=== PATIENT | female | born 1955 | race Caucasian/White ===

== ENCOUNTER 2023-10-08 07:46 | Outpatient (OUT) | payer MEDICARE, MEDICAID, SELFPAY ==
--- NOTE | 2023-10-08 07:57 | MM_ITS ---
Patient Name: ROMIE GREEN MR#: [id number] : 1955 Exam Date: 10/08/2023 Ordering Doctor: DR. SCOTTY BEAVERS M.D. RADIOLOGY REPORT PROCEDURE: MM TOMOSYNTHESIS SCREENING BI COMPARISON: MG MAMM SCREEN 3D CASIE CAD, 09/13/2021. MG MAMM SCREEN 3D CASIE CAD, 09/17/2022. INDICATIONS: Screening Calculator Name NCI Breast Cancer Risk Assessment Tool 5 Year Breast Cancer Risk 1.20% Lifetime Breast Cancer Risk 3.70% Personal Breast Cancer No Personal Ovarian Cancer No Treatments None Family Cancers Brother with esophageal cancer at age 68. LOCATION: [facility] BREAST COMPOSITION: Scattered areas fibroglandular density. FINDINGS: DIAGNOSTIC CATEGORY 2--BENIGN FINDING. NO CHANGE FROM COMPARISON. Scattered benign-appearing nodules are present. Scattered benign-appearing calcifications are present. Scattered benign-appearing lymph nodes are present. RIGHT BREAST: No significant suspicious finding. Focal asymmetry 3 o'clock, mid breast, stable LEFT BREAST: No significant suspicious finding. RECOMMENDATIONS: ROUTINE MAMMOGRAM AND CLINICAL EVALUATION IN 12 MONTHS. PLEASE NOTE: A NORMAL MAMMOGRAM DOES NOT EXCLUDE THE POSSIBILITY OF BREAST CANCER. A CLINICALLY SUSPICIOUS PALPABLE LUMP SHOULD BE BIOPSIED. Dictated by: Jasson Smith MD on 10/08/2023 at 12:02 Approved by: Jasson Smith MD on 10/08/2023 at 12:10
== END 2023-10-08 07:47 | disposition home or self-care (01) ==
PROVIDERS: PCP Family Medicine; Visit Provider Family Medicine
DX: Z12.31 Encounter for screening mammogram for malignant neoplasm of breast (principal); Z80.0 Family history of malignant neoplasm of digestive organs
CPT/HCPCS: 77063; 77067

== ENCOUNTER 2023-11-14 10:00 | Outpatient (OUT) | payer MEDICARE, MEDICAID, SELFPAY ==
--- NOTE | 2023-11-14 10:06 | US_ITS ---
[address] [address] Patient Name: ROMIE GREEN MRN: [id number] date: 1955 Sex: F Assigned Patient Location: US Current Patient Location: US Accession/Order Number: [id number] Exam Date: 11/14/2023 10:07 Report Date: 11/14/2023 10:35 At the request of: MANISH MASON Procedure: US venous doppler LE LT EXAM: US venous doppler LE LT HISTORY: acute deep vein thrombosis of distal vein I82.4Z2 COMPARISON: None. TECHNIQUE: Grayscale, color and Doppler FINDINGS: Region: Left leg Thrombus: None Flow: Normal Augmentation: Normal compressibility: Normal US/US venous doppler LE LT IMPRESSION: No deep or superficial vein thrombus in the left leg Electronically authenticated by: MICHAEL BOOKER Date: 11/14/2023 10:35
== END 2023-11-14 10:01 | disposition home or self-care (01) ==
LOC: US 10:00
PROVIDERS: PCP Family Medicine
DX: I82.4Z2 Acute embolism and thrombosis of unspecified deep veins of left distal lower extremity (principal)
CPT/HCPCS: 93971

== ENCOUNTER 2024-04-14 10:22 | Observation (INO) | payer MEDICARE, MEDICAID, SELFPAY ==
[2024-04-14] VITALS (28 sets, daily range): BP systolic 105–153; BP diastolic 54–82; PULSE 68–88; TEMP 36.7–36.9; O2SAT 95–99; BMI 29.2; BMI 28.6
--- NOTE | 2024-04-14 10:45 | ECG_ITS ---
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
--- NOTE | 2024-04-14 10:45 | CT_ITS ---
[address] [address] Patient Name: ROMIE GREEN MRN: [id number] date: 1955 Sex: F Assigned Patient Location: ER Current Patient Location: .[facility] Accession/Order Number: [id number] Exam Date: 04/14/2024 11:13 Report Date: 04/14/2024 11:34 At the request of: LEANDRA JARRETT Procedure: CT head/brain wo con CT head without contrast CLINICAL: Dizziness TECHNIQUE: Computed tomography of the head was performed from the skull base to the vertex without intravenous contrast. Coronal 2-D reformations were obtained. Dose reduction: mA and/or kV are adjusted by automated exposure control software based on patient size. FINDINGS: Comparison: CT 10/27/2012. There is moderate global atrophy. Mild periventricular and subcortical matter hypodensities are noted. No findings for acute large vessel territorial ischemia. No acute intracranial hemorrhage, mass effect, midline shift. The nodules are symmetrical, without superimposed hydrocephalus. Basilar cisterns are clear. There is no focal skull abnormality. Hyperostosis frontalis interna noted. There are several bony exostoses along the anterior margin of the outer table left frontal bone. Small calcific lesions along the falx. There is moderate mucosal thickening of the right maxillary sinus. The remainder the visualized paranasal sinuses and mastoid air cells clear. There is intracranial atherosclerosis. Prior bilateral lens surgery. Patient is edentulous. CT/CT head/brain wo con IMPRESSION: 1. Age-appropriate cerebral atrophy with chronic small vessel ischemic white matter disease, without acute intracranial event. No hydrocephalus or mass effect. 2. Chronic right maxillary sinusitis. The remainder the visualized paranasal sinuses and mastoid air cells clear. If the patient has persistent or acute neurologic symptoms, or if there is clinical suspicion for acute intracranial event, recommend brain MRI for further evaluation if there are no contraindications. Electronically authenticated by: GLADYS WADDELL Date: 04/14/2024 11:34
--- NOTE | 2024-04-14 10:45 | XR_ITS ---
The [address] [address] Patient Name: ROMIE GREEN MRN: [id number] date: 1955 Sex: F Assigned Patient Location: ER Current Patient Location: ER Accession/Order Number: [id number] Exam Date: 04/14/2024 11:13 Report Date: 04/14/2024 11:26 At the request of: LEANDRA JARRETT Procedure: XR chest 1V EXAM: CHEST 1 VIEW HISTORY: Dizziness TECHNIQUE: Chest, one view. COMPARISON: 07/09/2023. FINDINGS: Lungs are clear. No focal consolidation, pleural effusion, or pneumothorax. Pulmonary vasculature is within normal limits. Median sternotomy changes with upper-normal to borderline enlarged heart size. XR/XR chest 1V IMPRESSION: 1. No acute cardiopulmonary disease. Electronically authenticated by: GLADYS WADDELL Date: 04/14/2024 11:26
--- NOTE | 2024-04-14 10:46 | ED.DIZZY1 ---
HPI - Dizziness General Chief Complaint: Dizziness Stated Complaint: DIZZINESS Time Seen by Provider: 04/14/24 10:25 Source: patient Mode of arrival: walk-in Limitations: no limitations History of Present Illness HPI Narrative: 69-year-old female presents to the emergency department for dizziness. She has been having this intermittently since early March, about the time she received her COVID and influenza shots. She has had no fever vomiting or headache. She has been to another emergency department twice and they gave her meclizine. She states that they did not run any test on her at all. She states they did not do an EKG or blood test or a CAT scan. She states that when she gets dizzy she feels like the room is spinning and she is never had that issue before. No fever or vomiting Review of Systems ROS Narrative A ten point review of systems is negative except as noted above. [facility] Medical History (Updated 04/14/24 @ 12:15 by Chavo Donaldson MD) Coronary artery disease involving coronary bypass graft ?I25.810 - Atherosclerosis of coronary artery bypass graft(s) without angina pectoris (ICD-10) Pulmonary embolism ?I26.99 - Other pulmonary embolism without acute cor pulmonale (ICD-10) Myocardial infarct ?I21.9 - Acute myocardial infarction, unspecified (ICD-10) IBS (irritable bowel syndrome) ?K58.9 - Irritable bowel syndrome, unspecified (ICD-10) Hyperlipemia ?E78.5 - Hyperlipidemia, unspecified (ICD-10) Hypertension ?I10 - Essential (primary) hypertension (ICD-10) Hepatic steatosis ?K76.0 - Fatty (change of) liver, not elsewhere classified (ICD-10) Glaucoma ?H40.9 - Unspecified glaucoma (ICD-10) GERD (gastroesophageal reflux disease) ?K21.9 - Gastro-esophageal reflux disease without esophagitis (ICD-10) Diabetes mellitus ?E11.9 - Type 2 diabetes mellitus without complications (ICD-10) Depression ?F32.A - Depression, unspecified (ICD-10) CVA (cerebral vascular accident) ?I63.9 - Cerebral infarction, unspecified (ICD-10) COPD (chronic obstructive pulmonary disease) ?J44.9 - Chronic obstructive pulmonary disease, unspecified (ICD-10) CAD (coronary artery disease) ?I25.10 - Atherosclerotic heart disease of [place] coronary artery without angina pectoris (ICD-10) Atelectasis ?J98.11 - Atelectasis (ICD-10) Anxiety ?F41.9 - Anxiety disorder, unspecified (ICD-10) Anemia ?D64.9 - Anemia, unspecified (ICD-10) Surgical History (Updated 04/14/24 @ 12:11 by Shyanne Junior RN) H/O: hysterectomy ?Z90.710 - Acquired absence of both cervix and uterus (ICD-10) Hx of cholecystectomy ?Z90.49 - Acquired absence of other specified parts of digestive tract (ICD-10) Social History Little interest or pleasure in doing things: not at all Feeling down, depressed, or hopeless: not at all Exam Narrative Exam Narrative: Nurses note and vital signs reviewed and patient is not hypoxic. General: The patient appears well and in no apparent distress. Patient is resting comfortably on cart. Skin: Warm, dry, no pallor noted. There is no rash noted. Head: Normocephalic, atraumatic Eye: Normal conjunctiva, no drainage Ears, Nose, Mouth, and Throat: oral mucosa is moist. Nares patent. Cardiovascular: Regular Rate and Rhythm Respiratory: Patient is in no distress, no accessory muscle use, lungs are clear to auscultation, no wheezing, rales or rhonchi Back: non-tender GI: Soft and nontender Musculoskeletal: The patient has no evidence of calf tenderness, no pitting edema, symmetrical pulses noted bilaterally Neurological: Awake alert and oriented. Upper and lower extremity strength intact. Psychiatric: Cooperative Constitutional Vital Signs, click to edit/add: Last Vital Signs Temp 98.4 F 04/14/24 12:07 Pulse 72 04/14/24 11:40 Resp 13 04/14/24 11:40 BP 105/64 04/14/24 11:30 Pulse Ox 98 04/14/24 11:03 Course Vital Signs Vital signs: Vital Signs Pulse Rate 77 04/14/24 10:31 Respiratory Rate 18 04/14/24 10:31 Blood Pressure 127/79 04/14/24 10:31 Pulse Oximetry 99 04/14/24 10:31 Temperature 98.4 F 04/14/24 12:07 Pulse Rate 72 04/14/24 11:40 Respiratory Rate 13 04/14/24 11:40 Blood Pressure 105/64 04/14/24 11:30 Pulse Oximetry 98 04/14/24 11:03 MDM - Dizziness MDM Narrative Medical decision making narrative: The patient is found to be anemic with a hemoglobin of 7.8. In November she had a hemoglobin of 11.9. Her renal function is poor also with a creatinine of 2.6. She had a creatinine of 1.05 in November. These issues are likely the cause of her dizziness and she is being admitted for further workup and this was discussed thoroughly with the patient and her sister. Differential Diagnosis Differential diagnosis: Likely benign paroxysmal positional vertigo, orthostatic hypotension and other (Anemia, renal failure) Lab Data Attestation: I reviewed the patient's lab results. Labs: Lab Results 04/14/24 04/14/24 04/14/24 Range/Units 10:37 10:49 11:44 WBC 9.8 (4.0-11.0) 10^3/uL RBC 2.59 L (4.20-5.40) 10^6/uL Hgb 7.8 L (12.0-16.0) g/dL Hct 24.4 L (36.0-48.0) % MCV 94.2 (81.0-99.0) fL MCH 30.1 (26.7-34.0) pg MCHC 32.0 (29.9-35.2) g/dL RDW 13.3 (11.0-15.0) % Plt Count 153 (150-450) 10^3/uL MPV 10.9 (9.5-13.5) fL Neut % (Auto) 70.5 (43.0-75.0) % Lymph % (Auto) 12.8 L (20.5-60.0) % [place] % (Auto) 6.3 (1.7-12.0) % Eos % (Auto) 9.4 H (0.9-7.0) % Baso % (Auto) 0.5 (0.2-2.0) % Neut # (Auto) 6.9 H (1.4-6.5) 10^3/uL Lymph # (Auto) 1.3 (1.2-3.8) 10^3/uL [place] # (Auto) 0.6 (0.3-0.8) 10^3/uL Eos # (Auto) 0.9 H (0.0-0.7) 10^3/uL Baso # (Auto) 0.1 (0.0-0.1) 10^3/uL Abs Immat Gran (auto) 0.05 H (0.00-0.03) 10^3/uL Imm/Tot Granulo (auto) 0.5 (0.0-0.5) % Sodium 135 L (136-145) mmol/L Potassium 5.0 (3.5-5.1) mmol/L Chloride 100 (98-107) mmol/L Carbon Dioxide 25.8 (21.0-32.0) mmol/L Anion Gap 14.2 BUN 35.0 H (7.0-18.0) mg/dL Creatinine 2.60 H (0.55-1.02) mg/dL Est GFR ( Amer) 22 L (>=60) Est GFR (Non-Af Amer) 18 L (>=60) BUN/Creatinine Ratio 13.5 Glucose 126 H (74-106) mg/dL Calcium 9.8 (8.5-10.1) mg/dL Stool Occult Blood Negative POC Glucose 136 H (74-106) mg/dL Imaging Data CT scan - head: Radiologist's impression: ITS Impressions Chest X-Ray 04/14/24 10:45 IMPRESSION: 1. No acute cardiopulmonary disease. Electronically authenticated by: GLADYS WADDELL Date: 04/14/2024 11:[address] 04/14/24 10:45 IMPRESSION: 1. Age-appropriate cerebral atrophy with chronic small vessel ischemic white matter disease, without acute intracranial event. No hydrocephalus or mass effect. 2. Chronic right maxillary sinusitis. The remainder the visualized paranasal sinuses and mastoid air cells clear. If the patient has persistent or acute neurologic symptoms, or if there is clinical suspicion for acute intracranial event, recommend brain MRI for further evaluation if there are no contraindications. Electronically authenticated by: CARROLLC-sam NADIRA Date: 04/14/2024 11:34 ECG Data Attestation: I personally reviewed and interpreted this ECG as follows: (EKG on my interpretation shows normal sinus rhythm without acute change.) Discharge Plan Discharge Chief Complaint: Dizziness Clinical Impression: Anemia, Renal failure Patient Disposition: Admitted As Inpatient Time of Disposition Decision: 12:14
[2024-04-14 10:49] LABS: Glucometer 136 mg/dL (74-106)
[2024-04-14 11:04] LABS: Anion Gap 14.2; BUN Creatinine Ratio 13.5; Calcium 9.8 mg/dL (8.5-10.1); Carbon Dioxide 25.8 mmol/L (21.0-32.0); Chloride 100 mmol/L (98-107); Estimated GFR (African America 22 (>=60); Estimated GFR (Non-African Ame 18 (>=60); Glucose 126 mg/dL (74-106); Sodium 135 mmol/L (136-145)
[2024-04-14 11:09] LABS: Basophils Absolute Auto 0.1 10^3/uL (0.0-0.1); Basophils Percent Auto 0.5 % (0.2-2.0); Eosinophils Absolute Auto 0.9 10^3/uL (0.0-0.7); Eosinophils Percent Auto 9.4 % (0.9-7.0); Hematocrit 24.4 % (36.0-48.0); Hemoglobin 7.8 g/dL (12.0-16.0); Immature Granulocytes Abs Auto 0.05 10^3/uL (0.00-0.03); Immature Granulocytes Pct Auto 0.5 % (0.0-0.5); Lymphocytes Absolute Auto 1.3 10^3/uL (1.2-3.8); Lymphocytes Percent Auto 12.8 % (20.5-60.0); Mean Corpuscular Hemoglobin 30.1 pg (26.7-34.0); Mean Corpuscular Volume 94.2 fL (81.0-99.0); Mean Platelet Volume 10.9 fL (9.5-13.5); Monocytes Absolute Auto 0.6 10^3/uL (0.3-0.8); Monocytes Percent Auto 6.3 % (1.7-12.0); Neutrophils Absolute Auto 6.9 10^3/uL (1.4-6.5); Neutrophils Percent Auto 70.5 % (43.0-75.0); Platelet Count 153 10^3/uL (150-450); Red Blood Count 2.59 10^6/uL (4.20-5.40); Red Cell Distribution Width 13.3 % (11.0-15.0); White Blood Count 9.8 10^3/uL (4.0-11.0)
[2024-04-14 11:51] LABS: Internal Control Within Normal Limits; Occult Blood Negative
[2024-04-14 12:38] LABS: Bilirubin Urine NEGATIVE (NEGATIVE); Blood Urine NEGATIVE (NEGATIVE); Clarity Urine CLEAR (CLEAR); Color Urine YELLOW (YELLOW); Glucose Urine UA NEGATIVE (NEGATIVE); Ketones Urine NEGATIVE (NEGATIVE); Leukocyte Esterase Urine SMALL (NEGATIVE); Nitrite Urine NEGATIVE (NEGATIVE); Protein Urine NEGATIVE (NEG/TRACE); Urobilinogen Urine 0.2 EU/dL (0.2-1.0); pH Urine 7.5 (5.0-9.0)
[2024-04-14 12:52] LABS: Bacteria Urine TRACE #/HPF (NONE SEEN); RBC Urine 0-2 #/HPF (0-2)
[2024-04-14 12:53] LABS: Cast Seen? SEEN #/LPF (NONE SEEN); Crystals Seen? None Seen #/HPF (None Seen); Hyaline Casts Urine RARE; Mucus Urine TRACE (NONE SEEN); Squamous Epithelial Cell Urine MODERATE #/LPF (NONE/RARE); Transitional Epi Cells Urine RARE #/LPF (NONE SEEN)
--- OUTSIDE RECORDS SUMMARY | 2024-04-14 13:22 | XMS_ITS | CCD ---
Author Organization [facility] Care Team Providers Care Emergency Management System Director Name Role Phone Giovanna Morrow Unavailable Klaus Hebert Unavailable [facility] Admitting Unava ilable [facility] Attending Unava ilable MISC, DR GALEANO Primary Care Unavailable ALLGOOD, DR MICHAEL Hamm Consulting Unavailable SCOTTY KUMAR Unavailable MISC, DR GALEANO Admitting Unavailable MISC, DR GALEANO Attending Unavailable MISC, DR GALEANO Primary Care Unavailable MISC, DR GALEANO Consulting Unavailable Paolo Busch Consulting Unavailable Fam August Unavailable Scotty Kumar MD Primary Care Provider NON STAFF Primary Care Provider UnavailHIPOLITO Reyna Attending Provider NON STAFF Primary Care Unavailable Giovanna Morrow Attending Unavailable Giovanna Morrow Admitting Unavailable HAMMAD MARTINS JR Attending Unavailable SCOTTY KUMAR Referring Unavailable SCOTTY KUMAR Primary Care Unavailable MANISH MAOSN Attending Unavailable MANISH MASON Attending Unavailable MANISH MASON Attending Unavailable MANISH MASON Attending Unavailable MANISH MASON Attending Unavailable NON STAFF Primary Care Provider UnavailHIPOLITO Cespedes Attending Provider AMARILYS FELIZ Referring Unavailable SCOTTY KUMAR Primary Care Unavailable SCOTTY KUMAR Referring Unavailable SCOTTY KUMAR Primary Care Unavailable HAMMAD MARTINS JR Attending Unavailable HAMMAD MARTINS JR Referring Unavailable SCOTTY KUMAR Primary Care Unavailable YAIMA LIN Referring Unavailab YAIMA Mckeon Primary Care Unavailab le YAIMA LIN Referring Unavailab le DEANNAERYAIMA GODOY Primary Care Unavailab le MYERHOLTZ, YAIMA K Primary Care Unavailab AIRAM Gardner Attending Unavailable JR GODFREY Attending Unavailable SCOTTY KUMAR Referring Unavailable SCOTTY KUMAR Primary Care Unavailable YAIMA LIN Primary Care Unavailab MICHAEL Magana Attending Unavailable Allergies Allergy Classification Reported Allergen(s) Allergy Type Date of Onset Reaction(s) Facility (20 sources) Acetaminophen / Codeine Drug Allergy Unknown [facility] Other (20 sources) Acetaminophen / Propoxyphene Drug Allergy Unknown [facility] Other (20 sources) Baclofen; Translations: [baclofen] Drug Allergy 08-31-19 22 Dizziness [facility] (20 sources) benzonatate Drug Allergy 08-12-19 24 Unknown, Unknown Reaction [facility] (20 sources) Clindamycin; Translations: [CLINDAMYCIN] Drug Allergy 08-31-19 22 Hives [facility] Other (20 sources) clopidogrel; Translations: [CLOPIDOGREL] Drug Allergy 08-31-19 22 Dizziness [facility] Other (20 sources) Erythromycin Drug Allergy 04-22-20 14 Nausea And Vomiting [facility] Other (20 sources) Ibuprofen Drug Allergy Unknown [facility] Other (20 sources) Omeprazole; Translations: [OMEPRAZOLE] Drug Allergy 04-22-20 14 Nausea [facility] Other (20 sources) Penicillin V Drug Allergy Unknown [facility] Other (18 sources) Penicillin Drug Allergy Unknown [facility] Other (8 sources) Albuterol; Translations: [ALBUTEROL] Drug Allergy 09-19-19 17 [facility] Codeine; Translations: [CODEINE] Drug Allergy 04-22-20 14 Diarrhea, Nausea And Vomiting [facility] (10 sources) Ibuprofen; Translations: [IBUPROFEN] Drug Allergy 04-22-20 14 Nausea And Vomiting [facility] (10 sources) Penicillins; Translations: [PENICILLINS] Propensity to adverse reactions to drug 04-22-20 14 [facility] (10 sources) Propoxyphene; Translations: [PROPOXYPHENE] Drug Allergy 08-31-19 22 Nausea [facility] (8 sources) Simvastatin; Translations: [SIMVASTATIN] Drug Allergy 04-22-20 14 [facility] (3 sources) Acetaminophen; Translations: [acetaminophen] Drug Allergy 08-12-19 [facility] (5 sources) erythromycin base; Translations: [erythromycin base] Allergy to substance 04-22-20 Unknown Reaction [facility] (1 source) benzonatate Drug Allergy 08-12-19 [facility] (1 source) Clindamycin Drug Allergy 08-12-19 [facility] (1 source) clopidogrel Drug Allergy 08-12-19 [facility] (1 source) Codeine Drug Allergy 08-12-19 [facility] (1 source) Ibuprofen Drug Allergy 08-12-19 [facility] (1 source) Omeprazole Drug Allergy 08-12-19 [facility] (1 source) Penicillins Drug allergy (disorder) 08-12-19 [facility] (1 source) Propoxyphene Drug Allergy 08-12-19 [facility] (1 source) Sulfamethoxazole / Trimethoprim; Translations: [SULFAMETHOXAZOLE-T RIMETHOPRIM] Drug Allergy 04-09-20 [facility] Medications Current Medications Medication Drug Class(es) Dates Sig (Normalized) Sig (Original) acetaminophen 500 mg oral tablet (20 sources) take 1 tablet by mouth every six hours as needed for pain acetaminophen (TYLENOL EXTRA STRENGTH) 500 mg tablet Take 1 tablet (500 mg total) by mouth every 6 (six) hours as needed for pain. 0 Active take 2 capsules by m outh every six hours Acetaminophen 500 MG 2 capsule as needed Orally every 6 hrs Active take 1 capsule by mouth every si x hours Acetaminophen 500 MG 1 capsule as needed Orally every 6 hrs Active acetaminophen 325 mg / HYDROcodone bitartrate 5 mg oral tablet (1 source) Opioid Agonist Start: 11-18-2023 take 1 tablet by mouth every eight hours Hydrocodone-Acetaminophen Active 1 TAB PO Every 8 hours November 18, 2023 12:00am [id number] 200 actuat albuterol 0.09 mg/actuat metered dose inhaler (20 sources) beta2-Adrene rgic Agonist Start: 11-18-2023 Albuterol Sulfate Active INHALATION November 18, 2023 12:00am take 0.63 mg by inha lation every six hours as needed for wheezing albuterol (ACCUNEB) 0.63 mg/3 mL nebuliz er solution Inhale 3 mL (0.63 mg total) by nebulization every 6 (six) hours as needed for wheezing. 0 Active take 1 puff(s) by in halation every four hours as needed Ventolin HFA 108 (90 Base) MCG/ACT 1 puf f as needed Inhalation every 4 hrs Not-Taking/PRN aspirin 81 mg delayed release oral tablet (20 sources) Platelet Aggregation Inhibitor, Nonsteroidal Anti-inflammatory Drug Start: 11-18-2023 take 81 mg by mouth once daily Aspirin Active 81 MG PO Daily November 18, 2023 12:00am Start: 08-29-2023 End: 08-29-2023 take 1 tablet by mouth in the morning aspirin 81 mg Take 1 tablet (81 mg total) by mouth in the morning. 90 tablet 3 08/29/2023 Active Aspirin 81 MG as directed Orally Active biotin 5 mg oral capsule (20 sources) take 1 capsule by mo uth in the morning biotin (BIOTIN) 5 mg capsule Take 1 capsule (5 mg total) by mouth in the morning. 0 Active take 1 tablet by charito th every twenty-four hours Biotin 1000 MCG 1 tablet Orally Once a day Active take 1 capsule by mouth once anika ly take 1 capsule by mouth once anika ly Biotin 5000 5 MG 1 capsule Orally Once a day Active blood sugar diagnostic (One Touch Test) (1 source) Start: 10-03-2023 blood sugar diagnostic (One Touch Test) Active .Route October 03, 2023 12:00am calcium polycarbophil 625 mg oral tablet (3 sources) Fiber 625 MG 2 t ablet as needed Orally every 3 days Active carvedilol 25 mg oral tablet (20 sources) alpha-Adrener gic Danny, beta-Adrenerg ic Danny Start: 08-21-2022 End: 08-29-2023 take 1 tablet by mouth in the morning, then take 1 tablet by mouth at mealtime carvediloL (COREG) 25 mg tablet Take 1 tablet (25 mg total) by mouth in the morning and 1 tablet (25 mg total) in the evening. Take with meals. 180 tablet 3 08/29/2023 Active Cholecalciferol (20 sources) Vitamin D Start: 11-22-2021 take 1 capsule by mouth every week Cholecalciferol 1.25 MG (40786 UT) 1 capsule Orally WEEKLY for 56 days November, Active take 1 capsule by mouth in the m orning cholecalciferol (VITAMIN D3) 50,000 units capsule Take 1 capsule (50,000 Units total) by mouth in the morning. 0 Active take 1 tablet by charito th every twenty-four hours Vitamin D 50 MCG (2000 UT) 1 tablet Oral ly Once a day Active take 1 capsule by mo ut every week as needed Cholecalciferol 1.25 MG (04494 UT) 1 cap blanco Orally WEEKLY for 56 days Not-Taking/PRN take 1 capsule by mouth every we ek Cholecalciferol 1.25 MG (03372 UT) 1 capsule Orally WEEKLY for 56 days Not-Taking take 2 tablets by mo uth every twenty-four hours Vitamin D 50 MCG (2000 UT) 2 tablet Oral ly Once a day Active take 1 capsule by mouth every we ek take 1 capsule by mouth every we ek Cholecalciferol 1.25 MG (08951 UT) 1 capsule Orally WEEKLY for 56 days Active ciprofloxacin 500 mg oral tablet (13 sources) Quinolone Antimicrobial Colon Cleanse - (3 sources) Colon Cleanse - as directed Orally Active dicyclomine hydrochloride 20 mg oral tablet (8 sources) Anticholinergic Start: 09-10-19 24 End: 10-09-19 24 take 20 mg by mouth three times daily Dicyclomine Active 20 MG PO Three times daily 270 90 October 09, 2023 10:32am Patient needs a office visit for further refills Start: 04-29-2023 take 1 tablet by charito th every eight hours Dicyclomine HCl 20 MG 1 tablet Orally Three times a day for 30 days Apr, Not-Taking/PRN dulaglutide (20 sources) GLP-1 Receptor Agonist Start: 12-23-2023 Dulaglu tide Active 3 MG SUBCUT every week December 23, 2023 4:53pm Ok to dispense 4.5 mg when 3.0 mg unavailable Start: 07-27-2022 Trulicity 3 MG /0.5ML 3 mg Subcutaneous weekly for 90 days ANTHEM BC/BS WILL ALLOW 2 PER 28 DAYS Jul, Not-Taking/PRN Start: 07-27-2022 Trulicity 3 MG /0.5ML 3 mg Subcutaneous weekly for 90 days ANTHEM BC/BS WILL ALLOW 2 PER 28 DAYS Jul, Active Start: 07-27-2022 inject 3 mg by subcu taneous injection every week Trulicity 3 MG/0.5ML 3 mg Subcutaneous weekly for 90 days Jul, Active Start: 05-24-2021 TRULICITY 1.5 mg/0.5 mL pen injector once a week. 0 06/15/2021 Active Start: 04-10-2021 Trulicity 0.75 MG/0.5ML as directed Subcutaneous weekly for 30 days Mar, Active inject 4.5 mg by sub cutaneous injection every week Trulicity 4.5 MG/0.5ML 4.5 mg Subcutaneous weekly for 90 days patient start after finishing 3.0 mg dosing Active Trulicity 3 MG/0 .5ML as directed Subcutaneous weekly for 90 days Active Estradiol (8 sources) Estrogen Start: 11-18-2023 Estradiol Acti ve 1 APPLICATOR VAGINAL 3 Times a week November 18, 2023 12:00am Start: 05-11-2022 End: 07-11-2023 estradioL (ESTRACE) 0.01 % ( 0.1 mg/gram) vaginal cream Apply nightly for 3 weeks, then 3 times per week. 127.5 g 3 07/11/2023 Active ferrous sulfate 325 mg oral tablet (20 sources) take 1 tablet by charito th once daily at breakfast ferrous sulfate 325 (65 FE) mg tablet Take 1 tablet (325 mg total) by mouth daily with breakfast. 0 Active take 1 tablet by mouth once barrera y Ferrous Sulfate 325 (65 Fe) MG 1 tablet Orally Once a day Active Flash Glucose Sensor (Freest yle Terrance 2 Sensor) kit (2 sources) Start: 11-18-2023 Flash Glucose Sensor (Freestyle Terrance 2 Sensor) kit Active 0 KIT .MEDSUPPLY November 18, 2023 9:22am As directed Change every 14 Days Start: 10-03-2023 End: 11-18-2023 Flash Glucose Sensor (Freest yle Terrance 2 Sensor) kit Discontinued 0 KIT .MEDSUPPLY October 03, 2023 12:00am November 18, 2023 9:22am As directed Change every 14 Days fluticasone propionate 0.05 mg/actuat metered dose nasal spray (6 sources) Corticosteroid take 1 spray(s) nasal route in the morning fluticasone propionate (FLONASE) 50 mcg/actuation nasal spray Administer 1 spray into each nostril in the morning. 0 Active 14 actuat fluticasone furoate 0.1 mg/actuat / vilanterol 0.025 mg/actuat dry powder inhaler (20 sources) Corticosteroid, beta2-Adrenergic Agonist take 1 puff(s) by inhalation once daily as needed fluticasone furoate-vilanteroL (BREO ELLIPTA) 100-25 mcg/dose blister with device Inhale 1 puff nightly as needed. 0 Active take 1 puff(s) by inhalation onc e daily take 1 puff(s) by inhalation onc e daily BREO ELLIPTA 100 mcg/25 mcg 1 puff Inhalation daily Active FreeStyle Terrance 2 [place] - (20 sources) Start: 05-24-2021 FreeStyle Libr e 2 [place] - as directed -- 5 x day for 365 days May, Active FreeStyle Terrance 2 [place] - TEST 5 TIMES DAILY DIRECTED for 30 Active FreeStyle Terrance 2 [place] - as directed -- 5 x day for 365 days Active FreeStyle Terrance 2 Sensor - (20 sources) Start: 05-24-2021 FreeStyle Libr e 2 Sensor - as directed in vitro q 14 days for 84 days May, Active FreeStyle Terrance 2 Sensor - as directed in vitro q 14 days for 84 days Dx E11.65 Active FreeStyle Terrance 2 Sensor - as directed in vitro q 14 days for 84 days Active gabapentin 300 mg oral capsule (4 sources) Anti-epileptic Agent Start: 11-18-2023 take 300 mg by mouth once daily Gabapentin Active 300 MG PO Daily November 18, 2023 12:00am take 1 capsule by [facility] every twenty-four hours Gabapentin 300 MG 1 capsule Orally Once a day Active hydroCHLOROthiazide 12.5 mg oral tablet (20 sources) Thiazide Diuretic Start: 11-18-2023 take 12.5 mg by mouth once daily Hydrochlorothiazide Active 12.5 MG PO Daily November 18, 2023 12:00am Start: 08-29-2023 take 1 tablet by chartio th once daily hydroCHLOROthiazide (HYDRODIURIL) 12.5 mg tablet Take 1 tablet (12.5 mg total) by mouth daily. 90 tablet 3 08/29/2023 Active Start: 07-18-2022 End: 08-29-2023 take 0.5 tablet by mouth once daily hydroCHLOROthiazide (HYDRODIURIL) 25 mg tablet Take 0.5 tablets (12.5 mg total) by mouth daily. 45 tablet 3 07/18/2022 08/29/2023 Discontinued (Reorder) take 1 capsule by mo uth every twenty-four hours hydroCHLOROthiazide 12.5 MG 1 capsule in the morning Orally Once a day Active 3 ml insulin glargine 100 unt/ml pen injector (20 sources) Insulin Analog Start: 11-18-2023 Insulin Glargi ne (Lantus Solostar U-100 Insulin) 100 unit/mL (3 mL) insulin pen Active 10 UNIT SUBCUT Every evening 9 November 18, 2023 9:45am Titrate to 30 u per day, has written instructions Start: 11-18-2023 End: 11-18-2023 inject 10 [IU] by subcutaneous injection once daily in the evening Insulin Glargine (Lantus Solostar U-100 Insulin) 100 unit/mL (3 mL) insulin pen Discontinued 10 UNIT SUBCUT Every evening November 18, 2023 8:49am November 18, 2023 9:49am Start: 10-03-2023 End: 11-18-2023 Insulin Glargine (Lantus Dianelys ostar U-100 Insulin) 100 unit/mL (3 mL) insulin pen Discontinued 11 UNIT SUBCUT Every evening October 03, 2023 12:00am November 18, 2023 8:57am Start: 07-05-2021 LANTUS SOLOSTA R U-100 INSULIN 100 unit/mL (3 mL) insulin pen 16 Units in the morning. 0 07/05/2021 Active Lantus SoloStar 100 UNIT/ML 11 u Subcutaneous daily for 90 days Titrate. Expect up to 30 u per day. Encouraged her to decrease Lantus to 11 units when she starts Trulicity 4.5 mg weekly Active Lantus SoloStar 100 UNIT/ML 20 u Subcutaneous daily for 90 days Titrate. Expect up to 30 u per day Active Lantus SoloStar 100 UNIT/ML as directed Subcutaneous Titrate up 10% weekly if supper sugar > 130 3 of 7 days, expect up to 30 u daily Active 3 ml insulin lispro 100 unt/ml pen injector (2 sources) Insulin Analog Start: 05-24-2021 HumaLOG KwikPe n 100 UNIT/ML Scale 1:50 AC TID Subcutaneous AC TID for 30 days Expect up to 20 u per day May, Active 24 hr isosorbide mononitrate 30 mg extended release oral tablet (20 sources) Nitrate Vasodilator Start: 11-18-2023 take 30 mg by mouth once daily Isosorbide Mononitrate Active 30 MG PO Daily November 18, 2023 12:00am Start: 05-22-2023 End: 08-29-2023 take 1 tablet by mouth once daily isosorbide mononitrate (IMDUR) 30 mg 24 hr tablet Take 1 tablet (30 mg total) by mouth daily. 90 tablet 3 08/29/2023 Active latanoprost 0.05 mg/ml ophthalmic solution (20 sources) Prostaglandin Analog Start: 11-18-[address] Active DROPS OPHTHALMIC November 18, 2023 12:00am take 1 drop(s) into the eye(s) once daily latanoprost (XALATAN) 0.005 % ophthalmic solution Administer 1 drop to both eyes nightly. 0 Active take 1 drop(s) into the eye(s) once daily in the evening Latanoprost 0.005 % 1 drop into affected eye in the evening Ophthalmic Once a day Active take 1 drop(s) into the eye(s) once daily in the evening Latanoprost 0.005 % 1 drop into affected eye in the evening Ophthalmic Once a day Active take 1 drop(s) into the eye(s) once daily in the evening Latanoprost 0.005 % 1 drop into affected eye in the evening Ophthalmic Once a day Active loratadine 10 mg oral tablet (20 sources) Start: 11-18-2023 take 10 mg by mouth once daily Loratadine Active 10 MG PO Daily November 18, 2023 12:00am take 1 tablet by mouth in the mo rning loratadine (CLARITIN) 10 mg tablet Take 1 tablet (10 mg total) by mouth in the morning. 0 Active losartan potassium 100 mg oral tablet (20 sources) Angiotensin 2 Receptor Danny Start: 11-18-2023 take 100 mg by mouth once daily Losartan Active 100 MG PO Daily November 18, 2023 12:00am Start: 08-19-2020 End: 08-29-2023 take 1 tablet by mouth in the morning losartan (COZAAR) 100 mg tablet Take 1 tablet (100 mg total) by mouth in the morning. 90 tablet 3 08/29/2023 Active take 1 tablet by charito th every twelve hours Losartan Potassium 100 MG 1 tablet Orally BID Active take 1 tablet by charito th every twelve hours Losartan Potassium 50 MG 1 tablet Orally BID Active Magnesium (20 sources) take 1 tablet by mouth once barrera y take 1 tablet by mouth once barrera y Magnesium 400 MG 1 tablet with a meal Orally Once a day Active take 2 tablets by mouth once anika ly Magnesium 200 MG 2 tablets with a meal Orally Once a day Active magnesium oxide 400 mg oral tablet (7 sources) Start: 11-18-2023 take 400 mg by mouth once daily Magnesium Oxide Active 400 MG PO Daily November 18, 2023 12:00am take 1 tablet by mouth in the mo rning magnesium oxide (MAGOX) 400 mg tablet Take 1 tablet (400 mg total) by mouth in the morning. 0 Active meclizine hydrochloride 25 mg oral tablet (20 sources) Antiemetic Start: 08-31-2021 take 1 tablet by mouth three times daily as needed for dizziness meclizine (ANTIVERT) 25 mg tablet Take 1 tablet (25 mg total) by mouth 3 (three) times a day as needed for dizziness. 30 tablet 5 08/31/2021 Active Meclizine HCl Ac tive metFORMIN hydrochloride 1000 mg oral tablet (20 sources) Biguanide Start: 10-03-2023 End: 11-05-2023 take 1000 mg by mouth twice daily Metformin Active 1000 MG PO Twice daily 180 90 November 05, 2023 5:08pm take 1 tablet by charito th in the morning, then take 1 tablet by mouth at bedtime metFORMIN (GLUCOPHAGE) 1000 mg tablet Take 1 tablet (1,000 mg total) by mouth in the morning and 1 tablet (1,000 mg total) before bedtime. 0 Active Misc. Devices - (20 sources) Start: 06-14-2021 Start: 06-14-2021 Misc. Devices - as directed topical every 2 weeks for 90 days SKIN ABRAHAM for use to apply Libre2 CGM application Jun, Active Misc. Devices - as directed topical every 2 weeks for 90 days SKIN ABRAHAM for use to apply Libre2 CGM application Active nitroglycerin 0.4 mg sublingual tablet (6 sources) Nitrate Vasodilator Start: 12-31-2019 nitroglycerin (NITROSTAT) 0.4 MG SL tablet 1 under the tongue as needed for angina, may repeat q5mins for up three doses 25 tablet 3 12/31/2019 Active ondansetron 4 mg disintegrating oral tablet (20 sources) Serotonin-3 Receptor Antagonist Start: 08-17-2022 take 1 tablet by mouth every eight hours as needed for nausea ondansetron ODT (ZOFRAN ODT) 4 mg disintegrating tablet Dissolve 1 tablet (4 mg total) on tongue every 8 (eight) hours as needed for nausea for up to 10 doses. 10 tablet 0 08/17/2022 Active take 1 tablet by charito th every twenty-four hours Ondansetron 4 MG 1 tablet on the tongue and allow to dissolve Orally Once a day PRN Not-Taking/PRN One Touch Glucometer (11 sources) Start: 01-16-2023 One Touch Gluc ometer as directed sq 3 times daily for 365 days DX E11.65 or insurance preferred Jan, Active One Touch Glucom eter as directed sq 3 times daily for 365 days DX E11.65 or insurance preferred Active potassium citrate 15 meq extended release oral tablet (10 sources) Start: 05-10-2023 End: 05-04-2024 take 15 mEq by mouth once daily Potassium Citrate Active 15 MEQ PO Daily November 18, 2023 12:00am Potassium Citrat e Active pravastatin sodium 80 mg oral tablet (20 sources) HMG-CoA Reductase Inhibitor Start: 11-18-2023 take 80 mg by mouth once daily at bedtime Pravastatin Active 80 MG PO Daily at bedtime November 18, 2023 12:00am Start: 08-29-2023 End: 08-29-2023 take 1 tablet by mouth once daily pravastatin (PRAVACHOL) 80 mg tablet Take 1 tablet (80 mg total) by mouth nightly. 90 tablet 3 08/29/2023 Active take 1 tablet by charito th every twenty-four hours Pravastatin Sodium 80 MG 1 tablet Orally Once a day Active psyllium 3400 mg powder for oral suspension (6 sources) take 1 dose by mouth three times daily psyllium (METAMUCIL) powder Take 1 packet by mouth 3 (three) times a day. 0 Active rivaroxaban 20 mg oral tablet (20 sources) Factor Xa Inhibitor Start: 11-18-2023 take 1 tablet by mouth once daily Rivaroxaban (Xarelto) 20 mg tablet Active 20 MG PO Daily November 18, 2023 12:00am Start: 08-29-2022 End: 08-29-2023 take 1 tablet by mouth once daily in the morning XARELTO 20 mg tablet tablet TAKE ONE TABLET BY MOUTH EVERY MORNING 90 tablet 0 08/16/2023 08/29/2023 Discontinued (Reorder) vitamin B12 (20 sources) Vitamin B12 Start: 11-22-2021 take 1 tablet under the tongue once daily Cyanocobalamin 1000 MCG 1 tablet Sublingual Once a day for 90 day(s) November, Active take 1 tablet by mouth in the mo rning cyanocobalamin 1000 MCG tablet Take 1 tablet (1,000 mcg total) by mouth in the morning. 0 Active take 1 tablet under the tongue once daily take 1 tablet under the tongue once daily Cyanocobalamin 1000 MCG 1 tablet Subling ual Once a day for 90 day(s) Active Completed/Discontinued Medications Medication Drug Class(es) Dates Sig (Normalized) Sig (Original) betamethasone 0.5 mg/ml / clotrimazole 10 mg/ml topical cream (20 sources) Azole Antifungal, Corticosteroid Clotrimazole-Beta methasone 1-0.05 % 1 application Externally Twice a day Not-Taking/PRN calcium carbonate 1250 mg oral tablet (17 sources) take 1 tablet by mouth every twelve hours Calcium 500 MG 1 tablet with meals Orally Twice a day Not-Taking docusate sodium 100 mg oral capsule (20 sources) take 1 capsule by mouth every twenty-four hours Docusate Sodium 100 MG 1 capsule as needed Orally Once a day Not-Taking/PRN Dulaglutide (Trulicity) 3 mg/0.5 mL pen injector (2 sources) Start: 12-23-2023 End: 12-23-2023 Dulaglutide (Trulicity) 3 mg/0.5 mL pen injector Discontinued 3 MG SUBCUT every week 6 December 23, 2023 4:51pm December 23, 2023 4:53pm ok to dispense 4.5 mg if available Start: 11-18-2023 End: 12-23-2023 Dulaglutide (Trulicity) 3 mg /0.5 mL pen injector Discontinued 3 MG SUBCUT every week November 18, 2023 12:00am December 23, 2023 4:52pm Dulaglutide (Trulicity) 4.5 mg/0.5 mL pen injector (3 sources) Start: 11-18-2023 End: 12-23-2023 Dulaglutide (Trulicity) 4.5 mg/0.5 mL pen injector Discontinued 4.5 MG SUBCUT every week 6.5 90 November 18, 2023 9:48am December 23, 2023 4:54pm Ok to dispense 3.0 mg when 4.5 mg unavailable Start: 10-03-2023 End: 11-18-2023 Dulaglutide (Trulicity) 4.5 mg/0.5 mL pen injector Discontinued 4.5 MG SUBCUT every week 6.5 90 October 03, 2023 1:19pm November 18, 2023 9:49am Start: 10-03-2023 End: 10-03-2023 Dulaglutide (Trulicity) 4.5 mg/0.5 mL pen injector Discontinued 4.5 MG SUBCUT every week October 03, 2023 12:00am October 03, 2023 1:20pm fluconazole 150 mg oral tablet (20 sources) Azole Antifungal Fluconazole 150 MG 1 tablet Orally Not-Taking/PRN lidocaine 0.05 mg/mg medicated patch (6 sources) Antiarrhythmic, Amide Local Anesthetic Start: 023 End: 024 apply 1 dose transdermal route once daily, then apply 1 dose transdermal route every twelve hours lidocaine (LIDODERM) 5 % Place 1 patch on the skin daily. Remove & Discard patch within 12 hours or as directed by 30 patch 0 11/17/2022 08/29/2023 Discontinued (Therapy completed) loperamide hydrochloride 2 mg oral tablet (20 sources) Opioid Agonist take 1 tablet by mouth every six hours Loperamide HCl 2 MG 1 tablet as needed Orally Four times a day Not-Taking/PRN metroNIDAZOLE 500 mg oral tablet (17 sources) Nitroimidazole Antimicrobial take 1 tablet by mouth every twelve hours metroNIDAZOLE 500 MG 1 tablet Orally Twice a day Not-Taking Nitro Sublingual 0.4 0.4mg (20 sources) Nitro Sublingual 0.4 0.4mg 1 Sublingual Every 5min x3 Not-Taking/PRN Nitro Sublingual 0.4 0.4mg 1 Sublingual Every 5min x3 Not-Taking Nitro Sublingual 0.4 0.4mg 1 Sublingual Every 5min x3 Active nystatin 100 unt/mg topical powder (17 sources) Polyene Antifungal Nystatin 1000 00 UNIT/GM 1 application Externally Twice a day Not-Taking OneTouch Ultra 2 w/Device (20 sources) Start: 09-29-2021 OneTouch Ultra 2 w/Device as directed In vitro Daily for 365 days Sep, Not-Taking/PRN Start: 09-29-2021 Start: 09-29-2021 OneTouch Ultra 2 w/Device as directed In vitro Daily for 365 days Sep, Active Problems Active Problems Problem Classification Problem Date Documented Da te Episodic/Chronic Administrative/social admission (13 sources) Dietary counseling and surveillance; Translations: [Patient encounter status] Onset: 04-10-2021 Resolved: 02-28-2022 Episodic Anxiety disorders (1 source) Anxiety; Translations: [Anxiety disorder, unspecified] 11-14-2023 Chronic Coronary atherosclerosis and other heart disease (8 sources) Coronary arteriosclerosis; Translations: [Atherosclerotic heart disease of [place] coronary artery without angina pectoris] Onset: 04-01-2019 04-01-2019 Chronic Deficiency and other anemia (1 source) Anemia; Translations: [Anemia, unspecified] 11-14-2023 Episodic Diabetes mellitus with complications (20 sources) Hyperglycemia due to type 2 diabetes mellitus; Translations: [Type 2 diabetes mellitus with hyperglycemia] Onset: 08-30-2009 Resolved: 02-28-2022 Chronic Disorders of lipid metabolism (20 sources) Hyperlipidemia; Translations: [Hyperlipidemia, unspecified] Onset: 08-30-2009 Resolved: 02-28-2022 Chronic Essential hypertension (20 sources) Hypertensive disorder; Translations: [Essential (primary) hypertension] Onset: 10-31-2007 Resolved: 02-28-2022 Chronic Genitourinary symptoms and ill-defined conditions (14 sources) Disorder of the urinary system; Translations: [Disorder of urinary system, unspecified] Onset: 01-19-2022 05-10-2023 Episodic Glaucoma (1 source) Glaucoma; Translations: [Unspecified glaucoma] 11-14-2023 Chronic Inflammatory diseases of female pelvic organs (1 source) Vaginitis Onset: 04-12-2024 Episodic Mycoses (1 source) Candidiasis of skin and nail; Translations: [Candidiasis of skin and nail] Onset: 04-09-2024 Episodic Nutritional deficiencies (20 sources) Vitamin D deficiency; Translations: [Vitamin D deficiency, unspecified] Onset: 04-10-2021 Resolved: 02-28-2022 Chronic Nutritional deficiencies (9 sources) Deficiency of other specified B group vitamins; Translations: [Cobalamin deficiency] Onset: 11-22-2021 Resolved: 02-28-2022 Episodic Osteoarthritis (2 sources) Osteoarthritis; Translations: [Unspecified osteoarthritis, unspecified site] Onset: 04-09-2024 11-14-2023 Chronic Other aftercare (20 sources) Long-term current use of insulin; Translations: [watermaster (current) use of insulin] 11-14-2023 Episodic Other aftercare (12 sources) watermaster (current) use of insulin; Translations: [Long-term (current) use of insulin] Onset: 04-10-2021 Resolved: 02-28-2022 Episodic Other and ill-defined cerebrovascular disease (7 sources) Cerebrovascular disease; Translations: [Cerebrovascular disease, unspecified] Onset: 08-30-2009 04-03-2017 Chronic Other and ill-defined cerebrovascular disease (1 source) Cerebrovascular disease, unspecified; Translations: [Cerebrovascular disease, unspecified] Onset: 04-03-2017 Chronic Other diseases of veins and lymphatics (6 sources) Venous hypertension; Translations: [Chronic venous hypertension (idiopathic) without complications of unspecified lower extremity] Onset: 12-18-2021 12-18-2021 Chronic Other endocrine disorders (12 sources) Hypoglycemia; Translations: [Hypoglycemia, unspecified] 11-14-2023 Chronic Other endocrine disorders (3 sources) Hypoglycemia, unspecified Chronic Other female genital disorders (1 source) Vaginal discharge Onset: 04-09-2024 Episodic Other gastrointestinal disorders (9 sources) Irritable bowel syndrome; Translations: [Irritable bowel syndrome without diarrhea] Chronic Other gastrointestinal disorders (20 sources) Constipation; Translations: [Constipation, unspecified] Episodic Other gastrointestinal disorders (1 source) Diarrhea; Translations: [Diarrhea, unspecified] 10-09-2023 Episodic Other inflammatory condition of skin (1 source) Erythema intertrigo; Translations: [Erythema intertrigo] Onset: 04-12-2024 Episodic Other non-traumatic joint disorders (1 source) Shoulder pain Onset: 04-09-2024 Episodic Other non-traumatic joint disorders (1 source) Pain in right shoulder; Translations: [Pain in right shoulder] Onset: 03-23-2024 Episodic Other nutritional; endocrine; and metabolic disorders (20 sources) Obese class II; Translations: [Body mass index (BMI) 35.0-35.9, adult] Chronic Other nutritional; endocrine; and metabolic disorders (1 source) Body mass index (BMI) 35.0-35.9, adult; Translations: [BMI 35.0-35.9,adult Z68.35] Onset: 04-10-2021 Resolved: 04-10-2021 Chronic Other nutritional; endocrine; and metabolic disorders (20 sources) Obese class I; Translations: [Body mass index (BMI) 34.0-34.9, adult] Chronic Other nutritional; endocrine; and metabolic disorders (3 sources) Body mass index (BMI) 34.0-34.9, adult Onset: 05-24-2021 Resolved: 07-26-2021 Chronic Other nutritional; endocrine; and metabolic disorders (6 sources) Body mass index (BMI) 33.0-33.9, adult; Translations: [Body Mass Index 33.0-33.9, adult] Onset: 11-22-2021 Resolved: 11-22-2021 Chronic Other nutritional; endocrine; and metabolic disorders (20 sources) Body mass index 30+ - obesity; Translations: [Body mass index (BMI) 32.0-32.9, adult] Onset: 02-17-2021 02-17-2021 Chronic Other nutritional; endocrine; and metabolic disorders (2 sources) Body mass index (BMI) 32.0-32.9, adult Onset: 02-28-2022 Resolved: 02-28-2022 Chronic Residual codes; unclassified (1 source) Family history of malignant neoplasm of digestive organs; Translations: [FAM HX MALIG NEOPLASM DIGESTIV ORGN] Onset: 09-18-2022 Episodic Unclassified (1 source) Vaginal Itch, Discharge Onset: 04-09-2024 Urinary tract infections (9 sources) Recurrent urinary tract infection; Translations: [Urinary tract infection, site not specified] Onset: 01-19-2022 07-11-2023 Episodic Past or Other Problems Problem Classification Problem Date Documented Da te Episodic/Chronic Calculus of urinary tract (8 sources) Kidney stone; Translations: [Calculus of kidney] Onset: 2 03-16-2022 Episodic Complication of device; implant or graft (6 sources) Arteriosclerosis of autologous vein coronary artery bypass graft; Translations: [Atherosclerosis of coronary artery bypass graft(s) without angina pectoris] Onset: 0 Resolved: 9 04-01-2019 Chronic Fluid and electrolyte disorders (6 sources) Hypokalemia; Translations: [Hypokalemia] Onset: 1 07-30-2020 Episodic Mood disorders (6 sources) Mood disorders Onset: 1 07-30-2020 Other circulatory disease (6 sources) Spider nevus; Translations: [Nevus, non-neoplastic] Onset: 2 12-18-2021 Episodic Other gastrointestinal disorders (6 sources) Heartburn; Translations: [Heartburn] Onset: 6 04-03-2017 Episodic Other and delivery including normal (2 sources) Encounter for care and examination of lactating mother Onset: 2 Resolved: 2 Episodic Other screening for suspected conditions (not mental disorders or infectious disease) (20 sources) Encounter for screening mammogram for malignant neoplasm of breast; Translations: [Other abnormal and inconclusive findings on diagnostic imaging of breast] Onset: 8 Episodic Pulmonary heart disease (6 sources) Pulmonary embolism; Translations: [Other pulmonary embolism without acute cor pulmonale] Onset: 3 Resolved: 9 04-01-2019 Episodic Results Test Name Value Interpretation Reference Range Facility URINE CULTUREon 04-09-2024 Bacteria identified Cx Nom (U) CULTURE RESULTS 10,000 to 50,000 ORGANISMS/mL ENTEROCOCCUS SPECIES Ampicillin or Amoxicillin is the drug of choice for uncomplicated cystitis caused by enterococci. Cephalosporins are inappropriate. <10,000 ORGANISMS/mL NORMAL URO GENITAL DAGMAR [ S = SUSCEPTIBLE R = RESISTANT I = INTERMEDIATE S-DO = Susceptible-dose dependent NS = Non-suscceptible NO = No Interpretation ] Organism: ENTEROCOCCUS SPECIES Antibiotic Interpretation [place] Status AMPICILLIN S <=2 F LEVOFLOXACIN S 1 F NITROFURANTOIN S <=16 F VANCOMYCIN S 1 F Susceptible [facility] Comment on above: Performed By: #### 6 30-4 #### [facility] ([id number]) [address] [place] [address], [address] [place] [address] URN MACROSCOPIC NURon 2023 BILIRUBIN JOHNNY Negative Normal [facility] Comment on above: Performed By: #### N UM #### [facility] ([id number]) [address] [place] [address] BLOOD/HGB JOHNNY Negative Normal NEG [facility] Comment on above: Performed By: #### N UM #### [facility] ([id number]) [address] [place] [address] GLUCOSE JOHNNY Negative Normal [facility] Comment on above: Performed By: #### N UM #### [facility] ([id number]) [address] [place] [address]110[address] KETONES JOHNNY Negative Normal NEG [facility] Comment on above: Performed By: #### N UM #### [facility] ([id number]) [address] [place] [address] 31120 LEUKOCYTE ESTERASE JOHNNY Trace Abnormal NEG [facility] Comment on above: Performed By: #### N UM #### [facility] ([id number]) [address] [place] [address]3791 NITRITE JOHNNY Negative Normal [facility] Comment on above: Performed By: #### N UM #### [facility] ([id number]) [address] [place] [address] PH JOHNNY 8.5 Normal 5.0-8.5 [facility] Comment on above: Performed By: #### N UM #### [facility] ([id number]) [address] [place] [address] PROTEIN JOHNNY Negative Normal NEG [facility] Comment on above: Performed By: #### N UM #### [facility] ([id number]) [address] [place] [address]182 SPECIFIC GRAVITY JOHNNY 1.015 Normal 1.003-1.035 [facility] Comment on above: Performed By: #### N UM #### [facility] ([id number]) [address] [place] [address] UROBILINOGEN JOHNNY 1.0 eu/dL Normal <1.1 [facility] Comment on above: Performed By: #### N UM #### [facility] ([id number]) [address] [place] [address] XR SHOULDER RT MIN 2 VWSon 0 04-09-2024 XR SHOULDER RT MIN 2 VWS XR SHOULDER RT MIN 2 VWS XR SHOULDER RT MIN 2 VWS IMPRESSION: Clinical Information: Atraumatic right shoulder pain. Arthritis? Comparison: 03/23/24. * Sternotomy wires and surgical clips in the mediastinum. * Severe degenerative changes. No fracture or dislocation. * Osteopenia. Finalized by Mane Pal MD on 04/09/2024 9:49 AM Normal [facility] XR SHOULDER RT MIN 2 VWSon 0 03-23-2024 XR SHOULDER RT MIN 2 VWS XR SHOULDER RT MIN 2 VWS CLINICAL INFORMATION: Pain, joint, shoulder, right TECHNIQUE: XR SHOULDER RT MIN 2 VWS 3 views right shoulder were obtained. AC joint degenerative changes noted. Humeral head is somewhat high riding suggesting rotator cuff tear. There is no fracture or dislocation. IMPRESSION: AC joint degenerative changes and possible chronic rotator cuff tear. Finalized by Galen Page MD on 03/23/2024 10:12 AM Normal [facility] BASIC METABOLIC PANLon 11-27 Anion gap [Moles/Vol] 13 mmol/L Normal 5-15 [facility] Comment on above: Performed By: #### B MP #### [facility] ([id number]) [address], [address] [place] [address] Calcium [Mass/Vol] 10.1 mg/dL Normal 8.5-10.5 [facility] Comment on above: Performed By: #### B MP #### [facility] ([id number]) [address], [address] [place] [address] Chloride [Moles/Vol] 99 mmol/L Normal 98-109 [facility] Comment on above: Performed By: #### B MP #### [facility] ([id number]) [address], [address] [place] [address] CO2 [Moles/Vol] 27 mmol/L Normal 22-32 [facility] Comment on above: Performed By: #### B MP #### [facility] ([id number]) [address], [address] [place] [address] Creatinine [Mass/Vol] 1.05 mg/dL High 0.40-1.00 [facility] Comment on above: Result Comment: METH OD TRACEABLE TO IDMS STANDARD Performed By: #### B MP #### [facility] ([id number]) [address], [address] [place] [address] GFR/1.73 sq M.predicted among non-blacks MDRD (S/P/Bld) [Vol rate/Area] 57 mL/min/{1.73_m2} Low >59 [facility] Comment on above: Result Comment: Reported eGFR is based on the CKD-EPI 2020 equation that does not use a race coefficient. Performed By: #### B MP #### [facility] ([id number]) [address], [address] [place] [address] Glucose [Mass/Vol] 126 mg/dL High 65-99 [facility] Comment on above: Performed By: #### B MP #### [facility] ([id number]) [address], [address] [place] [address] Potassium [Moles/Vol] 4.5 mmol/L Normal 3.5-5.0 [facility] Comment on above: Performed By: #### B MP #### [facility] ([id number]) [address], [address] [place] [address] Sodium [Moles/Vol] 139 mmol/L Normal 134-146 [facility] Comment on above: Performed By: #### B MP #### [facility] ([id number]) [address], [address] [place] [address] Urea nitrogen [Mass/Vol] 21 mg/dL Normal 5-27 [facility] Comment on above: Performed By: #### B MP #### [facility] ([id number]) [address], [address] [place] [address] US RETROPERITONEAL COMPLETEo n 11-28-2023 US RETROPERITONEAL COMPLETE US RETROPERITONEAL COMPLETE HISTORY: A 68-year-old female with the history of the renal calculi and renal vascular calcifications. TECHNIQUE: Multiple real-time images of both kidneys and the urinary bladder are obtained. Color Doppler study is performed. COMPARISON: Comparison is made with the renal ultrasound examination of 09/28/[address] scan of the abdomen and pelvis of 08/17/2022. FINDINGS: Both kidneys are normal in position and configuration. Right kidney measures 10.3 x 4.0 x 4.1 cm. Left kidney measures 11.7 x 4.1 x 4.2 cm. There is no evidence of echogenic calculi or hydronephrosis. No cystic or solid renal mass is identified. There is no evidence of perinephric fluid collection. Urinary bladder is empty. IMPRESSION: * No evidence of echogenic calculi or hydronephrosis in the either kidney. * No evidence of cystic or solid renal mass. * Renal measurements as described above. Finalized by Robinson Rnicon MD on 11/28/2023 2:50 PM Normal [facility] HbA1c HPLC (Bld) [Mass fract ion]on 11-18-2023 HbA1c (Bld) [Mass fraction] 7.0 % [facility] No Panel Informationon 11-17 Bedside Glucose 145 [facility] CBC AND AUTO DIFFon 11-13-19 ABSOLUTE BASOPHIL 0.1 X10E9/L Normal 0.0-0.2 [facility] Comment on above: Performed By: #### C BCA #### [facility] ([id number]) [address], [address] [place] [address] ABSOLUTE NEUTROPHIL 5.3 X10E9/L Normal 1.5-6.6 [facility] Comment on above: Performed By: #### C BCA #### [facility] ([id number]) [address], [address] [place] [address] Basophils/100 WBC (Bld) 0.9 % Normal [facility] Comment on above: Performed By: #### C BCA #### [facility] ([id number]) [address], [address] [place] [address] Eosinophils (Bld) [#/Vol] 0.2 10*3/uL Normal 0.0-0.4 [facility] Comment on above: Performed By: #### C BCA #### [facility] ([id number]) [address], [address] [place] [address] Eosinophils/100 WBC (Bld) 2.9 % Normal [facility] Comment on above: Performed By: #### C BCA #### [facility] ([id number]) [address], [address] [place] [address] Erythrocyte distribution width (RBC) [Ratio] 13.7 % Normal 11.5-15.0 [facility] Comment on above: Performed By: #### C BCA #### [facility] ([id number]) [address], [address] [place] [address] Hematocrit (Bld) [Volume fraction] 34.7 % Low 35-47 [facility] Comment on above: Performed By: #### C BCA #### [facility] ([id number]) [address], [address] [place] [address] Hemoglobin (Bld) [Mass/Vol] 11.9 g/dL Normal 11.7-15.5 [facility] Comment on above: Performed By: #### C BCA #### [facility] ([id number]) [address], [address] [place] [address] Lymphocytes (Bld) [#/Vol] 1.4 10*3/uL Normal 1.0-3.5 [facility] Comment on above: Performed By: #### C BCA #### [facility] ([id number]) [address], [address] [place] [address] Lymphocytes/100 WBC (Bld) 18.7 % Normal [facility] Comment on above: Performed By: #### C BCA #### [facility] ([id number]) [address], [address] [place] [address] MCH (RBC) [Entitic mass] 29.5 pg Normal 27-34 [facility] Comment on above: Performed By: #### C BCA #### [facility] ([id number]) [address], [address] [place] [address] MCHC (RBC) [Mass/Vol] 34.1 g/dL Normal 32-36 [facility] Comment on above: Performed By: #### C BCA #### [facility] ([id number]) [address], [address] [place] [address] MCV (RBC) [Entitic vol] 87 fL Normal 80-100 [facility] Comment on above: Performed By: #### C BCA #### [facility] ([id number]) [address], [address] [place] [address] Monocytes (Bld) [#/Vol] 0.5 10*3/uL Normal 0-0.9 [facility] Comment on above: Performed By: #### C BCA #### [facility] ([id number]) [address], [address] [place] [address] Monocytes/100 WBC (Bld) 6.3 % Normal [facility] Comment on above: Performed By: #### C BCA #### [facility] ([id number]) [address], [address] [place] [address] Neutrophils/100 WBC (Bld) 71.2 % Normal [facility] Comment on above: Performed By: #### C BCA #### [facility] ([id number]) [address], [address] [place] [address] Platelet mean volume (Bld) [Entitic vol] 9.9 fL Normal 7-12 [facility] Comment on above: Performed By: #### C BCA #### [facility] ([id number]) [address], [address] [place] [address] Platelets (Bld) [#/Vol] 174 10*3/uL Normal 150-450 [facility] Comment on above: Performed By: #### C BCA #### [facility] ([id number]) [address], [address] [place] [address] RBC COUNT 4.02 X10E12/L Normal 3.80-5.20 [facility] Comment on above: Performed By: #### C BCA #### [facility] ([id number]) [address], [address] [place] [address] WBC (Bld) [#/Vol] 7.4 10*3/uL Normal 4.0-11.0 [facility] Comment on above: Performed By: #### C BCA #### [facility] ([id number]) [address], [address] [place] [address] Laboratory - Chemistry and C hemistry - challengeon 10-29-2023 Magnesium [Mass/Vol] 1.7 mg/dL [facility] Calcium [Mass/Vol] 10.3 mg/dL [facility] Chloride [Moles/Vol] 99 mmol/L [facility] CO2 [Moles/Vol] 29 mmol/L [facility] Creatinine [Mass/Vol] 1.15 mg/dL [facility] Glucose [Mass/Vol] 173 mg/dL [facility] Potassium [Moles/Vol] 4.7 mmol/L [facility] Sodium [Moles/Vol] 139 mmol/L [facility] Urea nitrogen [Mass/Vol] 21 mg/dL [facility] Cholesterol [Mass/Vol] 164 mg/dL [facility] Cholesterol in HDL [Mass/Vol] 50 mg/dL [facility] Cholesterol in LDL [Mass/Vol] 77 mg/dL [facility] Cholesterol.total/Ch olesterol in HDL [Mass ratio] 3.3 {ratio} [facility] Triglyceride [Mass/Vol] 183 mg/dL [facility] No Panel Informationon 10-28 Thyroid Stimulating Hormone 3rd Gen 3.41 [facility] Estimated GFR (Non- 51 mL/min [facility] VLDL Cholesterol 37 mg/dL [facility] POCT EKGon 08-29-2023 [facility] A1C HEMOGLOBINon 08-12-2023 HbA1c (Bld) [Mass fraction] 7.1 % [employer] Other Glucose - FINGER STICKon Glucose [Mass/Vol] 124 mg/dL [employer] Other HbA1c (Bld) [Mass fraction]o n 08-12-2023 A1C HEMOGLOBIN [employer] Other Glucose - FINGER STICKon Glucose [Mass/Vol] 138 mg/dL [employer] Other A1C HEMOGLOBINon 01-16-2023 HbA1c (Bld) [Mass fraction] 6.5 % [employer] Other Glucose - FINGER STICKon Glucose [Mass/Vol] 112 mg/dL [employer] Other HbA1c (Bld) [Mass fraction]o n 01-16-2023 A1C HEMOGLOBIN [employer] Other Comprehensive Metabolic Pane mariela 09-28-2022 Albumin [Mass/Vol] 4.4 g/dL [employer] Other ALP [Catalytic activity/Vol] 62 U/L [employer] Other ALT [Catalytic activity/Vol] 10 U/L [employer] Other AST [Catalytic activity/Vol] 13 U/L [employer] Other Bilirubin [Mass/Vol] 0.4 mg/dL [facility] [email or web address] Other Calcium [Mass/Vol] 9.6 mg/dL [employer] Other Chloride [Moles/Vol] 101 mmol/L [facility] [email or web address] Other CO2 [Moles/Vol] 28 mmol/L [employer] Other Creatinine [Mass/Vol] 0.97 mg/dL [employer] Other Glucose [Mass/Vol] 121 mg/dL [employer] Other Potassium [Moles/Vol] 4.1 mmol/L [employer] Other Protein [Mass/Vol] 6.6 g/dL [employer] Other Sodium [Moles/Vol] 140 mmol/L [employer] Other Urea nitrogen [Mass/Vol] 21 mg/dL [employer] Other Comprehensive Metabolic Panel [employer] Other Comprehensive Metabolic Panel >60 [employer] Other Lipid Panelon 09-28-2022 Cholesterol [Mass/Vol] 136 mg/dL [employer] Other Cholesterol in HDL [Mass/Vol] 43 mg/dL [employer] Other Cholesterol in LDL Elph Qn 55 [employer] Other Cholesterol.total/Ch olesterol in HDL [Mass ratio] 3.2 {ratio} [employer] Other Lipid Panel 192 [employer] Other Vitamin B12on 09-28-2022 Cobalamin (Vitamin B12) [Mass/Vol] 1364 pg/mL [employer] Other Vitamin D 25 Hydroxy Totalon 09-28-2022 Vitamin D 25 Hydroxy Total 45.8 [employer] Other A1C HEMOGLOBINon 09-24-2022 HbA1c (Bld) [Mass fraction] 6.6 % [employer] Other Glucose - FINGER STICKon Glucose [Mass/Vol] 123 mg/dL [employer] Other HbA1c (Bld) [Mass fraction]o n 09-24-2022 A1C HEMOGLOBIN [employer] [facility] [employer] Other MG MAMM SCREEN 3D CASIE CADon 09-17-2022 MG MAMM SCREEN 3D CASIE CAD Patient: ROMIE GEIGER Exam Date: 09/17/2022 : 1955 Gender:F Ordering : DR. SCOTTY KUMAR M.D. Admission #: [id number] Family : [facility] Order #: [id number] CLICK HERE TO VIEW EXAM RADIOLOGY REPORT PROCEDURE: MAMMOGRAM SCREENING 3D BILATERAL CAD COMPARISON: MG MAMM SCREEN CASIE W CAD, 09/08/2020. MG MAMM SCREEN 3D CASIE CAD, 09/13/2021. INDICATIONS: Screening mammography Calculator Name NCI Breast Cancer Risk Assessment Tool 5 Year Breast Cancer Risk 1.20% Lifetime Breast Cancer Risk 3.90% Personal Breast Cancer No Personal Ovarian Cancer No Treatments None Family Cancers Brother with esophageal cancer at age 68. LOCATION: The [facility] BREAST COMPOSITION: Scattered areas fibroglandular density. FINDINGS: DIAGNOSTIC CATEGORY 2--BENIGN FINDING. NO CHANGE FROM COMPARISON. Scattered benign-appearing calcifications are present. RIGHT BREAST: No significant suspicious finding. Stable focal asymmetry/nodule upper inner quadrant, mid breast LEFT BREAST: No significant suspicious finding. RECOMMENDATIONS: ROUTINE MAMMOGRAM AND CLINICAL EVALUATION IN 12 MONTHS. PLEASE NOTE: A NORMAL MAMMOGRAM DOES NOT EXCLUDE THE POSSIBILITY OF BREAST CANCER. A CLINICALLY SUSPICIOUS PALPABLE LUMP SHOULD BE BIOPSIED. Dictated by: Michael Smith MD on 09/17/2022 at 10:52 Approved by: Michael Smith MD on 09/17/2022 at 11:06 Normal The [facility] A1C HEMOGLOBINon 06-11-2022 HbA1c (Bld) [Mass fraction] 6.6 % [employer] Other Glucose - FINGER STICKon Glucose [Mass/Vol] 126 mg/dL [employer] Other HbA1c (Bld) [Mass fraction]o n 06-11-2022 A1C HEMOGLOBIN [employer] Other A1C HEMOGLOBINon 02-28-2022 HbA1c (Bld) [Mass fraction] 6.6 % [employer] Other Glucose - FINGER STICKon Glucose [Mass/Vol] 131 mg/dL [employer] Other HbA1c (Bld) [Mass fraction]o n 02-28-2022 A1C HEMOGLOBIN [employer] Other A1C HEMOGLOBINon 11-22-2021 HbA1c (Bld) [Mass fraction] 6.6 % [employer] Other Glucose - FINGER STICKon Glucose [Mass/Vol] 158 mg/dL [employer] Other HbA1c (Bld) [Mass fraction]o n 11-22-2021 A1C HEMOGLOBIN [employer] Other US BREAST RIGHT LIMITEDon US BREAST RIGHT LIMITED Patient: ROMIE GEIGER Exam Date: 09/20/2021 : 1955 Gender:F Ordering : [place] [facility] [place] #: [id number] Family : Order #: [id number] CLICK HERE TO VIEW EXAM RADIOLOGY REPORT PROCEDURE: ULTRASOUND BREAST RIGHT LIMITED COMPARISON: MG MAMM SCREEN 3D CASIE CAD, 09/13/2021. INDICATIONS: Abnormal findings on diagnostic imaging of breast TECHNIQUE: Breast ultrasound was performed, with evaluation focusing only on specific areas of concern. FINDINGS: DIAGNOSTIC CATEGORY 2--BENIGN FINDING: RIGHT BREAST: 8 x 6 x 4 mm benign appearing lymph node within right breast 1 o'clock, 5.8 cm from the nipple felt to correspond to findings on the mammogram. Findings favor benign etiology. Annual screening mammography is recommended. RECOMMENDATIONS: ROUTINE MAMMOGRAM AND CLINICAL EVALUATION IN 12 MONTHS. PLEASE NOTE: A NORMAL ULTRASOUND EXAMINATION DOES NOT EXCLUDE THE POSSIBILITY OF BREAST CANCER. A CLINICALLY SUSPICIOUS PALPABLE LUMP SHOULD BE BIOPSIED. Dictated by: Paolo Busch M.D. on 09/20/2021 at 13:31 Approved by: Paolo Busch M.D. on 09/20/2021 at 13:36 Normal [facility] A1C HEMOGLOBINon 07-26-2021 HbA1c (Bld) [Mass fraction] 7.2 % [employer] Other Glucose - FINGER STICKon Glucose [Mass/Vol] 167 mg/dL [employer] Other HbA1c (Bld) [Mass fraction]o n 07-26-2021 A1C HEMOGLOBIN [employer] Other Glucose - FINGER STICKon Glucose [Mass/Vol] 169 mg/dL [employer] Other Glucose - FINGER STICKon Glucose [Mass/Vol] 226 mg/dL [facility] [employer] Other Glucose - FINGER STICKon Glucose [Mass/Vol] 253 mg/dL [facility] [employer] Other Vital Signs Date Time Vital Sign Value Performing Clinician Facility 11-18-2023 09:02-0400 Body height 162.56 cm [facility] 11-18-2023 09:02-0400 Body mass index (BMI) [Ratio] 32.5 kg/m2 [facility] 11-18-2023 09:02-0400 Body weight 85.87 kg [facility] 11-18-2023 09:02-0400 Diastolic blood pressure 57 mm[Hg] [facility] 11-18-2023 09:02-0400 Heart rate 55 /min [facility] 11-18-2023 09:02-0400 Respiratory rate 18 /min [facility] 11-18-2023 09:02-0400 SaO2% (BldA) [Mass fraction] 98 % [facility] 11-18-2023 09:02-0400 Systolic blood pressure 94 mm[Hg] [facility] 08-29-2023 08:52-0500 Body height 162.6 cm Jr Godfrey MD Work Phone: [facility] 08-29-2023 08:52-0500 Body mass index (BMI) [Ratio] 32.96 kg/m2 Jr Godfrey MD Work Phone: [facility] 08-29-2023 08:52-0500 Body weight 87.09 kg Jr Godfrey MD Work Phone: [facility] 08-29-2023 08:52-0500 Diastolic blood pressure 60 mm[Hg] Jr Godfrey MD Work Phone: [facility] 08-29-2023 08:52-0500 Heart rate 69 /min Jr Godfrey MD Work Phone: [facility] 08-29-2023 08:52-0500 SaO2% (BldA) [Mass fraction] 96 % Jr Godfrey MD Work Phone: [employer] 08-29-2023 08:52-0500 Systolic blood pressure 110 mm[Hg] Jr Godfrey MD Work Phone: [facility] 08-12-2023 11:15-0500 Body height 162.56 cm Giovanna Scally Other [facility] 08-12-2023 11:15-0500 Body mass index (BMI) [Ratio] 33.21 kg/m2 Giovanna Scally Other [employer] Other 08-12-2023 11:15-0500 Body weight 87.77 kg Giovanna Scally Other [facility] 08-12-2023 11:15-0500 Diastolic blood pressure 73 mm[Hg] Giovanna Scally Other [facility] 08-12-2023 11:15-0500 Respiratory rate 18 /min Giovanna Scally Other [employer] Other 08-12-2023 11:15-0500 SaO2% (BldA) [Mass fraction] 96 % Giovanna Scally Other [employer] Other 08-12-2023 11:15-0500 Systolic blood pressure 112 mm[Hg] Giovanna Scally Other [facility] 04-12-2023 09:15-0400 Body height 162.56 cm Giovanna Scally Other [employer] Other 04-12-2023 09:15-0400 Body mass index (BMI) [Ratio] 32.76 kg/m2 Giovanna Scally Other [employer] Other 04-12-2023 09:15-0400 Body weight 86.59 kg Giovanna Scally Other [employer] Other 04-12-2023 09:15-0400 Diastolic blood pressure 61 mm[Hg] Giovanna Scally Other [employer] Other 04-12-2023 09:15-0400 Respiratory rate 18 /min Giovanna Scally Other [employer] Other 04-12-2023 09:15-0400 SaO2% (BldA) [Mass fraction] 98 % Giovanna Scally Other [employer] Other 04-12-2023 09:15-0400 Systolic blood pressure 100 mm[Hg] Giovanna Scally Other [employer] Other 01-16-2023 10:15-0400 Body height 162.56 cm Giovanna Scally Other [employer] Other 01-16-2023 10:15-0400 Diastolic blood pressure 64 mm[Hg] Giovanna Scally Other [employer] Other 01-16-2023 10:15-0400 Respiratory rate 18 /min Giovanna Scally Other [employer] Other 01-16-2023 10:15-0400 SaO2% (BldA) [Mass fraction] 97 % Giovanna Scally Other [employer] Other 01-16-2023 10:15-0400 Systolic blood pressure 100 mm[Hg] Giovanna Scally Other [employer] Other 09-24-2022 10:15-0400 Body height 162.56 cm Giovanna Scally Other [employer] Other 09-24-2022 10:15-0400 Body mass index (BMI) [Ratio] 32.27 kg/m2 Giovanna Scally Other [employer] Other 09-24-2022 10:15-0400 Body weight 85.28 kg Giovanna Scally Other [employer] Other 09-24-2022 10:15-0400 Diastolic blood pressure 72 mm[Hg] Giovanna Scally Other [employer] Other 09-24-2022 10:15-0400 Respiratory rate 18 /min Giovanna Scally Other [employer] Other 09-24-2022 10:15-0400 SaO2% (BldA) [Mass fraction] 99 % Giovanna Scally Other [employer] Other 09-24-2022 10:15-0400 Systolic blood pressure 109 mm[Hg] Giovanna Scally Other [employer] Other 06-11-2022 10:00-0500 Body height 162.56 cm Giovanna Scally Other [employer] Other 06-11-2022 10:00-0500 Body mass index (BMI) [Ratio] 33.59 kg/m2 Giovanna Scally Other [employer] Other 06-11-2022 10:00-0500 Body weight 88.77 kg Giovanna Scally Other [employer] Other 06-11-2022 10:00-0500 Diastolic blood pressure 70 mm[Hg] Giovanna Scally Other [employer] Other 06-11-2022 10:00-0500 Respiratory rate 20 /min Giovanna Scally Other [employer] Other 06-11-2022 10:00-0500 SaO2% (BldA) [Mass fraction] 100 % Giovanna Scally Other [employer] Other 06-11-2022 10:00-0500 Systolic blood pressure 108 mm[Hg] Giovanna Scally Other [employer] Other 02-28-2022 11:00-0400 Body height 162.56 cm Giovanna Scally Other [employer] Other 02-28-2022 11:00-0400 Body mass index (BMI) [Ratio] 32.99 kg/m2 Giovanna Scally Other [employer] Other 02-28-2022 11:00-0400 Body weight 87.18 kg Giovanna Scally Other [employer] Other 02-28-2022 11:00-0400 Diastolic blood pressure 78 mm[Hg] Giovanna Scally Other [employer] Other 02-28-2022 11:00-0400 Respiratory rate 18 /min Giovanna Scally Other [employer] Other 02-28-2022 11:00-0400 SaO2% (BldA) [Mass fraction] 100 % Giovanna Scally Other [employer] Other 02-28-2022 11:00-0400 Systolic blood pressure 118 mm[Hg] Giovanna Scally Other [employer] Other 11-22-2021 09:45-0400 Body height 162.56 cm Giovanna Scally Other [employer] Other 11-22-2021 09:45-0400 Body mass index (BMI) [Ratio] 33.07 kg/m2 Giovanna Scally Other [employer] Other 11-22-2021 09:45-0400 Body weight 87.41 kg Giovanna Scally Other [employer] Other 11-22-2021 09:45-0400 Diastolic blood pressure 87 mm[Hg] Giovanna Scally Other [employer] Other 11-22-2021 09:45-0400 Respiratory rate 18 /min Giovanna Scally Other [employer] Other 11-22-2021 09:45-0400 SaO2% (BldA) [Mass fraction] 92 % Giovanna Scally Other [employer] Other 11-22-2021 09:45-0400 Systolic blood pressure 137 mm[Hg] Giovanna Scally Other [employer] Other 07-26-2021 09:45-0500 Body height 162.56 cm Giovanna Scally Other [employer] Other 07-26-2021 09:45-0500 Body mass index (BMI) [Ratio] 34.57 kg/m2 Giovanna Scally Other [employer] Other 07-26-2021 09:45-0500 Body weight 91.36 kg Giovanna Scally Other [employer] Other 07-26-2021 09:45-0500 Diastolic blood pressure 77 mm[Hg] Giovanna Scally Other [employer] Other 07-26-2021 09:45-0500 Respiratory rate 18 /min Giovanna Scally Other [employer] Other 07-26-2021 09:45-0500 SaO2% (BldA) [Mass fraction] 99 % Giovanna Scally Other [employer] Other 07-26-2021 09:45-0500 Systolic blood pressure 130 mm[Hg] Giovanna Scally Other [employer] Other 06-13-2021 10:15-0500 Body height 162.56 cm Giovanna Scally Other [employer] Other 06-13-2021 10:15-0500 Body mass index (BMI) [Ratio] 34.38 kg/m2 Giovanna Scally Other [employer] Other 06-13-2021 10:15-0500 Body weight 90.86 kg Giovanna Scally Other [employer] Other 06-13-2021 10:15-0500 Diastolic blood pressure 69 mm[Hg] Giovanna Scally Other [employer] Other 06-13-2021 10:15-0500 Respiratory rate 18 /min Giovanna Scally Other [employer] Other 06-13-2021 10:15-0500 SaO2% (BldA) [Mass fraction] 99 % Giovanna Scally Other [employer] Other 06-13-2021 10:15-0500 Systolic blood pressure 119 mm[Hg] Giovanna Scally Other [employer] Other 05-24-2021 09:15-0500 Body height 162.56 cm Giovanna Scally Other [employer] Other 05-24-2021 09:15-0500 Body mass index (BMI) [Ratio] 34.26 kg/m2 Giovanna Scally Other [employer] Other 05-24-2021 09:15-0500 Body weight 90.54 kg Giovanna Scally Other [employer] Other 05-24-2021 09:15-0500 Diastolic blood pressure 71 mm[Hg] Giovanna Scally Other [employer] Other 05-24-2021 09:15-0500 Respiratory rate 18 /min Giovanna Scally Other [employer] Other 05-24-2021 09:15-0500 SaO2% (BldA) [Mass fraction] 99 % Giovanna Scally Other [employer] Other 05-24-2021 09:15-0500 Systolic blood pressure 111 mm[Hg] Giovanna Scally Other [employer] Other 04-10-2021 11:00-0400 Body height 162.56 cm Giovanna Scally Other [employer] Other 04-10-2021 11:00-0400 Body mass index (BMI) [Ratio] 35.6 kg/m2 Giovanna Scally Other [employer] Other 04-10-2021 11:00-0400 Body weight 94.08 kg Giovanna Scally Other [employer] Other 04-10-2021 11:00-0400 Diastolic blood pressure 61 mm[Hg] Giovanna Scally Other [employer] Other 04-10-2021 11:00-0400 Respiratory rate 20 /min Giovanna Scally Other [employer] Other 04-10-2021 11:00-0400 SaO2% (BldA) [Mass fraction] 98 % Giovanna Scally Other [employer] Other 04-10-2021 11:00-0400 Systolic blood pressure 125 mm[Hg] Giovanna Scally Other [employer] Other Encounters Encounter Date Encounter Type Care Provider Facility Start: 04-12-2024 End: 04-12-2024 Emergency department patient visit YAIMA LIN [facility] Start: 04-09-2024 End: 04-09-2024 Emergency department patient visit YAIMA Davis MARY ANN [facility] Start: 03-23-2024 End: 03-23-2024 ambulatory YAIMA Ryan RILEY [facility] Start: 01-08-2024 End: 01-08-2024 ambulatory [facility] ST[facility]FF [facility] Work Phone: Start: 01-08-2024 End: 01-08-2024 Patient encounter procedure [facility] [place] Work Phone: Start: 12-26-2023 End: 12-26-2023 ambulatory MANISH MASON Not Available Start: 12-06-2023 End: 12-06-2023 ambulatory HAMMAD MARTINS [facility] Start: 11-28-2023 End: 11-28-2023 ambulatory [address]AD MART[address] [facility] Start: 11-21-2023 End: 11-21-2023 ambulatory MANISH Stevie MASON Not Available Start: 11-18-2023 End: 11-18-2023 Patient encounter procedure [facility] Work Phone: Start: 11-14-2023 End: 11-14-2023 ambulatory MANISH Stevie MASON Not Available Start: 11-13-2023 End: 11-13-[address] [facility] Start: 10-29-2023 Non-patient / Non-visit [facility] Work Phone: Start: 10-17-2023 End: 10-17-2023 ambulatory MANISH MASON Not Available Start: 08-29-2023 End: 08-29-2023 Office outpatient visit 25 minutes Jr Godfrey MD Work Phone: [facility] Comment on above: Prolonged Q-T interv al on ECG (Primary Dx); Pure hypercholesterolemia; Coronary artery disease involving [place] coronary artery of [place] heart without angina pectoris; Cerebrovascular disease Start: 08-29-2023 End: 08-29-[address] [facility] Start: 08-28-2023 Telephone encounter [facility] Start: 08-14-2023 End: 08-14-2023 ambulatory Giovanna Morrow Other [employer] Other Start: 08-14-2023 Telephone encounter Giovanna [facility] Start: 08-12-2023 End: 08-12-2023 Discharged Recurring [facility] Work Phone: Start: 08-12-2023 (DM) Diabetes Giovanna Riddle [facility] Start: 08-12-2023 End: 08-13-2023 Refill Rosi Limon RN [facility] Comment on above: Med Refill Start: 08-12-2023 End: 08-12-2023 Patient encounter procedure [facility]- Start: 08-08-2023 Refill Amarilys Devaughn mckinley C D 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 Work Phone: [facility] Comment on above: Med Refill Start: 07-29-2023 End: 07-29-2023 ambulatory Giovanna Morrow Other [employer] Other Start: 07-29-2023 Telephone encounter Giovanna th[facility] Start: 07-18-2023 End: 07-18-2023 ambulatory MANISH MASON Not Available Start: 07-16-2023 End: 07-16-2023 ambulatory Giovanna Morrow Other [employer] Other Start: 07-16-2023 Telephone encounter Giovanna [facility] Start: 07-11-2023 Refill Joyce Smith C D 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 Work Phone: [facility] Start: 07-09-2023 Refill Hammad nathan MD Work Phone: [facility] Comment on above: Recurrent urinary tr act infection (Primary Dx) Start: 05-27-2023 End: 05-27-2023 ambulatory Giovanna Scally Other [employer] Other Start: 05-27-2023 Telephone encounter Giovanna Cristhian [facility] [facility] [facility] Start: 05-01-2023 End: 05-01-2023 ambulatory Fam Claytonmichelle Other [employer] Other Start: 05-01-2023 Telephone encounter Fam Arnoldmichelle [facility] Start: 04-12-2023 (DM) Diabetes Giovanna Scally [facility] Start: 04-12-2023 End: 04-12-2023 ambulatory Giovanna Scally Other [employer] Other Start: 04-03-2023 End: 04-03-2023 ambulatory Giovanna Scally Other [employer] Other Start: 04-03-2023 Telephone encounter Giovanna Scally [facility] Start: 03-21-2023 End: 03-21-2023 ambulatory Giovanna Scally Other [employer] Other Start: 03-21-2023 Telephone encounter Giovanna Yovannyly [facility] Start: 01-16-2023 (DM) Diabetes Giovanna Scally [facility] Start: 01-16-2023 End: 01-16-2023 ambulatory Giovanna Scally Other [employer] Other Start: 01-16-2023 Telephone encounter Giovanna Scally [facility] Start: 01-08-2023 End: 01-08-2023 ambulatory Giovanna Scally Other [employer] Other Start: 01-08-2023 Telephone encounter Giovanna Scally [facility] Start: 10-01-2022 End: 10-01-2022 ambulatory Giovanna Scally Other [employer] Other Start: 10-01-2022 Telephone encounter Giovanna Scally [facility] Start: 09-24-2022 (DM) Diabetes Giovanna Scally [facility] Start: 09-24-2022 End: 09-24-2022 ambulatory Giovanna Scally Other [employer] Other Start: 09-19-2022 End: 09-19-2022 ambulatory Giovanna Scally Other [employer] Other Start: 09-19-2022 Telephone encounter Giovanna Yovannyly [facility] Start: 09-17-2022 End: 09-18-2022 ambulatory [facility] Facility: Start: 07-27-2022 End: 07-27-2022 ambulatory Giovanna Scally Other [employer] Other Start: 07-27-2022 Telephone encounter Giovanna Scally [facility] Start: 07-03-2022 End: 07-03-2022 ambulatory Giovanna Scally Other [employer] Other Start: 07-03-2022 Telephone encounter Giovanna Yovannyly [facility] Start: 06-25-2022 End: 06-25-2022 ambulatory Giovanna Scally Other [employer] Other Start: 06-25-2022 Telephone encounter Giovanna Scally [facility] Start: 06-11-2022 (DM) Diabetes Giovanna Scally [facility] Start: 06-11-2022 End: 06-11-2022 ambulatory Giovanna Scally Other [employer] Other Start: 04-24-2022 End: 04-24-2022 ambulatory Giovanna Scally Other [employer] Other Start: 04-24-2022 Telephone encounter Giovanna Scally [facility] Start: 02-28-2022 (DM) Diabetes Giovanna Scally [facility] Start: 02-28-2022 End: 02-28-2022 ambulatory Giovanna Scally Other [employer] Other Start: 02-21-2022 End: 02-21-2022 ambulatory Giovanna Scally Other [employer] Other Start: 02-21-2022 Telephone encounter Giovanna Scally [facility] Start: 01-16-2022 End: 01-16-2022 ambulatory Giovanna Scally Other [employer] Other Start: 01-16-2022 Telephone encounter Giovanna Scally [facility] Start: 12-21-2021 End: 12-21-2021 ambulatory Giovanna Scally Other [employer] Other Start: 12-21-2021 Telephone encounter Giovanna Scally [facility] Start: 12-20-2021 End: 12-20-2021 ambulatory Giovanna Scally Other [employer] Other Start: 12-20-2021 Telephone encounter Giovanna Scally [facility] Start: 12-14-2021 End: 12-14-2021 ambulatory Giovanna Scally Other [employer] Other Start: 12-14-2021 Telephone encounter Giovanna Scally [facility] Start: 11-22-2021 (DM) Diabetes Giovanna Scally [facility] Start: 11-22-2021 End: 11-22-2021 ambulatory Giovanna Scally Other [employer] Other Start: 09-29-2021 End: 09-29-2021 ambulatory Giovanna Scally Other [employer] Other Start: 09-29-2021 Telephone encounter Giovanna Yovannyly F [facility] Start: 09-20-2021 End: 09-21-[address] [facility] [place] Facility: Start: 08-31-2021 End: 08-31-2021 ambulatory Giovanna Scally Other [employer] Other Start: 08-31-2021 Telephone encounter Giovanna Yovannyly Indu [facility] Start: 07-27-2021 End: 07-27-2021 ambulatory Klaus Hebert Other [employer] Other Start: 07-27-2021 Telephone encounter Klaus thomson [facility] Start: 07-26-2021 (DM) Diabetes Giovanna Cristhian [facility] Start: 07-26-2021 End: 07-26-2021 ambulatory Giovanna Scally Other [employer] Other Start: 07-04-2021 End: 07-04-2021 ambulatory Giovanna Scally Other [employer] Other Start: 07-04-2021 Telephone encounter Giovanna Yovannyly [facility] Start: 06-19-2021 End: 06-19-2021 ambulatory Giovanna Scally Other [employer] Other Start: 06-19-2021 Telephone encounter Giovanna Yovannyly [facility] Start: 06-14-2021 End: 06-14-2021 ambulatory Giovanna Scally Other [employer] Other Start: 06-14-2021 Telephone encounter Giovanna riveras [facility] Start: 06-13-2021 (DM) Diabetes Giovanna Iyerlan ds [facility] Start: 06-13-2021 End: 06-13-2021 ambulatory Giovanna Morrow Other [employer] Other Start: 06-13-2021 Telephone encounter Giovanna [facility] Start: 05-29-2021 End: 05-29-2021 ambulatory Giovanna Morrow Other [employer] Other Start: 05-29-2021 Telephone encounter Giovanna [facility] Start: 05-24-2021 (DM) Diabetes Giovanna Iyerlan ds [facility] Start: 05-24-2021 End: 05-24-2021 ambulatory Giovanna Morrow Other [employer] Other Start: 04-14-2021 Telephone encounter Giovanna thomson [facility] Start: 04-11-2021 Telephone encounter Giovanna thomson [facility] Start: 04-10-2021 FQ visit new patient Giovanna White [facility] Procedures Date Procedure Procedure Detail Performing Clinician Start: 01-08-2024 Diagnostic radiograp hy of abdomen Start: 12-06-2023 Follow-up visit Follow-up HAMMAD MARTINS JR Start: 08-29-2023 Ecg routine ecg w/le ast 12 lds w/i&r Jr Godfrey MD Work Phone: Start: 08-29-2023 Follow-up visit Follow-up JR GODFREY Start: 09-07-2020 History of coronary artery bypass grafting Hx of CABG Hammad Martins Jr., MD Work Phone: Start: 07-30-2020 Adult depression scr eening assessment Hammad Martins Jr., MD Work Phone: Plan of Treatment Date Care Activity Detail Author Start: 08-29-2024 Adult BMI Screening Adult BMI Screening [facility] Start: 08-29-2024 Tobacco Screening Tobacco Screening [facility] Start: 05-10-2024 Adult BMI Screening Adult BMI Screening [facility] Start: 05-10-2024 Tobacco Screening Tobacco Screening [facility] Start: 08-29-2023 End: 08-29-2023 Patient encounter procedure 08/29/2023 9:30 AM EST Office Visit [facility] [address] [place] [address] Jr Godfrey MD [address] [facility] [place] [id number] [facility] Start: 07-30-2021 Depression Screening Depression Screening [facility] Start: 2018 Fall Risk Screening Fall Risk Screening [facility] Start: 11-28-2004 DTaP,Tdap and Td Vaccines (1 - Tdap) DTaP,Tdap and Td Vaccines (1 - Tdap) [facility] Start: 1971 Adult BMI Follow Up Plan Adult BMI Follow Up Plan [facility] Start: 1971 Diabetic foot examination Diabetic Foot Exam [facility] Start: 1965 Depression Screening Depression Screening [facility] Start: 1953 Glaucoma screening Diabetic Ophthalmology Exam [facility] Start: 1953 Medicare Annual Wellness Visit Medicare [facility] Rehabilitation Payers Date Payer Category Payer Self-pay [id number] 2018 [place] [id number] 2018-Present [phone] [address] [place] [address] [id number] 2018 Medicare ANTHEM MEDICARE ANTHEM MEDICARE ADVANTAGE [id number] 2018-Present [phone] [address] [place] [address] [id number] 1959 Medicaid [id number] 1959 Medicare [id number] 1953 Unknown [id number] 2.16.840.1.531833.3.579.2.593 1953 Unknown [id number] 2.16.840.1.156112.3.579.2.593 1953 Unknown [id number] 2.16.840.1.294706.3.579.2.1286 1953 Unknown [id number] 2.16.840.1.457858.3.579.2.1259 1953 Unknown [id number] 2.16.840.1.935329.3.579.2.1259 1953 Unknown [id number] 2.16.840.1.537685.3.579.2.1259 1953 Unknown [id number] 2.16.840.1.205555.3.579.2.1259 1953 Unknown [id number] 2.16.840.1.676498.3.579.2.1259 1953 Unknown [id number] 2.16.840.1.999223.3.579.2.1286 1953 Unknown [id number] 2.16.840.1.058062.3.579.2.1286 1953 Unknown [id number] 2.16.840.1.526607.3.579.2.1286 1953 Unknown [id number] 2.16.840.1.772407.3.579.2.1286 1953 Unknown [id number] 2.16.840.1.108737.3.579.2.1286 1953 Unknown [id number] 2.16.840.1.970850.3.579.2.1286 1953 Unknown [id number] 2.16.840.1.465151.3.579.2.1286 1953 Unknown [id number] 2.16.840.1.074473.3.579.2.1286 Unknown [id number] [id number]1 Social History Date Type Detail Facility Unknown if ever smoked [employer] Other Start: 07-30-2020 End: 08-29-2023 [facility] Start: 04-27-2022 End: 11-18-2023 Tobacco smoking status [facility] Never smoked tobacco [facility] Start: 04-27-2022 Tobacco use and exposure Smokeless tobacco non-user [facility] Start: 05-10-2023 End: 08-29-2023 Alcohol intake Current non-drinker of alcohol (finding) [facility] Start: 07-30-2020 End: 08-29-2023 History of Social function [facility] Do you belong to any clubs or organizations such as hindu groups, unions, fraternal or athletic groups, or school groups? No [facility] Are you now , , , , never or living with a partner? [facility] How hard is it for y ou to pay for the very basics like food, housing, medical care, and heating Not hard at all [facility] Do you feel stress - tense, restless, nervous, or anxious, or unable to sleep at night because your mind is troubled all the time - these days [OSQ] Not at all [facility] Start: 1955 Sex Assigned At Not on file [employer] Start: 1955 Sex Assigned At Female [facility] Medical Equipment Procedure Code Equipment Code Equipment Origin al Text Equipment Identifier Dates Start: 04-11-2021 lancets Start: 10-03-2023 Goals Date Patient Goal Desired Activity /State Personal health goal Comment on above: Formatting of this n ote might be different from the original. Evaluation of progress towards goal: Safe dc transition from hospital to home. Clinical Notes 04-10-2021 to 08-29-2023 Jr Godfrey MD - 08/29/2023 9:30 AM ESTTelephone Encounter - Maria Luisa Harrington, [facility] - 08/28/2023 3:14 PM ESTTelephone Encounter - Maria Luisa Harrington, [facility] - 08/28/2023 3:14 PM EST Note Date & Type Note Facility 08-29-2023 History of Present illness Narrative Romie Geiger Date of visit: 08/29/2023 Date of : 1955 Age: 68 y.o. Patient Active Problem List Diagnosis Cerebrovascular disease Abnormal electrocardiography Essential hypertension Heartburn Pure hypercholesterolemia Coronary artery disease involving [place] coronary artery of [place] heart without angina pectoris Hypokalemia Hx of CABG Prolonged Q-T interval on ECG Obesity (BMI 30-39.9) Obesity (BMI 30-39.9) Venous hypertension Spider veins Recurrent urinary tract infection Urologic disorders Bilateral renal stones H/O recurrent urinary tract infection Allergies Allergen Reactions Albuterol Dizziness Baclofen Dizziness NAUSEA Clindamycin Hives HEARTBURN Codeine Diarrhea and Nausea And Vomiting Other reaction(s): Intolerance-unknown Erythromycin Base Nausea And Vomiting Other reaction(s): Erythromycin Ibuprofen Nausea And Vomiting Other reaction(s): Motrin Omeprazole Nausea Other reaction(s): Prilosec Penicillins Hives Other reaction(s): Intolerance-unknown Plavix [Clopidogrel] Dizziness Propoxyphene Nausea Simvastatin Other reaction(s): Myalgia Current Outpatient Medications Medication Sig Dispense Refill acetaminophen (TYLENOL EXTRA STRENGTH) 500 mg tablet Take 1 tablet (500 mg total) by mouth every 6 (six) hours as needed for pain. albuterol (ACCUNEB) 0.63 mg/3 mL nebulizer solution Inhale 3 mL (0.63 mg total) by nebulization every 6 (six) hours as needed for wheezing. aspirin 81 mg Take 1 tablet (81 mg total) by mouth in the morning. biotin (BIOTIN) 5 mg capsule Take 1 capsule (5 mg total) by mouth in the morning. carvediloL (COREG) 25 mg tablet Take 1 tablet (25 mg total) by mouth in the morning and 1 tablet (25 mg total) in the evening. Take with meals. 180 tablet 0 cholecalciferol (VITAMIN D3) 50,000 units capsule Take 1 capsule (50,000 Units total) by mouth in the morning. cyanocobalamin 1000 MCG tablet Take 1 tablet (1,000 mcg total) by mouth in the morning. estradioL (ESTRACE) 0.01 % (0.1 mg/gram) vaginal cream Apply nightly for 3 weeks, then 3 times per week. 127.5 g 3 ferrous sulfate 325 (65 FE) mg tablet Take 1 tablet (325 mg total) by mouth daily with breakfast. fluticasone furoate-vilanteroL (BREO ELLIPTA) 100-25 mcg/dose blister with device Inhale 1 puff nightly as needed. fluticasone propionate (FLONASE) 50 mcg/actuation nasal spray Administer 1 spray into each nostril in the morning. hydroCHLOROthiazide (HYDRODIURIL) 25 mg tablet Take 0.5 tablets (12.5 mg total) by mouth daily. 45 tablet 3 isosorbide mononitrate (IMDUR) 30 mg 24 hr tablet Take 1 tablet (30 mg total) by mouth daily. 90 tablet 0 LANTUS SOLOSTAR U-100 INSULIN 100 unit/mL (3 mL) insulin pen 16 Units in the morning. latanoprost (XALATAN) 0.005 % ophthalmic solution Administer 1 drop to both eyes nightly. loratadine (CLARITIN) 10 mg tablet Take 1 tablet (10 mg total) by mouth in the morning. losartan (COZAAR) 100 mg tablet Take 1 tablet (100 mg total) by mouth in the morning. magnesium oxide (MAGOX) 400 mg tablet Take 1 tablet (400 mg total) by mouth in the morning. meclizine (ANTIVERT) 25 mg tablet Take 1 tablet (25 mg total) by mouth 3 (three) times a day as needed for dizziness. 30 tablet 5 metFORMIN (GLUCOPHAGE) 1000 mg tablet Take 1 tablet (1,000 mg total) by mouth in the morning and 1 tablet (1,000 mg total) before bedtime. nitroglycerin (NITROSTAT) 0.4 MG SL tablet 1 under the tongue as needed for angina, may repeat q5mins for up three doses 25 tablet 3 ondansetron ODT (ZOFRAN ODT) 4 mg disintegrating tablet Dissolve 1 tablet (4 mg total) on tongue every 8 (eight) hours as needed for nausea for up to 10 doses. 10 tablet 0 potassium citrate (UROCIT-K) 15 mEq tablet extended release Take 1 tablet (15 mEq total) by mouth in the morning and 1 tablet (15 mEq total) before bedtime. Do all this for 360 days. 180 tablet 3 pravastatin (PRAVACHOL) 80 mg tablet Take 1 tablet (80 mg total) by mouth nightly. psyllium (METAMUCIL) powder Take 1 packet by mouth 3 (three) times a day. TRULICITY 1.5 mg/0.5 mL pen injector once a week. XARELTO 20 mg tablet tablet TAKE ONE TABLET BY MOUTH EVERY MORNING 90 tablet 0 lidocaine (LIDODERM) 5 % Place 1 patch on the skin daily. Remove & Discard patch within 12 hours or as directed by 30 patch 0 No current facility-administered medications for this visit. Chief Complaint Patient presents with Follow-up EST PT 1 YR FU L/S MAS SCHED W/PT History of Present Illness Patient reports doing well no major issues she is under quite a bit of stress though recently her son was diagnosed with several tumors and there wait on the results of this after biopsy. Heart tran however she is done well she has had no decline in function no chest pain no shortness breath no lightheadedness Past Medical History: Diagnosis Date Anemia Anxiety Atelectasis CAD (coronary artery disease) COPD (chronic obstructive pulmonary disease) ([facility]) CVA (cerebral vascular accident) ([facility]) Dental disease Depression Depression Diabetes mellitus type 2, controlled ([facility]) Diabetes mellitus with peripheral circulatory disorder ([facility]) 08/30/2009 GERD (gastroesophageal reflux disease) Glaucoma Hepatic steatosis Hyperlipidemia Hypertension Irritable bowel Myocardial infarction ([facility]) Pulmonary embolism ([facility]) Visual impairment No data recorded No data recorded No data recorded Past Surgical History: Procedure Laterality Date SECTION CHOLECYSTECTOMY COLONOSCOPY N/A 10/13/2020 Performed by José Caldwell MD at [facility] CORONARY ARTERY BYPASS GRAFT CYSTOSCOPY N/A 04/27/2022 Performed by Hammad Martins Jr., MD at [facility] EXCISION BENIGN SKIN LESION SCALP / NECK / HANDS / FEET / GENITALIA [facility] EYE SURGERY HEMORRHOID SURGERY HERNIA REPAIR x6 HYSTERECTOMY LAPAROSCOPIC TUBAL LIGATION Family History Problem Relation Age of Onset Heart attack Father Heart attack Brother No Known Problems Mother Cancer Brother Social History Socioeconomic History Marital status: Spouse name: Not on file Number of children: Not on file Years of education: Not on file Highest education level: Not on file Occupational History Not on file Tobacco Use Smoking status: Never Smokeless tobacco: Never Vaping Use Vaping Use: Never used Substance and Sexual Activity Alcohol use: No Drug use: No Sexual activity: Defer Other Topics Concern Caffeine Use No Social History Narrative Not on file Social Determinants of Health Financial Resource Strain: Low Risk (07/30/2020) Overall Financial Resource Strain (CARDIA) Difficulty of Paying Living Expenses: Not hard at all Food Insecurity: No Food Insecurity (08/29/2023) Hunger Screening Food Insecurity - Worry: Never True Food Insecurity - Inability: Never True Transportation Needs: No Transportation Needs (07/30/2020) PRAPARE - Transportation Lack of Transportation (Medical): No Lack of Transportation (Non-Medical): No Physical Activity: Insufficiently Active (07/30/2020) Exercise Vital Sign Days of Exercise per Week: 3 days Minutes of Exercise per Session: 20 min Stress: No Stress Concern Present (07/30/2020) [employer] - Occupational Stress Questionnaire Feeling of Stress : Not at all Social Connections: Socially Isolated (07/30/2020) Social Connection and Isolation Panel [NHANES] Frequency of Communication with Friends and Family: More than three times a week Frequency of Social Gatherings with Friends and Family: Never Attends Sikh Services: Never Active Member of Clubs or Organizations: No Attends Club or Organization Meetings: Never Marital Status: Interpersonal Safety: Not At Risk (07/30/2020) Humiliation, Afraid, Rape, and Kick questionnaire Fear of Current or Ex-Partner: No Emotionally Abused: No Physically Abused: No Sexually Abused: No Housing Instability: Not on file Review of Systems Review of Systems Respiratory: Positive for cough, shortness of breath and wheezing. Neurological: Positive for dizziness, headaches and vertigo. Psychiatric/Behavioral: Positive for depression. The patient is nervous/anxious. CARDIOVASCULAR: Please review HPI. Physical Examination General appearance: Alert, oriented and cooperative. In no acute distress. Skin: Warm and dry to touch. Head: Normocephalic, without obvious abnormality, atraumatic. Ears, Nose, Mouth, Throat: Throat clear without erythema or exudate. Dentition intact. Eyes: Conjunctivae unremarkable, EOM intact. Neck: No JVD, No carotid bruit. Neck supple, trachea midline. Respiratory: Clear to auscultation bilaterally, no use of accessory muscles. Cardiovascular: RRR with normal S1 and S2 with no murmurs. Gastrointestinal: Soft, non-tender. Bowel sounds normal. Musculoskeletal: No peripheral edema. Neurologic: Oriented to time, person and place, affect appropriate. No focal/major motor defects noted. Psychiatric: Appropriate mood, memory and judgement. VITAL SIGNS: BP 110/60 (BP Site: Left Arm, BP Postition: Sitting) Pulse 69 Ht 162.6 cm (5' 4 ) Wt 87.1 kg (192 lb) SpO2 96% BMI 32.96 kg/m No orders of the defined types were placed in this encounter. There are no discontinued medications. IMPRESSIONS/PLAN 1. Pure hypercholesterolemia - POCT EKG 2. Coronary artery disease involving [place] coronary artery of [place] heart without angina pectoris - POCT EKG 3. Prolonged Q-T interval on ECG - POCT EKG She has a past medical history of hypertension, hyperlipidemia, ASCVD with bypass grafting x2, and diabetes mellitus. She is doing well. Blood pressure under good control despite having quite a bit of anxiety over sons recent diagnosis of multiple tumors that they are awaiting biopsy results. Continue with other medicines at this time. TODAYS ORDERS Orders Placed This Encounter Procedures POCT EKG FOLLOW UP No follow-ups on file. PCP: SCOTTY KUMAR MD Referring Physician: Scotty Kumar MD [address] [place] [id number] [facility] 08-28-2023 Miscellaneous Notes Attempted to phone pt to remind of appt scheduled for 08/29/2023, no vm. [facility] 08-28-2023 Telephone encounter Note Attempted to phone pt to remind of appt scheduled for 08/29/2023, [facility] vm[facility] Evaluation note Encounter Date Diagnosis Assessment Notes Jul, Type 2 diabetes mellitus with hyperglycemia (ICD-10 - E11.65) ASSESSMENT: 1. At Goal, a Type 2 diabetes with A1c of 7.1%, was 6.5% GMI 6.7%, GOAL under 7% without Low BG 2. Good control with purposeful weight loss. Lantus to 11 u once daily., Continue trulicity 3.0 mg sq weekly until complete and 4.5 mg available. Continue Metformin 1000 mg twice daily. Research shows that stamina with the current regime may fatigue, as would outcomes and CGM is equitable compaired to disease instability. Patient also maintains active lifestyle which increases cumbersome nature of current regime. CGM necessary to titrate insulin 3. Patient is alert, oriented and receptive to making changes or counseling. Notes: Seen for an assessment of current glucose pattern, changes in treatment plan, counseling and coordination of care related to diabetes, risks, and benefits of treatment, medications, side effects. Given handouts to reinforce concepts reviewed during counseling, see scanned notes. TOPICS REVIEWED: 1. Time was spent reviewing: a. Basic concepts of diabetes, progressive beta cell , concepts of basal/bolus/corre ctive insulin requirements. Basal: The goal is fasting blood glucose of 90-130mg. IF fasting blood glucose starts to run under 100mg 3x's/ week, decrease dose by 10%. Bolus: The goal is to hold the blood glucose level steady meal to meal. If pt. is going to have increased physical activity after a meal, decrease the schedule meal dose prior to the activity by 30-50%. If pt. skips a meal do not take this dose. Correction: The goal is to correct an elevated glucose back into the 100-150mg range b. Nutrition: Concepts of healthy diet, encouraged to decrease saturated fat in diet and increase non-starchy vegetables and fruits in diet. BMI: Pt. needs to select one small change to decrease caloric intake or increase physical activity to help decrease weight. c. Correct treatment of hypoglycemia, carry a glucose source at all times on your person, in vehicles, and at bedside. Can use glucose tablets/4, four ounces of pop or juice equal to 15 G of carbohydrate. Blood glucose should be 100 mg/dl or higher when driving. d. ADA glucose goals for age and medical complexity reviewed e. Patient questions addressed 2. Activity/exercise : Encouraged to start any form of physical activity. Start low level and increase slowly to a minimal goal of 150 minutes/week. Limit activity to what is allowed by other issues such as cardiac, pulmonary or orthopedic restrictions. 3. Standards of care: Reminded to have an annual dilated eye exam, A1C every 3 months, urine testing for microalbumin once/year, check feet daily and report any cuts or sores that do not appear to be healing. 4. Meter: Plan to check blood glucose: Please check blood glucose levels 4 times/day. Back to back meals reveal effectiveness of bolus dosing. The blood glucose data is used to determine insulin doses and confirm symptoms for hypoglycemia and hyperglcyemia. 5. [facility] Contact office if any issues or concerns with patterns of hypoglycemia, hyperglycemia, or diabetes medication issues. 6. Prescriptions:Non e needed 08-12-2023 uses [facility]. Jul, Vitamin D deficiency (ICD-10 - E55.9) Learning About Vitamin D material was published to portal Vitamin D deficiency identified, prescription grade vitamin D ordered and discussed.. Vitamin D has been noted to have positive impact on mood and energy. We can recheck periodically and make recommendations for long-term supplementation with [id number] formulations or prescription grade repletion. 4000 IU D3 daily and will recheck for optimization Jul, Dietary counseling and surveillance (ICD-10 - Z71.3) Learning About Healthy Weight material was published to portal Jul, Hyperlipidemia (ICD-10 - E78.5) Learning About High Cholesterol material was published to portal. On statin per PCP Discussed risks of elevated LDL. Encouraged intake of foods low in saturated fat as well as supplements (naif, fish oil). Discussed LDL contributing to insulin resistance and increase cardiovascular risk factors. Jul, HTN (hypertension) (ICD-10 - I10) High Blood Pressure: Care Instructions material was published to portal Blood pressure goal today under 140/90 Jul, prison current use of insulin (ICD-10 - Z79.4) Jul, Vitamin B 12 deficiency (ICD-10 - E53.8) Continue cyanocobalamin 1000 mcg daily, handwritten information provided. Will recheck Jul, Hypoglycemia (ICD-10 - E16.2) Jul, BMI 33.0-33.9,adult (ICD-10 - Z68.33) Jul, Other weight trajectory steady, weight improving [employer] Other 12-28-2023 Miscellaneous Notes* Telephone Encounter - CAROL Saldivar - 07/11/2023 2:45 PM EST Pt called office requesting refill for estrogen cream. Refill sent to [facility] per pt request. [facility] [id number] Telephone encounter Note* Telephone Encounter - CAROL Saldivar - 07/11/2023 2:45 PM EST Pt called office requesting refill for estrogen cream. Refill sent to [facility] pharmacy per pt request. [facility] [id number] Miscellaneous Notes* Telephone Encounter - Amarilys Sandoval LPN - 07/09/2023 6:25 PM EST Pt called in asking for refill of Estradiol cream. She uses [facility] pharmacy [facility] [id number] Telephone encounter Note* Telephone Encounter - Amarilys Sandoval LPN - 07/09/2023 6:25 PM EST Pt called in asking for refill of Estradiol cream. [facility] [id number] Evaluation note* Encounter Date Diagnosis Assessment Notes Treatment Notes Treatment Clinical Notes May, Type 2 diabetes mellitus with hyperglycemia (ICD-10 - E11.65) [employer] Other 09-29-2023 Evaluation note* Encounter Date Diagnosis Assessment Notes Treatment Notes Treatment Clinical Notes Mar, Type 2 diabetes mellitus with hyperglycemia (ICD-10 - E11.65) ASSESSMENT: 1. At Goal, a Type 2 diabetes with A1c of 6.5%, GMI 7.0% GOAL under 7% without Low BG 2. Good control with purposeful weight loss. Continues to be on lower dose Lantus, may be able to further titrate off of insulin with escalation of Trulicity. She just received 3 months of her Trulicity 3.0 mg weekly, we will escalate to 4.5 mg within the next prescription. She is instructed at that time to reduce her Lantus to 11 units once daily, she is to call if blood glucose levels high or if she has any questions regarding changes in glycemia. We have been limited to add SGLT2 due to chronic yeast infection. Research shows that stamina with the current regime may fatigue, as would outcomes and CGM is equitable compaired to disease instability. Patient also maintains active lifestyle which increases cumbersome nature of current regime. CGM necessary to titrate insulin 3. Patient is alert, oriented and receptive to making changes or counseling. Notes: Seen for an assessment of current glucose pattern, changes in treatment plan, counseling and coordination of care related to diabetes, risks, and benefits of treatment, medications, side effects. Given handouts to reinforce concepts reviewed during counseling, see scanned notes. TOPICS REVIEWED: 1. Time was spent reviewing: a. Basic concepts of diabetes, progressive beta cell , concepts of basal/bolus/correcti ve insulin requirements. Basal: The goal is fasting blood glucose of 90-130mg. IF fasting blood glucose starts to run under 100mg 3x's/ week, decrease dose by 10%. Bolus: The goal is to hold the blood glucose level steady meal to meal. If pt. is going to have increased physical activity after a meal, decrease the schedule meal dose prior to the activity by 30-50%. If pt. skips a meal do not take this dose. Correction: The goal is to correct an elevated glucose back into the 100-150mg range b. Nutrition: Concepts of healthy diet, encouraged to decrease saturated fat in diet and increase non-starchy vegetables and fruits in diet. BMI: Pt. needs to select one small change to decrease caloric intake or increase physical activity to help decrease weight. c. Correct treatment of hypoglycemia, carry a glucose source at all times on your person, in vehicles, and at bedside. Can use glucose tablets/4, four ounces of pop or juice equal to 15 G of carbohydrate. Blood glucose should be 100 mg/dl or higher when driving. d. ADA glucose goals for age and medical complexity reviewed e. Patient questions addressed 2. Activity/exercise: Encouraged to start any form of physical activity. Start low level and increase slowly to a minimal goal of 150 minutes/week. Limit activity to what is allowed by other issues such as cardiac, pulmonary or orthopedic restrictions. 3. Standards of care: Reminded to have an annual dilated eye exam, A1C every 3 months, urine testing for microalbumin once/year, check feet daily and report any cuts or sores that do not appear to be healing. 4. Meter: Plan to check blood glucose: Please check blood glucose levels 4 times/day. Back to back meals reveal effectiveness of bolus dosing. The blood glucose data is used to determine insulin doses and confirm symptoms for hypoglycemia and hyperglcyemia. 5. [facility]. Contact office if any issues or concerns with patterns of hypoglycemia, hyperglycemia, or diabetes medication issues. 6. Prescriptions:None needed 04-12-2023. Mar, Vitamin D deficiency (ICD-10 - E55.9) Learning About Vitamin D material was published to portal Vitamin D deficiency identified, prescription grade vitamin D ordered and discussed.. Vitamin D has been noted to have positive impact on mood and energy. We can recheck periodically and make recommendations for long-term supplementation with [id number] formulations or prescription grade repletion. 4000 IU D3 daily and will recheck for optimization Mar, Dietary counseling and surveillance (ICD-10 - Z71.3) [employer] About Healthy Weight material was published to portal Mar, Hyperlipidemia (ICD-10 - E78.5) Learning About High Cholesterol material was published to portal. On statin per PCP Discussed risks of elevated LDL. Encouraged intake of foods low in saturated fat as well as supplements (naif, fish oil). Discussed LDL contributing to insulin resistance and increase cardiovascular risk factors. Mar, HTN (hypertension) (ICD-10 - I10) High Blood Pressure: Care Instructions material was published to portal Blood pressure goal today under 140/90 Mar, prison current use of insulin (ICD-10 - Z79.4) Mar, Vitamin B 12 deficiency (ICD-10 - E53.8) Continue cyanocobalamin 1000 mcg daily, handwritten information provided. Will recheck Mar, Hypoglycemia (ICD-10 - E16.2) Mar, BMI 32.0-32.9,adult (ICD-10 - Z68.32) Mar, Other weight trajecto ry steady, weight improving [facility] Other 09-07-2023 Evaluation note* Encounter Date Diagnosis Assessment Notes Treatment Notes Treatment Clinical Notes Mar, Type 2 diabetes mellitus with hyperglycemia (ICD-10 - E11.65) [facility] Other 07-05-2023 Evaluation note* Encounter Date Diagnosis Assessment Notes Treatment Notes Treatment Clinical Notes Jan, Type 2 diabetes mellitus with hyperglycemia (ICD-10 - E11.65) ASSESSMENT: 1. At Goal, a Type 2 diabetes with A1c of 6.5%, GMI 7.0% GOAL under 7% without Low BG 2. A1c at goal,7.7 lbs of purposeful weight loss. Reduction Insulin interimly, with continued need for PM snack to avoid low BG. Further reduce Lantus to 13 u once daily. Continued consideration on further reduction if consistently running under 100 mg / dl. She states understanding, Wikk consider escalation of Truicity for further insulin reduction after mitigation of lows, RTC 8 weeks for interval check, SGLt2i have been troublesome with chronic yeast and UTI infections. CONSIDER UMIC NEXT VISIT Research shows that stamina with the current regime may fatigue, as would outcomes and CGM is equitable compaired to disease instability. Patient also maintains active lifestyle which increases cumbersome nature of current regime. CGM necessary to titrate insulin 3. Patient is alert, oriented and receptive to making changes or counseling. Notes: Seen for an assessment of current glucose pattern, changes in treatment plan, counseling and coordination of care related to diabetes, risks, and benefits of treatment, medications, side effects. Given handouts to reinforce concepts reviewed during counseling, see scanned notes. TOPICS REVIEWED: 1. Time was spent reviewing: a. Basic concepts of diabetes, progressive beta cell , concepts of basal/bolus/correcti ve insulin requirements. Basal: The goal is fasting blood glucose of 90-130mg. IF fasting blood glucose starts to run under 100mg 3x's/ week, decrease dose by 10%. Bolus: The goal is to hold the blood glucose level steady meal to meal. If pt. is going to have increased physical activity after a meal, decrease the schedule meal dose prior to the activity by 30-50%. If pt. skips a meal do not take this dose. Correction: The goal is to correct an elevated glucose back into the 100-150mg range b. Nutrition: Concepts of healthy diet, encouraged to decrease saturated fat in diet and increase non-starchy vegetables and fruits in diet. BMI: Pt. needs to select one small change to decrease caloric intake or increase physical activity to help decrease weight. c. Correct treatment of hypoglycemia, carry a glucose source at all times on your person, in vehicles, and at bedside. Can use glucose tablets/4, four ounces of pop or juice equal to 15 G of carbohydrate. Blood glucose should be 100 mg/dl or higher when driving. d. ADA glucose goals for age and medical complexity reviewed e. Patient questions addressed 2. Activity/exercise: Encouraged to start any form of physical activity. Start low level and increase slowly to a minimal goal of 150 minutes/week. Limit activity to what is allowed by other issues such as cardiac, pulmonary or orthopedic restrictions. 3. Standards of care: Reminded to have an annual dilated eye exam, A1C every 3 months, urine testing for microalbumin once/year, check feet daily and report any cuts or sores that do not appear to be healing. 4. Meter: Plan to check blood glucose: Please check blood glucose levels 4 times/day. Back to back meals reveal effectiveness of bolus dosing. The blood glucose data is used to determine insulin doses and confirm symptoms for hypoglycemia and hyperglcyemia. 5. [facility] Contact office if any issues or concerns with patterns of hypoglycemia, hyperglycemia, or diabetes medication issues. 6. Prescriptions:None needed 01-16-2023. Jan, Vitamin D deficiency (ICD-10 - E55.9) Learning About Vitamin D material was published to portal Vitamin D deficiency identified, prescription grade vitamin D ordered and discussed.. Vitamin D has been noted to have positive impact on mood and energy. We can recheck periodically and make recommendations for long-term supplementation with [id number] formulations or prescription grade repletion. 4000 IU D3 daily and will recheck for optimization Jan, Dietary counseling and surveillance (ICD-10 - Z71.3) Learning About Healthy Weight material was published to portal Jan, Hyperlipidemia (ICD-10 - E78.5) Learning About High Cholesterol material was published to portal. On statin per PCP Discussed risks of elevated LDL. Encouraged intake of foods low in saturated fat as well as supplements (naif, fish oil). Discussed LDL contributing to insulin resistance and increase cardiovascular risk factors. Jan, HTN (hypertension) (ICD-10 - I10) High Blood Pressure: Care Instructions material was published to portal Blood pressure goal today under 140/90 Jan, watermaster current use of insulin (ICD-10 - Z79.4) Jan, Vitamin B 12 deficiency (ICD-10 - E53.8) Continue cyanocobalamin 1000 mcg daily, handwritten information provided. Will recheck Jan, BMI 33.0-33.9,adult (ICD-10 - Z68.33) weight trajectory steady, weight improving Jan, Hypoglycemia (ICD-10 - E16.2) [facility] Other 03-13-2023 Evaluation note* Encounter Date Diagnosis Assessment Notes Treatment Notes Treatment Clinical Notes Sep, Type 2 diabetes mellitus with hyperglycemia (ICD-10 - E11.65) ASSESSMENT: 1. At Goal, a Type 2 diabetes with A1c of 6.6%, GMI 7.0% GOAL under 7% 2. Labs saturday when she presents to PCP for labs. A1v is stable, has been on Trulicity 1.5 mg weekly d/t supply shortage and recently returned to 3.0 mg therefore A1c reflection lesser dose. I believe she will only have better glycemia now that 3.0 mg dose, we could consider escalation in future to 4.5 mg weekly. No need now. SGLt2i have been troublesome with chronic yeast and UTI infections. She will continue Lantus at 16 units every morning. She has not exhibited need for prandial coverage. We did discuss with further weight loss and escalation of trulicity, she may need to reduce Lantus based on 3 / 7day fasting BG under 100. She states understanding. Research shows that stamina with the current regime may fatigue, as would outcomes and CGM is equitable compaired to disease instability. Patient also maintains active lifestyle which increases cumbersome nature of current regime. 3. Patient is alert, oriented and receptive to making changes or counseling. Notes: Seen for an assessment of current glucose pattern, changes in treatment plan, counseling and coordination of care related to diabetes, risks, and benefits of treatment, medications, side effects. Given handouts to reinforce concepts reviewed during counseling, see scanned notes. TOPICS REVIEWED: 1. Time was spent reviewing: a. Basic concepts of diabetes, progressive beta cell , concepts of basal/bolus/correcti ve insulin requirements. Basal: The goal is fasting blood glucose of 90-130mg. IF fasting blood glucose starts to run under 100mg 3x's/ week, decrease dose by 10%. Bolus: The goal is to hold the blood glucose level steady meal to meal. If pt. is going to have increased physical activity after a meal, decrease the schedule meal dose prior to the activity by 30-50%. If pt. skips a meal do not take this dose. Correction: The goal is to correct an elevated glucose back into the 100-150mg range b. Nutrition: Concepts of healthy diet, encouraged to decrease saturated fat in diet and increase non-starchy vegetables and fruits in diet. BMI: Pt. needs to select one small change to decrease caloric intake or increase physical activity to help decrease weight. c. Correct treatment of hypoglycemia, carry a glucose source at all times on your person, in vehicles, and at bedside. Can use glucose tablets/4, four ounces of pop or juice equal to 15 G of carbohydrate. Blood glucose should be 100 mg/dl or higher when driving. d. ADA glucose goals for age and medical complexity reviewed e. Patient questions addressed 2. Activity/exercise: Encouraged to start any form of physical activity. Start low level and increase slowly to a minimal goal of 150 minutes/week. Limit activity to what is allowed by other issues such as cardiac, pulmonary or orthopedic restrictions. 3. Standards of care: Reminded to have an annual dilated eye exam, A1C every 3 months, urine testing for microalbumin once/year, check feet daily and report any cuts or sores that do not appear to be healing. 4. Meter: Plan to check blood glucose: Please check blood glucose levels 4 times/day. Back to back meals reveal effectiveness of bolus dosing. The blood glucose data is used to determine insulin doses and confirm symptoms for hypoglycemia and hyperglcyemia. 5. [facility]. Contact office if any issues or concerns with patterns of hypoglycemia, hyperglycemia, or diabetes medication issues. 6. Prescriptions: TERRANCE, Metformin and Trulicity sent 06/11/2022. Sep, Vitamin D deficiency (ICD-10 - E55.9) Learning About Vitamin D material was published to portal Vitamin D deficiency identified, prescription grade vitamin D ordered and discussed.. Vitamin D has been noted to have positive impact on mood and energy. We can recheck periodically and make recommendations for long-term supplementation with hvib-[id number]-[id number] formulations or prescription grade repletion. 4000 IU D3 daily and will recheck for optimization Sep, Dietary counseling and surveillance (ICD-10 - Z71.3) Learning About Healthy Weight material was published to portal Sep, Hyperlipidemia (ICD-10 - E78.5) Learning About High Cholesterol material was published to portal. On statin per PCP Discussed risks of elevated LDL. Encouraged intake of foods low in saturated fat as well as supplements (naif, fish oil). Discussed LDL contributing to insulin resistance and increase cardiovascular risk factors. Sep, HTN (hypertension) (ICD-10 - I10) High Blood Pressure: Care Instructions material was published to portal Blood pressure goal today under 140/90 Sep, prison current use of insulin (ICD-10 - Z79.4) Sep, Vitamin B 12 deficiency (ICD-10 - E53.8) Continue cyanocobalamin 1000 mcg daily, handwritten information provided. Will recheck Sep, BMI 33.0-33.9,adult (ICD-10 - Z68.33) weight trajectory steady, weight improving [facility] Other 11-28-2022 Evaluation note* Encounter Date Diagnosis Assessment Notes Treatment Notes Treatment Clinical Notes May, Type 2 diabetes mellitus with hyperglycemia (ICD-10 - E11.65) ASSESSMENT: 1. At Goal, a Type 2 diabetes with A1c of 6.6%, GMI 7.0% GOAL under 7% 2. Continue Lantus at 16 units every morning. She has not exhibited need for prandial coverage. Trulicity 3.0 mg subcu weekly managing prandial sugars with low variability. We will avoid SGLT2's as patient has had persistent and frequent vaginal yeast infection now on prophlactic -azole cream TIW per urology, this was despite normoglycemia. Continue Trulicity 3.0 mg sq weekly, can consider escalation to 4.5 as had no issue with titration in the past.We did discuss vitamin D supplementation.. Continue B12 as her B12 level is 185. Research shows that stamina with the current regime may fatigue, as would outcomes and CGM is equitable compaired to disease instability. Patient also maintains active lifestyle which increases cumbersome nature of current regime. 3. Patient is alert, oriented and receptive to making changes or counseling. Notes: Seen for an assessment of current glucose pattern, changes in treatment plan, counseling and coordination of care related to diabetes, risks, and benefits of treatment, medications, side effects. Given handouts to reinforce concepts reviewed during counseling, see scanned notes. TOPICS REVIEWED: 1. Time was spent reviewing: a. Basic concepts of diabetes, progressive beta cell , concepts of basal/bolus/correcti ve insulin requirements. Basal: The goal is fasting blood glucose of 90-130mg. IF fasting blood glucose starts to run under 100mg 3x's/ week, decrease dose by 10%. Bolus: The goal is to hold the blood glucose level steady meal to meal. If pt. is going to have increased physical activity after a meal, decrease the schedule meal dose prior to the activity by 30-50%. If pt. skips a meal do not take this dose. Correction: The goal is to correct an elevated glucose back into the 100-150mg range b. Nutrition: Concepts of healthy diet, encouraged to decrease saturated fat in diet and increase non-starchy vegetables and fruits in diet. BMI: Pt. needs to select one small change to decrease caloric intake or increase physical activity to help decrease weight. c. Correct treatment of hypoglycemia, carry a glucose source at all times on your person, in vehicles, and at bedside. Can use glucose tablets/4, four ounces of pop or juice equal to 15 G of carbohydrate. Blood glucose should be 100 mg/dl or higher when driving. d. ADA glucose goals for age and medical complexity reviewed e. Patient questions addressed 2. Activity/exercise: Encouraged to start any form of physical activity. Start low level and increase slowly to a minimal goal of 150 minutes/week. Limit activity to what is allowed by other issues such as cardiac, pulmonary or orthopedic restrictions. 3. Standards of care: Reminded to have an annual dilated eye exam, A1C every 3 months, urine testing for microalbumin once/year, check feet daily and report any cuts or sores that do not appear to be healing. 4. Meter: Plan to check blood glucose: Please check blood glucose levels 4 times/day. Back to back meals reveal effectiveness of bolus dosing. The blood glucose data is used to determine insulin doses and confirm symptoms for hypoglycemia and hyperglcyemia. 5. [facility] Contact office if any issues or concerns with patterns of hypoglycemia, hyperglycemia, or diabetes medication issues. 6. Prescriptions: ETRRANCE, Metformin and Trulicity sent 06/11/2022. May, Vitamin D deficiency (ICD-10 - E55.9) Learning About Vitamin D material was published to portal Vitamin D deficiency identified, prescription grade vitamin D ordered and discussed.. Vitamin D has been noted to have positive impact on mood and energy. We can recheck periodically and make recommendations for long-term supplementation with xoem-[id number]-kompncb formulations or prescription grade repletion. 4000 IU D3 daily and will recheck for optimization May, Dietary counseling and surveillance (ICD-10 - Z71.3) Learning About Healthy Weight material was published to portal May, Hyperlipidemia (ICD-10 - E78.5) Learning About High Cholesterol material was published to portal. On statin per PCP Discussed risks of elevated LDL. Encouraged intake of foods low in saturated fat as well as supplements (naif, fish oil). Discussed LDL contributing to insulin resistance and increase cardiovascular risk factors. 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 Will recheck May, BMI 33.0-33.9,adult (ICD-10 - Z68.33) [facility] Other 10-11-2022 Evaluation note* Encounter Date Diagnosis Assessment Notes Treatment Notes Treatment Clinical Notes Apr, Type 2 diabetes mellitus with hyperglycemia (ICD-10 - E11.65) [facility] Other 08-17-2022 Evaluation note* Encounter Date Diagnosis Assessment Notes Treatment Notes Treatment Clinical Notes Feb, Type 2 diabetes mellitus with hyperglycemia (ICD-10 - E11.65) Provided sample glucometer, will send for strips, hopeful for coverage as patient's home monitor does not work. She has been in contact with [employer], changed batteries to no avail. We did discuss necessity of backup blood glucose fingerstick glucometer. ASSESSMENT: 1. At Goal, a Type 2 diabetes with A1c of 6.6%, GMI 6.9% GOAL under 7% 2. Continue Lantus at 16 units every morning. She has not exhibited need for prandial coverage. Trulicity 3.0 mg subcu weekly managing prandial sugars with low variability. We will avoid SGLT2's as patient has had persistent and frequent urinary tract infections and yeast infections despite normoglycemia. We did discuss vitamin D 4000 international units daily. She will ask for help from registered pharmacist to find appropriate dosing. We also recommended B12 as her B12 level is 185. Recent call regarding bleeding from terrance insertion site, she is on blood thinner. I do feel like this is outlier. Patient needs to plan site using mirror, avoiding superficial vessels. If she has subsequent event we will need to reconsider therapy. We also discussed using abdomen is not FDA approved but likely beneficial for abdomen placement. Patient should regardless avoid superficial vessels and use a mirror to do placement. If she uses the abdomen she should check blood glucose against glucometer. I did give her glucometer today we will send for strips as her home glucometer is broken. I have asked her to call the [employer] to get this replaced as she has received this within 5 years. If not she will need to pay $25 to get a new glucometer. 3. Patient is alert, oriented and receptive to making changes or counseling. Notes: Seen for an assessment of current glucose pattern, changes in treatment plan, counseling and coordination of care related to diabetes, risks, and benefits of treatment, medications, side effects. Given handouts to reinforce concepts reviewed during counseling, see scanned notes. TOPICS REVIEWED: 1. Time was spent reviewing: a. Basic concepts of diabetes, progressive beta cell , concepts of basal/bolus/correcti ve insulin requirements. Basal: The goal is fasting blood glucose of 90-130mg. IF fasting blood glucose starts to run under 100mg 3x's/ week, decrease dose by 10%. Bolus: The goal is to hold the blood glucose level steady meal to meal. If pt. is going to have increased physical activity after a meal, decrease the schedule meal dose prior to the activity by 30-50%. If pt. skips a meal do not take this dose. Correction: The goal is to correct an elevated glucose back into the 100-150mg range b. Nutrition: Concepts of healthy diet, encouraged to decrease saturated fat in diet and increase non-starchy vegetables and fruits in diet. BMI: Pt. needs to select one small change to decrease caloric intake or increase physical activity to help decrease weight. c. Correct treatment of hypoglycemia, carry a glucose source at all times on your person, in vehicles, and at bedside. Can use glucose tablets/4, four ounces of pop or juice equal to 15 G of carbohydrate. Blood glucose should be 100 mg/dl or higher when driving. d. ADA glucose goals for age and medical complexity reviewed e. Patient questions addressed 2. Activity/exercise: Encouraged to start any form of physical activity. Start low level and increase slowly to a minimal goal of 150 minutes/week. Limit activity to what is allowed by other issues such as cardiac, pulmonary or orthopedic restrictions. 3. Standards of care: Reminded to have an annual dilated eye exam, A1C every 3 months, urine testing for microalbumin once/year, check feet daily and report any cuts or sores that do not appear to be healing. 4. Meter: Plan to check blood glucose: Please check blood glucose levels 4 times/day. Back to back meals reveal effectiveness of bolus dosing. The blood glucose data is used to determine insulin doses and confirm symptoms for hypoglycemia and hyperglcyemia. 5. [facility]. Contact office if any issues or concerns with patterns of hypoglycemia, hyperglycemia, or diabetes medication issues. 6. Prescriptions: Needs Metformin, sent to [facility] also was travisen One Touch Verio Reflect Glucometer by Cassandra Holder, will need the test strips sent for this sent as well Feb, Vitamin D deficiency (ICD-10 - E55.9) Learning About Vitamin D material was published to portal Vitamin D deficiency identified, prescription grade vitamin D ordered and discussed.. Vitamin D has been noted to have positive impact on mood and energy. We can recheck periodically and make recommendations for long-term supplementation with [id number]-cdl-[id number] formulations or prescription grade repletion. When prescription complete patient will then continue with 4000 international units daily. Feb, Dietary counseling and surveillance (ICD-10 - Z71.3) Learning About Healthy Weight material was published to portal Feb, Hyperlipidemia (ICD-10 - E78.5) Learning About High Cholesterol material was published to portal. On statin per PCP Discussed risks of elevated LDL. Encouraged intake of foods low in saturated fat as well as supplements (naif, fish oil). Discussed LDL contributing to insulin resistance and increase cardiovascular risk factors. Feb, HTN (hypertension) (ICD-10 - I10) High Blood Pressure: Care Instructions material was published to portal Blood pressure goal today under 140/90 Feb, prison current use of insulin (ICD-10 - Z79.4) Feb, A mother who is producing milk (ICD-10 - Z39.1) Feb, Vitamin B 12 deficiency (ICD-10 - E53.8) Patient would benefit from sublingual cyanocobalamin 1000 mcg daily, handwritten information provided. Feb, BMI 32.0-32.9,adult (ICD-10 - Z68.32) [facility] Other 06-02-2022 Evaluation note* Encounter Date Diagnosis Assessment Notes Treatment Notes Treatment Clinical Notes Dec, Type 2 diabetes mellitus with hyperglycemia (ICD-10 - E11.65) [facility] Other 05-11-2022 Evaluation note* Encounter Date Diagnosis Assessment Notes Treatment Notes Treatment Clinical Notes November, Type 2 diabetes mellitus with hyperglycemia (ICD-10 - E11.65) ASSESSMENT: 1. At Goal, a Type 2 diabetes with A1c of 6.6%, GMI 6.8%, no lows but reports snacking at night to avoid low. 2. We will decrease Lantus to 20 units in the evening from 22, we discussed monitoring a.m. blood sugars under 100 for 3 of 7 days in a week to titrate down 2 more units. She states understanding. Discussed reduction in need for basal insulin is beneficial, weight loss contributes, appears that GLP-1 RA is managing prandial blood glucose, no need for ICR or corrective scale. . She is currently tolerating metformin 1000 mg 2 twice daily she is on Trulicity without difficulty 3.0 mg subcu weekly she is down 8.7 pounds today and feels very good about this. We will hold on SGLT2 due to frequent yeast infections/UTIs. We can reconsider this in the future when without UTI for some time. She does have transportation issues, and will need specific times to plan for transport. Tolerating T 3. Patient is alert, oriented and receptive to making changes or counseling. Notes: Seen for an assessment of current glucose pattern, changes in treatment plan, counseling and coordination of care related to diabetes, risks, and benefits of treatment, medications, side effects. Given handouts to reinforce concepts reviewed during counseling, see scanned notes. TOPICS REVIEWED: 1. Time was spent reviewing: a. Basic concepts of diabetes, progressive beta cell , concepts of basal/bolus/correcti ve insulin requirements. Basal: The goal is fasting blood glucose of 90-130mg. IF fasting blood glucose starts to run under 100mg 3x's/ week, decrease dose by 10%. Bolus: The goal is to hold the blood glucose level steady meal to meal. If pt. is going to have increased physical activity after a meal, decrease the schedule meal dose prior to the activity by 30-50%. If pt. skips a meal do not take this dose. Correction: The goal is to correct an elevated glucose back into the 100-150mg range b. Nutrition: Concepts of healthy diet, encouraged to decrease saturated fat in diet and increase non-starchy vegetables and fruits in diet. BMI: Pt. needs to select one small change to decrease caloric intake or increase physical activity to help decrease weight. c. Correct treatment of hypoglycemia, carry a glucose source at all times on your person, in vehicles, and at bedside. Can use glucose tablets/4, four ounces of pop or juice equal to 15 G of carbohydrate. Blood glucose should be 100 mg/dl or higher when driving. d. ADA glucose goals for age and medical complexity reviewed e. Patient questions addressed 2. Activity/exercise: Encouraged to start any form of physical activity. Start low level and increase slowly to a minimal goal of 150 minutes/week. Limit activity to what is allowed by other issues such as cardiac, pulmonary or orthopedic restrictions. 3. Standards of care: Reminded to have an annual dilated eye exam, A1C every 3 months, urine testing for microalbumin once/year, check feet daily and report any cuts or sores that do not appear to be healing. 4. Meter: Plan to check blood glucose: Please check blood glucose levels 4 times/day. Back to back meals reveal effectiveness of bolus dosing. The blood glucose data is used to determine insulin doses and confirm symptoms for hypoglycemia and hyperglcyemia. 5. [facility] Contact office if any issues or concerns with patterns of hypoglycemia, hyperglycemia, or diabetes medication issues. 6. Prescriptions: In checking No refills needed today 11-22-21 November, Vitamin D deficiency (ICD-10 - E55.9) Learning About Vitamin D material was published to portal Vitamin D deficiency identified, prescription grade vitamin D ordered and discussed.. Vitamin D has been noted to have positive impact on mood and energy. We can recheck periodically and make recommendations for long-term supplementation with [id number]-nbygxhh formulations or prescription grade repletion. When prescription complete patient will then continue with 4000 international units daily. November, Dietary counseling and surveillance (ICD-10 - Z71.3) Learning About Healthy Weight material was published to portal November, Hyperlipidemia (ICD-10 - E78.5) Learning About High Cholesterol material was published to portal. On statin per PCP Discussed risks of elevated LDL. Encouraged intake of foods low in saturated fat as well as supplements (naif, fish oil). Discussed LDL contributing to insulin resistance and increase cardiovascular risk factors. November, HTN (hypertension) (ICD-10 - I10) High Blood Pressure: Care Instructions material was published to portal Blood pressure goal today under 140/90 November, prison current use of insulin (ICD-10 - Z79.4) November, BMI 33.0-33.9,adult (ICD-10 - Z68.33) November, A mother who is producing milk (ICD-10 - Z39.1) November, Vitamin B 12 deficiency (ICD-10 - E53.8) Patient would benefit from sublingual cyanocobalamin 1000 mcg daily, handwritten information provided. [employer] Other 03-18-2022 Evaluation note* Encounter Date Diagnosis Assessment Notes Treatment Notes Treatment Clinical Notes Sep, Type 2 diabetes mellitus with hyperglycemia (ICD-10 - E11.65) [employer] Other 01-12-2022 Evaluation note* Encounter Date Diagnosis Assessment Notes Treatment Notes Treatment Clinical Notes Jul, Type 2 diabetes mellitus with hyperglycemia (ICD-10 - E11.65) ASSESSMENT: 1. At Goal, a Type 2 diabetes with A1c of 7.2 2. Terrance 2 download from 13 July through 26 July 2021, CGM active time is 94%. Average glucose 156, GMI 7.0%, glucose variability is 22.0%. Ranges: Greater than 250 1%, 181-250 is 19%, 70-180 is 80%, below 69 is 0 0%.. Significant improvement despite not tolerating Humalog, AEB log discussion of BG numbers. She has LIBRE2 in hand today and is excited for use. She will RTC in 3 mos for download. She believes insurance will not cover Diabetes Education at this time. She does have transportation issues, and will need specific times to plan for transport. Tolerating Trulicity 1.5 mg weekly, she denies any personal or family history of TMC or MENS Sydromes (discussed in laymans terms.) We will increase to 3.0 mg weekly. We will avoid addition of SGLT2 d/t fighting possible yeast rash- continued consideration d/t CVD, may need to coordinate d/t BP diuretics. Reconsider in future for further insulin reduction. She is able to articulate all instructions and is amenable to the treatment plan. She will continue Lantus 22u in am daily, understands rules of titration. We willhold on priandial and SSI at this time, continue metformin 3. Patient is alert, oriented and receptive to making changes or counseling. Notes: Seen for an assessment of current glucose pattern, changes in treatment plan, counseling and coordination of care related to diabetes, risks, and benefits of treatment, medications, side effects. Given handouts to reinforce concepts reviewed during counseling, see scanned notes. TOPICS REVIEWED: 1. Time was spent reviewing: a. Basic concepts of diabetes, progressive beta cell , concepts of basal/bolus/correcti ve insulin requirements. Basal: The goal is fasting blood glucose of 90-130mg. IF fasting blood glucose starts to run under 100mg 3x's/ week, decrease dose by 10%. Bolus: The goal is to hold the blood glucose level steady meal to meal. If pt. is going to have increased physical activity after a meal, decrease the schedule meal dose prior to the activity by 30-50%. If pt. skips a meal do not take this dose. Correction: The goal is to correct an elevated glucose back into the 100-150mg range b. Nutrition: Concepts of healthy diet, encouraged to decrease saturated fat in diet and increase non-starchy vegetables and fruits in diet. BMI: Pt. needs to select one small change to decrease caloric intake or increase physical activity to help decrease weight. c. Correct treatment of hypoglycemia, carry a glucose source at all times on your person, in vehicles, and at bedside. Can use glucose tablets/4, four ounces of pop or juice equal to 15 G of carbohydrate. Blood glucose should be 100 mg/dl or higher when driving. d. ADA glucose goals for age and medical complexity reviewed e. Patient questions addressed 2. Activity/exercise: Encouraged to start any form of physical activity. Start low level and increase slowly to a minimal goal of 150 minutes/week. Limit activity to what is allowed by other issues such as cardiac, pulmonary or orthopedic restrictions. 3. Standards of care: Reminded to have an annual dilated eye exam, A1C every 3 months, urine testing for microalbumin once/year, check feet daily and report any cuts or sores that do not appear to be healing. 4. Meter: Plan to check blood glucose: Please check blood glucose levels 4 times/day. Back to back meals reveal effectiveness of bolus dosing. The blood glucose data is used to determine insulin doses and confirm symptoms for hypoglycemia and hyperglcyemia. 5. [facility]. Contact office if any issues or concerns with patterns of hypoglycemia, hyperglycemia, or diabetes medication issues. 6. Prescriptions: patient requesting Metformin sent to [facility] 07-26-2021 Jul, Vitamin D deficiency (ICD-10 - E55.9) Learning About Vitamin D material was published to portal Vitamin D deficiency suspected. Vitamin D has been noted to have positive impact on mood and energy. We can recheck periodically and make recommendations for long-term supplementation with acjb-amj-nxcffsw formulations or prescription grade repletion. Jul, Dietary counseling and surveillance (ICD-10 - Z71.3) Learning About Healthy Weight material was published to portal Jul, Hyperlipidemia (ICD-10 - E78.5) Learning About High Cholesterol material was published to portal. On statin per PCP Discussed risks of elevated LDL. Encouraged intake of foods low in saturated fat as well as supplements (naif, fish oil). Discussed LDL contributing to insulin resistance and increase cardiovascular risk factors. Jul, HTN (hypertension) (ICD-10 - I10) High Blood Pressure: Care Instructions material was published to portal Jul, watermaster current use of insulin (ICD-10 - Z79.4) Jul, BMI 34.0-34.9,adult (ICD-10 - Z68.34) weight decrease noted 7.8 lbs, likely contribution of GLP-1-- desired. will increase insulin sensitivity Increased Trulicity -- promote weight loss and decreased insulin needs [employer] Other 12-21-2021 Evaluation note* Encounter Date Diagnosis Assessment Notes Treatment Notes Treatment Clinical Notes Jun, Type 2 diabetes mellitus with hyperglycemia (ICD-10 - E11.65) [employer] Other 11-30-2021 Evaluation note* Encounter Date Diagnosis Assessment Notes Treatment Notes Treatment Clinical Notes May, Type 2 diabetes mellitus with hyperglycemia (ICD-10 - E11.65) TERRANEC in hand from [employer]. Assist with placement and instruction today-- good questions. SkinTac and GRIFGRIP applied to upper left arm. ASSESSMENT: 1. Uncontrolled, a Type 2 diabetes with A1c of 10.1 2. Significant improvement despite not tolerating Humalog, AEB log discussion of BG numbers. She has LIBRE2 in hand today and is excited for use. She will RTC in 2-4 weeks for download. She will call if needs assistance placing next sensor. She believes insurance will not cover Diabetes Education at this time. She does have transportation issues, and will need specific times to plan for transport. Tolerating Trulicity, she denies any personal or family history of TMC or MENS Sydromes (discussed in laymans terms.) She is able to articulate all instructions and is amenable to the treatment plan. She will continue Latus 22u in am dialy, understands rules of titration. We willhold on priandial and SSI at this time. , Continue metformin. we will consider SGLt2 in future. We will see her back just before [place]. Based on CVD would benefit from SGLT2, will consider in future, will need to coordinate with Cardio/PCP based on well controlled HTN, and likely need for titration down BP meds with initiation 3. Patient is alert, oriented and receptive to making changes or counseling. Notes: Seen for an assessment of current glucose pattern, changes in treatment plan, counseling and coordination of care related to diabetes, risks, and benefits of treatment, medications, side effects. Given handouts to reinforce concepts reviewed during counseling, see scanned notes. TOPICS REVIEWED: 1. Time was spent reviewing: a. Basic concepts of diabetes, progressive beta cell , concepts of basal/bolus/correct valarie insulin requirements. Basal: The goal is fasting blood glucose of 90-130mg. IF fasting blood glucose starts to run under 100mg 3x's/ week, decrease dose by 10%. Bolus: The goal is to hold the blood glucose level steady meal to meal. If pt. is going to have increased physical activity after a meal, decrease the schedule meal dose prior to the activity by 30-50%. If pt. skips a meal do not take this dose. Correction: The goal is to correct an elevated glucose back into the 100-150mg range b. Nutrition: Concepts of healthy diet, encouraged to decrease saturated fat in diet and increase non-starchy vegetables and fruits in diet. BMI: Pt. needs to select one small change to decrease caloric intake or increase physical activity to help decrease weight. c. Correct treatment of hypoglycemia, carry a glucose source at all times on your person, in vehicles, and at bedside. Can use glucose tablets/4, four ounces of pop or juice equal to 15 G of carbohydrate. Blood glucose should be 100 mg/dl or higher when driving. d. ADA glucose goals for age and medical complexity reviewed e. Patient questions addressed 2. Activity/exercise: Encouraged to start any form of physical activity. Start low level and increase slowly to a minimal goal of 150 minutes/week. Limit activity to what is allowed by other issues such as cardiac, pulmonary or orthopedic restrictions. 3. Standards of care: Reminded to have an annual dilated eye exam, A1C every 3 months, urine testing for microalbumin once/year, check feet daily and report any cuts or sores that do not appear to be healing. 4. Meter: Plan to check blood glucose: Please check blood glucose levels 4 times/day. Back to back meals reveal effectiveness of bolus dosing. The blood glucose data is used to determine insulin doses and confirm symptoms for hypoglycemia and hyperglcyemia. 5. [facility]. Contact office if any issues or concerns with patterns of hypoglycemia, hyperglycemia, or diabetes medication issues. 6. Prescriptions: patient requesting Trulicity sent to [facility] May, Vitamin D deficiency (ICD-10 - E55.9) Learning About Vitamin D material was published to portal May, Dietary counseling and surveillance (ICD-10 - Z71.3) Learning About Healthy Weight material was published to portal May, Hyperlipidemia (ICD-10 - E78.5) Learning About High Cholesterol material was published to portal. On statin per PCP May, HTN (hypertension) (ICD-10 - I10) High Blood Pressure: Care Instructions material was published to portal May, watermaster current use of insulin (ICD-10 - Z79.4) May, BMI 34.0-34.9,adult (ICD-10 - Z68.34) weight decrease noted 7.8 lbs, likely contribution of GLP-1-- desired. will increase insulin sensitivity [employer] Other 11-10-2021 Evaluation note* Encounter Date Diagnosis Assessment Notes Treatment Notes Treatment Clinical Notes May, Type 2 diabetes mellitus with hyperglycemia (ICD-10 - E11.65) Terrance being sent . If approved she will bring supplies to her next appointment for management. We will look at yearly lab surveillance at that time as well. ASSESSMENT: 1. Uncontrolled, a Type 2 diabetes with A1c of 10.1 2. Provided meter for download, exhibits elevations in BG. Will increase Lantus to 22 u in AM, Add Humalog u 100 ISS 1:50 AC TiD, increase Trulicity to 1.5mg weekly (Saturday). She would benefit from LIBRE2 system. She is checking BG multiple times per day and delivering Multiple daily insulin injections. We again discussed management of low blood sugar and she appropriately provided s/s and rescue options. Insurance will not cover Diabetes Education at this time. She does have transportation issues, and will need specific times to plan for transport. She denies any personal or family history of TMC or MENS Sydromes (discussed in laymans terms.) She is able to articulate all instructions and is amenable to the treatment plan. We will see her back just before [place]. Based on CVD would benefit from SGLT2, will consider in future, will need to coordinate with Cardio/PCP based on well controlled HTN, and likely need for titration down BP meds with initiation 3. Patient is alert, oriented and receptive to making changes or counseling. Notes: Seen for an assessment of current glucose pattern, changes in treatment plan, counseling and coordination of care related to diabetes, risks, and benefits of treatment, medications, side effects. Given handouts to reinforce concepts reviewed during counseling, see scanned notes. TOPICS REVIEWED: 1. Time was spent reviewing: a. Basic concepts of diabetes, progressive beta cell , concepts of basal/bolus/correct valarie insulin requirements. Basal: The goal is fasting blood glucose of 90-130mg. IF fasting blood glucose starts to run under 100mg 3x's/ week, decrease dose by 10%. Bolus: The goal is to hold the blood glucose level steady meal to meal. If pt. is going to have increased physical activity after a meal, decrease the schedule meal dose prior to the activity by 30-50%. If pt. skips a meal do not take this dose. Correction: The goal is to correct an elevated glucose back into the 100-150mg range b. Nutrition: Concepts of healthy diet, encouraged to decrease saturated fat in diet and increase non-starchy vegetables and fruits in diet. BMI: Pt. needs to select one small change to decrease caloric intake or increase physical activity to help decrease weight. c. Correct treatment of hypoglycemia, carry a glucose source at all times on your person, in vehicles, and at bedside. Can use glucose tablets/4, four ounces of pop or juice equal to 15 G of carbohydrate. Blood glucose should be 100 mg/dl or higher when driving. d. ADA glucose goals for age and medical complexity reviewed e. Patient questions addressed 2. Activity/exercise: Encouraged to start any form of physical activity. Start low level and increase slowly to a minimal goal of 150 minutes/week. Limit activity to what is allowed by other issues such as cardiac, pulmonary or orthopedic restrictions. 3. Standards of care: Reminded to have an annual dilated eye exam, A1C every 3 months, urine testing for microalbumin once/year, check feet daily and report any cuts or sores that do not appear to be healing. 4. Meter: Plan to check blood glucose: Please check blood glucose levels 4 times/day. Back to back meals reveal effectiveness of bolus dosing. The blood glucose data is used to determine insulin doses and confirm symptoms for hypoglycemia and hyperglcyemia. 5. [facility]. Contact office if any issues or concerns with patterns of hypoglycemia, hyperglycemia, or diabetes medication issues. 6. Prescriptions:One touch Delica Lancets and Trulicity sent to [facility] May, Vitamin D deficiency (ICD-10 - E55.9) Learning About Vitamin D material was published to portal May, Dietary counseling and surveillance (ICD-10 - Z71.3) Learning About Healthy Weight material was published to portal May, Hyperlipidemia (ICD-10 - E78.5) Learning About High Cholesterol material was published to portal May, HTN (hypertension) (ICD-10 - I10) High Blood Pressure: Care Instructions material was published to portal May, watermaster current use of insulin (ICD-10 - Z79.4) May, BMI 34.0-34.9,adult (ICD-10 - Z68.34) weight decrease noted 7.8 lbs, likely contribution of GLP-1-- desired. will increase insulin sensitivity [employer] Other 09-27-2021 Evaluation note* Encounter Date Diagnosis Assessment Notes Treatment Notes Treatment Clinical Notes Mar, Type 2 diabetes mellitus with hyperglycemia (ICD-10 - E11.65) Trulicity 0.75mg SQ demonstrated proper handling and administration today, ASSESSMENT: 1. Uncontrolled, a Type 2 diabetes with A1c of 10.1 2. Blood glucose levels are above target. She does not seem to have lows on Lantus 20 q am. She did not bring meter today, but does not remember any blood sugars lower [id number]. She is agreeable to checking BG AC/HS and PRN. We did review and written information given on recognition and treatment of HYPOGLYCEMIA. She is agreeable to diabetes Education and this will be scheduled. She does have transportation issues, and will need specific times to plan for transport. She denies any personal or family history of TMC or MENS Sydromes (discussed in laymans terms.) Will initate Trulicity 0.75 mg SQ daily, first dose here, performed appropriately. She will have second dose in 1 week and fill ongoing rx (to call us for any issues with cost.) I did discuss with her how to manage Lantus dosing based on 3/7 days supper BG numbers under 100mg/dl in this case she would decrease Lantus by 10% 2 u or down to 18 u. She reports understanding. 3. Patient is alert, oriented and receptive to making changes or counseling. Notes: Seen for an assessment of current glucose pattern, changes in treatment plan, counseling and coordination of care related to diabetes, risks, and benefits of treatment, medications, side effects. Given handouts to reinforce concepts reviewed during counseling, see scanned notes. TOPICS REVIEWED: 1. Time was spent reviewing: a. Basic concepts of diabetes, progressive beta cell , concepts of basal/bolus/correc tive insulin requirements. Basal: The goal is fasting blood glucose of 90-130mg. IF fasting blood glucose starts to run under 100mg 3x's/ week, decrease dose by 10%. Bolus: The goal is to hold the blood glucose level steady meal to meal. If pt. is going to have increased physical activity after a meal, decrease the schedule meal dose prior to the activity by 30-50%. If pt. skips a meal do not take this dose. Correction: The goal is to correct an elevated glucose back into the 100-150mg range b. Nutrition: Concepts of healthy diet, encouraged to decrease saturated fat in diet and increase non-starchy vegetables and fruits in diet. BMI: Pt. needs to select one small change to decrease caloric intake or increase physical activity to help decrease weight. c. Correct treatment of hypoglycemia, carry a glucose source at all times on your person, in vehicles, and at bedside. Can use glucose tablets/4, four ounces of pop or juice equal to 15 G of carbohydrate. Blood glucose should be 100 mg/dl or higher when driving. d. ADA glucose goals for age and medical complexity reviewed e. Patient questions addressed 2. Activity/exercise: Encouraged to start any form of physical activity. Start low level and increase slowly to a minimal goal of 150 minutes/week. Limit activity to what is allowed by other issues such as cardiac, pulmonary or orthopedic restrictions. 3. Standards of care: Reminded to have an annual dilated eye exam, A1C every 3 months, urine testing for microalbumin once/year, check feet daily and report any cuts or sores that do not appear to be healing. 4. Meter: Plan to check blood glucose: Please check blood glucose levels 4 times/day. Back to back meals reveal effectiveness of bolus dosing. The blood glucose data is used to determine insulin doses and confirm symptoms for hypoglycemia and hyperglcyemia. 5. [facility]. Contact office if any issues or concerns with patterns of hypoglycemia, hyperglycemia, or diabetes medication issues. 6. Prescriptions:One touch Ultra Test Strips send to [facility] [per Cassandra S } Mar, Vitamin D deficiency (ICD-10 - E55.9) Learning About Vitamin D material was published to portal Mar, Dietary counseling and surveillance (ICD-10 - Z71.3) Learning About Healthy Weight material was published to portal Mar, Hyperlipidemia (ICD-10 - E78.5) Learning About High Cholesterol material was published to portal Mar, HTN (hypertension) (ICD-10 - I10) High Blood Pressure: Care Instructions material was published to portal Mar, watermaster current use of insulin (ICD-10 - Z79.4) Mar, BMI 35.0-35.9,adult (ICD-10 - Z68.35) [facility] [employer] Other Chief complaint+Reason for visit Narrative* Chief Complaint DMN f/u-METER m19.7 Reason for Visit BMI 33.0-33.9,adult Dietary counseling and surveillance HTN (hypertension) Hyperlipidemia watermaster current use of insulin Type 2 diabetes mellitus with hyperglycemia Vitamin B 12 deficiency Vitamin D deficiency [facility] Work Phone: Evaluation noteNo InformationNortP[facility] [employer] Other Evaluation noteNoFlintoh Yoono Other evaluation note* Diagnosis Recurrent urinary tract infection- Primary Urinary tract infection, site not specified [facility] Diagnosis Prolonged Q-T interval on ECG- Primary Nonspecific abnormal electrocardiogram (ECG) (EKG) Pure hypercholesterolemia Coronary artery disease involving [place] coronary artery of [place] heart without angina pectoris Cerebrovascular disease Unspecified cerebrovascular disease documented in this encounter [facility] [employer] SystemEvaluation noteNo assessment information available [facility] Work Phone: Evaluation note* Diagnosis Onset Date Resolution Status BMI 33.0-33.9,adult acute Dietary counseling and surveillance acute HTN (hypertension) acute Hyperlipidemia acute watermaster current use of insulin acute Type 2 diabetes mellitus with hyperglycemia acute Vitamin B 12 deficiency acut e Vitamin D deficiency acute [facility] Work Phone: Hischgx general Narrative - Reported* Type Description Date Medical History Hypercholesterolemia 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 Medical History Deep Vein Thrombosis Medical History Hypertension Medical History Pulmonary Embolism Medical History Allergic Rhinitis Medical History COPD Bronchitis Medical History Colitis Medical History Reflux esophageal Medical History Asthma Medical History Elevated CEA Medical History Restless Leg Syndrome Medical History Anxiety Medical History osteoarthrosis Medical History DM Type 2 2009 est Medical History Anemia Medical History Depression Medical History Glaucoma Medical History vertigo Surgical History Skin Lesion Surgical History Coronary Artery Bypass with 5 g rafts 2003 Surgical History Hysterectomy Surgical History C Section x 2 Surgical History Tubal ligation Surgical History Incisional Herniorrhaphy Surgical History Cholecystectomy Surgical History Hemorrhoidectomy Hospitalization History See Above [facility] Other history general Narrative - Reported* Type Description Date Medical History Hypercholesterolemia 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 Medical History Deep Vein Thrombosis Medical History Hypertension Medical History Pulmonary Embolism Medical History Allergic Rhinitis Medical History COPD Bronchitis Medical History Colitis Medical History Reflux esophageal Medical History Asthma Medical History Elevated CEA Medical History Restless Leg Syndrome Medical History Anxiety Medical History osteoarthrosis Medical History DM Type 2 2010 est Medical History Anemia Medical History Depression Medical History Glaucoma Medical History vertigo Medical History Colonscopy 2019 Dr Stevens Surgical History Skin Lesion Surgical History Coronary Artery Bypass with 5 g rafts 2004 Surgical History Hysterectomy Surgical History C Section x 2 Surgical History Tubal ligation Surgical History Incisional Herniorrhaphy Surgical History Cholecystectomy Surgical History Hemorrhoidectomy Surgical History Colonoscopy Dr Stevens/[place] 20 20 Hospitalization History See Above [employer] Other History general Narrative - [email or web address] Other History general Narrative - Reported* Type Description Date Medical History Hypercholesterolemia 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 Medical History Deep Vein Thrombosis Medical History Hypertension Medical History Pulmonary Embolism Medical History Allergic Rhinitis Medical History COPD Bronchitis Medical History Colitis Medical History Reflux esophageal Medical History Asthma Medical History Elevated CEA Medical History Restless Leg Syndrome Medical History Anxiety Medical History osteoarthrosis Medical History DM Type 2 2009 est Medical History Anemia Medical History Depression Medical History Glaucoma Medical History vertigo Medical History Colonscopy 2019 Dr Stevens Surgical History Skin Lesion Surgical History Coronary Artery Bypass with 5 g rafts 2003 Surgical History Hysterectomy Surgical History C Section x 2 Surgical History Tubal ligation Surgical History Incisional Herniorrhaphy Surgical History Cholecystectomy Surgical History Hemorrhoidectomy Surgical History Colonoscopy Dr Stevens/[place] 20 20 Surgical History kidney stone-[facility] 08/2022 Hospitalization History See Above [employer] Other [facility] general Narrative - Reported* Type Description Date Medical History Hypercholesterolemia Medical History Heart Disease/ Coron juan Artery Bypass with 5 grafts Medical History Deep Vein Thrombosis Medical History Hypertension Medical History Pulmonary Embolism Medical History Allergic Rhinitis Medical History COPD Bronchitis Medical History Colitis Medical History Reflux esophageal Medical History Asthma Medical History Elevated CEA Medical History Restless Leg Syndrome Medical History Anxiety Medical History osteoarthrosis Medical History DM Type 2 2009 est Medical History Anemia Medical History Depression Medical History Glaucoma Medical History vertigo Medical History Colonscopy 2019 Dr Stevens Surgical History Skin Lesion Surgical History Coronary Artery Bypass with 5 g rafts 2003 Surgical History Hysterectomy Surgical History C Section x 2 Surgical History Tubal ligation Surgical History Incisional Herniorrhaphy Surgical History Cholecystectomy Surgical History Hemorrhoidectomy Surgical History Colonoscopy Dr Stevens/[place] 20 20 Surgical History kidney stone-[facility] 08/2022 Hospitalization History See Above Hospitalization History [facility]- deisy dder infection 01-12-2023 [employer] Other InstructionsNot on filedocumented in this encounter [facility] filedocumented in this encounter [facility] on filedocumented in this encounter [facility] Summary Purpose Family History No Family History Records Found Relationship Condition Age at Onset Recorded Date/T heber brother Heart disease Unknown Malignant neoplasm Unknown Unknown father Heart disease Unknown family member Unknown Not Specified Heart disease Unknown natural son Heart disease Unknown sister Unknown Relationship Condition Age at Onset Recorded Date/T heber brother Heart disease Unknown Malignant neoplasm Unknown Unknown father Heart disease Unknown family member Unknown mother Heart disease Unknown son Heart disease Unknown Chronic obstructive pulmonary disease Unk nown sister Unknown Advance Directives No Advanced Directives Records FoundLatest Code Status on File Code Status Date Activated Date Inactivated Comments DNR Comfort Care Arrest (DNR-CCA) [place] 08/01/2020 9:22 AM 08/03/2020 4:22 PM Code Status History Code Status Date Activated Date Inactivated Comments Full Code 08/01/2020 9:15 AM 08/01/2020 9:22 AM Advance Directive Response Recorded Date/ Time Advance Directives No March 8:01am Advance Directive Response Recorded Date/ Time Advance Directives No March 9:01am Chief Complaint and Reason for Visit Chief Complaint Dm DM Additional Source Comments REASON FOR VISIT (unrecogniz ed section and content) Reason Comments Med Refill Reason Onset Date Comments Med Refill 07/11/2023 Reason Onset Date Comments Med Refill 08/12/2023 Reason Comments Follow-up EST PT 1 YR FU L/S M SCHED W/PT INFORMATION SOURCE (unrecogn ized section and content) DATE CREATED AUTHOR 09/19/2022 [facility] DATE CREATED AUTHOR AUTHOR'S ORGANIZ ATION 09/02/2023 [facility] DATE CREATED AUTHOR AUTHOR'S ORGANIZ ATION 12/08/2023 [facility] DATE CREATED AUTHOR AUTHOR'S ORGANIZ ATION 12/27/2023 [facility] EPIC DATE CREATED AUTHOR AUTHOR'S ORGANIZ ATION 04/12/2024 [facility] Care Teams (unrecognized sec tion and content) Team Status: Active Member Role Status Dates NON STAFF Primary Care Provider Active Team Status: Active Member Role Status Dates NON STAFF Primary Care Provide r, Attending Provider Active Start: October 29, 2023 Team Status: Inactive Member Role Status Dates NON STAFF Primary Care Provider Active Start: November 18, 2023 End: November 18, 2023 Giovanna Morrow APRN Attending Provider Active Start: November 18, 2023 End: November 18, 2023 Team Status: Inactive Member Role Status Dates NON STAFF Primary Care Provider Active Start: January 08, 2024 End: January 08, 2024 Fam August APRN Attending Provider Active Start: January 08, 2024 End: January 08, 2024 Emergency Management System Director Relationship Specialty Start Date End Date Scotty Kumar MD [address] [place] [address] PCP - General 04/05/17 Emergency Management System Director Relationship Specialty Start Date End Date Scotty Kumar MD [address] [facility] [address] PCP - General 04/05/17 Emergency Management System Director Relationship Specialty Start Date End Date Scotty Kumar MD [address] [facility] [place] [address] PCP - General 04/05/17 Team Status: Inactive Member Role Status Dates Giovanna Morrow APRN Attending Provider Active Start: August 12, 2023 End: August 12, 2023 Team Status: Inactive Member Role Status Dates Giovanna Morrow APRN Active Star t: August 12, 2023 End: August 12, 2023 NON STAFF Primary Care Provider Active Start: August 12, 2023 End: August 12, 2023 Giovanna Morrow APRN Attending Provider Active Start: August 12, 2023 End: August 12, 2023 Goals (unrecognized section and content) Goals may be documented in a n alternate section FOR RECORDS PERTAINING TO PATIENTS WHO ARE OR HAVE BEEN ENROLLED IN A CHEMICAL DEPENDENCY/SUBSTANCEABUSE PROGRAM, SOME INFORMATION MAY BE OMITTED. This clinical summary was aggregated from multiple sources. Caution should be exercised in using it in the provision of clinical care. This summary normalizes information from multiple sources, and as a consequence, information in this document may materially change the coding, format and clinical context of patient data. In addition, data may be omitted in some cases. CLINICAL DECISIONS SHOULD BE BASED ON THE PRIMARY CLINICAL RECORDS. [facility] provides no warranty or guarantee of the accuracy or completeness of information in this document.
[2024-04-14 14:30] LABS: Hematocrit 24.7 % (36.0-48.0)
[2024-04-14] MEDS: LACTATED RINGER'S SOLUTION 1,000 ML 125 ML IV ×2 (14:46→23:57)
[2024-04-14] MEDS: PANTOPRAZOLE SODIUM 40 MG VIAL IV (16:20)
--- NOTE | 2024-04-14 16:43 | PM.HP ---
HPI H&P: HPI History of Present Illness Chief complaint: DIZZINESS/ANEMIA/RENAL FAILURE Narrative: 69-year-old female presented to ER with vertigo/dizziness. She reports she has been experiencing dizziness for about a week. Her vertigo/dizziness is intermittent, sporadic with no aggravating or alleviating factors. He denies any neurological symptoms associated vertigo and denies tinnitus or ear pain/pressure. She was evaluated in ER about a week ago and was discharged home on oral meclizine. She reports that meclizine does not help at all with her vertigo. Workup in ER at [facility] included normal CT head with no evidence of acute intracranial pathology. However patient was found to be anemic with hemoglobin of 7.8. Her hemoglobin was 11 in November 2023. She was also found to have acute kidney injury with serum creatinine of 2.6. She has normal renal function at baseline and her creatinine was normal in November 2023. Patient denies nausea, vomiting, abdominal pain, constipation, diarrhea. She denies seeing blood in his stool or melanotic stools. She had screening colonoscopy over 5 years ago and according to her she was told that she did not require any further GI workup given her age. Patient reports that she was experiencing diarrhea 2 weeks ago that lasted for the whole week but since then she has had no GI symptoms or complaints. She denies urinary symptoms. She has not received blood transfusion since her coronary artery bypass surgery. She is on Xarelto but I am not not sure if it is for A-fib or history of DVT/PE. She is on aspirin for coronary artery disease Will obtain records from her story analyst. Opioid HPI Opioid Management Most Recent Pain and Opioid Data: Last Pain Assessment 04/14/24 16:27 Last ORT Total Score 0 04/14/24 13:34 Last ORT Risk Category Low Risk 04/14/24 13:34 Review of Systems ROS Status of ROS 10 or more systems reviewed and unremarkable except as noted in history and below [facility] Medical History (Updated 04/14/24 @ 17:14 by Shaikh Alayna MD) Coronary artery disease involving coronary bypass graft ?I25.810 - Atherosclerosis of coronary artery bypass graft(s) without angina pectoris (ICD-10) Pulmonary embolism ?I26.99 - Other pulmonary embolism without acute cor pulmonale (ICD-10) Myocardial infarct ?I21.9 - Acute myocardial infarction, unspecified (ICD-10) IBS (irritable bowel syndrome) ?K58.9 - Irritable bowel syndrome, unspecified (ICD-10) Hyperlipemia ?E78.5 - Hyperlipidemia, unspecified (ICD-10) Hypertension ?I10 - Essential (primary) hypertension (ICD-10) Hepatic steatosis ?K76.0 - Fatty (change of) liver, not elsewhere classified (ICD-10) Glaucoma ?H40.9 - Unspecified glaucoma (ICD-10) GERD (gastroesophageal reflux disease) ?K21.9 - Gastro-esophageal reflux disease without esophagitis (ICD-10) Diabetes mellitus ?E11.9 - Type 2 diabetes mellitus without complications (ICD-10) Depression ?F32.A - Depression, unspecified (ICD-10) CVA (cerebral vascular accident) ?I63.9 - Cerebral infarction, unspecified (ICD-10) COPD (chronic obstructive pulmonary disease) ?J44.9 - Chronic obstructive pulmonary disease, unspecified (ICD-10) CAD (coronary artery disease) ?I25.10 - Atherosclerotic heart disease of [place] coronary artery without angina pectoris (ICD-10) Atelectasis ?J98.11 - Atelectasis (ICD-10) Anxiety ?F41.9 - Anxiety disorder, unspecified (ICD-10) Anemia ?D64.9 - Anemia, unspecified (ICD-10) Surgical History (Updated 04/14/24 @ 12:11 by Shyanne Junior, RN) H/O: hysterectomy ?Z90.710 - Acquired absence of both cervix and uterus (ICD-10) Hx of cholecystectomy ?Z90.49 - Acquired absence of other specified parts of digestive tract (ICD-10) Family History (Updated 04/14/24 @ 13:40 by Christi Bradley, DU) Mother Family history of hypertension Family history of CHF (congestive heart failure) Father Family history of myocardial infarction Aunt Family history of diabetes mellitus Uncle Family history of diabetes mellitus Sister Family history of cancer Family history of COPD (chronic obstructive pulmonary disease) Social History (Updated 04/14/24 @ 13:40 by Christi Bradley, RN) Within the past year, how often did you have a drink containing alcohol: never Score interpretation: A score less than 3 is consistent with normal alcohol consumption. Smoking status: Never smoker Non-prescribed substance use: denies use Highest level of school completed/degree received: 9th grade Little interest or pleasure in doing things: not at all Feeling down, depressed, or hopeless: not at all Meds Home Medications and Allergies Home Medications ?Medication ?Instructions ?Recorded ?Confirmed ?Type albuterol sulfate 90 mcg/actuation 1 inh inhalation Q6H PRN shortness 04/14/24 04/14/24 History aerosol inhaler of breath or wheezing aspirin 81 mg tablet,delayed 81 mg PO DAILY 04/14/24 04/14/24 History release carvedilol 25 mg tablet 25 mg PO Q12H 04/14/24 04/14/24 History clotrimazole 1 % topical cream 1 applic topical DAILY 04/14/24 04/14/24 History cyanocobalamin (vitamin B-12) 1,000 mcg PO DAILY 04/14/24 04/14/24 History 1,000 mcg capsule diclofenac sodium 1 % topical gel 2 g topical TID 04/14/24 04/14/24 History diclofenac sodium 75 mg 75 mg PO BID PRN pain 04/14/24 04/14/24 History tablet,delayed release dicyclomine 20 mg tablet 20 mg PO TID PRN abdominal pain 04/14/24 04/14/24 History dulaglutide 4.5 mg/0.5 mL 4.5 mg subcut QWEEK 04/14/24 04/14/24 History subcutaneous pen injector (Trulicity) estradiol 0.01% (0.1 mg/gram) 0.1 g vaginal .3 times weekly 04/14/24 04/14/24 History vaginal cream ferrous sulfate 325 mg (65 mg 325 mg PO DAILY 04/14/24 04/14/24 History iron) tablet (Feosol) fluconazole 200 mg tablet 200 mg PO DAILY 04/14/24 04/14/24 History fluticasone furoate 100 1 inh inhalation Q24H 04/14/24 04/14/24 History mcg-vilanterol 25 mcg/dose inhalation powder (Breo Ellipta) gabapentin 300 mg capsule 300 mg PO DAILY 04/14/24 04/14/24 History hydrochlorothiazide 12.5 mg tablet 12.5 mg PO DAILY 04/14/24 04/14/24 History insulin glargine 100 unit/mL (3 16 unit subcut DAILY 04/14/24 04/14/24 History mL) subcutaneous pen (Lantus Solostar U-100 Insulin) isosorbide mononitrate 30 mg 30 mg PO DAILY 04/14/24 04/14/24 History tablet,extended release 24 hr latanoprost 0.005 % eye drops 1 drp ophthalmic (eye) BEDTIME 04/14/24 04/14/24 History loratadine 10 mg tablet 10 mg PO DAILY 04/14/24 04/14/24 History losartan 100 mg tablet 100 mg PO DAILY 04/14/24 04/14/24 History magnesium oxide 400 mg (241.3 mg 400 mg PO DAILY 04/14/24 04/14/24 History magnesium) tablet meclizine 25 mg tablet 25 mg PO BID 04/14/24 04/14/24 History metformin 1,000 mg tablet 1,000 mg PO BID 04/14/24 04/14/24 History nitrofurantoin 100 mg PO BID 04/14/24 04/14/24 History monohydrate/macrocrystals 100 mg capsule nitroglycerin 0.4 mg sublingual 0.4 mg sublingual Q5M 04/14/24 04/14/24 History tablet (Nitrostat) potassium citrate 15 mEq (1,620 15 meq PO BID 04/14/24 04/14/24 History mg) tablet,extended release pravastatin 80 mg tablet 80 mg PO BEDTIME 04/14/24 04/14/24 History rivaroxaban 20 mg tablet (Xarelto) 20 mg PO DAILY 04/14/24 04/14/24 History Allergies Allergy/AdvReac Type Severity Reaction Status Date / Time acetaminophen [From Tylenol] AdvReac Mild Unknown Verified 04/14/24 14:04 baclofen AdvReac Mild Unknown Verified 04/14/24 14:04 benzonatate AdvReac Mild Unknown Verified 04/14/24 14:04 clindamycin AdvReac Mild Unknown Verified 04/14/24 14:04 clopidogrel [From Plavix] AdvReac Mild Unknown Verified 04/14/24 14:04 erythromycin base AdvReac Mild Unknown Verified 04/14/24 14:04 hydrocodone AdvReac Mild Unknown Verified 04/14/24 14:04 ibuprofen [From Motrin] AdvReac Mild Unknown Verified 04/14/24 14:04 insulin lispro AdvReac Mild Unknown Verified 04/14/24 14:04 [From Humalog Mix] insulin lispro protamine AdvReac Mild Unknown Verified 04/14/24 14:04 [From Humalog Mix] omeprazole [From Prilosec] AdvReac Mild Unknown Verified 04/14/24 14:04 Penicillins AdvReac Mild Unknown Verified 04/14/24 14:04 propoxyphene AdvReac Mild Unknown Verified 04/14/24 14:04 sulfamethoxazole AdvReac Mild Unknown Verified 04/14/24 14:04 [From Bactrim] trimethoprim [From Bactrim] AdvReac Mild Unknown Verified 04/14/24 14:04 Exam Constitutional Vital Signs, click to edit/add: Last Vital Signs Temp 98.2 F 04/14/24 13:34 Pulse 78 04/14/24 16:00 Resp 18 04/14/24 13:34 BP 123/76 04/14/24 13:34 Pulse Ox 95 04/14/24 15:54 O2 Del Method Room Air 04/14/24 15:54 Documenting provider has reviewed patient's vital signs: yes Common normals: no apparent distress and oriented x3 General appearance: cooperative HENMT Common normals: normocephalic and head/scalp atraumatic Head and scalp: normocephalic and atraumatic Eye Common normals: conjunctivae normal and no scleral icterus Conjunctiva: conjunctiva(e) normal Respiratory Common normals: normal respiratory effort and clear to auscultation bilaterally Effort & inspection: able to speak in complete sentences Auscultation: clear to auscultation bilaterally Cardio Common normals: regular rate, S1 normal heart sound and S2 normal heart sound Rate: regular rate Heart sounds: S1 normal and S2 normal GI Common normals: Normal to inspection, nondistended, normoactive bowel sounds present, soft to palpation, non-tender and no hepatosplenomegaly Palpation: soft and no hepatosplenomegaly Extremity Common normals: no clubbing, cyanosis or edema Neuro Common normals: oriented x3, moves all extremities and no focal motor deficits Psych Common normals: mental status grossly normal, denies hallucinations, denies homicidal ideation and denies suicidal ideation Results Labs Labs: Short CBC 04/14/24 04/14/24 Range/Units 10:49 14:19 WBC 9.8 (4.0-11.0) 10^3/uL Hgb 7.8 L 8.0 L (12.0-16.0) g/dL Hct 24.4 L 24.7 L (36.0-48.0) % Plt Count 153 (150-450) 10^3/uL BMP 04/14/24 10:49 Sodium 135 L Potassium 5.0 Chloride 100 Carbon Dioxide 25.8 BUN 35.0 H Creatinine 2.60 H Glucose 126 H Calcium 9.8 Urine 04/14/24 Range/Units 12:24 Urine Color Yellow (YELLOW) Urine Clarity Clear (CLEAR) Urine pH 7.5 (5.0-9.0) Ur Specific [place] 1.010 (1.005-1.025) Urine Protein Negative (NEG/TRACE) mg/dL Urine Glucose (UA) Negative (NEGATIVE) mg/dL Assessment and Plan Assessment and Plan (1) ELYSE (acute kidney injury): Assessment and Plan: Normal renal function at baseline. Presented with creatinine of 2.6. Likely prerenal. Started on IV hydration. Monitor urine output and serum creatinine closely. (2) UGIB (upper gastrointestinal bleed): Assessment and Plan: Suspected upper GI bleed with hemoglobin of 7.8. She had hemoglobin of 11 in November 2023. No overt or active GI bleeding. Started on IV Protonix 40 twice daily. Hold aspirin and Xarelto. Monitor hemoglobin. Started patient on IV Protonix 40 twice daily. She is on oral diclofenac twice a day. This could be secondary to peptic ulcer disease. (3) Coronary artery disease involving coronary bypass graft: Assessment and Plan: No evidence of active cardiac ischemia. Monitor. Qualifiers: Associated angina: without angina [place] vs. transplanted heart: [place] heart Qualified Code(s): I25.810 - Atherosclerosis of coronary artery bypass graft(s) without angina pectoris (4) Hyperlipemia: Assessment and Plan: Continue statin Qualifiers: Hyperlipidemia type: unspecified Qualified Code(s): E78.5 - Hyperlipidemia, unspecified (5) Hypertension: Assessment and Plan: Hold losartan and hydrochlorothiazide due to acute kidney injury. Monitor blood pressure closely Qualifiers: Hypertension type: primary hypertension Qualified Code(s): I10 - Essential (primary) hypertension (6) Diabetes mellitus: Assessment and Plan: Continue with basal bolus insulin. Monitor blood glucose inpatient. 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 Qualifiers: Depression Type: major depressive disorder Major depression recurrence: recurrent Active/Remission status: in full remission Qualified Code(s): F33.42 - Major depressive disorder, recurrent, in full remission (8) GERD (gastroesophageal reflux disease): Assessment and Plan: IV Protonix. Will likely need upper GI endoscopy outpatient versus inpatient based on her clinical course. Qualifiers: Esophagitis presence: without esophagitis Qualified Code(s): K21.9 - Gastro-esophageal reflux disease without esophagitis
[2024-04-14] MEDS: ALBUTEROL SULFATE 2.5 MG/3 ML VIAL NEB IH (20:07)
[2024-04-14] MEDS: BUDESONIDE 0.5 MG/2 ML AMPULE NEB IH (20:07)
[2024-04-14] MEDS: MECLIZINE HCL 12.5 MG TABLET 25 MG PO (22:14)
[2024-04-14] MEDS: ATORVASTATIN CALCIUM 20 MG TABLET PO (22:15)
[2024-04-14] MEDS: LATANOPROST 0.005% 2.5 ML BOTTLE 1 DROP OP (22:16)
[2024-04-14 23:14] LABS: Hemoglobin 6.9 g/dL (12.0-16.0)
[2024-04-14 23:15] LABS: Hematocrit 21.6 % (36.0-48.0)
[2024-04-15] VITALS (19 sets, daily range): BP systolic 126–171; BP diastolic 69–80; PULSE 62–86; TEMP 36.5–37.2; O2SAT 91–97
[2024-04-15] MEDS: 0.9 % SODIUM CHLORIDE 250 ML 10 ML IV (01:04)
[2024-04-15] MEDS: ALBUTEROL SULFATE 2.5 MG/3 ML VIAL NEB IH ×2 (04:11→10:34)
[2024-04-15 05:07] LABS: Transferrin 311 mg/dL (192-364)
[2024-04-15] MEDS: PANTOPRAZOLE SODIUM 40 MG VIAL IV (05:16)
[2024-04-15 06:11] LABS: Basophils Percent Auto 0.4 % (0.2-2.0); Eosinophils Absolute Auto 0.9 10^3/uL (0.0-0.7); Eosinophils Percent Auto 11.4 % (0.9-7.0); Hematocrit 25.7 % (36.0-48.0); Hemoglobin 8.3 g/dL (12.0-16.0); Immature Granulocytes Abs Auto 0.05 10^3/uL (0.00-0.03); Immature Granulocytes Pct Auto 0.6 % (0.0-0.5); Lymphocytes Absolute Auto 1.1 10^3/uL (1.2-3.8); Lymphocytes Percent Auto 13.6 % (20.5-60.0); Mean Corpuscular HGB Conc 32.3 g/dL (29.9-35.2); Mean Corpuscular Volume 92.8 fL (81.0-99.0); Monocytes Absolute Auto 0.5 10^3/uL (0.3-0.8); Monocytes Percent Auto 6.5 % (1.7-12.0); Neutrophils Absolute Auto 5.4 10^3/uL (1.4-6.5); Neutrophils Percent Auto 67.5 % (43.0-75.0); Platelet Count 131 10^3/uL (150-450); Red Blood Count 2.77 10^6/uL (4.20-5.40); Red Cell Distribution Width 13.3 % (11.0-15.0)
[2024-04-15 06:23] LABS: Alanine Aminotransferase 10 U/L (14-59); Albumin Globulin Ratio 0.9; Albumin Level 2.8 g/dL (3.4-5.0); Alkaline Phosphatase 85 U/L (46-116); Anion Gap 14.4; Aspartate Amino Transferase 9 U/L (15-37); BUN Creatinine Ratio 14.1; Bilirubin Total 1.1 mg/dL (0.2-1.0); Calcium 9.1 mg/dL (8.5-10.1); Chloride 103 mmol/L (98-107); Estimated GFR (African America 31 (>=60 mL/min/1.73m^2); Estimated GFR (Non-African Ame 26 (>=60 mL/min/1.73m^2); Globulin 3.2 g/dL; Glucose 114 mg/dL (74-106); Potassium 4.4 mmol/L (3.5-5.1); Sodium 135 mmol/L (136-145)
--- OUTSIDE RECORDS SUMMARY | 2024-04-15 07:23 | XMS_ITS | CCD ---
Author Organization [facility] Care Team Providers Care Group Exercise Instructor Name Role Phone Giovanna Morrow Unavailable Klaus Hebert Unavailable [facility] Admitting Unava ilable [facility] Attending Unava ilable MISC, DR GALEANO Primary Care Unavailable MCNEAL, DR MICHAEL Hamm Consulting Unavailable SCOTTY KUMAR [...] Unavailable SCOTTY KUMAR Primary Care Unavailable MANISH MASON Attending Unavailable MANISH MASON Attending Unavailable MANISH MASON Attending Unavailable MANISH MASON Attending Unavailable MANISH MASON Attending Unavailable NON STAFF Primary Care Provider UnavailHIPOLITO Cespedes Attending Provider AMARILYS FELIZ Referring Unavailable SCOTTY KUMAR Primary Care Unavailable SCOTTY KUAMR Referring Unavailable SCOTTY KUMAR Primary Care Unavailable [...] sources) Acetaminophen / Codeine Drug Allergy Unknown [facility] Other (20 sources) Acetaminophen / Propoxyphene Drug Allergy Unknown [facility] Other (20 sources) Baclofen; Translations: [baclofen] Drug Allergy 08-31-19 22 Dizziness [facility] [employer] [facility] (20 sources) benzonatate Drug Allergy 08-12-19 24 Unknown, Unknown Reaction [facility] (20 sources) Clindamycin; Translations: [CLINDAMYCIN] Drug Allergy 08-31-19 22 Hives [facility] Other (20 sources) clopidogrel; Translations: [CLOPIDOGREL] Drug Allergy 08-31-19 22 Dizziness [facility] Other (20 sources) Erythromycin Drug Allergy 04-22-20 14 Nausea And Vomiting [facility] Other (20 sources) Ibuprofen Drug Allergy Unknown [facility] Other (20 sources) Omeprazole; Translations: [OMEPRAZOLE] Drug Allergy 04-22-20 14 Nausea [facility] Other (20 sources) Penicillin V Drug Allergy Unknown [facility] Other (18 sources) Penicillin Drug Allergy Unknown [facility] Other (8 sources) Albuterol; Translations: [ALBUTEROL] Drug Allergy 09-19-19 17 [facility] Codeine; Translations: [CODEINE] Drug Allergy 04-22-20 14 Diarrhea, Nausea And Vomiting [facility] (10 sources) Ibuprofen; Translations: [IBUPROFEN] Drug Allergy 04-22-20 14 Nausea And Vomiting [facility] [employer] [facility] (10 sources) Penicillins; Translations: [PENICILLINS] Propensity to adverse reactions to drug 04-22-20 14 [facility] (10 sources) Propoxyphene; Translations: [PROPOXYPHENE] Drug Allergy 08-31-19 22 Nausea [facility] (8 sources) Simvastatin; Translations: [SIMVASTATIN] Drug Allergy 04-22-20 14 [facility] (3 sources) Acetaminophen; Translations: [acetaminophen] Drug Allergy 08-12-19 [facility] (5 sources) erythromycin base; Translations: [erythromycin base] Allergy to substance 04-22-20 Unknown Reaction [facility] (1 source) benzonatate Drug Allergy 08-12-19 [facility] (1 source) Clindamycin Drug Allergy 08-12-19 [facility] (1 source) clopidogrel Drug Allergy 08-12-19 [facility] (1 source) Codeine Drug Allergy 08-12-19 [facility] (1 source) Ibuprofen Drug Allergy 08-12-19 [facility] (1 source) Omeprazole Drug Allergy 08-12-19 [facility] (1 source) Penicillins Drug allergy (disorder) 08-12-19 [facility] (1 source) Propoxyphene Drug Allergy 08-12-19 [facility] (1 source) Sulfamethoxazole / Trimethoprim; [...] Every 8 hours November 18, 2023 12:00am [id number] actuat albuterol 0.09 mg/actuat metered dose [...] by mouth every week Cholecalciferol 1.25 MG (83963 UT) 1 capsule Orally WEEKLY for 56 [...] every week as needed Cholecalciferol 1.25 MG (33751 UT) 1 cap blanco Orally WEEKLY for 56 days Not-Taking/PRN take 1 capsule by mouth every we ek Cholecalciferol 1.25 MG (79941 UT) 1 capsule Orally WEEKLY for 56 days Not-Taking take 2 tablets by mo uth every twenty-four hours Vitamin D 50 MCG (2000 UT) 2 tablet Oral ly Once a day Active take 1 capsule by mouth every we ek take 1 capsule by mouth every we ek Cholecalciferol 1.25 MG (04555 UT) 1 capsule Orally WEEKLY for 56 [...] puff Inhalation daily Active [employer] - (20 sources) Start: 05-24-2021 [employer] - as directed -- 5 x day for 365 days May, Active [employer] [facility] - TEST 5 TIMES DAILY DIRECTED for 30 Active [employer] - as directed -- 5 x day [...] 18, 2023 12:00am take 1 capsule by [facility] every twenty-four hours Gabapentin 300 MG 1 capsule Orally Once a day Active hydroCHLOROthiazide 12.5 mg oral tablet (20 sources) Thiazide Diuretic Start: 11-18-2023 take 12.5 mg by mouth once daily Hydrochlorothiazide Active 12.5 MG PO Daily November 18, 2023 12:00am Start: 08-29-2023 take 1 tablet by charito th once daily hydroCHLOROthiazide (HYDRODIURIL) 12.5 mg [...] Coronary arteriosclerosis; Translations: [Atherosclerotic heart disease of [place] coronary artery without angina pectoris] Onset: 04-01-2019 [...] sources) Long-term current use of insulin; Translations: [[employer] (current) use of insulin] 11-14-2023 Episodic Other aftercare (12 sources) [employer] (current) use of insulin; Translations: [Long-term (current) [...] <=16 F VANCOMYCIN S 1 F Susceptible [facility] Comment on above: Performed By: #### 6 30-4 #### [facility] ([id number]) [address] [place] [address], [address] [place] [address] URN MACROSCOPIC NURon 2023 BILIRUBIN JOHNNY Negative Normal [facility] Comment on above: Performed By: #### N UM #### [facility] ([id number]) [address] [place] [address] BLOOD/HGB JOHNNY Negative Normal NEG [facility] Comment on above: Performed By: #### N UM #### [facility] ([id number]) [address] [place] [address] GLUCOSE JOHNNY Negative Normal [facility] Comment on above: Performed By: #### N UM #### [facility] ([id number]) [address] [place] [address] KETONES JOHNNY Negative Normal NEG [facility] Comment on above: Performed By: #### N UM #### [facility] ([id number]) [address] [place] [address] 30089 LEUKOCYTE ESTERASE JOHNNY Trace Abnormal NEG [facility] Comment on above: Performed By: #### N UM #### [facility] ([id number]) [address] [place] [address] NITRITE JOHNNY Negative Normal [facility] Comment on above: Performed By: #### N UM #### [facility] ([id number]) [address] [place] [address] PH JOHNNY 8.5 Normal 5.0-8.5 [facility] Comment on above: Performed By: #### N UM #### [facility] ([id number]) [address] [place] [address]80 PROTEIN JOHNNY Negative Normal NEG [facility] Comment on above: Performed By: #### N UM #### [facility] ([id number]) [address] [place] [address] SPECIFIC GRAVITY JOHNNY 1.015 Normal 1.003-1.[address] [facility] Comment on above: Performed By: #### N UM #### [facility] ([id number]) [address] [place] [address]459 UROBILINOGEN JOHNNY 1.0 eu/dL Normal <1.1 [facility] Comment on above: Performed By: #### N UM #### [facility] ([id number]) [address] [place] [address] XR SHOULDER RT MIN 2 VWSon 0 [...] Pal MD on 04/09/2024 9:49 AM Normal [facility] XR SHOULDER RT MIN 2 VWSon [...] Page MD on 03/23/2024 10:12 AM Normal [facility] BASIC METABOLIC PANLon 11-27 Anion gap [Moles/Vol] 13 mmol/L Normal 5-15 [facility] Comment on above: Performed By: #### B MP #### [facility] ([id number]) [address], [address] [place] [address] Calcium [Mass/Vol] 10.1 mg/dL Normal 8.5-10.5 [facility] Comment on above: Performed By: #### B MP #### [facility] ([id number]) [address], [address] [place] [address] Chloride [Moles/Vol] 99 mmol/L Normal 98-109 [facility] Comment on above: Performed By: #### B MP #### [facility] ([id number]) [address], [address] [place] [address] CO2 [Moles/Vol] 27 mmol/L Normal 22-32 [facility] Comment on above: Performed By: #### B MP #### [facility] ([id number]) [address], [address] [place] [address] Creatinine [Mass/Vol] 1.05 mg/dL High 0.40-1.00 [facility] Comment on above: Result Comment: METH OD TRACEABLE TO IDMS STANDARD Performed By: #### B MP #### [facility] ([id number]) [address], [address] [place] [address] GFR/1.73 sq M.predicted among non-blacks MDRD (S/P/Bld) [Vol rate/Area] 57 mL/min/{1.73_m2} Low >59 [facility] Comment on above: Result Comment: Reported eGFR is based on the CKD-EPI 2020 equation that does not use a race coefficient. Performed By: #### B MP #### [facility] ([id number]) [address], [address] [place] [address] Glucose [Mass/Vol] 126 mg/dL High 65-99 [facility] Comment on above: Performed By: #### B MP #### [facility] ([id number]) [address], [address] [place] [address] Potassium [Moles/Vol] 4.5 mmol/L Normal 3.5-5.0 [facility] Comment on above: Performed By: #### B MP #### [facility] ([id number]) [address], [address] [place] [address] Sodium [Moles/Vol] 139 mmol/L Normal 134-146 [facility] Comment on above: Performed By: #### B MP #### [facility] ([id number]) [address], [address] [place] [address] Urea nitrogen [Mass/Vol] 21 mg/dL Normal 5-27 [facility] Comment on above: Performed By: #### B MP #### [facility] ([id number]) [address], [address] [place] [address] US RETROPERITONEAL COMPLETEo n 11-28-2023 US RETROPERITONEAL [...] measurements as described above. Finalized by Robinson Rincon MD on 11/28/2023 2:50 PM Normal [facility] HbA1c HPLC (Bld) [Mass fract ion]on 11-18-2023 HbA1c (Bld) [Mass fraction] 7.0 % [facility] No Panel Informationon 11-17 Bedside Glucose 145 [facility] CBC AND AUTO DIFFon 11-13-19 ABSOLUTE BASOPHIL 0.1 X10E9/L Normal 0.0-0.2 [facility] Comment on above: Performed By: #### C BCA #### [facility] ([id number]) [address], [address] [place] [address] ABSOLUTE NEUTROPHIL 5.3 X10E9/L Normal 1.5-6.6 [facility] Comment on above: Performed By: #### C BCA #### [facility] ([id number]) [address], [address] [place] [address] Basophils/100 WBC (Bld) 0.9 % Normal [facility] Comment on above: Performed By: #### C BCA #### [facility] ([id number]) [address], [address] [place] [address] Eosinophils (Bld) [#/Vol] 0.2 10*3/uL Normal 0.0-0.4 [facility] Comment on above: Performed By: #### C BCA #### [facility] ([id number]) [address], [address] [place] [address] Eosinophils/100 WBC (Bld) 2.9 % Normal [facility] Comment on above: Performed By: #### C BCA #### [facility] ([id number]) [address], [address] [place] [address] Erythrocyte distribution width (RBC) [Ratio] 13.7 % Normal 11.5-15.0 [facility] Comment on above: Performed By: #### C BCA #### [facility] ([id number]) [address], [address] [place] [address] Hematocrit (Bld) [Volume fraction] 34.7 % Low 35-47 [facility] Comment on above: Performed By: #### C BCA #### [facility] ([id number]) [address], [address] [place] [address] Hemoglobin (Bld) [Mass/Vol] 11.9 g/dL Normal 11.7-15.5 [facility] Comment on above: Performed By: #### C BCA #### [facility] ([id number]) [address], [address] [place] [address] Lymphocytes (Bld) [#/Vol] 1.4 10*3/uL Normal 1.0-3.5 [facility] Comment on above: Performed By: #### C BCA #### [facility] ([id number]) [address], [address] [place] [address] Lymphocytes/100 WBC (Bld) 18.7 % Normal [facility] Comment on above: Performed By: #### C BCA #### [facility] ([id number]) [address], [address] [place] [address] MCH (RBC) [Entitic mass] 29.5 pg Normal 27-34 [facility] Comment on above: Performed By: #### C BCA #### [facility] ([id number]) [address], [address] [place] [address] MCHC (RBC) [Mass/Vol] 34.1 g/dL Normal 32-36 [facility] Comment on above: Performed By: #### C BCA #### [facility] ([id number]) [address], [address] [place] [address] MCV (RBC) [Entitic vol] 87 fL Normal 80-100 [facility] Comment on above: Performed By: #### C BCA #### [facility] ([id number]) [address], [address] [place] [address] Monocytes (Bld) [#/Vol] 0.5 10*3/uL Normal 0-0.9 [facility] Comment on above: Performed By: #### C BCA #### [facility] ([id number]) [address], [address] [place] [address] Monocytes/100 WBC (Bld) 6.3 % Normal [facility] Comment on above: Performed By: #### C BCA #### [facility] ([id number]) [address], [address] [place] [address] Neutrophils/100 WBC (Bld) 71.2 % Normal [facility] Comment on above: Performed By: #### C BCA #### [facility] ([id number]) [address], [address] [place] [address] Platelet mean volume (Bld) [Entitic vol] 9.9 fL Normal 7-12 [facility] Comment on above: Performed By: #### C BCA #### [facility] ([id number]) [address], [address] [place] [address] Platelets (Bld) [#/Vol] 174 10*3/uL Normal 150-450 [facility] Comment on above: Performed By: #### C BCA #### [facility] ([id number]) [address], [address] [place] [address] RBC COUNT 4.02 X10E12/L Normal 3.80-5.20 [facility] Comment on above: Performed By: #### C BCA #### [facility] ([id number]) [address], [address] [place] [address] WBC (Bld) [#/Vol] 7.4 10*3/uL Normal 4.0-11.0 [facility] Comment on above: Performed By: #### C BCA #### [facility] ([id number]) [address], [address] [place] [address] Laboratory - Chemistry and C hemistry - challengeon 10-29-2023 Magnesium [Mass/Vol] 1.7 mg/dL [facility] Calcium [Mass/Vol] 10.3 mg/dL [facility] Chloride [Moles/Vol] 99 mmol/L [facility] CO2 [Moles/Vol] 29 mmol/L [facility] Creatinine [Mass/Vol] 1.15 mg/dL [facility] Glucose [Mass/Vol] 173 mg/dL [facility] Potassium [Moles/Vol] 4.7 mmol/L [facility] Sodium [Moles/Vol] 139 mmol/L [facility] Urea nitrogen [Mass/Vol] 21 mg/dL [facility] Cholesterol [Mass/Vol] 164 mg/dL [facility] Cholesterol in HDL [Mass/Vol] 50 mg/dL [facility] Cholesterol in LDL [Mass/Vol] 77 mg/dL [facility] Cholesterol.total/Ch olesterol in HDL [Mass ratio] 3.3 {ratio} [facility] Triglyceride [Mass/Vol] 183 mg/dL [facility] No Panel Informationon 10-28 Thyroid Stimulating Hormone 3rd Gen 3.41 [facility] Estimated GFR (Non- 51 mL/min [facility] VLDL Cholesterol 37 mg/dL [facility] POCT EKGon 08-29-2023 [facility] A1C HEMOGLOBINon 08-12-2023 HbA1c (Bld) [Mass fraction] 7.1 % [facility] Other Glucose - FINGER STICKon Glucose [Mass/Vol] 124 mg/dL [facility] Other HbA1c (Bld) [Mass fraction]o n 08-12-2023 A1C HEMOGLOBIN [employer] Other Glucose - FINGER STICKon Glucose [Mass/Vol] 138 mg/dL [facility] Other A1C HEMOGLOBINon 01-16-2023 HbA1c (Bld) [Mass fraction] 6.5 % [facility] Other Glucose - FINGER STICKon Glucose [Mass/Vol] 112 mg/dL [facility] Other HbA1c (Bld) [Mass fraction]o n 01-16-2023 A1C HEMOGLOBIN [employer] Other Comprehensive Metabolic Pane mariela 09-28-2022 Albumin [Mass/Vol] 4.4 g/dL [facility] Other ALP [Catalytic activity/Vol] 62 U/L [facility] Other ALT [Catalytic activity/Vol] 10 U/L [facility] Other AST [Catalytic activity/Vol] 13 U/L [facility] Other Bilirubin [Mass/Vol] 0.4 mg/dL [facility] [employer] Other Calcium [Mass/Vol] 9.6 mg/dL [facility] Other Chloride [Moles/Vol] 101 mmol/L [facility] [employer] Other CO2 [Moles/Vol] 28 mmol/L [employer] Other Creatinine [Mass/Vol] 0.97 mg/dL [facility] Other Glucose [Mass/Vol] 121 mg/dL [facility] Other Potassium [Moles/Vol] 4.1 mmol/L [facility] Other Protein [Mass/Vol] 6.6 g/dL [facility] Other Sodium [Moles/Vol] 140 mmol/L [facility] Other Urea nitrogen [Mass/Vol] 21 mg/dL [facility] Other Comprehensive Metabolic Panel [facility] Other Comprehensive Metabolic Panel >60 [facility] Other Lipid Panelon 09-28-2022 Cholesterol [Mass/Vol] 136 mg/dL [facility] Other Cholesterol in HDL [Mass/Vol] 43 mg/dL [facility] Other Cholesterol in LDL Elph Qn 55 [facility] Other Cholesterol.total/Ch olesterol in HDL [Mass ratio] 3.2 {ratio} [facility] Other Lipid Panel 192 [facility] Other Vitamin B12on 09-28-2022 Cobalamin (Vitamin B12) [Mass/Vol] 1364 pg/mL [facility] Other Vitamin D 25 Hydroxy Totalon 09-28-2022 Vitamin D 25 Hydroxy Total 45.8 [facility] Other A1C HEMOGLOBINon 09-24-2022 HbA1c (Bld) [Mass fraction] 6.6 % [facility] Other Glucose - FINGER STICKon Glucose [Mass/Vol] 123 mg/dL [facility] Other HbA1c (Bld) [Mass fraction]o n 09-24-2022 A1C HEMOGLOBIN [facility] [employer] Other MG MAMM SCREEN 3D CASIE CADon 09-17-2022 MG MAMM SCREEN 3D CASIE CAD Patient: ROMIE GEIGER Exam Date: 09/17/2022 : 1955 Gender:F Ordering : DR. SCOTTY KUMAR M.D. Admission #: [id number] Family : [facility] Order #: [id number] CLICK HERE TO VIEW EXAM RADIOLOGY REPORT [...] esophageal cancer at age 66. LOCATION: [facility] BREAST COMPOSITION: Scattered areas fibroglandular density. [...] MD on 09/17/2022 at 11:06 Normal [facility] A1C HEMOGLOBINon 06-11-2022 HbA1c (Bld) [Mass fraction] 6.6 % [facility] Other Glucose - FINGER STICKon Glucose [Mass/Vol] 126 mg/dL [facility] Other HbA1c (Bld) [Mass fraction]o n 06-11-2022 A1C HEMOGLOBIN [employer] Other A1C HEMOGLOBINon 02-28-2022 HbA1c (Bld) [Mass fraction] 6.6 % [facility] Other Glucose - FINGER STICKon Glucose [Mass/Vol] 131 mg/dL [facility] Other HbA1c (Bld) [Mass fraction]o n 02-28-2022 A1C HEMOGLOBIN [employer] Other A1C HEMOGLOBINon 11-22-2021 HbA1c (Bld) [Mass fraction] 6.6 % [facility] Other Glucose - FINGER STICKon Glucose [Mass/Vol] 158 mg/dL [facility] Other HbA1c (Bld) [Mass fraction]o n 11-22-2021 A1C HEMOGLOBIN [employer] Other US BREAST RIGHT LIMITEDon US BREAST RIGHT LIMITED Patient: ROMIE GEIGER Exam Date: 09/20/2021 : 1955 Gender:F Ordering : DR GALEANO [facility] Admission #: [id number] Family : Order #: [id number] CLICK HERE TO VIEW EXAM RADIOLOGY REPORT [...] Busch M.D. on 09/20/2021 at 13:36 Normal [facility] A1C HEMOGLOBINon 07-26-2021 HbA1c (Bld) [Mass fraction] 7.2 % [facility] Other Glucose - FINGER STICKon Glucose [Mass/Vol] 167 mg/dL [facility] Other HbA1c (Bld) [Mass fraction]o n 07-26-2021 A1C HEMOGLOBIN [employer] Other Glucose - FINGER STICKon Glucose [Mass/Vol] 169 mg/dL [facility] Other Glucose - FINGER ST[facility]on Glucose [Mass/Vol] 226 mg/dL [facility] [employer] Other Glucose - FINGER STICKon Glucose [Mass/Vol] 253 mg/dL [facility] [employer] Other Vital Signs Date Time Vital Sign Value Performing Clinician Facility 11-18-2023 09:02-0400 Body height 162.56 cm [facility] 11-18-2023 09:02-0400 Body mass index (BMI) [Ratio] 32.5 kg/m2 [facility] 11-18-2023 09:02-0400 Body weight 85.87 kg [facility] 11-18-2023 09:02-0400 Diastolic blood pressure 57 mm[Hg] [facility] 11-18-2023 09:02-0400 Heart rate 55 /min [facility] 11-18-2023 09:02-0400 Respiratory rate 18 /min [facility] 11-18-2023 09:02-0400 SaO2% (BldA) [Mass fraction] 98 % [facility] 11-18-2023 09:02-0400 Systolic blood pressure 94 mm[Hg] [facility] 08-29-2023 08:52-0500 Body height 162.6 cm Jr Godfrey MD Work Phone: [facility] 08-29-2023 08:52-0500 Body mass index (BMI) [Ratio] 32.96 kg/m2 Jr Godfrey MD Work Phone: [facility] 08-29-2023 08:52-0500 Body weight 87.09 kg Jr Godfrey MD Work Phone: [facility] 08-29-2023 08:52-0500 Diastolic blood pressure 60 mm[Hg] Jr Godfrey MD Work Phone: [facility] 08-29-2023 08:52-0500 Heart rate 69 /min Jr Godfrey MD Work Phone: [facility] 08-29-2023 08:52-0500 SaO2% (BldA) [Mass fraction] 96 % Jr Godfrey MD Work Phone: [employer] 08-29-2023 08:52-0500 Systolic blood pressure 110 mm[Hg] Jr Godfrey MD Work Phone: [employer] 08-12-2023 11:15-0500 Body height 162.56 cm Giovanna Scally Other [facility] 08-12-2023 11:15-0500 Body mass index (BMI) [Ratio] 33.21 kg/m2 Giovanna Scally Other [facility] Other 08-12-2023 11:15-0500 Body weight 87.77 kg Giovanna Scally Other [facility] 08-12-2023 11:15-0500 Diastolic blood pressure 73 mm[Hg] Giovanna Scally Other [facility] 08-12-2023 11:15-0500 Respiratory rate 18 /min Giovanna Scally Other [facility] Other 08-12-2023 11:15-0500 SaO2% (BldA) [Mass fraction] 96 % Giovanna Scally Other [facility] Other 08-12-2023 11:15-0500 Systolic blood pressure 112 mm[Hg] Giovanna Scally Other [facility] 04-12-2023 09:15-0400 Body height 162.56 cm Giovanna Scally Other [facility] Other 04-12-2023 09:15-0400 Body mass index (BMI) [Ratio] 32.76 kg/m2 Giovanna Scally Other [facility] Other 04-12-2023 09:15-0400 Body weight 86.59 kg Giovanna Scally Other [facility] Other 04-12-2023 09:15-0400 Diastolic blood pressure 61 mm[Hg] Giovanna Scally Other [facility] Other 04-12-2023 09:15-0400 Respiratory rate 18 /min Giovanna Scally Other [facility] Other 04-12-2023 09:15-0400 SaO2% (BldA) [Mass fraction] 98 % Giovanna Scally Other [facility] Other 04-12-2023 09:15-0400 Systolic blood pressure 100 mm[Hg] Giovanna Scally Other [facility] Other 01-16-2023 10:15-0400 Body height 162.56 cm Giovanna Scally Other [facility] Other 01-16-2023 10:15-0400 Diastolic blood pressure 64 mm[Hg] Giovanna Scally Other [facility] Other 01-16-2023 10:15-0400 Respiratory rate 18 /min Giovanna Scally Other [facility] Other 01-16-2023 10:15-0400 SaO2% (BldA) [Mass fraction] 97 % Giovanna Scally Other [facility] Other 01-16-2023 10:15-0400 Systolic blood pressure 100 mm[Hg] Giovanna Scally Other [facility] Other 09-24-2022 10:15-0400 Body height 162.56 cm Giovanna Scally Other [facility] Other 09-24-2022 10:15-0400 Body mass index (BMI) [Ratio] 32.27 kg/m2 Giovanna Scally Other [facility] Other 09-24-2022 10:15-0400 Body weight 85.28 kg Giovanna Scally Other [facility] Other 09-24-2022 10:15-0400 Diastolic blood pressure 72 mm[Hg] Giovanna Scally Other [facility] Other 09-24-2022 10:15-0400 Respiratory rate 18 /min Giovanna Scally Other [facility] Other 09-24-2022 10:15-0400 SaO2% (BldA) [Mass fraction] 99 % Giovanna Scally Other [facility] Other 09-24-2022 10:15-0400 Systolic blood pressure 109 mm[Hg] Giovanna Scally Other [facility] Other 06-11-2022 10:00-0500 Body height 162.56 cm Giovanna Scally Other [facility] Other 06-11-2022 10:00-0500 Body mass index (BMI) [Ratio] 33.59 kg/m2 Giovanna Scally Other [facility] Other 06-11-2022 10:00-0500 Body weight 88.77 kg Giovanna Scally Other [facility] Other 06-11-2022 10:00-0500 Diastolic blood pressure 70 mm[Hg] Giovanna Scally Other [facility] Other 06-11-2022 10:00-0500 Respiratory rate 20 /min Giovanna Scally Other [facility] Other 06-11-2022 10:00-0500 SaO2% (BldA) [Mass fraction] 100 % Giovanna Scally Other [facility] Other 06-11-2022 10:00-0500 Systolic blood pressure 108 mm[Hg] Giovanna Scally Other [facility] Other 02-28-2022 11:00-0400 Body height 162.56 cm Giovanna Scally Other [facility] Other 02-28-2022 11:00-0400 Body mass index (BMI) [Ratio] 32.99 kg/m2 Giovanna Scally Other [facility] Other 02-28-2022 11:00-0400 Body weight 87.18 kg Giovanna Scally Other [facility] Other 02-28-2022 11:00-0400 Diastolic blood pressure 78 mm[Hg] Giovanna Scally Other [facility] Other 02-28-2022 11:00-0400 Respiratory rate 18 /min Giovanna Scally Other [facility] Other 02-28-2022 11:00-0400 SaO2% (BldA) [Mass fraction] 100 % Giovanna Scally Other [facility] Other 02-28-2022 11:00-0400 Systolic blood pressure 118 mm[Hg] Giovanna Scally Other [facility] Other 11-22-2021 09:45-0400 Body height 162.56 cm Giovanna Scally Other [facility] Other 11-22-2021 09:45-0400 Body mass index (BMI) [Ratio] 33.07 kg/m2 Giovanna Scally Other [facility] Other 11-22-2021 09:45-0400 Body weight 87.41 kg Giovanna Scally Other [facility] Other 11-22-2021 09:45-0400 Diastolic blood pressure 87 mm[Hg] Giovanna Scally Other [facility] Other 11-22-2021 09:45-0400 Respiratory rate 18 /min Giovanna Scally Other [facility] Other 11-22-2021 09:45-0400 SaO2% (BldA) [Mass fraction] 92 % Giovanna Scally Other [facility] Other 11-22-2021 09:45-0400 Systolic blood pressure 137 mm[Hg] Giovanna Scally Other [facility] Other 07-26-2021 09:45-0500 Body height 162.56 cm Giovanna Scally Other [facility] Other 07-26-2021 09:45-0500 Body mass index (BMI) [Ratio] 34.57 kg/m2 Giovanna Scally Other [facility] Other 07-26-2021 09:45-0500 Body weight 91.36 kg Giovanna Scally Other [facility] Other 07-26-2021 09:45-0500 Diastolic blood pressure 77 mm[Hg] Giovanna Scally Other [facility] Other 07-26-2021 09:45-0500 Respiratory rate 18 /min Giovanna Scally Other [facility] Other 07-26-2021 09:45-0500 SaO2% (BldA) [Mass fraction] 99 % Giovanna Scally Other [facility] Other 07-26-2021 09:45-0500 Systolic blood pressure 130 mm[Hg] Giovanna Scally Other [facility] Other 06-13-2021 10:15-0500 Body height 162.56 cm Giovanna Scally Other [facility] Other 06-13-2021 10:15-0500 Body mass index (BMI) [Ratio] 34.38 kg/m2 Giovanna Scally Other [facility] Other 06-13-2021 10:15-0500 Body weight 90.86 kg Giovanna Scally Other [facility] Other 06-13-2021 10:15-0500 Diastolic blood pressure 69 mm[Hg] Giovanna Scally Other [facility] Other 06-13-2021 10:15-0500 Respiratory rate 18 /min Giovanna Scally Other [facility] Other 06-13-2021 10:15-0500 SaO2% (BldA) [Mass fraction] 99 % Giovanna Scally Other [facility] Other 06-13-2021 10:15-0500 Systolic blood pressure 119 mm[Hg] Giovanna Scally Other [facility] Other 05-24-2021 09:15-0500 Body height 162.56 cm Giovanna Scally Other [facility] Other 05-24-2021 09:15-0500 Body mass index (BMI) [Ratio] 34.26 kg/m2 Giovanna Scally Other [facility] Other 05-24-2021 09:15-0500 Body weight 90.54 kg Giovanna Scally Other [facility] Other 05-24-2021 09:15-0500 Diastolic blood pressure 71 mm[Hg] Giovanna Scally Other [facility] Other 05-24-2021 09:15-0500 Respiratory rate 18 /min Giovanna Scally Other [facility] Other 05-24-2021 09:15-0500 SaO2% (BldA) [Mass fraction] 99 % Giovanna Scally Other [facility] Other 05-24-2021 09:15-0500 Systolic blood pressure 111 mm[Hg] Giovanna Scally Other [facility] Other 04-10-2021 11:00-0400 Body height 162.56 cm Giovanna Scally Other [facility] Other 04-10-2021 11:00-0400 Body mass index (BMI) [Ratio] 35.6 kg/m2 Giovanna Scally Other [facility] Other 04-10-2021 11:00-0400 Body weight 94.08 kg Giovanna Scally Other [facility] Other 04-10-2021 11:00-0400 Diastolic blood pressure 61 mm[Hg] Giovanna Scally Other [facility] Other 04-10-2021 11:00-0400 Respiratory rate 20 /min Giovanna Scally Other [facility] Other 04-10-2021 11:00-0400 SaO2% (BldA) [Mass fraction] 98 % Giovanna Scally Other [facility] Other 04-10-2021 11:00-0400 Systolic blood pressure 125 mm[Hg] Giovanna Scally Other [facility] Other Encounters Encounter Date Encounter Type Care Provider Facility Start: 04-12-2024 End: 04-12-2024 Emergency department patient visit YAIMA LIN [facility] Start: 04-09-2024 End: 04-09-2024 Emergency department patient visit YAIMA Davis MARY ANN [facility] Start: 03-23-2024 End: 03-23-2024 ambulatory YAIMA Ryan RILEY [facility] Start: 01-08-2024 End: 01-08-2024 ambulatory [facility] ST[facility] Work Phone: Start: 01-08-2024 End: 01-08-2024 Patient encounter procedure [facility] [place] Work Phone: Start: 12-26-2023 End: 12-26-2023 ambulatory MANISH MASON Not Available Start: 12-06-2023 End: 12-06-2023 ambulatory HAMMAD MARTINS [facility] Start: 11-28-2023 End: 11-28-2023 ambulatory HAMMAD MARTINS JR [facility] Start: 11-21-2023 End: 11-21-2023 ambulatory MANISH Stevie MASON Not Available Start: 11-18-2023 End: 11-18-2023 Patient encounter procedure [facility] Physician [facility] Work Phone: Start: 11-14-2023 End: 11-14-2023 ambulatory MANISH Stevie MASON Not Available Start: 11-13-2023 End: 11-13-2023 ambulatory AMARILYS MCKEONAltagracia [facility] Start: 10-29-2023 Non-patient / Non-visit [facility] Work Phone: Start: 10-17-2023 End: 10-17-2023 ambulatory MANISH MASON Not Available Start: 08-29-2023 End: 08-29-2023 Office outpatient visit 25 minutes Jr Godfrey MD Work Phone: [facility] Comment on above: Prolonged Q-T interv al on ECG (Primary Dx); Pure hypercholesterolemia; Coronary artery disease involving kaltag coronary artery of kaltag heart without angina pectoris; Cerebrovascular disease Start: 08-29-2023 End: 08-29-2023 ambulatory JR GODFREY [facility] Start: 08-28-2023 Telephone encounter [facility] Start: 08-14-2023 End: 08-14-2023 ambulatory Giovanna Morrow Other [facility] Other Start: 08-14-2023 Telephone encounter [facility]anna [facility] Start: 08-12-2023 End: 08-12-2023 Discharged Recurring [facility] Work Phone: Start: 08-12-2023 (DM) Diabetes Giovanna Riddle [facility] Start: 08-12-2023 End: 08-13-2023 Refill Rosi Limon RN [facility] Comment on above: Med Refill Start: 08-12-2023 End: 08-12-2023 Patient encounter procedure [facility] Group- Start: 08-08-2023 Refill Amarilys Devaughn mckinley [employer]PER[employer]TE[employer]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 Work Phone: [facility] Comment on above: Med Refill Start: 07-29-2023 End: 07-29-2023 ambulatory Giovanna Morrow Other [facility] Other Start: 07-29-2023 Telephone encounter Giovanna th[facility] Start: 07-18-2023 End: 07-18-2023 ambulatory MANISH MASON Not Available Start: 07-16-2023 End: 07-16-2023 ambulatory Giovanna oMrrow Other [facility] Other Start: 07-16-2023 Telephone encounter Giovanna th[facility] Start: 07-11-2023 Refill 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 Phone: [facility] Start: 07-09-2023 Refill Hammad nathan MD Work Phone: [facility] Comment on above: Recurrent urinary tr act infection (Primary Dx) Start: 05-27-2023 End: 05-27-2023 ambulatory Giovanna Scally Other [facility] Other Start: 05-27-2023 Telephone encounter Giovanna Cristhian [facility] Start: 05-01-2023 End: 05-01-2023 ambulatory Fam Claytonmichelle Other [facility] Other Start: 05-01-2023 Telephone encounter aFm Arnoldmichelle [facility] Start: 04-12-2023 (DM) Diabetes Giovanna Scally [facility] Start: 04-12-2023 End: 04-12-2023 ambulatory Giovanna Scally Other [facility] Other Start: 04-03-2023 End: 04-03-2023 ambulatory Giovanna Scally Other [facility] Other Start: 04-03-2023 Telephone encounter Giovanna Scally [facility] Start: 03-21-2023 End: 03-21-2023 ambulatory Giovanna Scally Other [facility] Other Start: 03-21-2023 Telephone encounter Giovanna Yovannyly [facility] Start: 01-16-2023 (DM) Diabetes Giovanna Scally [facility] Start: 01-16-2023 End: 01-16-2023 ambulatory Giovanna Scally Other [facility] Other Start: 01-16-2023 Telephone encounter Giovanna Scally [facility] Start: 01-08-2023 End: 01-08-2023 ambulatory Giovanna Scally Other [facility] Other Start: 01-08-2023 Telephone encounter Giovanna Scally [facility] Start: 10-01-2022 End: 10-01-2022 ambulatory Giovanna Scally Other [facility] Other Start: 10-01-2022 Telephone encounter Giovanna Scally [facility] Start: 09-24-2022 (DM) Diabetes Giovanna Scally [facility] Start: 09-24-2022 End: 09-24-2022 ambulatory Giovanna Scally Other [facility] Other Start: 09-19-2022 End: 09-19-2022 ambulatory Giovanna Scally Other [facility] Other Start: 09-19-2022 Telephone encounter Giovanna Yovannyly [facility] Start: 09-17-2022 End: 09-18-2022 ambulatory [facility] Facility: Start: 07-27-2022 End: 07-27-2022 ambulatory Giovanna Scally Other [facility] Other Start: 07-27-2022 Telephone encounter Giovanna Scally [facility] Start: 07-03-2022 End: 07-03-2022 ambulatory Giovanna Scally Other [facility] Other Start: 07-03-2022 Telephone encounter Giovanna Yovannyly [facility] Start: 06-25-2022 End: 06-25-2022 ambulatory Giovanna Scally Other [facility] Other Start: 06-25-2022 Telephone encounter Giovanna Scally [facility] Start: 06-11-2022 (DM) Diabetes Giovanna Scally [facility] Start: 06-11-2022 End: 06-11-2022 ambulatory Giovanna Scally Other [facility] Other Start: 04-24-2022 End: 04-24-2022 ambulatory Giovanna Scally Other [facility] Other Start: 04-24-2022 Telephone encounter Giovanna Scally [facility] Start: 02-28-2022 (DM) Diabetes Giovanna Scally [facility] Start: 02-28-2022 End: 02-28-2022 ambulatory Giovanna Scally Other [facility] Other Start: 02-21-2022 End: 02-21-2022 ambulatory Giovanna Scally Other [facility] Other Start: 02-21-2022 Telephone encounter Giovanna Scally [facility] Start: 01-16-2022 End: 01-16-2022 ambulatory Giovanna Scally Other [facility] Other Start: 01-16-2022 Telephone encounter Giovanna Scally [facility] Start: 12-21-2021 End: 12-21-2021 ambulatory Giovanna Scally Other [facility] Other Start: 12-21-2021 Telephone encounter Giovanna Scally [facility] Start: 12-20-2021 End: 12-20-2021 ambulatory Giovanna Scally Other [facility] Other Start: 12-20-2021 Telephone encounter Giovanna Scally [facility] Start: 12-14-2021 End: 12-14-2021 ambulatory Giovanna Scally Other [facility] Other Start: 12-14-2021 Telephone encounter Giovanna Scally [facility] Start: 11-22-2021 (DM) Diabetes Giovanna Scally [facility] Start: 11-22-2021 End: 11-22-2021 ambulatory Giovanna Scally Other [facility] Other Start: 09-29-2021 End: 09-29-2021 ambulatory Giovanna Scally Other [facility] Other Start: 09-29-2021 Telephone encounter Giovanna Yovannyly F mig[facility] Start: 09-20-2021 End: 09-21-[address] GALEANO [facility] Facility: Start: 08-31-2021 End: 08-31-2021 ambulatory Giovanna Scally Other [facility] Other Start: 08-31-2021 Telephone encounter Giovanna Yovannyly Indu [facility] Start: 07-27-2021 End: 07-27-2021 ambulatory Klaus Hebert Other [facility] Other Start: 07-27-2021 Telephone encounter Klaus thomson [facility] Start: 07-26-2021 (DM) Diabetes Giovanna Cristhian [facility] Start: 07-26-2021 End: 07-26-2021 ambulatory Giovanna Scally Other [facility] Other Start: 07-04-2021 End: 07-04-2021 ambulatory Giovanna Scally Other [facility] Other Start: 07-04-2021 Telephone encounter Giovanna Yovannyly [facility] Start: 06-19-2021 End: 06-19-2021 ambulatory Giovanna Scally Other [facility] Other Start: 06-19-2021 Telephone encounter Giovanna Yovannyly [facility] Start: 06-14-2021 End: 06-14-2021 ambulatory Giovanna Scally Other [facility] Other Start: 06-14-2021 Telephone encounter Giovanna riveras [facility] Start: 06-13-2021 (DM) Diabetes Giovanna Iyerlan ds [facility] Start: 06-13-2021 End: 06-13-2021 ambulatory Giovanna Morrow Other [facility] Other Start: 06-13-2021 Telephone encounter Giovanna river[facility] Start: 05-29-2021 End: 05-29-2021 ambulatory Giovanna Morrow Other [facility] Other Start: 05-29-2021 Telephone encounter Giovanna riveras [facility] Start: 05-24-2021 (DM) Diabetes Giovanna Iyerlan ds [facility] Start: 05-24-2021 End: 05-24-2021 ambulatory Giovanna Morrow Other [facility] Other Start: 04-14-2021 Telephone encounter Giovanna thomson [facility] Start: 04-11-2021 Telephone encounter Giovanna thmoson [facility] Start: 04-10-2021 FQ visit [...] 08-29-2024 Adult BMI Screening Adult BMI Screening [facility] Start: 08-29-2024 Tobacco Screening Tobacco Screening [facility] Start: 05-10-2024 Adult BMI Screening Adult BMI Screening [facility] Start: 05-10-2024 Tobacco Screening Tobacco Screening [facility] Start: 08-29-2023 End: 08-29-2023 Patient encounter procedure 08/29/2023 9:30 AM EST Office Visit [facility] [address] [place] [address] Jr Godfrey MD [address] [place] [id number] [facility] Start: 07-30-2021 Depression Screening Depression Screening [facility] Start: 2018 Fall Risk Screening Fall Risk Screening [facility] Start: 11-28-2004 DTaP,Tdap and Td Vaccines (1 - Tdap) DTaP,Tdap and Td Vaccines (1 - Tdap) [facility] Start: 1971 Adult BMI Follow Up Plan Adult BMI Follow Up Plan [facility] Start: 1971 Diabetic foot examination Diabetic Foot Exam [facility] Start: 1965 Depression Screening Depression Screening [facility] Start: 1955 Glaucoma screening Diabetic Ophthalmology Exam [facility] Start: 1955 Medicare Annual Wellness Visit Medicare Annual Wellness Visit [facility] Payers Date Payer Category Payer Self-pay [id number] 2018 [place] [id number] 2018-Present [phone] [address] [place] [address] [id number] 2018 Medicare ANTHEM MEDICARE ANTHEM MEDICARE ADVANTAGE [id number] 2018-Present [phone] [address] [place] [address] [id number] 1959 Medicaid [id number] 1959 Medicare [id number] 1953 Unknown [id number] [id number] 1953 Unknown [id number] [id number] 1953 Unknown [id number] 2.16.840.1.090779.3.579.2.1286 1953 Unknown [id number] 2.16.840.1.832383.3.579.2.1259 1953 Unknown [id number] 2.16.840.1.672123.3.579.2.1259 1953 Unknown [id number] 2.16.840.1.231036.3.579.2.1259 1953 Unknown [id number] 2.16.840.1.134427.3.579.2.1259 1953 Unknown [id number] 2.16.840.1.859800.3.579.2.1259 1953 Unknown [id number] 2.16.840.1.763625.3.579.2.1286 1953 Unknown [id number] 2.16.840.1.107293.3.579.2.1286 1953 Unknown [id number] 2.16.840.1.908647.3.579.2.1286 1953 Unknown [id number] 2.16.840.1.810229.3.579.2.1286 1953 Unknown [id number] 2.16.840.1.131475.3.579.2.1286 1953 Unknown [id number] 2.16.840.1.202444.3.579.2.1286 1953 Unknown [id number] 2.16.840.1.671814.3.579.2.1286 1953 Unknown [id number] 2.16.840.1.273989.3.579.2.1286 Unknown [id number] [id number] Social History Date Type Detail Facility Unknown if ever smoked [facility] Other Start: 07-30-2020 End: 08-29-2023 [facility] Start: 04-27-2022 End: 11-18-2023 Tobacco smoking status [facility] Never smoked tobacco [facility] Start: 04-27-2022 Tobacco use and exposure Smokeless tobacco non-user [facility] Start: 05-10-2023 End: 08-29-2023 Alcohol intake Current non-drinker of alcohol (finding) [facility] Start: 07-30-2020 End: 08-29-2023 History of Social function [facility] Do you belong to any clubs or organizations such as tenriism groups, unions, fraternal or athletic groups, or school groups? No [facility] Are you now , , , , never or living with a partner? [facility] How hard is it for y ou to pay for the very basics like food, housing, medical care, and heating Not hard at all [facility] Do you feel stress - tense, restless, nervous, or anxious, or unable to sleep at night because your mind is troubled all the time - these days [OSQ] Not at all [facility] Start: 1955 Sex Assigned At Not on file [employer] [facility] Start: 1955 Sex Assigned At Female [facility] Medical Equipment Procedure Code Equipment Code [...] AM ESTTelephone Encounter - Maria Luisa Harrington, [facility] - 08/28/2023 3:14 PM ESTTelephone Encounter - Maria Luisa Harrington, [facility] - 08/28/2023 3:14 PM EST Note Date & Type Note Facility 08-29-2023 History of Present illness Narrative Romie Geiger Date of visit: 08/29/2023 Date of : 1955 Age: 68 y.o. Patient Active Problem List Diagnosis Cerebrovascular disease Abnormal electrocardiography Essential hypertension Heartburn Pure hypercholesterolemia Coronary artery disease involving kaltag coronary artery of [place] heart without angina pectoris Hypokalemia Hx of [...] artery disease) COPD (chronic obstructive pulmonary disease) [place] CVA (cerebral vascular accident) [place] Dental disease Depression Depression Diabetes mellitus type 2, controlled ([facility] Diabetes mellitus with peripheral circulatory disorder ([facility]) 08/30/2009 GERD (gastroesophageal reflux disease) Glaucoma Hepatic steatosis Hyperlipidemia Hypertension Irritable bowel Myocardial infarction ([facility] Pulmonary embolism ([facility] Visual impairment No data recorded No data recorded No data recorded Past Surgical History: Procedure Laterality Date SECTION CHOLECYSTECTOMY COLONOSCOPY N/A 10/13/2020 Performed by José Caldwell MD at [facility] CORONARY ARTERY BYPASS GRAFT CYSTOSCOPY N/A 04/27/2022 Performed by Hammad Martins Jr., MD at [facility] EXCISION BENIGN SKIN LESION SCALP / [...] min Stress: No Stress Concern Present (07/30/2020) [place] [facility] Occupational [employer] - Occupational Stress Questionnaire Feeling of Stress : Not at all Social Connections: Socially Isolated (07/30/2020) Social Connection and Isolation Panel [NHANES] Frequency of Communication with Friends and Family: More than three times a week Frequency of Social Gatherings with Friends and Family: Never Attends Caodaism Services: Never Active Member of Clubs or [...] POCT EKG 2. Coronary artery disease involving kaltag coronary artery of [place] heart without angina pectoris - POCT EKG [...] KUMAR MD Referring Physician: Scotty Kumar MD [address] [place] [id number] documented in this encounter [facility] 08-28-2023 Miscellaneous Notes Attempted to phone pt to remind of appt scheduled for 08/29/2023, no vm. documented in this encounter [facility] 08-28-2023 Telephone encounter Note Attempted to phone pt to remind of appt scheduled for 08/29/2023, no vm. [facility] Evaluation note Encounter Date Diagnosis Assessment [...] and make recommendations for long-term supplementation with [id number] formulations or prescription grade repletion. 4000 IU [...] Blood pressure goal today under 140/90 Jul, halfway current use of insulin (ICD-10 - Z79.4) Jul, Vitamin B 12 deficiency (ICD-10 - E53.8) Continue cyanocobalamin 1000 mcg daily, handwritten information provided. Will recheck Jul, Hypoglycemia (ICD-10 - E16.2) Jul, BMI 33.0-33.9,adult (ICD-10 - Z68.33) Jul, Other weight trajectory steady, weight improving [facility] Other 12-28-2023 Miscellaneous Notes* Telephone Encounter - CAROL Saldivar - 07/11/2023 2:45 PM EST Pt called office requesting refill for estrogen cream. Refill sent to [facility] per pt request. documented in this encounterVan [facility] HospitalAhaali [id number] Telephone encounter Note* Telephone Encounter - CAROL Saldivar - 07/11/2023 2:45 PM EST Pt called office requesting refill for estrogen cream. Refill sent to [facility] pharmacy per pt request. [facility] ONEighty C [id number] Miscellaneous Notes* Telephone Encounter - Amarilys Sandoval LPN - 07/09/2023 6:25 PM EST Pt called in asking for refill of Estradiol cream. She uses [facility] documented in this encounterVan Wert County HospitalAhaali [id number] Telephone encounter Note* Telephone Encounter - Amarilys Sandoval LPN - 07/09/2023 6:25 PM EST Pt called in asking for refill of Estradiol cream. [facility] uses [facility] [id number] Evaluation note* Encounter Date Diagnosis Assessment Notes Treatment Notes Treatment Clinical Notes May, Type 2 diabetes mellitus with hyperglycemia (ICD-10 - E11.65) [facility] Other 09-29-2023 Evaluation note* Encounter Date Diagnosis [...] and make recommendations for long-term supplementation with byza-whj-uiliuxu formulations or prescription grade repletion. 4000 IU [...] Blood pressure goal today under 140/90 Mar, halfway current use of insulin (ICD-10 - Z79.4) Mar, Vitamin B 12 deficiency (ICD-10 - E53.8) Continue cyanocobalamin 1000 mcg daily, handwritten information provided. Will recheck Mar, Hypoglycemia (ICD-10 - E16.2) Mar, BMI 32.0-32.9,adult (ICD-10 - Z68.32) Mar, Other weight trajecto ry steady, weight improving [facility] Other 09-07-2023 Evaluation note* Encounter Date Diagnosis Assessment Notes Treatment Notes Treatment Clinical Notes Mar, Type 2 diabetes mellitus with hyperglycemia (ICD-10 - E11.65) [facility] Other 07-05-2023 Evaluation note* Encounter Date Diagnosis [...] and make recommendations for long-term supplementation with yyhb-dpg-teskxjn formulations or prescription grade repletion. 4000 IU [...] Blood pressure goal today under 140/90 Jan, [employer] current use of insulin (ICD-10 - Z79.4) Jan, Vitamin B 12 deficiency (ICD-10 - E53.8) Continue cyanocobalamin 1000 mcg daily, handwritten information provided. Will recheck Jan, BMI 33.0-33.9,adult (ICD-10 - Z68.33) weight trajectory steady, weight improving Jan, Hypoglycemia (ICD-10 - E16.2) [facility] Other 03-13-2023 Evaluation note* Encounter Date Diagnosis [...] and make recommendations for long-term supplementation with ddrs-yze-zcnrldh formulations or prescription grade repletion. 4000 IU [...] Blood pressure goal today under 140/90 Sep, halfway current use of insulin (ICD-10 - Z79.4) Sep, Vitamin B 12 deficiency (ICD-10 - E53.8) Continue cyanocobalamin 1000 mcg daily, handwritten information provided. Will recheck Sep, BMI 33.0-33.9,adult (ICD-10 - Z68.33) weight trajectory steady, weight improving [facility] Other 11-28-2022 Evaluation note* Encounter Date Diagnosis [...] Prescriptions: TERRANCE, Metformin and Trulicity sent 06/11/2022. May, Vitamin D deficiency (ICD-10 - E55.9) Learning About Vitamin D material was published to portal Vitamin D deficiency identified, prescription grade vitamin D ordered and discussed.. Vitamin D has been noted to have positive impact on mood and energy. We can recheck periodically and make recommendations for long-term supplementation with azhp-rdw-vxnkizg formulations or prescription grade repletion. 4000 IU [...] Blood pressure goal today under 140/90 May, [employer] current use of insulin (ICD-10 - Z79.4) May, Vitamin B 12 deficiency (ICD-10 - E53.8) Continue cyanocobalamin 1000 mcg daily, handwritten information provided. Will recheck May, BMI 33.0-33.9,adult (ICD-10 - Z68.33) [facility] Other 10-11-2022 Evaluation note* Encounter Date Diagnosis Assessment Notes Treatment Notes Treatment Clinical Notes Apr, Type 2 diabetes mellitus with hyperglycemia (ICD-10 - E11.65) [facility] Other 08-17-2022 Evaluation note* Encounter Date Diagnosis Assessment Notes Treatment Notes Treatment Clinical Notes Feb, Type 2 diabetes mellitus with hyperglycemia (ICD-10 - E11.65) Provided sample glucometer, will send for strips, hopeful for coverage as patient's home monitor does not work. She has been in contact with [employer], changed batteries to no avail. We did [...] I have asked her to call the [employer] to get this replaced as she has [...] and make recommendations for long-term supplementation with xgcb-gbk-qyijlqn formulations or prescription grade repletion. 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 Feb, BMI 32.0-32.9,adult (ICD-10 - Z68.32) [facility] Other 06-02-2022 Evaluation note* Encounter Date Diagnosis Assessment Notes Treatment Notes Treatment Clinical Notes Dec, Type 2 diabetes mellitus with hyperglycemia (ICD-10 - E11.65) [facility] Other 05-11-2022 Evaluation note* Encounter Date Diagnosis [...] and make recommendations for long-term supplementation with ulur-yec-ewvoqxh formulations or prescription grade repletion. 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 [facility] Other 03-18-2022 Evaluation note* Encounter Date Diagnosis Assessment Notes Treatment Notes Treatment Clinical Notes Sep, Type 2 diabetes mellitus with hyperglycemia (ICD-10 - E11.65) [facility] Other 01-12-2022 Evaluation note* Encounter Date Diagnosis [...] and make recommendations for long-term supplementation with chbd-vis-fnjjjtu formulations or prescription grade repletion. Jul, Dietary [...] Instructions material was published to portal Jul, [employer] current use of insulin (ICD-10 - Z79.4) Jul, BMI 34.0-34.9,adult (ICD-10 - Z68.34) weight decrease noted 7.8 lbs, likely contribution of GLP-1-- desired. will increase insulin sensitivity Increased Trulicity -- promote weight loss and decreased insulin needs [facility] Other 12-21-2021 Evaluation note* Encounter Date Diagnosis Assessment Notes Treatment Notes Treatment Clinical Notes Jun, Type 2 diabetes mellitus with hyperglycemia (ICD-10 - E11.65) [facility] Other 11-30-2021 Evaluation note* Encounter Date Diagnosis Assessment Notes Treatment Notes Treatment Clinical Notes May, Type 2 diabetes mellitus with hyperglycemia (ICD-10 - E11.65) TERRANCE in hand from [employer]. Assist with placement and instruction today-- good [...] We will see her back just before [place]. Based on CVD would benefit from SGLT2, [...] Instructions material was published to portal May, [employer] current use of insulin (ICD-10 - Z79.4) May, BMI 34.0-34.9,adult (ICD-10 - Z68.34) weight decrease noted 7.8 lbs, likely contribution of GLP-1-- desired. will increase insulin sensitivity [facility] Other 11-10-2021 Evaluation note* Encounter Date Diagnosis [...] Instructions material was published to portal May, [employer] current use of insulin (ICD-10 - Z79.4) May, BMI 34.0-34.9,adult (ICD-10 - Z68.34) weight decrease noted 7.8 lbs, likely contribution of GLP-1-- desired. will increase insulin sensitivity [facility] Other 09-27-2021 Evaluation note* Encounter Date Diagnosis [...] does not remember any blood sugars lower [id number]. She is agreeable to checking BG AC/HS [...] Instructions material was published to portal Mar, [employer] current use of insulin (ICD-10 - Z79.4) Mar, BMI 35.0-35.9,adult (ICD-10 - Z68.35) [facility] [employer] Other Chief complaint+Reason for visit Narrative* Chief Complaint DMN f/u-METER m19.7 Reason for Visit BMI 33.0-33.9,adult Dietary counseling and surveillance HTN (hypertension) Hyperlipidemia [employer] current use of insulin Type 2 diabetes mellitus with hyperglycemia Vitamin B 12 deficiency Vitamin D deficiency [facility] Work Phone: Evaluation noteNo InformationNortEncompass Health Rehabilitation Hospital of [facility] [employer] Other Evaluation noteNoPagar.meh [employer] Other evaluation note* Diagnosis Recurrent urinary tract infection- Primary Urinary tract infection, site not specified [facility]* Diagnosis Prolonged Q-T interval on ECG- Primary Nonspecific abnormal electrocardiogram (ECG) (EKG) Pure hypercholesterolemia Coronary artery disease involving [place] coronary artery of [place] heart without angina pectoris Cerebrovascular disease Unspecified cerebrovascular disease documented in this encounter [facility] [employer] SystemEvaluation noteNo assessment information available [facility] Work Phone: Evaluation note* Diagnosis Onset Date Resolution Status BMI 33.0-33.9,adult acute Dietary counseling and surveillance acute HTN (hypertension) acute Hyperlipidemia acute [employer] current use of insulin acute Type 2 diabetes mellitus with hyperglycemia acute Vitamin B 12 deficiency acut e Vitamin D deficiency acute [facility] Work Phone: Histrll general Narrative - Reported* Type Description Date [...] Surgical History Hemorrhoidectomy Hospitalization History See Above [place] [facility] Other history general Narrative - Reported* Type [...] Stevens/[facility] 20 20 Hospitalization History See Above [facility] Other History general Narrative - ReportedNortTaodyne Other History general Narrative - Reported* Type [...] Stevens/[place]ag[place] 20 20 Surgical History kidney stone-[facility] 08/2022 Hospitalization History See Above [facility] Other Hisizwf general Narrative - Reported* Type Description Date [...] Surgical History Hemorrhoidectomy Surgical History Colonoscopy Dr [facility] 20 20 Surgical History kidney stone-[facility] 08/2022 Hospitalization History See Above Hospitalization History [facility] deisy dder infection 01-12-2023 [facility] Other InstructionsNot on filedocumented in this encounter [facility] filed[facility] in this [facility] filedocumented in this encounter [facility]Not on filedocumented in this encounter [facility] Summary Purpose Family History No Family [...] Inactivated Comments DNR Comfort Care Arrest (DNR-CCA) [place] 08/01/2020 9:22 AM 08/03/2020 4:22 PM Code [...] content) DATE CREATED AUTHOR 09/19/2022 [facility] DATE CREATED AUTHOR AUTHOR'S ORGANIZ ATION 09/02/2023 [facility] DATE CREATED AUTHOR AUTHOR'S ORGANIZ ATION 12/08/2023 [facility] DATE CREATED AUTHOR AUTHOR'S ORGANIZ ATION 12/27/2023 [facility] EPIC DATE CREATED AUTHOR AUTHOR'S ORGANIZ ATION 04/12/2024 [facility] Care Teams (unrecognized sec tion and content) [...] January 08, 2024 End: January 08, 2024 Group Exercise Instructor Relationship Specialty Start Date End Date Scotty Kumar MD [address] [place] [address] PCP - General 04/05/17 Group Exercise Instructor Relationship Specialty Start Date End Date Scotty Kumar MD [address] [facility] [place] [address] PCP - General 04/05/17 Group Exercise Instructor Relationship Specialty Start Date End Date Scotty Kumar MD [address] [facility] [place] [address] PCP - General 04/05/17 Team Status: Inactive [...] BE BASED ON THE PRIMARY CLINICAL RECORDS. [facility] [employer] [facility]. provides no warranty or guarantee of the accuracy or completeness of information in this document.
--- NOTE | 2024-04-15 07:57 | P.GSCN_ITS ---
History of Present Illness Consult details Consult date: 04/15/24 Narrative: 69 year female presented due to being dizzy. Found to have ELYSE and anemia on admission. She states she has been off and on dizzy for past couple weeks. 2 weeks ago she had a diarrheal sickness that has since gotten better. She denies any f/c, n/v, sob or chest pain. She denies any dark or tarry stools. Denies seeing any blood in her stool. Last c-scope was 5 years ago and she was told was normal. She denies any discomfort or issues currently and asking about when she can leave. No history of peptic ulcer disease or colon cancer to her knowledge. Review of Systems ROS Status of ROS 10 or more systems reviewed and unremark able except as noted in history and below [facility] Medical History (Updated 04/15/24 @ 11:21 by Steven Dorsey DO) Coronary artery disease involving coronary bypass graft ?I25.810 - Atherosclerosis of coronary artery bypass graft(s) without angina pectoris (ICD-10) Pulmonary embolism ?I26.99 - Other pulmonary embolism without acute cor pulmonale (ICD-10) Myocardial infarct ?I21.9 - Acute myocardial infarction, unspecified (ICD-10) IBS (irritable bowel syndrome) ?K58.9 - Irritable bowel syndrome, unspecified (ICD-10) Hyperlipemia ?E78.5 - Hyperlipidemia, unspecified (ICD-10) Hypertension ?I10 - Essential (primary) hypertension (ICD-10) Hepatic steatosis ?K76.0 - Fatty (change of) liver, not elsewhere classified (ICD-10) Glaucoma ?H40.9 - Unspecified glaucoma (ICD-10) GERD (gastroesophageal reflux disease) ?K21.9 - Gastro-esophageal reflux disease without esophagitis (ICD-10) Diabetes mellitus ?E11.9 - Type 2 diabetes mellitus without complications (ICD-10) Depression ?F32.A - Depression, unspecified (ICD-10) CVA (cerebral vascular accident) ?I63.9 - Cerebral infarction, unspecified (ICD-10) COPD (chronic obstructive pulmonary disease) ?J44.9 - Chronic obstructive pulmonary disease, unspecified (ICD-10) CAD (coronary artery disease) ?I25.10 - Atherosclerotic heart disease of [place] coronary artery without angina pectoris (ICD-10) Atelectasis ?J98.11 - Atelectasis (ICD-10) Anxiety ?F41.9 - Anxiety disorder, unspecified (ICD-10) Anemia ?D64.9 - Anemia, unspecified (ICD-10) Surgical History (Updated 04/14/24 @ 12:11 by Shyanne Junior RN) H/O: hysterectomy ?Z90.710 - Acquired absence of both cervix and uterus (ICD-10) Hx of cholecystectomy ?Z90.49 - Acquired absence of other specified parts of digestive tract (ICD- 10) Family History (Updated 04/14/24 @ 13:40 by Christi Bradley, DU) Mother Family history of hypertension Family history of CHF (congestive heart failure) Father Family history of myocardial infarction Aunt Family history of diabetes mellitus Uncle Family history of diabetes mellitus Sister Family history of cancer Family history of COPD (chronic obstructive pulmonary disease) Social History (Updated 04/14/24 @ 13:40 by Christi Bradley RN) Within the past year, how often did you have a drink containing alcohol: never Score interpretation: A score less than 3 is consistent with normal alcohol consumption. Smoking status: Never smoker Non-prescribed substance use: denies use Highest level of school completed/degree received: 9th grade Little interest or pleasure in doing things: not at all Feeling down, depressed, or hopeless: not at all Meds Home Medications and Allergies Home Medications ?Medication ?Instructions ?Recorded ?Confirmed ?Type albuterol sulfate 90 mcg/actuation 1 inh inhalation Q6H PRN shortness 04/14/24 04/14/24 History aerosol inhaler of breath or wheezing aspirin 81 mg tablet,delayed 81 mg PO DAILY 04/14/24 04/14/24 History release carvedilol 25 mg tablet 25 mg PO Q12H 04/14/24 04/14/24 History clotrimazole 1 % topical cream 1 applic topical DAILY 04/14/24 04/14/24 History cyanocobalamin (vitamin B-12) 1,000 mcg PO DAILY 04/14/24 04/14/24 History 1,000 mcg capsule diclofenac sodium 1 % topical gel 2 g topical TID 04/14/24 04/14/24 History diclofenac sodium 75 mg 75 mg PO BID PRN pain 04/14/24 04/14/24 History tablet,delayed release dicyclomine 20 mg tablet 20 mg PO TID PRN abdominal pain 04/14/24 04/14/24 History dulaglutide 4.5 mg/0.5 mL 4.5 mg subcut QWEEK 04/14/24 04/14/24 History subcutaneous pen injector (Trulicity) estradiol 0.01% (0.1 mg/gram) 0.1 g vaginal .3 times weekly 04/14/24 04/14/24 History vaginal cream ferrous sulfate 325 mg (65 mg 325 mg PO DAILY 04/14/24 04/14/24 History iron) tablet (Feosol) fluconazole 200 mg tablet 200 mg PO DAILY 04/14/24 04/14/24 History fluticasone furoate 100 1 inh inhalation Q24H 04/14/24 04/14/24 History mcg-vilanterol 25 mcg/dose inhalation powder (Breo Ellipta) gabapentin 300 mg capsule 300 mg PO DAILY 04/14/24 04/14/24 History hydrochlorothiazide 12.5 mg tablet 12.5 mg PO DAILY 04/14/24 04/14/24 History insulin glargine 100 unit/mL (3 16 unit subcut DAILY 04/14/24 04/14/24 History mL) subcutaneous pen (Lantus Solostar U-100 Insulin) isosorbide mononitrate 30 mg 30 mg PO DAILY 04/14/24 04/14/24 History tablet,extended release 24 hr latanoprost 0.005 % eye drops 1 drp ophthalmic (eye) BEDTIME 04/14/24 04/14/24 History loratadine 10 mg tablet 10 mg PO DAILY 04/14/24 04/14/24 History losartan 100 mg tablet 100 mg PO DAILY 04/14/24 04/14/24 History magnesium oxide 400 mg (241.3 mg 400 mg PO DAILY 04/14/24 04/14/24 History magnesium) tablet meclizine 25 mg tablet 25 mg PO BID 04/14/24 04/14/24 History metformin 1,000 mg tablet 1,000 mg PO BID 04/14/24 04/14/24 History nitrofurantoin 100 mg PO BID 04/14/24 04/14/24 History monohydrate/macrocrystals 100 mg capsule nitroglycerin 0.4 mg sublingual 0.4 mg sublingual Q5M 04/14/24 04/14/24 History tablet (Nitrostat) potassium citrate 15 mEq (1,620 15 meq PO BID 04/14/24 04/14/24 History mg) tablet,extended release pravastatin 80 mg tablet 80 mg PO BEDTIME 04/14/24 04/14/24 History rivaroxaban 20 mg tablet (Xarelto) 20 mg PO DAILY 04/14/24 04/14/24 History Allergies Allergy/AdvReac Type Severity Reaction Status Date / Time acetaminophen [From Tylenol] AdvReac Mild Unknown Verified 04/14/24 14:04 baclofen AdvReac Mild Unknown Verified 04/14/24 14:04 benzonatate AdvReac Mild Unknown Verified 04/14/24 14:04 clindamycin AdvReac Mild Unknown Verified 04/14/24 14:04 clopidogrel [From Plavix] AdvReac Mild Unknown Verified 04/14/24 14:04 erythromycin base AdvReac Mild Unknown Verified 04/14/24 14:04 hydrocodone AdvReac Mild Unknown Verified 04/14/24 14:04 ibuprofen [From Motrin] AdvReac Mild Unknown Verified 04/14/24 14:04 insulin lispro AdvReac Mild Unknown Verified 04/14/24 14:04 [From Humalog Mix] insulin lispro protamine AdvReac Mild Unknown Verified 04/14/24 14:04 [From Humalog Mix] omeprazole [From Prilosec] AdvReac Mild Unknown Verified 04/14/24 14:04 Penicillins AdvReac Mild Unknown Verified 04/14/24 14:04 propoxyphene AdvReac Mild Unknown Verified 04/14/24 14:04 sulfamethoxazole AdvReac Mild Unknown Verified 04/14/24 14:04 [From Bactrim] trimethoprim [From Bactrim] AdvReac Mild Unknown Verified 04/14/24 14:04 Exam Narrative Exam Narrative: General: awake, alert, no distress Head: normocephalic, atraumatic Neck: supple, no tracheal deviation Heart: RRR Lungs: equal chest rise and fall, non labored breathing Abdomen: soft, non tender, no rebound or guarding Extremities: no lesions, grossly normal Skin: intact, no cyanosis Psychological: no apparent speech or mood disorder, appropriate for encounter Constitutional Vital Signs, click to edit/add: Last Vital Signs Temp 97.7 F 04/15/24 04:09 Pulse 79 04/15/24 06:00 Resp 18 04/15/24 04:11 BP 164/72 H 04/15/24 04:09 Pulse Ox 95 04/15/24 04:11 O2 Del Method Room Air 04/15/24 04:11 Results Labs Labs: Abnormal lab results 04/14/24 04/14/24 04/14/24 Range/Units 10:37 10:49 11:03 RBC 2.59 L (4.20-5.40) 10^6/uL Hgb 7.8 L (12.0-16.0) g/dL Hct 24.4 L (36.0-48.0) % Plt Count (150-450) 10^3/uL Lymph % (Auto) 12.8 L (20.5-60.0) % Eos % (Auto) 9.4 H (0.9-7.0) % Neut # (Auto) 6.9 H (1.4-6.5) 10^3/uL Lymph # (Auto) (1.2-3.8) 10^3/uL Eos # (Auto) 0.9 H (0.0-0.7) 10^3/uL Abs Immat Gran (auto) 0.05 H (0.00-0.03) 10^3/uL Imm/Tot Granulo (auto) (0.0-0.5) % Sodium 135 L (136-145) mmol/L BUN 35.0 H (7.0-18.0) mg/dL Creatinine 2.60 H (0.55-1.02) mg/dL Est GFR ( Amer) 22 L (>=60) Est GFR (Non-Af Amer) 18 L (>=60) Glucose 126 H (74-106) mg/dL Iron 18.0 L (50.0-170.0) ug/dL Total Bilirubin (0.2-1.0) mg/dL AST (15-37) U/L ALT (14-59) U/L Total Protein (6.4-8.2) g/dL Albumin (3.4-5.0) g/dL Folate 6.50 L (8.60-58.90) ng/mL Ur Leukocyte Esterase (NEGATIVE) Urine WBC (NONE SEEN) #/HPF Ur Squamous Epith Cells (NONE/RARE) #/LPF Ur Transition Epith Cell (NONE SEEN) #/LPF Urine Bacteria (NONE SEEN) #/HPF Urine Casts (NONE SEEN) #/LPF Urine Mucus (NONE SEEN) POC Glucose 136 H (74-106) mg/dL Crossmatch 04/14/24 04/14/24 04/14/24 Range/Units 12:24 14:19 22:50 RBC (4.20-5.40) 10^6/uL Hgb 8.0 L 6.9 L* (12.0-16.0) g/dL Hct 24.7 L 21.6 L* (36.0-48.0) % Plt Count (150-450) 10^3/uL Lymph % (Auto) (20.5-60.0) % Eos % (Auto) (0.9-7.0) % Neut # (Auto) (1.4-6.5) 10^3/uL Lymph # (Auto) (1.2-3.8) 10^3/uL Eos # (Auto) (0.0-0.7) 10^3/uL Abs Immat Gran (auto) (0.00-0.03) 10^3/uL Imm/Tot Granulo (auto) (0.0-0.5) % Sodium (136-145) mmol/L BUN (7.0-18.0) mg/dL Creatinine (0.55-1.02) mg/dL Est GFR ( Amer) (>=60) Est GFR (Non-Af Amer) (>=60) Glucose (74-106) mg/dL Iron (50.0-170.0) ug/dL Total Bilirubin (0.2-1.0) mg/dL AST (15-37) U/L ALT (14-59) U/L Total Protein (6.4-8.2) g/dL Albumin (3.4-5.0) g/dL Folate (8.60-58.90) ng/mL Ur Leukocyte Esterase Small A (NEGATIVE) Urine WBC 2-5 A (NONE SEEN) #/HPF Ur Squamous Epith Cells Moderate A (NONE/RARE) #/LPF Ur Transition Epith Cell Rare A (NONE SEEN) #/LPF Urine Bacteria Trace A (NONE SEEN) #/HPF Urine Casts Seen A (NONE SEEN) #/LPF Urine Mucus Trace A (NONE SEEN) POC Glucose (74-106) mg/dL Crossmatch See Detail 04/15/24 Range/Units 05:41 RBC 2.77 L (4.20-5.40) 10^6/uL Hgb 8.3 L (12.0-16.0) g/dL Hct 25.7 L (36.0-48.0) % Plt Count 131 L (150-450) 10^3/uL Lymph % (Auto) 13.6 L (20.5-60.0) % Eos % (Auto) 11.4 H (0.9-7.0) % Neut # (Auto) (1.4-6.5) 10^3/uL Lymph # (Auto) 1.1 L (1.2-3.8) 10^3/uL Eos # (Auto) 0.9 H (0.0-0.7) 10^3/uL Abs Immat Gran (auto) 0.05 H (0.00-0.03) 10^3/uL Imm/Tot Granulo (auto) 0.6 H (0.0-0.5) % Sodium 135 L (136-145) mmol/L BUN 27.0 H (7.0-18.0) mg/dL Creatinine 1.92 H (0.55-1.02) mg/dL Est GFR ( Amer) 31 L (>=60) Est GFR (Non-Af Amer) 26 L (>=60) Glucose 114 H (74-106) mg/dL Iron (50.0-170.0) ug/dL Total Bilirubin 1.1 H (0.2-1.0) mg/dL AST 9 L (15-37) U/L ALT 10 L (14-59) U/L Total Protein 6.0 L (6.4-8.2) g/dL Albumin 2.8 L (3.4-5.0) g/dL Folate (8.60-58.90) ng/mL Ur Leukocyte Esterase (NEGATIVE) Urine WBC (NONE SEEN) #/HPF Ur Squamous Epith Cells (NONE/RARE) #/LPF Ur Transition Epith Cell (NONE SEEN) #/LPF Urine Bacteria (NONE SEEN) #/HPF Urine Casts (NONE SEEN) #/LPF Urine Mucus (NONE SEEN) POC Glucose (74-106) mg/dL Crossmatch Diabetes panel 04/14/24 04/15/24 Range/Units 10:49 05:41 Sodium 135 L 135 L (136-145) mmol/L Potassium 5.0 4.4 (3.5-5.1) mmol/L Chloride 100 103 (98-107) mmol/L Carbon Dioxide 25.8 22.0 (21.0-32.0) mmol/L BUN 35.0 H 27.0 H (7.0-18.0) mg/dL Creatinine 2.60 H 1.92 H (0.55-1.02) mg/dL Glucose 126 H 114 H (74-106) mg/dL Calcium 9.8 9.1 (8.5-10.1) mg/dL AST 9 L (15-37) U/L ALT 10 L (14-59) U/L Alkaline Phosphatase 85 (46-116) U/L Total Protein 6.0 L (6.4-8.2) g/dL Albumin 2.8 L (3.4-5.0) g/dL Calcium panel 04/14/24 04/15/24 Range/Units 10:49 05:41 Calcium 9.8 9.1 (8.5-10.1) mg/dL Albumin 2.8 L (3.4-5.0) g/dL Pituitary panel 04/14/24 04/15/24 Range/Units 10:49 05:41 Sodium 135 L 135 L (136-145) mmol/L Potassium 5.0 4.4 (3.5-5.1) mmol/L Chloride 100 103 (98-107) mmol/L Carbon Dioxide 25.8 22.0 (21.0-32.0) mmol/L BUN 35.0 H 27.0 H (7.0-18.0) mg/dL Creatinine 2.60 H 1.92 H (0.55-1.02) mg/dL Glucose 126 H 114 H (74-106) mg/dL Calcium 9.8 9.1 (8.5-10.1) mg/dL Adrenal panel 04/14/24 04/15/24 Range/Units 10:49 05:41 Sodium 135 L 135 L (136-145) mmol/L Potassium 5.0 4.4 (3.5-5.1) mmol/L Chloride 100 103 (98-107) mmol/L Carbon Dioxide 25.8 22.0 (21.0-32.0) mmol/L BUN 35.0 H 27.0 H (7.0-18.0) mg/dL Creatinine 2.60 H 1.92 H (0.55-1.02) mg/dL Glucose 126 H 114 H (74-106) mg/dL Calcium 9.8 9.1 (8.5-10.1) mg/dL Total Bilirubin 1.1 H (0.2-1.0) mg/dL AST 9 L (15-37) U/L ALT 10 L (14-59) U/L Alkaline Phosphatase 85 (46-116) U/L Total Protein 6.0 L (6.4-8.2) g/dL Albumin 2.8 L (3.4-5.0) g/dL All other labs normal. Assessment and Plan Assessment and Plan (1) ELYSE (acute kidney injury): (2) Coronary artery disease involving coronary bypass graft: Qualifiers: Associated angina: without angina [place] vs. 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 Diabetes mellitus type: type 2 Qualified Code(s): E11.9 - Type 2 diabetes mellitus without complications; Z79.4 - FPC (current) use of insulin (6) Depression: Qualifiers: Active/Remission status: in full remission Depression Type: major depressive disorder Major depression recurrence: recurrent Qualified Code(s): F33.42 - Major depressive disorder, recurrent, in full remission (7) GERD (gastroesophageal reflux disease): Qualifiers: Esophagitis presence: without esophagitis Qualified Code(s): K21.9 - Gastro-esophageal reflux disease without esophagitis (8) Anemia of unknown etiology: Assessment and Plan: 1. OK for diet from gen surg stance, no signs of active GI bleeding, no emesis. and bowel movements with no blood noted, fecal occult negative 2. Recommend holding AC and until patient can discuss with public relations account executive 3. Follow hgb every 8-12hrs until stable, then discontinue blood draws 4. Prophylactic PPI and Carafate on discharge
[2024-04-15 09:13] LABS: Vitamin B12 >2000 pg/mL (232-1245)
--- NOTE | 2024-04-15 09:30 | CM.NOTE ---
Rounds made with Dr. Catalan, discussed with pt plan of care. Dr. Catalan will reach out to Dr. Dorsey before changing NPO status to develop plan of care.
[2024-04-15] MEDS: INSULIN DETEMIR 300 UNIT/3 ML INSULN.PEN 16 UNIT SQ (09:55)
[2024-04-15] MEDS: MECLIZINE HCL 12.5 MG TABLET 25 MG PO (09:57)
[2024-04-15] MEDS: MAGNESIUM OXIDE 400 MG TABLET PO (09:57)
[2024-04-15] MEDS: GABAPENTIN 300 MG CAPSULE PO (09:57)
[2024-04-15] MEDS: CETIRIZINE HCL 10 MG TABLET PO (09:57)
[2024-04-15] MEDS: BUDESONIDE 0.5 MG/2 ML AMPULE NEB IH (10:34)
--- NOTE | 2024-04-15 11:13 | CM.NOTE ---
Medicare Outpatient Observation Notice discussed with pt, pt verbalizes understanding and signs paper. Original given to pt and copy placed in pt's chart.
--- NOTE | 2024-04-15 12:10 | SWNOTE1 ---
SW spoke with case management and pt lives in [facility] and voiced no needs. SW reviewed therapy notes and pt is independent. SW to follow as needed.
[2024-04-15 12:40] LABS: Hematocrit 26.8 % (36.0-48.0); Hemoglobin 8.6 g/dL (12.0-16.0)
--- NOTE | 2024-04-15 13:04 | PM.DS1 ---
DS: Providers Provider Date of admission: 04/14/24 13:01 Primary care physician: Yamilet Morgan NP Admitting clinician: Shaikh Alayna Attending physician on admission: Shaikh Alayna Consults: 04/14/24 13:44 Occupational Therapy Eval and Treat Routine Reason for consultation: Ambulatory dysfunction/weakness Physical Therapy Eval and Treat Routine Reason for consultation: Ambulatory dysfunction/weakness 04/15/24 07:19 Consult to General Surgeon Routine Consulting Provider: Steven Dorsey Reason for consultation: Suspected UGIB Attending physician on discharge: Shaikh Alayna Discharging clinician: Shaikh Alayna Anticipated date of discharge: 04/15/24 DS: Diagnosis Discharge Diagnosis (1) UGIB (upper gastrointestinal bleed): Assessment and plan: suspected UGIB. Baseline Hb is 11. Presented with Hb of 7.8, that trended down to 6.9 Received one unit PRBC. Hb stable post tx and last Hb was 8.6 No overt/active bleeding. suspect PUD/Gastritis as patient on ASA, Xarelto and also using Nsaids. Ok to resume ASA. Discussing stopping Xarelto/NSAIDS. She does not have hx of Afib. She has been using Xarelto hx of VTE over many years ago. I feel that it is safe for her to discontinue Xarelto altogether. However, we do not have all the medical hx/information at this point and we will defer this decision to patient's PCP. Patient instructed to hold Xarelto until seen by PCP (2) ELYSE (acute kidney injury): Assessment and plan: Renal function improving with IVF. Tolerating PO diet. Stable for discharge. She should Hold HCTZ/losartan until seen by PCP. Avoid NSAIDS (3) Coronary artery disease involving coronary bypass graft: Assessment and plan: No active cardiac ischemia. Ok to resume low dose ASA. Qualifiers: Associated angina: without angina [place] vs. transplanted heart: [place] heart Qualified Code(s): I25.810 - Atherosclerosis of coronary artery bypass graft(s) without angina pectoris (4) Hyperlipemia: Assessment and plan: c/w statin Qualifiers: Hyperlipidemia type: unspecified Qualified Code(s): E78.5 - Hyperlipidemia, unspecified (5) Hypertension: Assessment and plan: Stable. Hold HCTZ/losartan until renal fx back to baseline and ok with PCP to resume. Qualifiers: Hypertension type: primary hypertension Qualified Code(s): I10 - Essential (primary) hypertension (6) Diabetes mellitus: Assessment and plan: C/w home medications. Qualifiers: Diabetes mellitus complication status: without complication Diabetes mellitus installation specialist insulin use: with installation specialist use Diabetes mellitus type: type 2 Qualified Code(s): E11.9 - Type 2 diabetes mellitus without complications; Z79.4 - [facility] (current) use of insulin (7) Depression: Assessment and plan: Stable mood. Qualifiers: Active/Remission status: in full remission Depression Type: major depressive disorder Major depression recurrence: recurrent Qualified Code(s): F33.42 - Major depressive disorder, recurrent, in full remission (8) GERD (gastroesophageal reflux disease): Assessment and plan: Will d/c patient on oral Omeprazole q12. Qualifiers: Esophagitis presence: without esophagitis Qualified Code(s): K21.9 - Gastro-esophageal reflux disease without esophagitis DS: Summary Hospital Course Hospital Course: 69-year-old female presented to ER with vertigo/dizziness. She reported that her vertigo/dizziness was intermittent and sporadic with no aggravating or alleviating factors. She denied any neurological symptoms associated with vertigo. She had a CT head that did not reveal any significant intracranial pathology. She also denied tinnitus or ear pressure. However workup in ER revealed that she had an acute kidney injury with serum creatinine of 2.6 and acute symptomatic anemia with hemoglobin of 7.8. At baseline she has normal renal function and her baseline hemoglobin is about 11. Patient was admitted for observation for possible GI bleed and was started on IV fluids for dehydration and acute kidney injury. Her symptoms resolved during the course of admission and she felt like she was at her baseline. It is very possible that vertigo/dizziness was likely due to dehydration/hypovolemia and anemia. Her hemoglobin trended down to 6.9 and she required 1 unit of PRBC. Posttransfusion, her hemoglobin has been stable and last hemoglobin was 8.6. She was treated with IV Protonix for possible GI bleed. Her aspirin, Xarelto was withheld. Patient was seen by general surgery who did not feel there was need for inpatient GI workup. Patient is medically stable for discharge. She can resume her oral aspirin for history of coronary artery disease. 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 I unfortunately do not have the full clinical picture in the circumstances of her VTE but given that she it has been more than a few years, I feel that it is safe for her to discontinue Xarelto also. She will need to discuss this PCP but until then, she should hold Xarelto and not use it until seen by PCP. She was also educated on risk of bleeding with NSAIDs and that she should avoid using NSAIDs. She will be discharge on oral Omeprazole 40 q12 for suspected PUD/gastritis Patient is medically stable for discharge. She will need follow-up with PCP in 1 to 2 weeks. Status at Discharge Functional status at discharge: independent ambulation Overall status at discharge: patient is back to baseline Time Spent with Patient Time attestation: Total time spent providing and/or coordinating discharge services: Time spent: greater than 30 minutes Exam Constitutional Vital Signs, click to edit/add: Last Vital Signs Temp 97.8 F 04/15/24 11:24 Pulse 76 04/15/24 12:00 Resp 18 04/15/24 11:24 BP 131/71 04/15/24 11:24 Pulse Ox 97 04/15/24 11:24 O2 Del Method Room Air 04/15/24 11:24 Documenting provider has reviewed patient's vital signs: yes Common normals: no apparent distress and oriented x3 General appearance: cooperative Respiratory Common normals: normal respiratory effort and clear to auscultation bilaterally Effort & inspection: able to speak in complete sentences Auscultation: clear to auscultation bilaterally Cardio Common normals: regular rate, S1 normal heart sound and S2 normal heart sound Rate: regular rate Heart sounds: S1 normal and S2 normal GI Common normals: Normal to inspection, nondistended, normoactive bowel sounds present, soft to palpation, non-tender and no hepatosplenomegaly Palpation: soft and no hepatosplenomegaly Extremity Common normals: no clubbing, cyanosis or edema Neuro Common normals: oriented x3, moves all extremities and no focal motor deficits Psych Common normals: mental status grossly normal, denies hallucinations, denies homicidal ideation and denies suicidal ideation DS: Data Data Completed and Pending Labs on day of discharge: Labs from last 24 hours 04/15/24 04/15/24 04/14/24 12:25 05:41 22:50 WBC 8.0 RBC 2.77 L Hgb 8.6 L 8.3 L 6.9 L* Hct 26.8 L 25.7 L 21.6 L* MCV 92.8 MCH 30.0 MCHC 32.3 RDW 13.3 Plt Count 131 L MPV 11.0 Neut % (Auto) 67.5 Lymph % (Auto) 13.6 L [place] % (Auto) 6.5 Eos % (Auto) 11.4 H Baso % (Auto) 0.4 Neut # (Auto) 5.4 Lymph # (Auto) 1.1 L [place] # (Auto) 0.5 Eos # (Auto) 0.9 H Baso # (Auto) 0.0 Abs Immat Gran (auto) 0.05 H Imm/Tot Granulo (auto) 0.6 H Sodium 135 L Potassium 4.4 Chloride 103 Carbon Dioxide 22.0 Anion Gap 14.4 BUN 27.0 H Creatinine 1.92 H Est GFR ( Amer) 31 L Est GFR (Non-Af Amer) 26 L BUN/Creatinine Ratio 14.1 Glucose 114 H Calcium 9.1 Iron TIBC % Saturation Transferrin Ferritin Total Bilirubin 1.1 H AST 9 L ALT 10 L Alkaline Phosphatase 85 Total Protein 6.0 L Albumin 2.8 L Globulin 3.2 Albumin/Globulin Ratio 0.9 Vitamin B12 Folate Blood Type Antibody Screen Crossmatch 04/14/24 04/14/24 14:19 11:03 WBC RBC Hgb 8.0 L Hct 24.7 L MCV MCH MCHC RDW Plt Count MPV Neut % (Auto) Lymph % (Auto) [place] % (Auto) Eos % (Auto) Baso % (Auto) Neut # (Auto) Lymph # (Auto) [place] # (Auto) Eos # (Auto) Baso # (Auto) Abs Immat Gran (auto) Imm/Tot Granulo (auto) Sodium Potassium Chloride Carbon Dioxide Anion Gap BUN Creatinine Est GFR ( Amer) Est GFR (Non-Af Amer) BUN/Creatinine Ratio Glucose Calcium Iron 18.0 L TIBC 361.0 % Saturation 5.0 Transferrin 311 Ferritin 107.0 Total Bilirubin AST ALT Alkaline Phosphatase Total Protein Albumin Globulin Albumin/Globulin Ratio Vitamin B12 >2000 H Folate 6.50 L Blood Type O Positive Antibody Screen Negative Crossmatch See Detail Discharge Plan Discharge Disposition: Home, Self-Care Discharge Medications: New omeprazole 40 mg capsule,delayed release(DR/EC) 40 mg PO BID Qty: 60 0RF Continued aspirin 81 mg tablet,delayed release (DR/EC) 81 mg PO DAILY carvedilol 25 mg tablet 25 mg PO Q12H clotrimazole 1 % cream 1 applic TOPICAL DAILY diclofenac sodium 1 % gel 2 g TOPICAL TID cyanocobalamin (vitamin B-12) 1,000 mcg capsule 1,000 mcg PO DAILY estradiol 0.01 % (0.1 mg/gram) cream 0.1 g VAGINAL .3 times weekly ferrous sulfate [Feosol] 325 mg (65 mg iron) tablet 325 mg PO DAILY fluticasone furoate-vilanterol [Breo Ellipta] 100-25 mcg/dose blister with device 1 inh INHALATION Q24H isosorbide mononitrate 30 mg tablet extended release 24 hr 30 mg PO DAILY latanoprost 0.005 % drops 1 drp OPHTHALMIC (EYE) BEDTIME loratadine 10 mg tablet 10 mg PO DAILY magnesium oxide 400 mg (241.3 mg magnesium) tablet 400 mg PO DAILY meclizine 25 mg tablet 25 mg PO BID metformin 1,000 mg tablet 1,000 mg PO BID potassium citrate 15 mEq tablet extended release 15 meq PO BID nitroglycerin [Nitrostat] 0.4 mg tablet, sublingual 0.4 mg sublingual Q5M Rx Instructions: do not exceed 3 doses per episode pravastatin 80 mg tablet 80 mg PO BEDTIME gabapentin 300 mg capsule 300 mg PO DAILY insulin glargine [Lantus Solostar U-100 Insulin] 100 unit/mL (3 mL) insulin pen 16 unit SUBCUT DAILY fluconazole 200 mg tablet 200 mg PO DAILY Rx Instructions: 04/09/24-04/15/24 dicyclomine 20 mg tablet 20 mg PO TID PRN (Reason: abdominal pain) albuterol sulfate 90 mcg/actuation HFA aerosol inhaler 1 inh INHALATION Q6H PRN (Reason: shortness of breath or wheezing) nitrofurantoin monohyd/m-cryst 100 mg capsule 100 mg PO BID Rx Instructions: 04/09/24-04/14/24 Trulicity 4.5 mg/0.5 mL pen injector 4.5 mg SUBCUT QWEEK Held Xarelto 20 mg tablet 20 mg PO DAILY Hold Instructions: Resume on 04/22/24. Until seen by PCP losartan 100 mg tablet 100 mg PO DAILY Hold Instructions: Resume on 04/22/24. Until seen by PCP hydrochlorothiazide 12.5 mg tablet 12.5 mg PO DAILY Hold Instructions: Resume on 04/22/24. Until seen by PCP Discontinued diclofenac sodium 75 mg tablet,delayed release (DR/EC) 75 mg PO BID PRN (Reason: pain) Activity: increase activity as tolerated Diet: advance to your usual diet Print Language: [place] Forms: Portal Instructions Follow Up Appointments: f/u with PCP in 1 week
--- NOTE | 2024-04-16 14:15 | CM.DCFOLLOWU ---
1st attempt 04/16/24
--- NOTE | 2024-04-20 14:30 | CM.DCFOLLOWU ---
Person spoke with:patient How are you feeling? well How is your pain?none Did you understand your discharge instructions?yes Do you have any questions about your discharge instructions? no Were you given any prescriptions at discharge?yes Were you able to get your prescriptions filled?yes Do you understand how to take your medications as ordered?yes Do you have any questions about your follow up appointment and do you plan to keep your follow up appointment? no questions, follow up next week Is there anything else that you would like to discuss? no Questions/Comments/Concerns/Other: Patient very pleased with her care and thankful to everyone for saving her life.
== END 2024-04-15 15:07 | disposition home or self-care (01) ==
LOC: ER 12:27 → MS 04-15 07:19
PROVIDERS: Admitting Provider Internal Medicine; Emergency Provider Emergency Medicine; PCP Nurse Practitioner Family; Visit Provider Internal Medicine
DX: K92.2 Gastrointestinal hemorrhage, unspecified (principal); N17.9 Acute kidney failure, unspecified; I25.810 Atherosclerosis of coronary artery bypass graft(s) without angina pectoris; E78.5 Hyperlipidemia, unspecified; I10 Essential (primary) hypertension; E11.9 Type 2 diabetes mellitus without complications; F33.42 Major depressive disorder, recurrent, in full remission; K21.9 Gastro-esophageal reflux disease without esophagitis; Z79.01 Long term (current) use of anticoagulants; Z79.4 Long term (current) use of insulin; Z79.82 Long term (current) use of aspirin; Z79.899 Other long term (current) drug therapy
CPT/HCPCS: 36415; 36430; 70450; 71045; 80048; 80053; 81001; 82607; 82728; 82746; 83540; 83550; 84466; 85014; 85018; 85025; 86850; 86900; 86901; 86923; 93005; 94640; 94761; 96374; 96376; 97161; 97165; 99285; G0328; G0378; P9016

== ENCOUNTER 2024-10-28 08:01 | Outpatient (OUT) | payer MEDICARE, MEDICAID, SELFPAY ==
--- NOTE | 2024-10-28 08:11 | MM_ITS ---
Patient Name: ROMIE GREEN MR#: [id number] : 1955 Exam Date: 10/28/2024 Ordering Doctor: Yamilet Morgan RADIOLOGY REPORT PROCEDURE: MM TOMOSYNTHESIS SCREENING BI COMPARISON: MM TOMOSYNTHESIS SCREENING BI, 10/08/2023. MG MAMM SCREEN 3D CASIE CAD, 09/17/2022. MG MAMM CASIE SCRN W CAD DIG, 11/10/2013. INDICATIONS: Screening Calculator Name NCI Breast Cancer Risk Assessment Tool 5 Year Breast Cancer Risk 1.30% Lifetime Breast Cancer Risk 3.50% Personal Breast Cancer No Personal Ovarian Cancer No Treatments None Family Cancers Brother with esophageal cancer at age 68. LOCATION: The [facility] BREAST COMPOSITION: There are scattered areas of fibroglandular density. FINDINGS: DIAGNOSTIC CATEGORY 1--NEGATIVE. RIGHT BREAST: No significant suspicious finding. LEFT BREAST: No significant suspicious finding. RECOMMENDATIONS: ROUTINE MAMMOGRAM AND CLINICAL EVALUATION IN 12 MONTHS. PLEASE NOTE: A NORMAL MAMMOGRAM DOES NOT EXCLUDE THE POSSIBILITY OF BREAST CANCER. A CLINICALLY SUSPICIOUS PALPABLE LUMP SHOULD BE BIOPSIED. Dictated by: Ramez Ramirez DO on 10/28/2024 at 14:02 Approved by: Ramez Ramirez DO on 10/28/2024 at 14:04
--- OUTSIDE RECORDS SUMMARY | 2024-10-28 08:15 | XMS_ITS | CCD ---
Author Organization [facility] Inform ion Partnership [facility] Care Team Providers Care Fraternity Adviser Name Role Phone Giovanna Morrow Unavailable Klaus Hebert Unavailable [facility] Admitting Unava ilable [facility] Attending Unava ilable MISC, DR GALEANO Primary Care Unavailable SEQUIM, DR MICHAEL Hamm Consulting Unavailable SCOTTY BEAVERS Unavailable MISC, DR GALEANO Admitting Unavailable MISC, DR GALEANO Attending Unavailable MISC, DR GALEANO Primary Care Unavailable MISC, DR GALEANO Consulting Unavailable Paolo Busch Consulting Unavailable Fam August Unavailable NON STAFF Primary Care Provider UnavailHIPOLITO Reyna Attending Provider NON STAFF Primary Care Unavailable Giovanna Morrow Attending Unavailable Giovanna Morrow Admitting Unavailable NON STAFF Primary Care Provider UnavailHIPOLITO Cespedes Attending Provider Unallocated , N[place] Provider Primary Care Provi anil Unallocated , [place] Provider Primary Care Provi anil Yamilet Lagos Primary Care Pro vider Scotty Beavers MD Primary Care Provider Yamilet Lagos Primary Care Pro vider Yamilet Lagos Primary Care Pro vider Keven Nails PA-C Primary Care Provider [phone] HAMMAD MARTINS JR Attending Unavailable SCOTTY BEAVERS Referring Unavailable NIMESH, SCOTTY R Primary Care Unavailable AMANDA GOMEZ Attending Unavailable YAMILET MORGAN Referring Unavailab le STUDD, KEVEN E Primary Care Unavailable CAS MASON Attending Unavailable CAS MASON Attending Unavailable MARLON, CAS Hubbard Attending Unavailable BROWN, CAS A Attending Unavailable BROWN, CAS Hubbard Attending Unavailable MARLON, CAS A Attending Unavailable BROWN, CAS A Referring Unavailable BROWNCAS Attending Unavailable Studd Keven COATS E Primary Care Provider HAMMAD MARTINS JR Attending Unavailable HAMMAD MARTINS JR Referring Unavailable STUDJorge, KEVEN E Primary Care Unavailable STUDJorge, KEVEN E Primary Care Unavailable IHSAN BLACKWELL Admitting Unavailable IHSAN BLACKWELL Attending Unavailable JUAN MANUEL NATHAN Consulting Unavailable STUDJorge, KEVEN E Primary Care Unavailable KALYANI WALLS Attending Unavailable YAMILET MORGAN Primary Care Unavailab le IHSAN BLACKWELL Admitting Unavailable IHSAN BLACKWELL Attending Unavailable YAMILET MORGAN Primary Care Unavailab MODESTO Simon Attending Unavailable YAMILET MORGAN Referring Unavailab le DEANNAERYAMILET GODOY Primary Care Unavailab le HAMMAD MARTINS JR Attending Unavailable HAMMAD MARTINS JR Referring Unavailable NIMESH, SCOTTY R Primary Care Unavailable SCOTTY BEAVERS R Referring Unavailable SCOTTY BEAVERS R Primary Care Unavailable ENID FELIZ Referring Unavailable SCOTTY BEAVERS R Primary Care Unavailable DEANNAERYAMILET GODOY Primary Care Unavailab FRANCHESKA Mcfarlane Attending Unavailable YAMILET MORGAN Referring Unavailab le MYERHOLYAMILET AYERS Primary Care Unavailab GAYE Huerta Attending Unavailable YAMILET MORGAN Referring Unavailab le MYERHOLYAMILET AYERS Primary Care Unavailab IVELISSE Saunders Attending Unavailable YAMILET MORGAN Referring Unavailab le MYERHOLYAMILET AYERS Primary Care Unavailab le MYERHOLYAMILET AYERS Referring Unavailab le MYERHOLYAMILET AYERS Primary Care Unavailab le MYERYAMILET GODOY Primary Care Unavailab MICHAEL Magana Attending Unavailable MYERHOLTZ, YAMILET K Primary Care Unavailab AIRAM Gardner Attending Unavailable YAMILET MORGAN Referring Unavailab YAMILET Mckeon Primary Care Unavailab le Allergies Allergy Classification Reported Allergen(s) Allergy Type Date of Onset Reaction(s) Facility (20 sources) Acetaminophen / Codeine Drug Allergy Unknown Formerly [facility] [employer] Other (20 sources) Acetaminophen / Propoxyphene Drug Allergy Unknown [facility] Other (20 sources) Baclofen; Translations: [baclofen] Drug Allergy 08-31-19 22 Rash, Dizziness [facility] (20 sources) benzonatate; Translations: [BENZONATATE] Drug Allergy 12-21-19 23 Rash [facility] (20 sources) Clindamycin; Translations: [CLINDAMYCIN] Drug Allergy 08-31-19 22 Rash, [facility] (20 sources) clopidogrel; Translations: [CLOPIDOGREL] Drug Allergy 08-31-19 22 Rash, Dizziness [facility] (20 sources) Erythromycin Drug Allergy 04-22-20 14 GI intolerance, Nausea And Vomiting Formerly [facility] [employer] [facility] Other (20 sources) Ibuprofen Drug Allergy Unknown Formerly [facility] Other (20 sources) Omeprazole; Translations: [OMEPRAZOLE] Drug Allergy 04-22-20 14 Rash, Nausea [facility] (20 sources) Penicillin V Drug Allergy Unknown [facility] Other (18 sources) Penicillin Drug Allergy Unknown [facility] Other (4 sources) Acetaminophen; Translations: [acetaminophen] Drug Allergy 08-12-19 24 [facility] (20 sources) Codeine; Translations: [codeine] Drug Allergy 04-22-20 14 Diarrhea, Nausea And Vomiting [facility] (20 sources) Ibuprofen; Translations: [ibuprofen] Drug Allergy 04-22-20 14 Nausea And Vomiting [facility] (20 sources) Penicillins; Translations: [Penicillins] Allergy to substance 04-22-20 14 [facility] (20 sources) Propoxyphene; Translations: [propoxyphene] Drug Allergy 08-31-19 22 Nausea [facility] (6 sources) erythromycin base; Translations: [erythromycin base] Allergy to substance 04-22-20 Unknown Reaction [facility] (1 source) benzonatate Drug Allergy 08-12-19 [facility] (1 source) Clindamycin Drug Allergy 08-12-19 [facility] (1 source) clopidogrel Drug Allergy 08-12-19 [facility] (1 source) Omeprazole Drug Allergy 08-12-19 [facility] (20 sources) Acetaminophen / Codeine; Translations: [ACETAMINOPHEN-CODE INE] Drug Allergy 12-21-19 Rash [facility] (10 sources) Azithromycin Drug Allergy 12-21-19 Headache [facility] (10 sources) benzonatate Drug Allergy 12-21-19 Rash [facility] (20 sources) levoFLOXacin; Translations: [LEVOFLOXACIN] Drug Allergy 12-21-19 Nausea Only, GI Disturbance [facility] (12 sources) Minocycline; Translations: [MINOCYCLINE] Drug Allergy 12-21-19 [facility] (10 sources) Penicillin G Drug Allergy 12-21-19 Hives [facility] (20 sources) Albuterol; Translations: [ALBUTEROL] Drug Allergy 09-19-19 17 Dizziness [facility] (20 sources) Simvastatin; Translations: [SIMVASTATIN] Drug Allergy 04-22-20 14 [facility] (20 sources) Sulfamethoxazole / Trimethoprim; Translations: [SULFAMETHOXAZOLE-T RIMETHOPRIM] Drug Allergy 04-09-20 24 Nausea [facility] (9 sources) Minocycline Drug Allergy 12-21-19 [facility] (1 source) empagliflozin Drug Allergy 10-20-19 Unknown Reaction [facility] Comment on above: persistent yeast inf ection (1 source) metFORMIN Drug Allergy 10-20-19 Diarrhea [facility] Medications Current Medications Medication Drug Class(es) Dates Sig (Normalized) Sig (Original) acetaminophen 500 mg oral capsule (20 sources) Start: 04-29-2024 take 1 capsule by mouth every six hours as needed Acetaminophen 500 mg capsule Active 500 MG PO Every 6 hours as needed April 29, 2024 12:00am take 1 tablet by charito th every six hours as needed for pain acetaminophen (TYLENOL EXTRA STRENGTH) 5 00 mg tablet Take 1 tablet (500 mg total) by mouth every 6 (six) hours as needed for pain. Active take 1 tablet by mouth every fou r hours acetaminophen (Tylenol) 325 MG tablet Take 325 mg by mouth every 4 (four) hours. Active take 2 capsules by m outh every six hours Acetaminophen 500 MG 2 capsule as needed Orally every 6 hrs Active take 1 capsule by mouth every si x hours Acetaminophen 500 MG 1 capsule as needed Orally every 6 hrs Active [id number] actuat albuterol 0.09 mg/actuat metered dose inhaler (20 sources) beta2-Adrenergic Agonist Start: 10-19-2024 take 1 puff(s) by inhalation every eight hours as needed Albuterol Sulfate 90 mcg/actuation HFA aerosol inhaler Active 2 PUFF INHALATION Every 8 hours as needed October 19, 2024 8:39am Start: 11-18-2023 End: 10-19-2024 Albuterol Sulfate 90 mcg/act uation HFA aerosol inhaler Discontinued INHALATION November 18, 2023 12:00am October 19, 2024 8:49am take 1 puff(s) by in halation every six hours as needed for wheezing albuterol (PROVENTIL HFA;VENTOLIN HFA) 90 mcg/actuation inhaler Inhale 1 puff every 6 (six) hours as needed for wheezing. Active take 0.63 mg by inha lation every six hours as needed albuterol 0.63 MG/3ML nebulizer solution Inhale 0.63 mg every 6 (six) hours if needed. Active End: 08-28-2024 take 0.63 mg by inhalation every six hours as needed for wheezing albuterol (ACCUNEB) 0.63 mg/3 mL nebulizer solution Inhale 3 mL (0.63 mg total) by nebulization every 6 (six) hours as needed for wheezing. 08/28/2024 Discontinued (Therapy completed) take 1 puff(s) by in halation every four hours as needed Ventolin HFA 108 (90 Base) MCG/ACT 1 puff as needed Inhalation every 4 hrs Not-Taking/PRN aspirin 81 mg delayed release oral tablet (20 sources) Platelet Aggregation Inhibitor, Nonsteroidal Anti-inflammatory Drug Start: 08-29-2023 End: 05-12-2024 take 1 tablet by mouth in the morning aspirin 81 mg Take 1 tablet (81 mg total) by mouth in the morning. 90 tablet 3 05/12/2024 Active Aspirin 81 MG as directed Orally Active azaTHIOprine 50 mg oral tablet (10 sources) Purine Antimetabolite take 1 tablet by mouth once daily azaTHIOprine (Imuran) 50 MG tablet Take 50 mg by mouth 1 (one) time each day at the same time. Active Biotin (20 sources) Start: 01-29-20 biotin 1,000 mcg Active PO .qd January 29, 2024 12:00am biotin 1,000 mcg tablet,chewable Chew 1 capsule and swallow in the morning. Active take 1 capsule by mouth in the m orning biotin (BIOTIN) 5 mg capsule Take 1 capsule (5 mg total) by mouth in the morning. Active take 1 tablet by charito th every twenty-four hours Biotin 1000 MCG 1 tablet Orally Once a d ay Active take 1 capsule by mouth once anika ly take 1 capsule by mouth once anika ly Biotin 5000 5 MG 1 capsule Orally Once a day Active bisacodyl 5 mg delayed release oral tablet (2 sources) Stimulant Laxative Start: 09-16-2024 bisacodyL (DULCOLAX, BISACODYL,) 5 mg EC tablet Indications: Rectal bleeding Please see instructional sheet given by physicians office. 2 tablet 09/16/2024 Active blood sugar diagnostic (One Touch Test) (2 sources) Start: 10-03-2023 blood sugar diagnostic (One Touch Test) Active .Route October 03, 2023 12:00am calcium polycarbophil 625 mg oral tablet (5 sources) Start: 10-10-2024 take 1 tablet by mouth in the morning polycarbophil (FIBERCON) 625 mg tablet Take 1 tablet (625 mg total) by mouth in the morning. 200 tablet 2 10/10/2024 Active Fiber 625 MG 2 t ablet as needed Orally every 3 days Active carvedilol 25 mg oral tablet (20 sources) alpha-Adrenergic Danny, beta-Adrenergic Danny Start: 08-21-2022 End: 05-12-2024 take 1 tablet by mouth in the morning, then take 1 tablet by mouth at mealtime carvediloL (COREG) 25 mg tablet Take 1 tablet (25 mg total) by mouth in the morning and 1 tablet (25 mg total) in the evening. Take with meals. 180 tablet 3 05/12/2024 Active cholecalciferol 0.125 mg oral capsule (20 sources) Vitamin D Start: 04-29-2024 take 1 capsule by mouth once daily Cholecalciferol (Vitamin D3) 125 mcg (5,000 unit) capsule Active 125 MCG PO Daily April 29, 2024 12:00am Start: 11-22-2021 take 1 capsule by [facility] every week Cholecalciferol 1.25 MG (33323 UT) 1 capsule Orally WEEKLY for 56 days November, Active take 1 capsule by [facility] every week cholecalciferol (VITAMIN D3) 50,000 units capsule Take 1 capsule (50,000 Units total) by mouth once a week. Active take 1 capsule by [facility] in the morning cholecalciferol (VITAMIN D3) 50,000 units capsule Take 1 capsule (50,000 Units total) by mouth in the morning. Active take 1 tablet by [facility] every twenty-four hours Vitamin D 50 MCG (2000 UT) 1 tablet Orally Once a day Active take 1 capsule by [facility] every week as needed Cholecalciferol 1.25 MG (03262 UT) 1 capsule Orally WEEKLY for 56 days Not-Taking/PRN take 1 capsule by [facility] every week Cholecalciferol 1.25 MG (38042 UT) 1 capsule Orally WEEKLY for 56 days Not-Taking take 2 tablets by [facility] every twenty-four hours Vitamin D 50 MCG (2000 UT) 2 tablet Orally Once a day Active take 1 capsule by [facility] every week take 1 capsule by [facility] every week Cholecalciferol 1.25 MG (67193 UT) 1 capsule Orally WEEKLY for 56 days Active ciprofloxacin 500 mg oral tablet (13 sources) Quinolone Antimicrobial clotrimazole 10 mg/ml topical cream (18 sources) Azole Antifungal Start: 04-12-2024 clotrimazole (LOTRIMIN) 1 % cream Apply to affected area 2 times daily 15 g 04/12/2024 Active Colon Cleanse - (3 sources) Colon Cleanse - as directed Orally Active diclofenac sodium 0.01 mg/mg topical gel (18 sources) Nonsteroidal Anti-inflammatory Drug Start: 04-09-2024 diclofenac sodium (VOLTAREN) 1 % gel Apply 2 g topically in the morning and 2 g at noon and 2 g in the evening and 2 g before bedtime. 100 g 04/09/2024 Active dicyclomine hydrochloride 20 mg oral tablet (20 sources) Anticholinergic Start: 10-19-2024 Dicyclomine 20 mg tablet Active 0 PO Once October 19, 2024 8:41am Mon, Wed, Fri orally once; Start: 01-29-2024 End: 10-19-2024 take 1 tablet by mouth once daily Dicyclomine 20 mg tablet Discontinued 20 MG PO Daily January 29, 2024 8:53am February 20, 2024 2:51pm Patient needs a office visit for further refills Start: 04-29-2023 End: 01-29-2024 take 1 tablet by mouth three times daily Dicyclomine 20 mg tablet Discontinued 20 MG PO Three times daily 270 90 October 09, 2023 10:32am January 29, 2024 9:00am Patient needs a office visit for further refills docusate sodium 100 mg oral capsule (20 sources) Start: 10-19-2024 take 1 capsule by mouth in the morning, then take 1 capsule by mouth at bedtime docusate sodium (COLACE) 100 mg capsule Take 1 capsule (100 mg total) by mouth in the morning and 1 capsule (100 mg total) before bedtime. 60 capsule 1 10/19/2024 Active Start: 10-10-2024 End: 10-19-2024 take 1 capsule by mouth in the morning, then take 1 capsule by mouth at bedtime docusate sodium (COLACE) 100 mg capsule Take 1 capsule (100 mg total) by mouth in the morning and 1 capsule (100 mg total) before bedtime. 10 capsule 10/10/2024 10/19/2024 Discontinued (Reorder) Start: 08-25-2024 take 1 capsule by mo [facility] every twelve hours docusate sodium (COLACE) 100 mg capsule Take 1 capsule (100 mg total) by mouth every 12 (twelve) hours. 20 capsule 08/25/2024 Active dulaglutide (20 sources) GLP-1 Receptor Agonist Start: [...] weekly for 90 days Jul, Active Start: 06-15-2021 inject 4.5 [IU] by s ubcutaneous injection every week TRULICITY 1.5 mg/0.5 mL pen injector 4.5 Units by abdominal subcutaneous route once a week. WEEKLY ON Saturday06/15/2021 Active Start: 05-24-2021 TRULICITY 1.5 mg/0.5 mL pen injector once a week. 06/15/2021 Active Start: 04-10-2021 Trulicity 0.75 MG/0.5ML as directed Subcutaneous weekly for 30 days Mar, Active inject 4.5 mg by sub cutaneous injection every week Trulicity 4.5 MG/0.5ML 4.5 mg Subcutaneous weekly for 90 days patient start after finishing 3.0 mg dosing Active Trulicity 3 MG/0 .5ML as directed Subcutaneous weekly for 90 days Active Dulaglutide 4.5 mg/0.5 mL pe n injector (2 sources) Start: 06-30-2024 Dulaglutide 4. 5 mg/0.5 mL pen injector Active 4.5 MG SUBCUT every week June 30, 2024 2:08pm ok to dispense 3.0 mg if 4.5 mg unavailable Start: 04-29-2024 End: 06-30-2024 Dulaglutide 4.5 mg/0.5 mL pe n injector Discontinued 4.5 MG SUBCUT every week April 29, 2024 12:00am June 30, 2024 2:08pm ok to dispense 3.0 mg if 4.5 mg unavailable Estradiol (20 sources) Estrogen Start: 11-18-2023 Estradiol 0.01 % (0.1 mg/gram) cream Active 1 APPLICATOR VAGINAL 3 Times a week November 18, 2023 12:00am Start: 11-18-2023 Estradiol Acti ve 1 APPLICATOR VAGINAL 3 Times a week November 18, 2023 12:00am Start: 05-11-2022 End: 07-24-2024 estradioL (ESTRACE) 0.01 % ( 0.1 mg/gram) vaginal cream Indications: Recurrent urinary tract infection Apply nightly for 3 weeks, then 3 times per week. 127.5 g 07/24/2024 Active Start: 05-11-2022 estradiol (Est race) 0.1 MG/GM vaginal cream Insert 2 g into the vagina in the morning. 05/11/2022 Active ferrous sulfate 325 mg oral tablet (20 sources) Start: 01-29-2024 take 1 tablet by mouth once daily Ferrous Sulfate (Ferosul) 325 mg (65 mg iron) tablet Active 325 MG PO Daily January 29, 2024 12:00am take 1 tablet by mouth once barrera y Ferrous Sulfate 325 (65 Fe) MG 1 tablet Orally Once a day Active Fiber (1 source) Start: 01-29-2024 fiber Active P O January 29, 2024 12:00am Flash Glucose Sensor (Freestyle Tarah 2 Sensor) kit (5 sources) Start: 09-14-2024 Flash Glucose Sensor (Freestyle Tarah 2 Sensor) kit Active 0 .ROUTE .COMPLEX September 14, 2024 2:52pm APPLY SENSOR TO SKIN FOR CONTINUOUS BLOOD SUGAR MONITORING, REPLACE EVERY 14 DAYS Start: 11-18-2023 End: 09-14-2024 Flash Glucose Sensor (Freest yle Tarah 2 Sensor) kit Discontinued 0 KIT .MEDSUPPLY November 18, 2023 9:22am September 14, 2024 2:52pm As directed Change every 14 Days Start: 11-18-2023 Flash Glucose Sensor (Freestyle Tarah 2 Sensor) kit Active 0 KIT .MEDSUPPLY November 18, 2023 9:22am As directed Change every 14 Days Start: 10-03-2023 End: 11-18-2023 Flash Glucose Sensor (Freest yle Tarah 2 Sensor) kit Discontinued 0 KIT .MEDSUPPLY October 03, 2023 12:00am November 18, 2023 9:22am As directed Change every 14 Days fluconazole 200 mg oral tablet (20 sources) Azole Antifungal Start: 04-09-2024 End: 04-16-2024 take 1 tablet by mouth in the morning fluconazole (DIFLUCAN) 200 mg tablet Take 1 tablet (200 mg total) by mouth in the morning for 7 days. 7 tablet 04/09/2024 04/16/2024 Active Fluconazole 150 MG 1 tablet Orally Not-Taking/PRN fluticasone propionate 0.05 mg/actuat metered dose nasal spray (20 sources) Corticosteroid take 1 spray(s) nasa l route in the morning fluticasone (Flonase) 50 MCG/ACT nasal spray Administer 1 spray into affected nostril(s) in the morning. Active take 1 spray(s) nasa l route in the morning fluticasone propionate (FLONASE) 50 mcg/actuation nasal spray Administer 1 spray into each nostril in the morning. Suspended 30 actuat fluticasone furoate 0.1 mg/actuat / vilanterol 0.025 mg/actuat dry powder inhaler (20 sources) Corticosteroid, beta2-Adrenergic Agonist Start: 01-29-2024 Fluticasone Furoate-Vilanterol (Breo Ellipta) 100-25 mcg/dose blister with device Active 1 INH INHALATION Daily January 29, 2024 12:00am take 1 puff(s) by in halation in the morning fluticasone furoate-vilanteroL (BREO ELL IPTA) 100-25 mcg/dose blister with device Inhale 1 puff in the morning. Active take 1 puff(s) by in halation once daily as needed fluticasone furoate-vilanteroL (BREO ELL IPTA) 100-25 mcg/dose blister with device Inhale 1 puff nightly as needed. Active take 1 puff(s) by in halation once daily take 1 puff(s) by in halation once daily BREO ELLIPTA 100 mcg/25 mcg 1 puff Inhal ation daily Active FreeStyle Tarah 2 Tal[place]ott - (20 sources) Start: 05-24-2021 FreeStyle Libr e 2 Talbott - as directed -- 5 x day for 365 days May, Active FreeStyle Tarah 2 Talbott - TEST 5 TIMES DAILY DIRECTED for 30 Active FreeStyle Tarah 2 [place]ott - as directed -- 5 x day for 365 days Active FreeStyle Tarah 2 Sensor - (20 sources) Start: 05-24-2021 FreeStyle Libr e 2 Sensor - as directed in vitro q 14 days for 84 days May, Active FreeStyle Tarah 2 Sensor - as directed in vitro q 14 days for 84 days Dx E11.65 Active FreeStyle Tarah 2 Sensor - as directed in vitro q 14 days for 84 days Active hydroCHLOROthiazide 12.5 mg oral tablet (20 sources) Thiazide Diuretic Start: 08-29-2023 End: 05-12-2024 take 1 tablet by mouth once daily Hydrochlorothiazide 12.5 mg tablet Active 12.5 MG PO Daily November 18, 2023 12:00am Start: 07-18-2022 hydroCHLOROthi azide (HYDRODiuril) 25 MG tablet Take 12.5 mg by mouth in the morning. 07/18/2022 Active Start: 07-18-2022 End: 08-29-2023 take 0.5 tablet by mouth once daily hydroCHLOROthiazide (HYDRODIURIL) 25 mg tablet Take 0.5 tablets (12.5 mg total) by mouth daily. 45 tablet 3 07/18/2022 08/29/2023 Discontinued (Reorder) take 1 capsule by [facility] every twenty-four hours hydroCHLOROthiazide 12.5 MG 1 capsule in the morning Orally Once a day Active hydroCHLOROthiazide 12.5 mg / lisinopril 10 mg oral tablet (10 sources) Thiazide Diuretic, Angiotensin Converting Enzyme Inhibitor take 1 tablet by mouth once daily lisinopril-hydroCHLOROthiazide 10-12.5 MG tablet Take 1 tablet by mouth 1 (one) time each day at the same time. Active hydrocortisone acetate 10 mg/ml / pramoxine hydrochloride 10 mg/ml rectal foam (3 sources) Corticosteroid Sta rt: Hydrocortisone-Pramoxine (Proctofoam Hc) 1-1 % foam Active 1 APPLIC LA Twice daily October 19, 2024 12:00am Start: 10-10-2024 hydrocortisone -pramoxine (PROCTOFOAM-HS) rectal foam Indications: Stercoral colitis Insert 1 applicator into the rectum in the morning and 1 applicator before bedtime. 10 g 10/10/2024 Active 3 ml insulin glargine 100 unt/ml pen injector (20 sources) Insulin Analog Start: 06-16-2024 inject 7 [IU] by subcutaneous injection once daily in the evening, then inject 30 [IU] by subcutaneous injection once Insulin Glargine (Lantus Solostar U-100 Insulin) 100 unit/mL (3 mL) insulin pen Active 0 .ROUTE .COMPLEX June 16, 2024 8:28am INJECT 7 UNITS UNDER THE SKIN EVERY EVENING. TITRATE UP TO 30 UNITS PER DAY PER INSTRUCTIONS Start: 02-24-2024 End: 06-16-2024 Insulin Glargine (Lantus Dianelys ostar U-100 Insulin) 100 unit/mL (3 mL) insulin pen Discontinued 8 UNIT SUBCUT Every evening 7.2 90 February 24, 2024 8:50am June 16, 2024 8:29am Titrate to 30 u per day, has written instructions Start: 11-18-2023 End: 02-24-2024 Insulin Glargine (Lantus Dianelys ostar U-100 Insulin) 100 unit/mL (3 mL) insulin pen Discontinued 10 UNIT SUBCUT Every evening 9 November 18, 2023 9:45am February 24, 2024 8:52am Titrate to 30 u per day, has [...] 12:00am November 18, 2023 8:57am Start: 07-05-2021 inject 7 [IU] by sub cutaneous injection in the morning LANTUS SOLOSTAR U-100 INSULIN 100 unit/mL (3 mL) insulin pen Inject 7 Units under the skin in the morning. 07/05/2021 Active Start: 07-05-2021 LANTUS SOLOSTA R U-100 INSULIN 100 unit/mL (3 mL) insulin pen 16 Units in the morning. 07/05/2021 Active Lantus SoloStar 100 UNIT/ML 11 [...] oral tablet (20 sources) Nitrate Vasodilator Start: 04-24-2022 End: 05-12-2024 take 1 tablet by mouth once daily isosorbide mononitrate (IMDUR) 30 mg 24 hr tablet Take 1 tablet (30 mg total) by mouth daily. 90 tablet 3 05/12/2024 Active latanoprost 0.05 mg/ml ophthalmic solution (20 sources) Prostaglandin Analog Start: 11-18-[address] 0.005 % drops Active DROPS OPHTHALMIC November 18, 2023 12:00am Start: 11-18-2023 Latanoprost Ac tive DROPS OPHTHALMIC November 18, 2023 12:00am take 1 drop(s) into the eye(s) once daily latanoprost (XALATAN) 0.005 % ophthalmic solution Administer 1 drop to both eyes nightly. Active take 1 drop(s) into the eye(s) [...] the evening Ophthalmic Once a day Active loperamide hydrochloride 2 mg oral tablet (20 sources) Opioid Agonist take 2-4 mg by mouth every six hours loperamide (Imodium A-D) 2 MG tablet Take 2-4 mg by mouth every 6 (six) hours. Active take 1 tablet by mouth every six hours Loperamide HCl 2 MG 1 tablet as needed Orally Four times a day Not-Taking/PRN loratadine 10 mg oral tablet (20 sources) Start: 11-18-2023 take 1 tablet by mouth once daily Loratadine 10 mg tablet Active 10 MG PO Daily November 18, 2023 12:00am losartan potassium 100 mg oral tablet (20 sources) Angiotensin 2 Receptor Danny Start: 11-18-2023 take 1 tablet by mouth once daily Losartan 100 mg tablet Active 100 MG PO Daily November 18, 2023 12:00am Start: 08-19-2020 End: 08-29-2023 take 1 tablet by mouth in the morning losartan (COZAAR) 100 mg tablet Take 1 tablet (100 mg total) by mouth in the morning. 90 tablet 3 08/29/2023 Active take 1 tablet by charito th once daily losartan (Cozaar) 25 MG tablet Take 25 mg by mouth 1 (one) time each day at the same time. Active take 1 tablet by charito th every twelve hours Losartan Potassium 100 MG 1 tablet Orally BID Active take 1 tablet by charito th every twelve hours Losartan Potassium 50 MG 1 tablet Orally BID Active Magnesium (20 sources) take 1 tablet by charito th once daily magnesium 200 MG tablet Take 200 mg by mouth 1 (one) time each day at the same time. Active take 1 tablet by mouth once barrera y take 1 tablet by mouth once barrera y Magnesium 400 MG 1 tablet with a meal Orally Once a day Active take 2 tablets by mouth once anika ly Magnesium 200 MG 2 tablets with a meal Orally Once a day Active magnesium oxide 400 mg oral tablet (20 sources) Start: 11-18-2023 take 1 tablet by mouth once daily Magnesium Oxide 400 mg (241.3 mg magnesium) tablet Active 400 MG PO Daily November 18, 2023 12:00am meclizine hydrochloride 25 mg oral tablet (20 sources) Antiemetic Start: 04-29-2024 take 1 tablet by mouth twice daily Meclizine 25 mg tablet Active 25 MG PO Twice daily April 29, 2024 12:00am Start: 08-31-2021 End: 05-12-2024 take 1 tablet by mouth three times daily as needed for dizziness meclizine (ANTIVERT) 25 mg tablet Take 1 tablet (25 mg total) by mouth 3 (three) times a day as needed for dizziness. 30 tablet 5 08/31/2021 05/12/2024 Discontinued (Discontinued by another clinician) Meclizine HCl Ac tive meloxicam 15 mg oral tablet (11 sources) Nonsteroidal Anti-inflammatory Drug Start: 08-31-2024 take 1 tablet by mouth once daily meloxicam (Mobic) 15 MG tablet Indications: DJD (degenerative joint disease), ankle and foot, left TAKE 1 TABLET BY MOUTH DAILY 90 tablet 1 08/31/2024 Active Start: 05-20-2024 End: 06-27-2024 take 1 tablet by mouth once daily meloxicam (Mobic) 15 MG tablet Indications: DJD (degenerative joint disease), ankle and foot, left Take 1 tablet (15 mg) by mouth Daily 30 tablet 3 05/28/2024 06/27/2024 Active Start: 03-12-2024 End: 04-11-2024 take 1 tablet by mouth once daily meloxicam (Mobic) 15 MG tablet Indications: DJD (degenerative joint disease), ankle and foot, left Take 1 tablet (15 mg) by mouth Daily 30 tablet 03/12/2024 04/11/2024 Active Misc. Devices - (20 sources) Start: 06-14-2021 Start: 06-14-2021 Misc. Devices - as directed topical every 2 weeks for 90 days SKIN ABRAHAM for use to apply Libre2 CGM application Jun, Active Misc. Devices - as directed topical every 2 weeks for 90 days SKIN ABRAHAM for use to apply Libre2 CGM application Active nitrofurantoin, macrocrystals 25 mg / nitrofurantoin, monohydrate 75 mg oral capsule (1 source) Nitrofuran Antibacterial Start: 04-09-2024 End: 04-14-2024 take 1 capsule by mouth in the morning, then take 1 capsule by mouth at bedtime nitrofurantoin, macrocrystal-monohydrate, (MACROBID) 100 mg capsule Take 1 capsule (100 mg total) by mouth in the morning and 1 capsule (100 mg total) before bedtime. Do all this for 5 days. 10 capsule 04/09/2024 04/14/2024 Active nitroglycerin 0.4 mg sublingual tablet (20 sources) Nitrate Vasodilator Start: 12-31-2019 nitroglycerin (NITROSTAT) 0.4 MG SL tablet 1 under the tongue as needed for angina, may repeat q5mins for up three doses 25 tablet 3 12/31/2019 Active Nystatin 100,000 unit/gram cream (1 source) Start: 10-19-2024 Nystatin 100,000 unit/gram cream Active 1 APPLIC TOPICAL Twice daily October 19, 2024 12:00am omeprazole 40 mg delayed release oral capsule (10 sources) Proton Pump Inhibitor Start: 07-27-2024 take 1 capsule by mouth once daily before breakfast omeprazole (PriLOSEC) 40 mg capsule Take 1 capsule (40 mg total) by mouth every morning before breakfast. 07/27/2024 Active Start: 04-29-2024 take 1 capsule by [facility] twice daily Omeprazole 40 mg capsule,delayed release(DR/EC) Active 40 MG PO Twice daily April 29, 2024 12:00am ondansetron 4 mg disintegrating oral tablet (20 sources) Serotonin-3 Receptor Antagonist Start: 10-10-2024 take 1 tablet by mouth every eight hours as needed for nausea and vomiting ondansetron ODT (ZOFRAN ODT) 4 mg disintegrating tablet Dissolve 1 tablet (4 mg total) on tongue every 8 (eight) hours as needed for nausea or vomiting for up to 20 doses. 1 tablet 10/10/2024 Active Start: 08-17-2022 End: 05-12-2024 take 1 tablet by mouth every eight hours as needed for nausea ondansetron ODT (ZOFRAN ODT) 4 mg disintegrating tablet Dissolve 1 tablet (4 mg total) on tongue every 8 (eight) hours as needed for nausea for up to 10 doses. 10 tablet 04/12/2024 Active take 1 tablet by [facility] every twenty-four hours Ondansetron 4 MG 1 [...] citrate 15 meq extended release oral tablet (20 sources) Start: 12-06-2023 End: 11-30-2024 take 1 tablet by mouth in the morning potassium citrate (UROCIT-K) 15 mEq tablet extended release Take 1 tablet (15 mEq total) by mouth in the morning and 1 tablet (15 mEq total) before bedtime. Do all this for 360 days. 180 tablet 3 12/06/2023 11/30/2024 Active Start: 05-10-2023 End: 11-30-2024 take 1 tablet by mouth once daily Potassium Citrate 15 mEq tablet extended release Discontinued 15 MEQ PO Daily November 18, 2023 12:00am October 19, 2024 8:49am Potassium Citrat e Active pravastatin sodium 80 mg oral tablet (20 sources) HMG-CoA Reductase Inhibitor Start: 08-29-2023 End: 05-12-2024 take 1 tablet by mouth once daily pravastatin (PRAVACHOL) 80 mg tablet Take 1 tablet (80 mg total) by mouth nightly. 90 tablet 3 05/12/2024 Active psyllium 3400 mg powder for oral suspension (20 sources) End: 09-16-2024 take 1 dose by mouth three times daily psyllium (METAMUCIL) powder Take 1 packet by mouth 3 (three) times a day. 09/16/2024 Discontinued (Patient Stopped On Own) rivaroxaban 20 mg oral tablet (20 sources) Factor Xa Inhibitor Start: 11-05-2023 End: 05-12-2024 take 1 tablet by mouth in the morning rivaroxaban (XARELTO) 20 mg tablet tablet Take 1 tablet (20 mg total) by mouth in the morning. 90 tablet 3 05/12/2024 Active Start: 08-29-2022 End: 08-29-2023 take 1 tablet by mouth in the morning rivaroxaban (XARELTO) 20 mg tablet tablet Take 1 tablet (20 mg total) by mouth in the morning. 90 tablet 3 08/29/2023 Active sennosides, long term 8.6 mg oral tablet (1 source) Start: 08-29-2024 End: 09-16-2024 take 1 tablet by mouth in the morning for diarrhea, then take 1 tablet by mouth at bedtime for diarrhea senna (SENOKOT) 8.6 mg tablet Take 1 tablet (8.6 mg total) by mouth in the morning and 1 tablet (8.6 mg total) before bedtime. Hold for diarrhea. 60 tablet 08/29/2024 09/16/2024 Discontinued (Patient Stopped On Own) sod sulf-pot chloride-mag sulf 1.479-0.188- 0.225 gram tablet (2 sources) Start: 09-16-2024 sod sulf-pot chloride-mag sulf 1.479-0.188- 0.225 gram tablet Indications: Rectal bleeding Please see instructional sheet given by physicians office. 24 tablet 09/16/2024 Active vitamin B12 (20 sources) Vitamin B12 Start: 11-22-2021 take 1 tablet under the tongue once daily Cyanocobalamin 1000 MCG 1 tablet Sublingual Once a day for 90 day(s) November, Active take 1 tablet by mouth in the mo rning cyanocobalamin 1000 MCG tablet Take 1 tablet (1,000 mcg total) by mouth in the morning. Active take 1 tablet under the tongue once daily take 1 tablet under the tongue once daily Cyanocobalamin 1000 MCG 1 tablet Subling ual Once a day for 90 day(s) Active Completed/Discontinued Medications Medication Drug Class(es) Dates Sig (Normalized) Sig (Original) acetaminophen 325 mg / HYDROcodone bitartrate 5 mg oral tablet (2 sources) Opioid Agonist Start: 11-18-2023 End: 06-30-2024 take 1 tablet by mouth every eight hours as needed Hydrocodone-Acetami nophen 5-325 mg tablet Discontinued 1 TAB PO Every 8 hours as needed November 18, 2023 12:00am June 30, 2024 10:59am betamethasone 0.5 mg/ml / clotrimazole 10 mg/ml topical cream (20 sources) Azole Antifungal, Corticosteroid Clotrimazole-Betame thasone 1-0.05 % 1 application Externally Twice a day Not-Taking/PRN calcium carbonate 1250 mg oral tablet (17 sources) take 1 tablet by mouth every twelve hours Calcium 500 MG 1 tablet with meals Orally Twice a day Not-Taking cyclobenzaprine hydrochloride 10 mg oral tablet (7 sources) Muscle Relaxant Start: 08-04-2024 End: 08-28-2024 cyclobenzaprine (FLEXERIL) 10 mg tablet 08/04/2024 08/28/2024 Discontinued (Side effects) Dulaglutide (Trulicity) 3 mg/0.5 mL pen injector (4 sources) Start: 12-23-2023 End: 12-23-2023 Dulaglutide (Trulicity) 3 mg/0.5 mL pen injector Discontinued 3 MG SUBCUT every week December 23, 2023 4:51pm December 23, 2023 4:53pm ok to dispense 4.5 mg if available Start: 11-18-2023 End: 12-23-2023 Dulaglutide (Trulicity) 3 mg /0.5 mL pen injector Discontinued 3 MG SUBCUT every week November 18, 2023 12:00am December 23, 2023 4:52pm Dulaglutide (Trulicity) 4.5 mg/0.5 mL pen injector (6 sources) Start: 11-18-2023 End: 12-23-2023 Dulaglutide (Trulicity) [...] 03, 2023 12:00am October 03, 2023 1:20pm Dulaglutide 3 mg/0.5 mL pen injector (2 sources) Start: 01-29-2024 End: 04-29-2024 Dulaglutide 3 mg/0.5 mL pen injector Discontinued 4.5 MG SUBCUT every week January 29, 2024 8:54am April 29, 2024 11:15am Ok to dispense 4.5 mg when 3.0 mg unavailable Start: 12-23-2023 End: 01-29-2024 Dulaglutide 3 mg/0.5 mL pen injector Discontinued 3 MG SUBCUT every week 6 December 23, 2023 4:53pm January 29, 2024 9:00am Ok to dispense 4.5 mg when 3.0 mg unavailable gabapentin 300 mg oral capsule (15 sources) Anti-epileptic Agent Start: 09-26-2022 End: 10-19-2024 take 1 capsule by mouth once daily Gabapentin 300 mg capsule Discontinued 300 MG PO Daily November 18, 2023 12:00am October 19, 2024 8:44am lidocaine 0.05 mg/mg medicated patch (7 sources) Antiarrhythmic, Amide Local Anesthetic Start: 11-17-2022 End: 08-29-2023 apply 1 dose transdermal route once daily, then apply 1 dose transdermal route every twelve hours lidocaine (LIDODERM) 5 % Place 1 patch on the skin daily. Remove & Discard patch within 12 hours or as directed by 30 patch 0 11/17/2022 08/29/2023 Discontinued (Therapy completed) metFORMIN hydrochloride 1000 mg oral tablet (20 sources) Biguanide Start: 10-03-2023 End: 05-12-2024 take 1 tablet by mouth twice daily Metformin 1,000 mg tablet Discontinued 1000 MG PO Twice daily 180 90 November 05, 2023 5:08pm April 29, 2024 11:07am On Hold: 1 week, perisistent diarrhea metroNIDAZOLE 500 mg oral tablet (17 sources) [...] vitro Daily for 365 days Sep, Active polyethylene glycol 3350 18564 mg powder for oral solution (5 sources) Osmotic Laxative Start: 08-24-2024 End: 08-28-2024 take 17 g by mouth in the morning polyethylene glycol (GLYCOLAX) 17 gram packet Take 17 g by mouth in the morning and 17 g before bedtime. Do all this for 3 days. 6 packet 08/24/2024 08/28/2024 Discontinued (Therapy completed) Start: 01-09-2024 End: 06-30-2024 Polyethylene Glycol 3350 (Mi ralax) 17 gram/dose powder Discontinued 17 GM PO Daily as needed January 29, 2024 8:56am June 30, 2024 11:00am take as directed for colonoscopy vitamin b12 1,000 mcg (1 source) Start: 01-29-2024 End: 06-30-2024 vitamin b12 1,000 mcg Discon tinued PO daily January 29, 2024 12:00am June 30, 2024 11:01am vitamin d3 50,000 units (1 source) Start: 01-29-2024 End: 04-29-2024 vitamin d3 50,000 units Disc ontinued PO Once a week January 29, 2024 12:00am April 29, 2024 10:50am Problems Active Problems Problem Classification Problem Date Documented Da te Episodic/Chronic Acute and unspecified renal failure (6 sources) Acute renal failure syndrome; Translations: [Acute kidney failure, unspecified] Onset: 08-28-2024 08-28-2024 Episodic Administrative/social admission (15 sources) Dietary counseling and surveillance; Translations: [Patient encounter status] Onset: 04-10-2021 Resolved: 02-28-2022 Episodic Anal and rectal conditions (1 source) Rectal pain Onset: 08-25-2024 Episodic Anxiety disorders (2 sources) Anxiety; Translations: [Anxiety disorder, unspecified] 11-14-2023 Chronic Coronary atherosclerosis and other heart disease (20 sources) Coronary arteriosclerosis; Translations: [Atherosclerotic heart disease of [place] coronary artery without angina pectoris] Onset: 04-01-2019 04-01-2019 Chronic Deficiency and other anemia (3 sources) Anemia; Translations: [Anemia, unspecified] 11-14-2023 Episodic Deficiency and other anemia (1 source) Anemia, unspecified; Translations: [Anemia, unspecified] Onset: 08-06-2024 Episodic Disorders of lipid metabolism (20 sources) Hyperlipidemia; Translations: [Hyperlipidemia, unspecified] Onset: 08-30-2009 Resolved: 02-28-2022 Chronic Essential hypertension (20 sources) Hypertensive disorder; Translations: [Essential (primary) hypertension] Onset: 10-31-2007 Resolved: 02-28-2022 Chronic Fluid and electrolyte disorders (20 sources) Hypokalemia; Translations: [Hypokalemia] Onset: 07-30-2020 07-30-2020 Episodic Gastrointestinal hemorrhage (9 sources) Rectal hemorrhage; Translations: [Hemorrhage of anus and rectum] Onset: 08-24-2024 08-25-2024 Episodic Glaucoma (2 sources) Glaucoma; Translations: [Unspecified glaucoma] 11-14-2023 Chronic Noninfectious gastroenteritis (3 sources) Stercoral colitis; Translations: [Other specified noninfective gastroenteritis and colitis] Onset: 10-07-2024 10-07-2024 Episodic Nutritional deficiencies (20 sources) Vitamin D deficiency; Translations: [Vitamin D deficiency, unspecified] Onset: 04-10-2021 Resolved: 02-28-2022 Chronic Nutritional deficiencies (11 sources) Deficiency of other specified B group vitamins; Translations: [Cobalamin deficiency] Onset: 11-22-2021 Resolved: 02-28-2022 Episodic Osteoarthritis (10 sources) Osteoarthritis; Translations: [Unspecified osteoarthritis, unspecified site] Onset: 04-09-2024 11-14-2023 Chronic Other aftercare (20 sources) Long-term current use of insulin; 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] 11-14-2023 Episodic Other aftercare (13 sources) penitentiary (current) use of insulin; Translations: [Long-term (current) use of insulin] Onset: 04-10-2021 Resolved: 02-28-2022 Episodic Other and ill-defined cerebrovascular disease (20 sources) Cerebrovascular disease; Translations: [Cerebrovascular disease, unspecified] Onset: 08-30-2009 04-03-2017 Chronic Other and ill-defined cerebrovascular disease (1 source) Cerebrovascular disease, unspecified; Translations: [Cerebrovascular disease, unspecified] Onset: 04-03-2017 Chronic Other circulatory disease (5 sources) Orthostatic hypotension; Translations: [Orthostatic hypotension] Onset: 08-28-2024 08-28-2024 Episodic Other circulatory disease (1 source) Orthostatic hypotension; Translations: [Orthostatic hypotension] Onset: 08-28-2024 Episodic Other circulatory disease (1 source) Hypotension, unspecified; Translations: [Hypotension, unspecified] Onset: 08-28-2024 Episodic Other circulatory disease (1 source) Low blood pressure Onset: 08-28-2024 Episodic Other connective tissue disease (3 sources) Pain in left foot; Translations: [Pain in left foot] 05-20-2024 Episodic Other connective tissue disease (4 sources) Tendinitis of left posterior tibial tendon; Translations: [Posterior tibial tendinitis, left leg] 05-24-2024 Episodic Other diseases of veins and lymphatics (20 sources) Venous hypertension; Translations: [Chronic venous hypertension (idiopathic) without complications of unspecified lower extremity] Onset: 12-18-2021 12-18-2021 Chronic Other endocrine disorders (13 sources) Hypoglycemia; Translations: [Hypoglycemia, unspecified] 11-14-2023 Chronic Other endocrine disorders (3 sources) Hypoglycemia, unspecified Chronic Other gastrointestinal disorders (9 sources) Irritable bowel syndrome; Translations: [Irritable bowel syndrome without diarrhea] Chronic Other gastrointestinal disorders (20 sources) Constipation; Translations: [Constipation, unspecified] Episodic Other gastrointestinal disorders (3 sources) Diarrhea; Translations: [Diarrhea, unspecified] Onset: 10-07-2024 10-09-2023 Episodic Other gastrointestinal disorders (1 source) Diarrhea, unspecified; Translations: [Diarrhea, unspecified] Onset: 10-07-2024 Episodic Other gastrointestinal disorders (1 source) Drug induced constipation; Translations: [Drug induced constipation] Onset: 10-05-2024 Episodic Other gastrointestinal disorders (1 source) Constipation, unspecified; Translations: [Constipation, unspecified] Onset: 08-24-2024 Episodic Other nutritional; endocrine; and metabolic disorders [...] Chronic Other nutritional; endocrine; and metabolic disorders (7 sources) Body mass index (BMI) 33.0-33.9, adult; Translations: [Body Mass Index 33.0-33.9, adult] Onset: 11-22-2021 Resolved: 11-22-2021 Chronic Other nutritional; endocrine; and metabolic disorders (20 sources) Body mass index 30+ - obesity; Translations: [Body mass index (BMI) 32.0-32.9, adult] Onset: 02-17-2021 11-14-2023 Chronic Other nutritional; endocrine; and metabolic disorders (2 sources) Body mass index (BMI) 32.0-32.9, adult Onset: 02-28-2022 Resolved: 02-28-2022 Chronic Other nutritional; endocrine; and metabolic disorders (2 sources) Hypomagnesemia; Translations: [Hypomagnesemia] Onset: 10-08-2024 10-08-2024 Chronic Residual codes; unclassified (1 source) Family history of malignant neoplasm of digestive organs; Translations: [FAM HX MALIG NEOPLASM DIGESTIV ORGN] Onset: 09-18-2022 Episodic Superficial injury; contusion (1 source) Abrasion of anus, initial encounter; Translations: [Abrasion of anus, initial encounter] Onset: 08-25-2024 Episodic Unclassified (1 source) Black or Bloody Stool Onset: 09-16-2024 Unclassified (1 source) EMS Onset: 10-07-2024 Unclassified (1 source) Bleeding/Bruising Onset: 08-06-2024 Past or Other Problems Problem Classification Problem Date Documented Da te Episodic/Chronic Calculus of urinary tract (20 sources) Kidney stone; Translations: [Calculus of kidney] Onset: 03-16-2022 Episodic Complication of device; implant or graft (20 sources) Arteriosclerosis of autologous vein coronary artery bypass graft; Translations: [Atherosclerosis of coronary artery bypass graft(s) without angina pectoris] Onset: 0 Resolved: 9 04-01-2019 Chronic Conditions associated with dizziness or vertigo (1 source) Dizziness Onset: 4 Episodic Coronary atherosclerosis and other heart disease (1 source) Presence of aortocoronary bypass graft; Translations: [Presence of aortocoronary bypass graft] Onset: 1 Episodic Diabetes mellitus with complications (20 sources) Hyperglycemia due to type 2 diabetes mellitus; Translations: [Type 2 diabetes mellitus with hyperglycemia] Onset: 0 Resolved: 2 Chronic Genitourinary symptoms and ill-defined conditions (20 sources) Disorder of the urinary system; Translations: [Disorder of urinary system, unspecified] Onset: 2 12-06-2023 Episodic Inflammatory diseases of female pelvic organs (1 source) Vaginitis Onset: 4 Episodic Mood disorders (20 sources) Mood disorders Onset: 1 Resolved: 5 07-30-2020 Mycoses (7 sources) Pain in toe; Translations: [Tinea unguium] Onset: 4 05-28-2024 Episodic Other circulatory disease (20 sources) Spider nevus; Translations: [Nevus, non-neoplastic] Onset: 2 12-18-2021 Episodic Other circulatory disease (1 source) History of cerebrovascular accident; Translations: [Personal history of transient ischemic attack (TIA), and cerebral infarction without residual deficits] 05-11-2024 Episodic Other circulatory disease (1 source) Personal history of transient ischemic attack (TIA), and cerebral infarction without residual deficits; Translations: [Personal history of transient ischemic attack (TIA), and cerebral infarction without residual deficits] Onset: 4 Episodic Other connective tissue disease (2 sources) Pain of toes of bilateral feet; Translations: [Pain in right toe(s)] 03-12-2024 Episodic Other female genital disorders (1 source) Vaginal discharge Onset: 4 Episodic Other gastrointestinal disorders (20 sources) Heartburn; Translations: [Heartburn] Onset: 6 04-03-2017 Episodic Other inflammatory condition of skin (1 source) Erythema intertrigo; Translations: [Erythema intertrigo] Onset: 4 Episodic Other non-traumatic joint disorders (1 source) Shoulder pain Onset: 4 Episodic Other non-traumatic joint disorders (1 source) Pain in right shoulder; Translations: [Pain in right shoulder] Onset: 4 Episodic Other and delivery including normal (2 sources) Encounter for care and examination of lactating mother Onset: 2 Resolved: 2 Episodic Other screening for suspected conditions (not mental disorders or infectious disease) (20 sources) Encounter for screening mammogram for malignant neoplasm of breast; Translations: [Other abnormal and inconclusive findings on diagnostic imaging of breast] Onset: 8 Episodic Phlebitis; thrombophlebitis and thromboembolism (2 sources) H/O: Deep vein thrombosis; Translations: [Personal history of other venous thrombosis and embolism] Onset: 4 05-11-2024 Episodic Pulmonary heart disease (20 sources) Pulmonary embolism; Translations: [Other pulmonary embolism without acute cor pulmonale] Onset: 3 Resolved: 9 04-01-2019 Episodic Urinary tract infections (20 sources) Recurrent urinary tract infection; Translations: [Urinary tract infection, site not specified] Onset: 2 07-24-2024 Episodic Results Test Name Value Interpretation Reference Range Facility US RETROPERITONEAL COMPLETEo n 10-23-2024 US RETROPERITONEAL COMPLETE US RETROPERITONEAL COMPLETE ULTRASOUND RETROPERITONEUM INDICATION: Renal stones. COMPARISON: CT 11/28/2023. FINDINGS: Ultrasound evaluation of the kidneys and bladder was performed. Right kidney: 9.6 cm in maximal length. No collecting system dilatation, calculi, or contour deforming mass lesion. Left kidney: 10.6 cm in maximal length. No collecting system dilatation, calculi, or contour deforming mass lesion. Bladder: Unremarkable fluid filled bladder. Bladder volume: 153 mL. Both ureteral jets seen. IMPRESSION: 1. No acute abnormality. No stone or collecting system dilatation. Finalized by Josue Pruett MD on 10/23/2024 10:11 AM [facility] AND AUTO DIFFon 10-11-19 25 ABSOLUTE BASOPHIL 0.0 X10E9/L Normal 0.0-0.2 [facility] Comment on above: Performed By: #### N UM #### [facility] ([id number]) [address] [place] [address] [id number] ABSOLUTE NEUTROPHIL 3.6 X10E9/L Normal 1.5-6.6 [facility] Comment on above: Performed By: #### N UM #### [facility] ([id number]) [address] [place] [address] [id number] Basophils/100 WBC (Bld) 0.5 % Normal [facility] Comment on above: Performed By: #### N UM #### [facility] ([id number]) [address] [place] [address] [id number] Eosinophils (Bld) [#/Vol] 0.3 10*3/uL Normal 0.0-0.4 [facility] Comment on above: Performed By: #### N UM #### [facility] ([id number]) [address] [place] [address] [id number] Eosinophils/100 WBC (Bld) 6.5 % Normal [facility] Comment on above: Performed By: #### N UM #### [facility] ([id number]) [address] [place] [address] [id number] Erythrocyte distribution width (RBC) [Ratio] 13.8 % Normal 11.5-15.0 [facility] Comment on above: Performed By: #### N UM #### [facility] ([id number]) [address] [place] [address] [id number] Hematocrit (Bld) [Volume fraction] 30.1 % Low 35-47 [facility] [facility] Comment [facility]: Performed By: #### N UM #### [facility] ([id number]) [address] [place] [address] 90412 Hemoglobin (Bld) [Mass/Vol] 10.2 g/dL Low 11.7-15.5 [facility] Comment on above: Performed By: #### N UM #### [facility] ([id number]) [address] [place] [address] 24098 Lymphocytes (Bld) [#/Vol] 0.8 10*3/uL Low 1.0-3.5 [facility] Comment on above: Performed By: #### N UM #### [facility] ([id number]) [address] [place] [address] 58407 Lymphocytes/100 WBC (Bld) 15.8 % Normal [facility] Comment on above: Performed By: #### N UM #### [facility] ([id number]) [address] [place] [address] 63010 MCH (RBC) [Entitic mass] 29.7 pg Normal 27-34 [facility] Comment on above: Performed By: #### N UM #### [facility] ([id number]) [address] [place] [address] 27684 MCHC (RBC) [Mass/Vol] 34.0 g/dL Normal 32-36 [facility] Comment on above: Performed By: #### N UM #### [facility] ([id number]) [address] [place] [address] 98267 MCV (RBC) [Entitic vol] 87 fL Normal 80-100 [facility] Comment on above: Performed By: #### N UM #### [facility] ([id number]) [address] [place] [address] 56600 Monocytes (Bld) [#/Vol] 0.3 10*3/uL Normal 0-0.9 [facility] Comment on above: Performed By: #### N UM #### [facility] ([id number]) [address] [place] [address] 39947 Monocytes/100 WBC (Bld) 5.2 % Normal [facility] Comment on above: Performed By: #### N UM #### [facility] ([id number]) [address] [place] [address] 06900 Neutrophils/100 WBC (Bld) 72.0 % Normal [facility] Comment on above: Performed By: #### N UM #### [facility] ([id number]) [address] [place] [address] 77770 Platelet mean volume (Bld) [Entitic vol] 9.0 fL Normal 7-12 [facility] Comment on above: Performed By: #### N UM #### [facility] ([id number]) [address] [place] [address] 73153 Platelets (Bld) [#/Vol] 147 10*3/uL Low 150-450 [facility] Comment on above: Performed By: #### N UM #### [facility] ([id number]) [address] [place] [address] 21688 RBC COUNT 3.45 X10E12/L Low 3.80-5.20 [facility] Comment on above: Performed By: #### N UM #### [facility] ([id number]) [address] [place] [address] 47290 WBC (Bld) [#/Vol] 5.1 10*3/uL Normal 4.0-11.0 [facility] Comment on above: Performed By: #### N UM #### [facility] ([id number]) [address] [place] [address] 89898 COMPREHENSIVE METABOLIC PANE Dimitrios 10-10-2024 Albumin [Mass/Vol] 3.5 g/dL Normal 3.2-5.3 [facility] Comment on above: Performed By: #### 6 -4 #### [facility] ([id number]) [address], [address] [place] [address] ALP [Catalytic activity/Vol] 93 U/L Normal 39-130 [facility] Comment on above: Performed By: #### 6 30-4 #### [facility] ([id number]) [address], [address] [place] [address] ALT [Catalytic activity/Vol] 12 U/L Normal 0-31 [facility] Comment on above: Performed By: #### 6 30-4 #### [facility] ([id number]) [address], [address] [place] [address] Anion gap [Moles/Vol] 7 mmol/L Normal 5-15 [facility] Comment on above: Performed By: #### 6 30-4 #### [facility] ([id number]) [address], [address] [place] [address] AST [Catalytic activity/Vol] 17 U/L Normal 0-41 [facility] Comment on above: Performed By: #### 6 30-4 #### [facility] ([id number]) [address], [address] [place] [address] Bilirubin [Mass/Vol] 0.5 mg/dL Normal 0.3-1.2 [facility] Comment on above: Performed By: #### 6 30-4 #### [facility] ([id number]) [address], [address] [place] [address] Calcium [Mass/Vol] 8.9 mg/dL Normal 8.5-10.5 [facility] Comment on above: Performed By: #### 6 30-4 #### [facility] ([id number]) [address], [address] [place] [address] Chloride [Moles/Vol] 105 mmol/L Normal 98-109 [facility] Comment on above: Performed By: #### 6 30-4 #### [facility] ([id number]) [address], [address] [place] [address] CO2 [Moles/Vol] 25 mmol/L Normal 22-32 [facility] Comment on above: Performed By: #### 6 30-4 #### [facility] ([id number]) [address] [place] [address] Creatinine [Mass/Vol] 1.00 mg/dL Normal 0.40-1.00 [facility] Comment on above: Result Comment: METH OD TRACEABLE TO IDMS STANDARD Performed By: #### 6 30-4 #### [facility] ([id number]) [address] [place] [address] GFR/1.73 sq M.predicted among non-blacks MDRD (S/P/Bld) [Vol rate/Area] 60 mL/min/{1.73_m2} Normal >59 [facility] Comment on above: Result Comment: Reported eGFR is based on the CKD-EPI 2020 equation that does not use a race coefficient. Performed By: #### 6 30-4 #### [facility] ([id number]) [address], [address] [place] [address] Glucose [Mass/Vol] 114 mg/dL High 65-99 [facility] Comment on above: Performed By: #### 6 30-4 #### [facility] ([id number]) [address], [address] [place] [address] Potassium [Moles/Vol] 3.6 mmol/L Normal 3.5-5.0 [facility] Comment on above: Performed By: #### 6 30-4 #### [facility] ([id number]) [address], [address] [place] [address] Protein [Mass/Vol] 6.5 g/dL Normal 6.0-8.0 [facility] Comment on above: Performed By: #### 6 30-4 #### [facility] ([id number]) [address], [address] [place] [address] Sodium [Moles/Vol] 137 mmol/L Normal 134-146 [facility] Comment on above: Performed By: #### 6 30-4 #### [facility] ([id number]) [address], [address] [place] [address] Urea nitrogen [Mass/Vol] 20 mg/dL Normal 5-27 [facility] Comment on above: Performed By: #### 6 30-4 #### [facility] ([id number]) [address] [place] [address] Glucose Glucometer (BldC) [M ass/Vol]on 10-10-2024 Glucose [Mass/Vol] 167 mg/dL High 65-99 [facility] Glucose [Mass/Vol] 100 mg/dL High 65-99 [facility] MAGNESIUMon 10-10-2024 Magnesium [Mass/Vol] 1.7 mg/dL Low 1.8-2.6 [facility] Comment on above: Performed By: #### 6 30-4 #### [facility] ([id number]) [address], [address] [place] [address] CBC AND AUTO DIFFon 10-10-19 25 ABSOLUTE BASOPHIL 0.0 X10E9/L Normal 0.0-0.2 [facility] Comment on above: Performed By: #### N UM #### [facility] ([id number]) [address] [place] [address] 34078 ABSOLUTE NEUTROPHIL 3.3 X10E9/L Normal 1.5-6.6 [facility] Comment on above: Performed By: #### N UM #### [facility] ([id number]) [address] [place] [address] 71735 Basophils/100 WBC (Bld) 0.5 % Normal [facility] Comment on above: Performed By: #### N UM #### [facility] ([id number]) [address] [place] [address] 10151 Eosinophils (Bld) [#/Vol] 0.3 10*3/uL Normal 0.0-0.4 [facility] Comment on above: Performed By: #### N UM #### [facility] ([id number]) [address] [place] [address] 48469 Eosinophils/100 WBC (Bld) 6.1 % Normal [facility] Comment on above: Performed By: #### N UM #### [facility] ([id number]) [address] [place] [address] 50595 Erythrocyte distribution width (RBC) [Ratio] 14.0 % Normal 11.5-15.0 [facility] Comment on above: Performed By: #### N UM #### [facility] ([id number]) [address] [place] [address] 53966 Hematocrit (Bld) [Volume fraction] 25.8 % Low 35-47 [facility] Comment on above: Performed By: #### N UM #### [facility] ([id number]) [address] [place] [address] 63936 Hemoglobin (Bld) [Mass/Vol] 8.9 g/dL Low 11.7-15.5 [facility] Comment on above: Performed By: #### N UM #### [facility] ([id number]) [address] [place] [address] 77443 Lymphocytes (Bld) [#/Vol] 0.8 10*3/uL Low 1.0-3.5 [facility] Comment on above: Performed By: #### N UM #### [facility] ([id number]) [address] [place] [address] 04138 Lymphocytes/100 WBC (Bld) 17.6 % Normal [facility] Comment on above: Performed By: #### N UM #### [facility] ([id number]) [address] [place] [address] 63801 MCH (RBC) [Entitic mass] 30.2 pg Normal 27-34 [facility] Comment on above: Performed By: #### N UM #### [facility] ([id number]) [address] [place] [address] 13422 MCHC (RBC) [Mass/Vol] 34.5 g/dL Normal 32-36 [facility] Comment on above: Performed By: #### N UM #### [facility] ([id number]) [address] [place] [address] 78724 MCV (RBC) [Entitic vol] 87 fL Normal 80-100 [facility] Comment on above: Performed By: #### N UM #### [facility] ([id number]) [address] [place] [address] 53227 Monocytes (Bld) [#/Vol] 0.4 10*3/uL Normal 0-0.9 [facility] Comment on above: Performed By: #### N UM #### [facility] ([id number]) [address] [place] [address] 73312 Monocytes/100 WBC (Bld) 7.9 % Normal [facility] Comment on above: Performed By: #### N UM #### [facility] ([id number]) [address] [place] [address] 06029 Neutrophils/100 WBC (Bld) 67.9 % Normal [facility] Comment on above: Performed By: #### N UM #### [facility] ([id number]) [address] [place] [address] 90504 Platelet mean volume (Bld) [Entitic vol] 9.5 fL Normal 7-12 [facility] Comment on above: Performed By: #### N UM #### [facility] ([id number]) [address] [place] [address] 99247 Platelets (Bld) [#/Vol] 116 10*3/uL Low 150-450 [facility] Comment on above: Performed By: #### N UM #### [facility] ([id number]) [address] [place] [address] 35199 RBC COUNT 2.95 X10E12/L Low 3.80-5.20 [facility] Comment on above: Performed By: #### N UM #### [facility] ([id number]) [address] [place] [address] 71739 WBC (Bld) [#/Vol] 4.8 10*3/uL Normal 4.0-11.0 [facility] Comment on above: Performed By: #### N UM #### [facility] ([id number]) [address] [place] [address] 37994 COMPREHENSIVE METABOLIC PANE Dimitrios 10-09-2024 Albumin [Mass/Vol] 3.0 g/dL Low 3.2-5.3 [facility] Comment on above: Performed By: #### N UM #### [facility] ([id number]) [address] [place] [address] 47601 ALP [Catalytic activity/Vol] 85 U/L Normal 39-130 [facility] Comment on above: Performed By: #### N UM #### [facility] ([id number]) [address] [place] [address] 30678 ALT [Catalytic activity/Vol] 10 U/L Normal 0-31 [facility] Comment on above: Performed By: #### N UM #### [facility] ([id number]) [address] [place] [address], [place] [address] Anion gap [Moles/Vol] 7 mmol/L Normal 5-15 [facility] Comment on above: Performed By: #### N UM #### [facility] ([id number]) [address] [place] [address] 81198 AST [Catalytic activity/Vol] 11 U/L Normal 0-41 [facility] Comment on above: Performed By: #### N UM #### [facility] ([id number]) [address] [place] [address] 19917 Bilirubin [Mass/Vol] 0.4 mg/dL Normal 0.3-1.2 [facility] Comment on above: Performed By: #### N UM #### [facility] ([id number]) [address] [place] [address] 34273 Calcium [Mass/Vol] 8.5 mg/dL Normal 8.5-10.5 [facility] Comment on above: Performed By: #### N UM #### [facility] ([id number]) [address] [place] [address] 99916 Chloride [Moles/Vol] 109 mmol/L Normal 98-109 [facility] Comment on above: Performed By: #### N UM #### [facility] ([id number]) [address] [place] [address] 47300 CO2 [Moles/Vol] 24 mmol/L Normal 22-32 [facility] Comment on above: Performed By: #### N UM #### [facility] ([id number]) [address] [place] [address] 29476 Creatinine [Mass/Vol] 1.01 mg/dL High 0.40-1.00 [facility] Comment on above: Result Comment: METH OD TRACEABLE TO IDMS STANDARD Performed By: #### N UM #### [facility] ([id number]) [address] [place] [address] 22180 GFR/1.73 sq M.predicted among non-blacks MDRD (S/P/Bld) [Vol rate/Area] 60 mL/min/{1.73_m2} Normal >59 [facility] Comment on above: Result Comment: Reported eGFR is based on the CKD-EPI 2020 equation that does not use a race coefficient. Performed By: #### N UM #### [facility] ([id number]) [address] [place] [address] 01320 Glucose [Mass/Vol] 96 mg/dL Normal 65-99 [facility] Comment on above: Performed By: #### N UM #### [facility] ([id number]) [address] [place] [address] 90412 Potassium [Moles/Vol] 3.0 mmol/L Low 3.5-5.0 [facility] Comment on above: Performed By: #### N UM #### [facility] ([id number]) [address] [place] [address] 49163 Protein [Mass/Vol] 5.6 g/dL Low 6.0-8.0 [facility] Comment on above: Performed By: #### N UM #### [facility] ([id number]) [address] [place] [address] 52875 Sodium [Moles/Vol] 140 mmol/L Normal 134-146 [facility] Comment on above: Performed By: #### N UM #### [facility] ([id number]) [address] [place] [address] 44449 Urea nitrogen [Mass/Vol] 24 mg/dL Normal 5-27 [facility] Comment on above: Performed By: #### N UM #### [facility] ([id number]) [address] [place] [address] 39754 Glucose Glucometer (BldC) [M ass/Vol]on 10-09-2024 Glucose [Mass/Vol] 169 mg/dL High 65-99 [facility] Glucose [Mass/Vol] 104 mg/dL High 65-99 [facility] Glucose [Mass/Vol] 136 mg/dL High 65-99 [facility] MAGNESIUMon 10-09-2024 Magnesium [Mass/Vol] 2.0 mg/dL Normal 1.8-2.6 [facility] Comment on above: Performed By: #### N UM #### [facility] ([id number]) [address] [facility], [place] [address] Surgical Pathologyon 025 Surgical Pathology Normal [facility] Comment on above: Result Comment: [facility] [employer] [facility] [address] [place] [address] Surgical Pathology Consultation Patient Name:ROMIE GEIGER:1955 (Age: 69)Gender:FTaken:10/09/2024Reported:10/10/2024Physician(s):Juan Manuel Nathan D.O. ([phone])Copy To: Rec. #:[id number]: #[id number] Final Pathologic Diagnosis 1. Sigmoid colon biopsy: Polypoid benign colonic mucosa with focal prominent lymphoid aggregate (see note). No dysplasia, granulomas or active colitis identified. Note: The findings suggest polypoid prolapsing mucosal fold. Endoscopic correlation recommended. 2. Rectal biopsy: Focal active proctitis, and separate fragments of fibrino-inflammatory and mucopurulent material consistent with ulcer exudate. No dysplasia or granulomas identified. See comment. Comment: No residual mucosa as seen in the inflammatory exudates. The overall findings are compatible with focal active and acute patterns of colitis. This pattern of injury is nonspecific, but is most commonly seen in the setting of infection, ischemia medication injury and emerging or partially treated idiopathic inflammatory bowel disease. Clinical correlation recommended. Report Electronically Signed Out ao/5Aagusto Green MD Interpretation performed at [employer], [address] [place] [address], License number: [id number]. Clinical History Stercoral colitis. Gross Description 1. Received in formalin labeled RUSIN, #1: Sigmoid colon biopsies are 2 yu bits of soft tissue, each 0.2 cm in greatest dimension. Filtered and submitted in a single cassette. (1, ns, [id number], m7) MG 2. Received in formalin labeled RUSIN, #2: Rectal colon biopsies are 5 yu bits of soft tissue, ranging from 0.1-0.4 cm in greatest dimension. Filtered and submitted in a single cassette. (1, ns, [id number], m7) MG [facility]/10/09/2024NSK Specimen(s) Received 1: Sigmoid colon biopsies 2: Rectal colon biopsies Fee Codes(s): 1; 98907 2; 28157 CBC AND AUTO DIFFon 10-09-19 25 ABSOLUTE BASOPHIL 0.0 X10E9/L Normal 0.0-0.2 [facility] Comment on above: Performed By: #### C GABRIEL CBCA, ####[facility] ([id number])[address] [place] [address] 57490 ABSOLUTE NEUTROPHIL 6.1 X10E9/L Normal 1.5-6.6 [facility] Comment on above: Performed By: #### C GABRIEL CBCA, 41652-9 ####[facility] ([id number])[address] [place] [address] 51723 Basophils/100 WBC (Bld) 0.2 % Normal [facility] Comment on above: Performed By: #### C GABRIEL CBCA, ####[facility] ([id number])[address] [place] [address] 70373 Eosinophils (Bld) [#/Vol] 0.1 10*3/uL Normal 0.0-0.4 [facility] Comment on above: Performed By: #### C GABRIEL CBCA, ####[facility] ([id number])[address] [place] [address] 93156 Eosinophils/100 WBC (Bld) 1.8 % Normal [facility] Comment on above: Performed By: #### C GABRIEL CBCA, ####[facility] ([id number])[address] [place] [address] 55194 Erythrocyte distribution width (RBC) [Ratio] 14.2 % Normal 11.5-15.0 [facility] Comment on above: Performed By: #### C GABRIEL CBCA, ####[facility] ([id number])[address] [place] [address] 96063 Hematocrit (Bld) [Volume fraction] 28.6 % Low 35-47 [facility] Comment on above: Performed By: #### C GABRIEL CBCA, ####[facility] ([id number])[address] [place] [address] 12633 Hemoglobin (Bld) [Mass/Vol] 9.9 g/dL Low 11.7-15.5 [facility] Comment on above: Performed By: #### C GABRIEL CBCA, ####[facility] ([id number])[address] [place] [address] 63698 Lymphocytes (Bld) [#/Vol] 0.5 10*3/uL Low 1.0-3.5 [facility] Comment on above: Performed By: #### C GABRIEL CBCA, ####[facility] ([id number])[address] [place] [address] 99440 Lymphocytes/100 WBC (Bld) 7.1 % Normal [facility] Comment on above: Performed By: #### C GABRIEL CBCA, ####[facility] ([id number])[address], [place] [address] MCH (RBC) [Entitic mass] 30.3 pg Normal 27-34 [facility] Comment on above: Performed By: #### C GABRIEL CBCStevie, ####[facility] ([id number])[address] [place] [address] 19062 MCHC (RBC) [Mass/Vol] 34.6 g/dL Normal 32-36 [facility] Comment on above: Performed By: #### C GABRIEL CBCStevie, ####[facility] ([id number])[address] [place] [address] 17440 MCV (RBC) [Entitic vol] 88 fL Normal 80-100 [facility] Comment on above: Performed By: #### C GABRIEL CBCStevie, ####[facility] ([id number])[address] [place] [address] 19621 Monocytes (Bld) [#/Vol] 0.6 10*3/uL Normal 0-0.9 [facility] Comment on above: Performed By: #### C GABRIEL CBCStevie, ####[facility] ([id number])[address] [place] [address] 08825 Monocytes/100 WBC (Bld) 7.7 % Normal [facility] Comment on above: Performed By: #### C GABRIEL CBCStevie, ####[facility] ([id number])[address] [place] [address] [place] [address] Neutrophils/100 WBC (Bld) 83.2 % Normal [facility] Comment on above: Performed By: #### C GABRIEL CBCStevie, ####[facility] ([id number])[address] [place] [address] [place] [address] Platelet mean volume (Bld) [Entitic vol] 9.6 fL Normal 7-12 [facility] Comment on above: Performed By: #### C GABRIEL CBCA, ####[facility] ([id number])[address] [place] [address] 42056 Platelets (Bld) [#/Vol] 104 10*3/uL Low 150-450 [facility] Comment on above: Performed By: #### C GABRIEL CBCA, ####[facility] ([id number])[address] [place] [address] 85312 RBC COUNT 3.27 X10E12/L Low 3.80-5.20 [facility] Comment on above: Performed By: #### C GABRIEL CBCA, ####[facility] ([id number])[address] [place] [address] 46227 WBC (Bld) [#/Vol] 7.3 10*3/uL Normal 4.0-11.0 [facility] Comment on above: Performed By: #### C GABRIEL CBCStevie, ####[facility] ([id number])[address] [place] [address] 04329 COMPREHENSIVE METABOLIC PANE [facility] 10-08-2024 Albumin [Mass/Vol] 3.3 g/dL Normal 3.2-5.3 [facility] Comment on above: Performed By: #### C GABRIEL CBCStevie, ####[facility] ([id number])[address] [place] [address] 49507 ALP [Catalytic activity/Vol] 95 U/L Normal 39-130 [facility] Comment on above: Performed By: #### C GABRIEL CBCA, ####[facility] ([id number])[address] [place] [address] 59745 ALT [Catalytic activity/Vol] 9 U/L Normal 0-31 [facility] Comment on above: Performed By: #### C RACHELLE RIOS, ####[facility] ([id number])[address] [place] [address], [place] [address] Anion gap [Moles/Vol] 7 mmol/L Normal 5-15 [facility] Comment on above: Performed By: #### C GABRIEL CBCStevie, ####[facility] ([id number])[address] [place] [address] [place] [address] AST [Catalytic activity/Vol] 11 U/L Normal 0-41 [facility] Comment on above: Performed By: #### C GABRIEL CBCStevie, ####[facility] ([id number])[address] [place] [address] [place] [address] Bilirubin [Mass/Vol] 0.8 mg/dL Normal 0.3-1.2 [facility] Comment on above: Performed By: #### C GABRIEL CBCStevie, ####[facility] ([id number])[address] [place] [address] [place] [address] Calcium [Mass/Vol] 8.6 mg/dL Normal 8.5-10.5 [facility] Comment on above: Performed By: #### C GABRIEL CBCA, ####[facility] ([id number])[address] [place] [address] [place] [address] Chloride [Moles/Vol] 102 mmol/L Normal 98-109 [facility] Comment on above: Performed By: #### C GABRIEL CBCA, ####[facility] ([id number])[address] [place] [address] [place] [address] CO2 [Moles/Vol] 23 mmol/L Normal 22-32 [facility] Comment on above: Performed By: #### C GABRIEL CBCA, ####[facility] ([id number])[address] [place] [address] [place] [address] Creatinine [Mass/Vol] 1.05 mg/dL High 0.40-1.00 [facility] Comment on above: Result Comment: METH OD TRACEABLE TO IDMS STANDARD Performed By: #### C RACHELLE RIOS, ####[facility] ([id number])[address] [place] [address] GFR/1.73 sq M.predicted among non-blacks MDRD (S/P/Bld) [Vol rate/Area] 57 mL/min/{1.73_m2} Low >59 [facility] Comment on above: Result Comment: Reported eGFR is based on the CKD-EPI 2020 equation that does not use a race coefficient. Performed By: #### C RACHELLE RIOS, ####[facility] ([id number])[address] [place] [address] Glucose [Mass/Vol] 141 mg/dL High 65-99 [facility] Comment on above: Performed By: #### C RACHELLE RIOS, ####[facility] ([id number])[address] [place] [address] Potassium [Moles/Vol] 3.4 mmol/L Low 3.5-5.0 [facility] Comment on above: Performed By: #### C RACHELLE RIOS, ####[facility] ([id number])[address] [place] [address] 70939 Protein [Mass/Vol] 5.9 g/dL Low 6.0-8.0 [facility] Comment on above: Performed By: #### C RACHELLE RIOS, ####[facility] ([id number])[address] [place] [address] 08992 Sodium [Moles/Vol] 132 mmol/L Low 134-146 [facility] Comment on above: Performed By: #### C RACHELLE RIOS, ####[facility] ([id number])[address] [place] [address] 41605 Urea nitrogen [Mass/Vol] 23 mg/dL Normal - [facility] Comment on above: Performed By: #### C MP, CBCA, ####[facility] ([id number])[address] [place] [address] 85563 Glucose Glucometer (BldC) [M ass/Vol]on 10-08-2024 Glucose [Mass/Vol] 92 mg/dL Normal 65-99 [facility] Glucose [Mass/Vol] 187 mg/dL High 65-99 [facility] Glucose [Mass/Vol] 180 mg/dL High 65-99 [facility] MAGNESIUMon 10-08-2024 Magnesium [Mass/Vol] 2.3 mg/dL Normal 1.8-2.6 [facility] Comment on above: Performed By: #### N UM #### [facility] ([id number]) [address] [place] [address] 73918 Magnesium [Mass/Vol] 1.7 mg/dL Low 1.8-2.6 [facility] Comment on above: Performed By: #### C MP, CBCA, ####[facility] ([id number])[address] [place] [address] 02004 POTASSIUMon 10-08-2024 Potassium [Moles/Vol] 3.5 mmol/L Normal 3.5-5.0 [facility] Comment on above: Performed By: #### N UM #### [facility] ([id number]) [address] [place] [address] 22994 BASIC METABOLIC PANLon 10-07 Anion gap [Moles/Vol] 6 mmol/L Normal 5-15 [facility] Comment on above: Performed By: #### C BCA, BMP, 03321-3, 75456-8, PINR, 96645-3, 77575-4 ####[facility] ([id number])[address] [place] [address] 36314 Calcium [Mass/Vol] 8.8 mg/dL Normal 8.5-10.5 [facility] Comment on above: Performed By: #### C BCA, BMP, 61125-3, 95160-6, PINR, 92874-1, 17517-5 ####[facility] ([id number])[address] [place] [address] 09815 Chloride [Moles/Vol] 97 mmol/L Low 98-109 [facility] Comment on above: Performed By: #### C BCA, BMP, 06254-7, 82614-0, PINR, 30319-6, 62575-6 ####[facility] ([id number])[address] [place] [address] 36956 CO2 [Moles/Vol] 25 mmol/L Normal 22-32 [facility] Comment on above: Performed By: #### C BCA, BMP, 90573-1, 19467-7, PINR, 05430-4, 45578-7 ####[facility] ([id number])[address] [place] [address] 80744 Creatinine [Mass/Vol] 1.59 mg/dL High 0.40-1.00 [facility] Comment on above: Result Comment: METH OD TRACEABLE TO IDMS STANDARD Performed By: #### C BCA, BMP, 17445-1, 98389-6, PINR, 43641-7, 61724-0 ####[facility] ([id number])[address] [place] [address] 06064 GFR/1.73 sq M.predicted among non-blacks MDRD (S/P/Bld) [Vol rate/Area] 35 mL/min/{1.73_m2} Low >59 [facility] Comment on above: Result Comment: Reported eGFR is based on the CKD-EPI 2020 equation that does not use a race coefficient. Performed By: #### C BCA, BMP, 87017-4, 46651-8, PINR, 55644-4, 66264-5 ####[facility] ([id number])[address] [place] [address] 46762 Glucose [Mass/Vol] 221 mg/dL High 65-99 [facility] Comment on above: Performed By: #### C BCA, BMP, 97454-4, 77922-7, PINR, 64415-2, 42915-3 ####[facility] ([id number])[address] [place] [address] 94389 Potassium [Moles/Vol] 4.3 mmol/L Normal 3.5-5.0 [facility] Comment on above: Performed By: #### C BCA, BMP, 23654-3, 76073-5, PINR, 45736-4, 17160-7 ####[facility] ([id number])[address] [place] [address] 05054 Sodium [Moles/Vol] 128 mmol/L Low 134-146 [facility] Comment on above: Performed By: #### C BCA, BMP, 69813-6, 80423-0, PINR, 76651-9, 59142-8 ####[facility] ([id number])[address] [place] [address] 12097 Urea nitrogen [Mass/Vol] 33 mg/dL High 5-27 [facility] Comment on above: Performed By: #### C BCA, BMP, 76472-2, 57983-7, PINR, 90582-3, 45364-6 ####[facility] ([id number])[address] [place] [address] 21424 CBC AND AUTO DIFFon 03-26-20 25 ABSOLUTE BASOPHIL 0.1 X10E9/L Normal 0.0-0.2 [facility] Comment on above: Performed By: #### C BCA, BMP, 19918-8, 98000-4, PINR, 92668-3, 39805-2 ####[facility] ([id number])[address] [place] [address] 44320 ABSOLUTE NEUTROPHIL 11.3 X10E9/L High 1.5-6.6 [facility] Comment on above: Performed By: #### C BCA, BMP, 88610-6, 66275-2, PINR, 71503-9, 08164-5 ####[facility] ([id number])[address] [place] [address] 86187 Basophils/100 WBC (Bld) 0.6 % Normal [facility] Comment on above: Performed By: #### C BCA, BMP, 56344-3, 21893-1, PINR, 25683-3, 43552-7 ####[facility] ([id number])[address] [place] [address] 51343 Eosinophils (Bld) [#/Vol] 0.1 10*3/uL Normal 0.0-0.4 [facility] Comment on above: Performed By: #### C BCA, BMP, 74532-9, 97930-2, PINR, 22538-7, 32781-2 ####[facility] ([id number])[address] [place] [address] 36239 Eosinophils/100 WBC (Bld) 0.7 % Normal [facility] Comment on above: Performed By: #### C BCA, BMP, 02318-3, 05008-3, PINR, 35595-5, 29695-3 ####[facility] ([id number])[address] [place] [address] 65947 Erythrocyte distribution width (RBC) [Ratio] 14.1 % Normal 11.5-15.0 [facility] Comment on above: Performed By: #### C BCA, BMP, 25473-1, 37930-6, PINR, 62516-6, 07334-1 ####[facility] ([id number])[address] [place] [address] 41080 Hematocrit (Bld) [Volume fraction] 30.8 % Low 35-47 [facility] Comment on above: Performed By: #### C BCA, BMP, 87946-7, 03147-7, PINR, 56229-3, 77856-7 ####[facility] ([id number])[address] [place] [address] 18210 Hemoglobin (Bld) [Mass/Vol] 10.5 g/dL Low 11.7-15.5 [facility] Comment on above: Performed By: #### C BCA, BMP, 06225-1, 45679-8, PINR, 65072-8, 17805-7 ####[facility] ([id number])[address] [place] [address] 94044 Lymphocytes (Bld) [#/Vol] 0.5 10*3/uL Low 1.0-3.5 [facility] Comment on above: Performed By: #### C BCA, BMP, 10619-6, 78594-8, PINR, 20920-0, 74153-6 ####[facility] ([id number])[address] [place] [address] 04762 Lymphocytes/100 WBC (Bld) 4.1 % Normal [facility] Comment on above: Performed By: #### C BCA, BMP, 06906-7, 15636-1, PINR, 57811-7, 89683-6 ####[facility] ([id number])[address] [place] [address] 42482 MCH (RBC) [Entitic mass] 29.8 pg Normal 27-34 [facility] Comment on above: Performed By: #### C BCA, BMP, 59919-1, 37252-5, PINR, 44993-1, 67130-8 ####[facility] ([id number])[address] [place] [address] 16573 MCHC (RBC) [Mass/Vol] 34.1 g/dL Normal 32-36 [facility] Comment on above: Performed By: #### C BCA, BMP, 05858-0, 25414-6, PINR, 15135-5, 49516-6 ####[facility] ([id number])[address] [place] [address] 88477 MCV (RBC) [Entitic vol] 87 fL Normal 80-100 [facility] Comment on above: Performed By: #### C BCA, BMP, 28720-9, 49217-7, PINR, 02600-6, 54715-8 ####[facility] ([id number])[address] [place] [address] 70456 Monocytes (Bld) [#/Vol] 0.8 10*3/uL Normal 0-0.9 [facility] Comment on above: Performed By: #### C BCA, BMP, 35596-9, 07056-6, PINR, 21886-8, 65660-6 ####[facility] ([id number])[address] [place] [address] 03925 Monocytes/100 WBC (Bld) 6.0 % Normal [facility] Comment on above: Performed By: #### C BCA, BMP, 66081-8, 06364-1, PINR, 08621-7, 15117-0 ####[facility] ([id number])[address] [place] [address] 83543 Neutrophils/100 WBC (Bld) 88.6 % Normal [facility] Comment on above: Performed By: #### C BCA, BMP, 34463-0, 00478-2, PINR, 75522-2, 63659-7 ####[facility] ([id number])[address] [place] [address] 28273 Platelet mean volume (Bld) [Entitic vol] 9.7 fL Normal 7-12 [facility] Comment on above: Performed By: #### C BCA, BMP, 89213-8, 02327-8, PINR, 38462-3, 08743-7 ####[facility] ([id number])[address] [place] [address] 42157 Platelets (Bld) [#/Vol] 156 10*3/uL Normal 150-450 [facility] Comment on above: Performed By: #### C BCA, BMP, 30675-7, 33164-3, PINR, 15056-1, 11122-3 ####[facility] ([id number])[address] [place], [place] [address] RBC COUNT 3.53 X10E12/L Low 3.80-5.20 [facility] Comment on above: Performed By: #### C BCA, BMP, 91643-6, 32030-2, PINR, 01583-1, 28986-1 ####[facility] ([id number])[address] [place] [address] 00560 WBC (Bld) [#/Vol] 12.7 10*3/uL High 4.0-11.0 [facility] Comment on above: Performed By: #### C BCA, BMP, 35132-5, 59586-5, PINR, 41666-3, 33914-5 ####[facility] ([id number])[address] [place] [address] ABDOMEN AND PELVIS W CONT on 10-07-2024 CT ABDOMEN AND PELVIS W CONT CT ABDOMEN AND PELVIS W CONT History: Acute generalized abdominal pain. Diarrhea Exam/Technique: Abdomen and pelvis CT imaging is performed with IV contrast. Comparison: Abdominal series from earlier this afternoon and previous contrast-enhanced CT of the abdomen and pelvis from 08/25/2024 Findings: There is no evidence of active pulmonary disease in the lung bases. The liver, spleen, pancreas, adrenal glands, and kidneys display no significant abnormalities. The abdominal aorta is of normal caliber throughout its length. Extensive changes of diverticulosis redemonstrated with no evidence of associated focal inflammatory changes. The appendix appears normal. Appearance of the colon is similar to the previous CT. There is a rectal stool ball measures at least 7.5 cm in diameter. There appears to be some increase in thickening of the wall of the rectum since the previous exam. There is some inflammatory change in the abdominal fat posterior to the rectum as well that is similar to the previous study. The more proximal colon displays a combination apparent liquid contents small amount of retained fecal material. There is no free intraperitoneal fluid or gas, and no gross abnormal fluid collections. There are no gross abnormalities of the unopacified urinary bladder suggested. Status post hysterectomy with no evidence of pelvic masses IMPRESSION: * Large rectal stool ball again seen with increased evidence of stercoral proctitis. * Appearance may indicate fecal impaction along with changes of overflow diarrhea with history given. All CT scans at this facility use dose modulation, iterative reconstruction, and/or weight based dosing when appropriate to reduce radiation dose to as low as reasonably achievable. Finalized by Baltazar Mcleod MD on 10/07/2024 2:51 PM Normal [facility] Glucose Glucometer (BldC) [M ass/Vol]on 10-07-2024 Glucose [Mass/Vol] 144 mg/dL High 65-99 [facility] Glucose [Mass/Vol] 134 mg/dL High 65-99 [facility] MAGNESIUMon 10-07-2024 Magnesium [Mass/Vol] 1.8 mg/dL Normal 1.8-2.6 [facility] Comment on above: Performed By: #### C BCA, BMP, 12605-5, 31094-5, PINR, 14436-7, 51596-4 ####[facility] ([id number])[address] [place] [address] FECAL OCCULT BLDon 10-07 Hemoglobin.gastroint estinal Ql (Stl) Positive Abnormal NEG [facility] Comment on above: Performed By: #### 2 335-8 ####[facility] ([id number])[address] [place] [address] 83583 Natriuretic peptide B [Mass/ Vol]on 10-07-2024 Natriuretic peptide B (Bld) [Mass/Vol] 74 pg/mL Normal <100.0 [facility] Comment on above: Performed By: #### C BCA, BMP, 56321-1, 98316-4, PINR, 03740-6, 58123-4 ####[facility] ([id number])[address] [place] [address] 54454 PROTIME AND INRon 10-07-2024 INR Coag (PPP) [Relative time] 1.7 {INR} High 0.9-1.2 [facility] Comment on above: Performed By: #### C BCA, BMP, 84807-7, 46180-4, PINR, 04678-2, 30140-8 ####[facility] ([id number])[address] [place] [address] 79832 PT Coag (PPP) [Time] 19.7 s High 9.8-13.2 [facility] Comment on above: Result Comment: NEW REFERENCE RANGE Performed By: #### C BCA, BMP, 15856-8, 89544-1, PINR, 52207-5, 95893-0 ####[facility] ([id number])[address] [place] [address] 56121 Troponin I.cardiac High sens itivity method [Mass/Vol]on 10-07-2024 1 HOUR TROP I, HIGH SENSITIVITY 8 ng/L Normal <16 [facility] Comment on above: Performed By: #### 8 9579-7 ####[facility] ([id number])[address] [place] [address] 41261 TROPONIN I, HIGH SENSITIVITY 8 ng/L Normal <16 [facility] Comment on above: Performed By: #### C BCA, BMP, 60827-2, 04894-6, PINR, 84102-8, 89589-8 ####[facility] ([id number])[address] [place] [address], [place] [address] URN MACROSCOPIC NURon 2024 BILIRUBIN JOHNNY Negative Normal NEG [facility] Comment on above: Performed By: #### N UM ####[facility] ([id number])[address] [place] [address] [place] [address] BLOOD/HGB JOHNNY Negative Normal NEG [facility] Comment on above: Performed By: #### N UM ####[facility] ([id number])[address] [place] [address], [place] [address] GLUCOSE JOHNNY Negative Normal NEG [facility] Comment on above: Performed By: #### N UM ####[facility] ([id number])[address] [place] [address], [place] [address] KETONES JOHNNY Negative Normal NEG [facility] Comment on above: Performed By: #### N UM ####[facility] ([id number])[address] [place] [address], [place] [address] LEUKOCYTE ESTERASE JOHNNY Trace Abnormal NEG [facility] Comment on above: Performed By: #### N UM ####[facility] ([id number])[address] [place] [address], [place] [address] NITRITE JOHNNY Negative Normal NEG [facility] Comment on above: Performed By: #### N UM ####[facility] ([id number])[address] [place] [address], [place] [address] PH JOHNNY 5.5 Normal 5.0-8.5 [facility] Comment on above: Performed By: #### N UM ####[facility] ([id number])[address] [place] [address] 32497 PROTEIN JOHNNY Negative Normal NEG [facility] Comment on above: Performed By: #### N UM ####[facility] ([id number])[address] [place] [address] 42121 SPECIFIC GRAVITY JOHNNY 1.020 Normal 1.003-1.035 [facility] Comment on above: Performed By: #### N UM ####[facility] ([id number])[address] [place] [address] 65540 UROBILINOGEN JOHNNY 1.0 eu/dL Normal <1.1 [facility] Comment on above: Performed By: #### N UM ####[facility] ([id number])[address] [place] [address] 16549 XR ABDOM COMP SERIES W PA CH ESTon 10-07-2024 XR ABDOM COMP SERIES W PA CHEST XR ABDOM COMP SERIES W PA CHEST XR ABDOM COMP SERIES W PA CHEST INDICATION: diarrhea, recent constipation COMPARISON: 10/05/2024 FINDINGS: Median sternotomy. Normal cardiomediastinal silhouette. No focal consolidation or effusion. No pneumothorax. Nonobstructive bowel gas pattern. Moderate rectal fecal loading. No convincing pneumoperitoneum in the upper position. Surgical loops throughout the pelvis. IMPRESSION: 1. Persistent colorectal fecal loading. . 2. No acute cardiopulmonary process. Finalized by Juan Manuel Schwarz MD on 10/07/2024 12:23 PM Normal [facility] aPTT Coag (PPP) [Time]on aPTT Coag (Bld) [Time] 32 s Normal 26-37 [facility] Comment on above: Result Comment: NEW REFERENCE RANGE Performed By: #### C BCA, BMP, 19276-2, 77555-0, PINR, 90475-1, 97921-1 ####[facility] ([id number])[address] [place] [address] 54384 XR ABDOMEN AP 1 VWon 025 XR ABDOMEN AP 1 VW XR ABDOMEN AP 1 VW Abdomen single view Clinical history:constipation ? Abdominal pain. Comparison: None. Findings: AP supine view of the abdomen. Large amount of stool in the colorectal junction suggestive with constipation. Nonobstructive bowel gas pattern. Degenerative changes of lumbar spine. Impression: Large amount of stool in the colorectal junction suggestive of constipation or impaction. Finalized by Juan Manuel Villanueva MD on 10/05/2024 11:01 PM Normal [facility] CBC AND AUTO DIFFon 08-29-19 25 ABSOLUTE BASOPHIL 0.0 X10E9/L Normal 0.0-0.2 [facility] Comment on above: Performed By: #### C JAMISON CMP, ####[facility] ([id number])[address] [place] [address] 45206 ABSOLUTE NEUTROPHIL 3.4 X10E9/L Normal 1.5-6.6 [facility] Comment on above: Performed By: #### C JAMISON CMP, ####[facility] ([id number])[address] [place] [address] 22972 Basophils/100 WBC (Bld) 0.5 % Normal [facility] Comment on above: Performed By: #### C BCA CMP, ####[facility] ([id number])[address] [place] [address] 80149 Eosinophils (Bld) [#/Vol] 0.3 10*3/uL Normal 0.0-0.4 [facility] Comment on above: Performed By: #### C BCA, CMP, 99293-7 ####[facility] ([id number])[address] [place] [address] 80839 Eosinophils/100 WBC (Bld) 6.6 % Normal [facility] Comment on above: Performed By: #### C BCA, CMP, ####[facility] ([id number])[address] [place] [address] 68674 Erythrocyte distribution width (RBC) [Ratio] 13.6 % Normal 11.5-15.0 [facility] Comment on above: Performed By: #### Elaine SWIFT CMP, ####[facility] ([id number])[address] [place] [address] 74960 Hematocrit (Bld) [Volume fraction] 27.2 % Low 35-47 [facility] Comment on above: Performed By: #### Elaine SWIFT [facility], ####[facility] ([id number])[address] [place] [address] 82192 Hemoglobin (Bld) [Mass/Vol] 9.4 g/dL Low 11.7-15.5 [facility] Comment on above: Performed By: #### Elaine SWIFT CMP, ####[facility] ([id number])[address] [place] [address] 82679 Lymphocytes (Bld) [#/Vol] 0.7 10*3/uL Low 1.0-3.5 [facility] Comment on above: Performed By: #### Elaine SWIFT [facility], ####[facility] ([id number])[address] [place] [address] 74518 Lymphocytes/100 WBC (Bld) 15.0 % Normal [facility] Comment on above: Performed By: #### Elaine SWIFT CMP, ####[facility] ([id number])[address] [place] [address] 38356 MCH (RBC) [Entitic mass] 30.4 pg Normal 27-34 [facility] Comment on above: Performed By: #### Elaine SWIFT CMP, ####[facility] ([id number])[address] [place] [address] 77739 MCHC (RBC) [Mass/Vol] 34.7 g/dL Normal 32-36 [facility] Comment on above: Performed By: #### Elaine SWIFT, CMP, ####[facility] ([id number])[address] [place] [address] 53525 MCV (RBC) [Entitic vol] 88 fL Normal 80-100 [facility] Comment on above: Performed By: #### Elaine SWIFT, CMP, ####[facility] ([id number])[address] [place] [address] 77406 Monocytes (Bld) [#/Vol] 0.4 10*3/uL Normal 0-0.9 [facility] Comment on above: Performed By: #### Elaine SWIFT, CMP, ####[facility] ([id number])[address] [place] [address] 60161 Monocytes/100 WBC (Bld) 7.8 % Normal [facility] Comment on above: Performed By: #### Elaine SWIFT, CMP, ####[facility] ([id number])[address] [place] [address] 74436 Neutrophils/100 WBC (Bld) 70.1 % Normal [facility] Comment on above: Performed By: #### Elaine SWIFT, CMP, ####[facility] ([id number])[address] [place] [address] 03258 Platelet mean volume (Bld) [Entitic vol] 9.4 fL Normal 7-12 [facility] Comment on above: Performed By: #### Elaine SWIFT, CMP, ####[facility] ([id number])[address] [place] [address] 51475 Platelets (Bld) [#/Vol] 119 10*3/uL Low 150-450 [facility] Comment on above: Performed By: #### Elaine BCA, CMP, ####[facility] ([id number])[address] [place] [address] 09106 RBC COUNT 3.10 X10E12/L Low 3.80-5.20 [facility] Comment on above: Performed By: #### C BCA, CMP, 97745-3 ####[facility] ([id number])[address] [place] [address] 47634 WBC (Bld) [#/Vol] 4.9 10*3/uL Normal 4.0-11.0 [facility] Comment on above: Performed By: #### C JAMISON, CMP, 78141-0 ####[facility] ([id number])[address] [place] [address] 17883 COMPREHENSIVE METABOLIC PANE [facility] 08-29-2024 Albumin [Mass/Vol] 3.4 g/dL Normal 3.2-5.3 [facility] Comment on above: Performed By: #### C BCA, CMP, 49971-1 ####[facility] ([id number])[address] [place] [address] 35904 ALP [Catalytic activity/Vol] 97 U/L Normal 39-130 [facility] Comment on above: Performed By: #### C BCA, CMP, 86259-2 ####[facility] ([id number])[address] [place] [address] 57806 ALT [Catalytic activity/Vol] 15 U/L Normal 0-31 [facility] Comment on above: Performed By: #### C BCA, CMP, 95263-7 ####[facility] ([id number])[address] [place] [address] 86615 Anion gap [Moles/Vol] 10 mmol/L Normal 5-15 [facility] Comment on above: Performed By: #### C BCA, CMP, 68621-9 ####[facility] ([id number])[address] [place] [address], [place] [address] AST [Catalytic activity/Vol] 17 U/L Normal 0-41 [facility] Comment on above: Performed By: #### C MALKA SWIFT, ####[facility] ([id number])[address] [place] [address] Bilirubin [Mass/Vol] 0.6 mg/dL Normal 0.3-1.2 [facility] Comment on above: Performed By: #### C MALKA SWIFT, ####[facility] ([id number])[address] [place] [address] Calcium [Mass/Vol] 8.7 mg/dL Normal 8.5-10.5 [facility] Comment on above: Performed By: #### C MALKA SWIFT, ####[facility] ([id number])[address] [place] [address] [place] [address] Chloride [Moles/Vol] 101 mmol/L Normal 98-109 [facility] Comment on above: Performed By: #### C JAMISON [facility], ####[facility] ([id number])[address] [place] [address] CO2 [Moles/Vol] 24 mmol/L Normal 22-32 [facility] Comment on above: Performed By: #### C MALKA SWIFT, ####[facility] ([id number])[address] [place] [address] [place] [address] Creatinine [Mass/Vol] 1.11 mg/dL High 0.40-1.00 [facility] Comment on above: Result Comment: METH OD TRACEABLE TO IDMS STANDARD Performed By: #### C MALKA SWIFT, ####[facility] ([id number])[address] [place] [address] GFR/1.73 sq M.predicted among non-blacks MDRD (S/P/Bld) [Vol rate/Area] 53 mL/min/{1.73_m2} Low >59 [facility] Comment on above: Result Comment: Reported eGFR is based on the CKD-EPI 2020 equation that does not use a race coefficient. Performed By: #### C MALKA SWIFT, ####[facility] ([id number])[address] [place] [address] Glucose [Mass/Vol] 128 mg/dL High 65-99 [facility] Comment on above: Performed By: #### Elaine SWIFT CMP, ####[facility] ([id number])[address] [place] [address] Potassium [Moles/Vol] 3.5 mmol/L Normal 3.5-5.0 [facility] Comment on above: Performed By: #### Elaine SWIFT CMP, ####[facility] ([id number])[address] [place] [address] Protein [Mass/Vol] 6.1 g/dL Normal 6.0-8.0 [facility] Comment on above: Performed By: #### C MALKA SWIFT, [id number] ####[facility] ([id number])[address] [place] [address] [address] Sodium [Moles/Vol] 135 mmol/L Normal 134-146 [facility] Comment on above: Performed By: #### C MALKA SWIFT, 49525-7 ####[facility] ([id number])[address] [place] [address] Urea nitrogen [Mass/Vol] 25 mg/dL Normal 5-27 [facility] Comment on above: Performed By: #### Elaine SWITF CMP, 79411-7 ####[facility] ([id number])[address] [place] [address] [place] [address] MAGNESIUMon 08-29-2024 Magnesium [Mass/Vol] 1.7 mg/dL Low 1.8-2.6 [facility] Comment on above: Performed By: #### C BCA, [facility], 70243-7 ####[facility] ([id number])[address] [place] [address], [place] [address] CBC AND AUTO DIFFon 08-28-19 ABSOLUTE BASOPHIL 0.0 X10E9/L Normal 0.0-0.2 [facility] Comment on above: Performed By: #### B MP #### [facility] ([id number]) [address], [address] [place] [address] ABSOLUTE NEUTROPHIL 5.2 X10E9/L Normal 1.5-6.6 [facility] Comment on above: Performed By: #### B MP #### [facility] ([id number]) [address], [address] [place] [address] Basophils/100 WBC (Bld) 0.5 % Normal [facility] Comment on above: Performed By: #### B MP #### [facility] ([id number]) [address], [address] [place] [address] Eosinophils (Bld) [#/Vol] 0.4 10*3/uL Normal 0.0-0.4 [facility] Comment on above: Performed By: #### B MP #### [facility] ([id number]) [address], [address] [place] [address] Eosinophils/100 WBC (Bld) 6.0 % Normal [facility] Comment on above: Performed By: #### B MP #### [facility] ([id number]) [address], [address] [place] [address] Erythrocyte distribution width (RBC) [Ratio] 13.6 % Normal 11.5-15.0 [facility] Comment on above: Performed By: #### B MP #### [facility] ([id number]) [address], [address] [place] [address] Hematocrit (Bld) [Volume fraction] 29.9 % Low 35-47 [facility] Comment on above: Performed By: #### B MP #### [facility] ([id number]) [address], [address] [place] [address] Hemoglobin (Bld) [Mass/Vol] 10.2 g/dL Low 11.7-15.5 [facility] Comment on above: Performed By: #### B MP #### [facility] ([id number]) [address], [address] [place] [address] Lymphocytes (Bld) [#/Vol] 0.6 10*3/uL Low 1.0-3.5 [facility] Comment on above: Performed By: #### B MP #### [facility] ([id number]) [address], [address] [place] [address] Lymphocytes/100 WBC (Bld) 9.4 % Normal [facility] Comment on above: Performed By: #### B MP #### [facility] ([id number]) [address], [address] [place] [address] MCH (RBC) [Entitic mass] 29.6 pg Normal 27-34 [facility] Comment on above: Performed By: #### B MP #### [facility] ([id number]) [address], [address] [place] [address] MCHC (RBC) [Mass/Vol] 34.0 g/dL Normal 32-36 [facility] Comment on above: Performed By: #### B MP #### [facility] ([id number]) [address], [address] [place] [address] MCV (RBC) [Entitic vol] 87 fL Normal 80-100 [facility] Comment on above: Performed By: #### B MP #### [facility] ([id number]) [address], [address] [place] [address] Monocytes (Bld) [#/Vol] 0.6 10*3/uL Normal 0-0.9 [facility] Comment on above: Performed By: #### B MP #### [facility] ([id number]) [address], [address] [place] [address] Monocytes/100 WBC (Bld) 8.4 % Normal [facility] Comment on above: Performed By: #### B MP #### [facility] ([id number]) [address], [address] [place] [address] Neutrophils/100 WBC (Bld) 75.7 % Normal [facility] Comment on above: Performed By: #### B MP #### [facility] ([id number]) [address], [address] [place] [address] Platelet mean volume (Bld) [Entitic vol] 9.3 fL Normal 7-12 [facility] Comment on above: Performed By: #### B MP #### [facility] ([id number]) [address], [address] [place] [address] Platelets (Bld) [#/Vol] 162 10*3/uL Normal 150-450 [facility] Comment on above: Performed By: #### B MP #### [facility] ([id number]) [address], [address] [place] [address] RBC COUNT 3.43 X10E12/L Low 3.80-5.20 [facility] Comment on above: Performed By: #### B MP #### [facility] ([id number]) [address], [address] [place] [address] WBC (Bld) [#/Vol] 6.8 10*3/uL Normal 4.0-11.0 [facility] Comment on above: Performed By: #### B MP #### [facility] ([id number]) [address] [place] [address], [address] [place] [address] COMPREHENSIVE METABOLIC PANE Dimitrios 08-28-2024 Albumin [Mass/Vol] 4.0 g/dL Normal 3.2-5.3 [facility] Comment on above: Performed By: #### C BCA, PINR, 18264-4, CMP, 23386-8, 66793-9 ####[facility] ([id number])[address] [place] [address] ALP [Catalytic activity/Vol] 102 U/L Normal 39-130 [facility] Comment on above: Performed By: #### C BCA, PINR, 64811-4, CMP, 71275-8, 31023-1 ####[facility] ([id number])[address] [place] [address] ALT [Catalytic activity/Vol] 17 U/L Normal 0-31 [facility] Comment on above: Performed By: #### C BCA, PINR, 93032-8, CMP, 50295-2, 50159-4 ####[facility] ([id number])[address] [place] [address] Anion gap [Moles/Vol] 9 mmol/L Normal 5-15 [facility] Comment on above: Performed By: #### C BCA, PINR, 05152-2, CMP, 13825-1, 83868-6 ####[facility] ([id number])[address] [place] [address] AST [Catalytic activity/Vol] 26 U/L Normal 0-41 [facility] Comment on above: Performed By: #### C BCA, PINR, 49578-4, CMP, 27447-9, 30621-2 ####[facility] ([id number])[address] [place] [address] Bilirubin [Mass/Vol] 1.0 mg/dL Normal 0.3-1.2 [facility] Comment on above: Performed By: #### C BCA, PINR, 96675-4, CMP, 95303-3, 28484-9 ####[facility] ([id number])[address] [place] [address] Calcium [Mass/Vol] 9.2 mg/dL Normal 8.5-10.5 [facility] Comment on above: Performed By: #### C BCA, PINR, 65367-8, CMP, 27965-5, 66620-8 ####[facility] ([id number])[address] [place] [address] Chloride [Moles/Vol] 98 mmol/L Normal 98-109 [facility] Comment on above: Performed By: #### C BCA, PINR, 53903-9, CMP, 89308-1, 61357-0 ####[facility] ([id number])[address] [place] [address] CO2 [Moles/Vol] 21 mmol/L Low 22-32 [facility] Comment on above: Performed By: #### C BCA, PINR, 95937-5, CMP, 80485-6, 64888-5 ####[facility] ([id number])[address] [place] [address] Creatinine [Mass/Vol] 1.59 mg/dL High 0.40-1.00 [facility] Comment on above: Result Comment: METH OD TRACEABLE TO IDMS STANDARD Performed By: #### C BCA, PINR, 63063-3, CMP, 53120-3, 96194-6 ####[facility] ([id number])[address] [place] [address] GFR/1.73 sq M.predicted among non-blacks MDRD (S/P/Bld) [Vol rate/Area] 35 mL/min/{1.73_m2} Low >59 [facility] Comment on above: Result Comment: Reported eGFR is based on the CKD-EPI 2020 equation that does not use a race coefficient. Performed By: #### C BCA, PINR, 32119-1, CMP, 15939-2, 30067-5 ####[facility] ([id number])[address] [place] [address] Glucose [Mass/Vol] 170 mg/dL High 65-99 [facility] Comment on above: Performed By: #### C BCA, PINR, 65014-2, CMP, 27063-1, 47912-6 ####[facility] ([id number])[address] [place] [address] Potassium [Moles/Vol] 4.4 mmol/L Normal 3.5-5.0 [facility] Comment on above: Performed By: #### C BCA, PINR, 76687-0, CMP, 74213-4, 94578-0 ####[facility] ([id number])[address] [place] [address] Protein [Mass/Vol] 6.7 g/dL Normal 6.0-8.0 [facility] Comment on above: Performed By: #### C BCA, PINR, 90236-8, CMP, 50027-9, 89178-2 ####[facility] ([id number])[address] [place] [address] Sodium [Moles/Vol] 128 mmol/L Low 134-146 [facility] Comment on above: Performed By: #### C BCA, PINR, 79595-5, CMP, 09454-1, 36838-5 ####[facility] ([id number])[address] [place] [address] Urea nitrogen [Mass/Vol] 30 mg/dL High 5-27 [facility] Comment on above: Performed By: #### C SINDY SWIFT, 67441-0, [facility], 69772-2, 82343-9 ####[facility] ([id number])[address] [place] [address] Glucose Glucometer (BldC) [M ass/Vol]on 08-28-2024 Glucose [Mass/Vol] 122 mg/dL High 65-99 [facility] Lactate (P miguel) [Moles/Vol]o n 08-28-2024 LACTATE W/REFLEX 1.1 mmol/L Normal 0.4-2.0 [facility] Comment on above: Result Comment: Result did not trigger repeat Lactate, re-order if needed. Performed By: #### 3 2133-1 ####[facility] ([id number])[address] [place] [address] MAGNESIUMon 08-28-2024 Magnesium [Mass/Vol] 1.7 mg/dL Low 1.8-2.6 [facility] Comment on above: Performed By: #### C SINDY SWIFT, 77063-4, [facility], 40647-5, 37307-8 ####[facility] ([id number])[address] [place] [address] PROTIME AND INRon 08-28-2024 INR Coag (PPP) [Relative time] 1.7 {INR} High 0.8-1.1 [facility] Comment on above: Performed By: #### B MP #### [facility] ([id number]) [address], [address] [place] [address] PT Coag (PPP) [Time] 18.9 s High 9.8-13.2 [facility] Comment on above: Result Comment: NEW REFERENCE RANGE Performed By: #### B MP #### [facility] ([id number]) [address] [place] [address] Troponin I.cardiac High sens itivity method [Mass/Vol]on 08-28-2024 1 HOUR TROP I, HIGH SENSITIVITY 7 ng/L Normal <16 [facility] Comment on above: Performed By: #### 8 9579-7 ####[facility] ([id number])[address] [place] [address] TROPONIN I, HIGH SENSITIVITY 7 ng/L Normal <16 [facility] Comment on above: Performed By: #### C BCA, PINR, 96433-4, CMP, 21394-1, 37607-3 ####[facility] ([id number])[address] [place] [address] XR ABDOM COMP SERIES W PA CH ESTon 08-28-2024 XR ABDOM COMP SERIES W PA CHEST XR ABDOM COMP SERIES W PA CHEST XR ABDOM COMP SERIES W PA CHEST CLINICAL INDICATION: rectal pain COMPARISON STUDY: 03/20/2022, CT abdomen pelvis 08/25/2024 IMPRESSION: 1. No focal consolidation. 2. No pleural effusion or pneumothorax by radiography. 3. Normal cardiomediastinal silhouette. 4. Mildly dilated loops of small bowel in the left hemiabdomen, multiple air-fluid levels, findings may reflect ileus or obstruction. 5. No convincing intraperitoneal free air. 6. Median sternotomy wires and mediastinal surgical clips. Surgical clips overlie the pelvis. Finalized by Nicko Shirley on 08/28/2024 11:22 AM Normal [facility] aPTT Coag (PPP) [Time]on aPTT Coag (Bld) [Time] 38 s High 26-37 [facility] Comment on above: Result Comment: NEW REFERENCE RANGE Performed By: #### C BCA, PINR, 28997-0, CMP, 62625-4, 16433-0 ####[facility] ([id number])[address] [place] [address] CBC AND AUTO DIFFon 08-25-19 25 ABSOLUTE BASOPHIL 0.1 X10E9/L Normal 0.0-0.2 [facility] Comment on above: Performed By: #### B MP #### [facility] ([id number]) [address], [address] [place] [address] ABSOLUTE NEUTROPHIL 11.0 X10E9/L High 1.5-6.6 [facility] Comment on above: Performed By: #### B MP #### [facility] ([id number]) [address], [address] [place] [address] Basophils/100 WBC (Bld) 0.5 % Normal [facility] Comment on above: Performed By: #### B MP #### [facility] ([id number]) [address], [address] [place] [address] Eosinophils (Bld) [#/Vol] 0.2 10*3/uL Normal 0.0-0.4 [facility] Comment on above: Performed By: #### B MP #### [facility] ([id number]) [address], [address] [place] [address] Eosinophils/100 WBC (Bld) 1.5 % Normal [facility] Comment on above: Performed By: #### B MP #### [facility] ([id number]) [address], [address] [place] [address] Erythrocyte distribution width (RBC) [Ratio] 13.8 % Normal 11.5-15.0 [facility] Comment on above: Performed By: #### B MP #### [facility] ([id number]) [address], [address] [place] [address] Hematocrit (Bld) [Volume fraction] 32.2 % Low 35-47 [facility] Comment on above: Performed By: #### B MP #### [facility] ([id number]) [address], [address] [place] [address] Hemoglobin (Bld) [Mass/Vol] 10.8 g/dL Low 11.7-15.5 [facility] Comment on above: Performed By: #### B MP #### [facility] ([id number]) [address], [address] [place] [address] Lymphocytes (Bld) [#/Vol] 0.6 10*3/uL Low 1.0-3.5 [facility] Comment on above: Performed By: #### B MP #### [facility] ([id number]) [address], [address] [place] [address] Lymphocytes/100 WBC (Bld) 4.9 % Normal [facility] Comment on above: Performed By: #### B MP #### [facility] ([id number]) [address], [address] [place] [address] MCH (RBC) [Entitic mass] 29.8 pg Normal 27-34 [facility] Comment on above: Performed By: #### B MP #### [facility] ([id number]) [address], [address] [place] [address] MCHC (RBC) [Mass/Vol] 33.6 g/dL Normal 32-36 [facility] Comment on above: Performed By: #### B MP #### [facility] ([id number]) [address], [address] [place] [address] MCV (RBC) [Entitic vol] 89 fL Normal 80-100 [facility] Comment on above: Performed By: #### B MP #### [facility] ([id number]) [address], [address] [place] [address] Monocytes (Bld) [#/Vol] 0.7 10*3/uL Normal 0-0.9 [facility] Comment on above: Performed By: #### B MP #### [facility] ([id number]) [address], [address] [place] [address] Monocytes/100 WBC (Bld) 5.3 % Normal [facility] Comment on above: Performed By: #### B MP #### [facility] ([id number]) [address], [facility] [address] [place] [address] Neutrophils/100 WBC (Bld) 87.8 % Normal [facility] Comment on above: Performed By: #### B MP #### [facility] ([id number]) [address] [address] Platelet mean volume (Bld) [Entitic vol] 9.3 fL Normal 7-12 [facility] Comment on above: Performed By: #### B MP #### [facility] ([id number]) [address] [address] Platelets (Bld) [#/Vol] 179 10*3/uL Normal 150-450 [facility] Comment on above: Performed By: #### B MP #### [facility] ([id number]) [address], [facility] [address] [place] [address] RBC COUNT 3.63 X10E12/L Low 3.80-5.20 [facility] Comment on above: Performed By: #### B MP #### [facility] ([id number]) [address] [address] WBC (Bld) [#/Vol] 12.5 10*3/uL High 4.0-11.0 [facility] Comment on above: Performed By: #### B MP #### [facility] ([id number]) [address] [address] [place] [address] COMPREHENSIVE METABOLIC PANE Dimitrios 08-25-2024 Albumin [Mass/Vol] 4.3 g/dL Normal 3.2-5.3 [facility] Comment on above: Performed By: #### B MP #### [facility] ([id number]) [address], [address] [place] [address] ALP [Catalytic activity/Vol] 105 U/L Normal 39-130 [facility] Comment on above: Performed By: #### B MP #### [facility] ([id number]) [address], [address] [place] [address] ALT [Catalytic activity/Vol] 13 U/L Normal 0-31 [facility] Comment on above: Performed By: #### B MP #### [facility] ([id number]) [address], [address] [place] [address] Anion gap [Moles/Vol] 10 mmol/L Normal 5-15 [facility] Comment on above: Performed By: #### B MP #### [facility] ([id number]) [address], [address] [place] [address] AST [Catalytic activity/Vol] 18 U/L Normal 0-41 [facility] Comment on above: Performed By: #### B MP #### [facility] ([id number]) [address], [address] [place] [address] Bilirubin [Mass/Vol] 0.8 mg/dL Normal 0.3-1.2 [facility] Comment on above: Performed By: #### B MP #### [facility] ([id number]) [address], [address] [place] [address] Calcium [Mass/Vol] 9.5 mg/dL Normal 8.5-10.5 [facility] Comment on above: Performed By: #### B MP #### [facility] ([id number]) [address], [address] [place] [address] Chloride [Moles/Vol] 101 mmol/L Normal 98-109 [facility] Comment on above: Performed By: #### B MP #### [facility] ([id number]) [address] [address] [place] [address] CO2 [Moles/Vol] 24 mmol/L Normal 22-32 [facility] Comment on above: Performed By: #### B MP #### [facility] ([id number]) [address] [address] [place] [address] Creatinine [Mass/Vol] 1.56 mg/dL High 0.40-1.00 [facility] Comment on above: Result Comment: METH OD TRACEABLE TO IDMS STANDARD Performed By: #### B MP #### [facility] ([id number]) [address] [facility] [address] [place] [address] GFR/1.73 sq M.predicted among non-blacks MDRD (S/P/Bld) [Vol rate/Area] 35 mL/min/{1.73_m2} Low >59 [facility] Comment on above: Result Comment: Reported eGFR is based on the CKD-EPI 2020 equation that does not use a race coefficient. Performed By: #### B MP #### [facility] ([id number]) [address] [address] [place] [address] Glucose [Mass/Vol] 196 mg/dL High 65-99 [facility] Comment on above: Performed By: #### B MP #### [facility] ([id number]) [address] [address] [place] [address] Potassium [Moles/Vol] 4.4 mmol/L Normal 3.5-5.0 [facility] Comment on above: Performed By: #### B MP #### [facility] ([id number]) [address] [address] [place] [address] Protein [Mass/Vol] 7.5 g/dL Normal 6.0-8.0 [facility] Comment on above: Performed By: #### B MP #### [facility] ([id number]) [address] [place] [address] Sodium [Moles/Vol] 135 mmol/L Normal 134-146 [facility] Comment on above: Performed By: #### B MP #### [facility] ([id number]) [address] [place] [address] Urea nitrogen [Mass/Vol] 33 mg/dL High 5-27 [facility] Comment on above: Performed By: #### B MP #### [facility] ([id number]) [address] [place] [address] CT ABDOMEN AND PELVIS W CONT on 08-25-2024 CT ABDOMEN AND PELVIS W CONT CT ABDOMEN AND PELVIS W CONT CT ABDOMEN AND PELVIS W CONT HISTORY: Abdominal pain, acute, nonlocalized; diarrhea, blood in stool, diverticulitis COMPARISON STUDY: 08/17/2022. TECHNIQUE: CT scan of the abdomen and pelvis performed with IV no oral contrast. 100 mL of Omnipaque 300 was injected intravenously without complication. Coronal and sagittal reformats generated and reviewed. FINDINGS: LOWER THORAX: Unremarkable. HEPATOBILIARY: Hepatic steatosis. No focal aggressive appearing hepatic lesions. Mild dilatation of the common bile duct, with upstream tapering of the intrahepatic biliary tree, nonspecific, but likely related to reservoir effect status post cholecystectomy. SPLEEN: Mild splenomegaly measuring up to 14.4 cm. PANCREAS: No focal masses or ductal dilatation. ADRENALS: No large adrenal nodules. KIDNEYS/URETERS: Symmetric renal nephrograms No aggressive appearing mass lesion. No obstructive nephrolithiasis. No collecting system dilatation. Bladder: Within normal limits. PELVIC ORGANS: Status post hysterectomy. GI TRACT: Rectal stool ball measures up to 8 cm. Upstream liquid stool contents. No acute bowel obstruction. Colonic diverticulosis without inflammatory change. The appendix is within normal limits. LYMPH NODES: No enlarged lymph nodes. VESSELS: No acute thrombus. No abdominal aortic aneurysm. BONES AND SOFT TISSUES: No suspicious osseous lesion. PERITONEUM/RETROPERIT ONEUM: No free air or significant free fluid. Trace presacral stranding. IMPRESSION: * Rectal stool ball measures up to 8 cm, with upstream liquid colonic contents, compatible with reported diarrheal state. Consider overflow diarrhea. All CT scans at this facility use dose modulation, iterative reconstruction, and/or weight based dosing when appropriate to reduce radiation dose to as low as reasonably achievable. Finalized by Nicko Shirley on 08/25/2024 6:02 PM Normal [facility] LIPASEon 08-25-2024 Lipase [Catalytic activity/Vol] 21 U/L Normal 17-40 [facility] Comment on above: Performed By: #### B MP #### [facility] ([id number]) [address], [address] [place] [address] CBC AND AUTO DIFFon 08-24-19 25 ABSOLUTE BASOPHIL 0.1 X10E9/L Normal 0.0-0.2 [facility] Comment on above: Performed By: #### B MP #### [facility] ([id number]) [address], [address] [place] [address] ABSOLUTE NEUTROPHIL 7.5 X10E9/L High 1.5-6.6 [facility] Comment on above: Performed By: #### B MP #### [facility] ([id number]) [address], [address] [place] [address] Basophils/100 WBC (Bld) 1.0 % Normal [facility] Comment on above: Performed By: #### B MP #### [facility] ([id number]) [address], [address] [place] [address] Eosinophils (Bld) [#/Vol] 0.3 10*3/uL Normal 0.0-0.4 [facility] Comment on above: Performed By: #### B MP #### [facility] ([id number]) [address], [address] [place] [address] Eosinophils/100 WBC (Bld) 3.1 % Normal [facility] Comment on above: Performed By: #### B MP #### [facility] ([id number]) [address], [address] [place] [address] Erythrocyte distribution width (RBC) [Ratio] 13.8 % Normal 11.5-15.0 [facility] Comment on above: Performed By: #### B MP #### [facility] ([id number]) [address], [address] [place] [address] Hematocrit (Bld) [Volume fraction] 30.0 % Low 35-47 [facility] Comment on above: Performed By: #### B MP #### [facility] ([id number]) [address], [address] [place] [address] Hemoglobin (Bld) [Mass/Vol] 10.1 g/dL Low 11.7-15.5 [facility] Comment on above: Performed By: #### B MP #### [facility] ([id number]) [address], [address] [place] [address] Lymphocytes (Bld) [#/Vol] 0.7 10*3/uL Low 1.0-3.5 [facility] Comment on above: Performed By: #### B MP #### [facility] ([id number]) [address], [address] [place] [address] Lymphocytes/100 WBC (Bld) 8.1 % Normal [facility] Comment on above: Performed By: #### B MP #### [facility] ([id number]) [address], [address] [place] [address] MCH (RBC) [Entitic mass] 30.1 pg Normal 27-34 [facility] Comment on above: Performed By: #### B MP #### [facility] ([id number]) [address], [address] [place] [address] MCHC (RBC) [Mass/Vol] 33.8 g/dL Normal 32-36 [facility] Comment on above: Performed By: #### B MP #### [facility] ([id number]) [address], [address] [place] [address] MCV (RBC) [Entitic vol] 89 fL Normal 80-100 [facility] Comment on above: Performed By: #### B MP #### [facility] ([id number]) [address], [address] [place] [address] Monocytes (Bld) [#/Vol] 0.5 10*3/uL Normal 0-0.9 [facility] Comment on above: Performed By: #### B MP #### [facility] ([id number]) [address] [place] [address] Monocytes/100 WBC (Bld) 5.2 % Normal [facility] Comment on above: Performed By: #### B MP #### [facility] ([id number]) [address], [address] [place] [address] Neutrophils/100 WBC (Bld) 82.6 % Normal [facility] Comment on above: Performed By: #### B MP #### [facility] ([id number]) [address] [place] [address] Platelet mean volume (Bld) [Entitic vol] 9.2 fL Normal 7-12 [facility] Comment on above: Performed By: #### B MP #### [facility] ([id number]) [address], [address] [place] [address] Platelets (Bld) [#/Vol] 117 10*3/uL Low 150-450 [facility] Comment on above: Performed By: #### B MP #### [facility] ([id number]) [address], [address] [place] [address] RBC COUNT 3.37 X10E12/L Low 3.80-5.20 [facility] Comment on above: Performed By: #### B MP #### [facility] ([id number]) [address], [address] [place] [address] WBC (Bld) [#/Vol] 9.1 10*3/uL Normal 4.0-11.0 [facility] Comment on above: Performed By: #### B MP #### [facility] ([id number]) [address], [address] [place] [address] ABSOLUTE BASOPHIL 0.1 X10E9/L Normal 0.0-0.2 [facility] Comment on above: Performed By: #### B MP #### [facility] ([id number]) [address], [address] [place] [address] ABSOLUTE NEUTROPHIL 8.0 X10E9/L High 1.5-6.6 [facility] Comment on above: Performed By: #### B MP #### [facility] ([id number]) [address], [address] [place] [address] Basophils/100 WBC (Bld) 0.8 % Normal [facility] Comment on above: Performed By: #### B MP #### [facility] ([id number]) [address], [address] [place] [address] Eosinophils (Bld) [#/Vol] 0.3 10*3/uL Normal 0.0-0.4 [facility] Comment on above: Performed By: #### B MP #### [facility] ([id number]) [address], [address] [place] [address] Eosinophils/100 WBC (Bld) 2.9 % Normal [facility] Comment on above: Performed By: #### B MP #### [facility] ([id number]) [address], [address] [place] [address] Erythrocyte distribution width (RBC) [Ratio] 14.2 % Normal 11.5-15.0 [facility] Comment on above: Performed By: #### B MP #### [facility] ([id number]) [address], [address] [place] [address] Hematocrit (Bld) [Volume fraction] 29.4 % Low 35-47 [facility] Comment on above: Performed By: #### B MP #### [facility] ([id number]) [address], [address] [place] [address] Hemoglobin (Bld) [Mass/Vol] 10.3 g/dL Low 11.7-15.5 [facility] Comment on above: Performed By: #### B MP #### [facility] ([id number]) [address], [address] [place] [address] Lymphocytes (Bld) [#/Vol] 0.6 10*3/uL Low 1.0-3.5 [facility] Comment on above: Performed By: #### B MP #### [facility] ([id number]) [address], [address] [place] [address] Lymphocytes/100 WBC (Bld) 6.6 % Normal [facility] Comment on above: Performed By: #### B MP #### [facility] ([id number]) [address], [address] [place] [address] MCH (RBC) [Entitic mass] 31.3 pg Normal 27-34 [facility] Comment on above: Performed By: #### B MP #### [facility] ([id number]) [address], [address] [place] [address] MCHC (RBC) [Mass/Vol] 35.1 g/dL Normal 32-36 [facility] Comment on above: Performed By: #### B MP #### [facility] ([id number]) [address], [address] [place] [address] MCV (RBC) [Entitic vol] 89 fL Normal 80-100 [facility] Comment on above: Performed By: #### B MP #### [facility] ([id number]) [address], [address] [place] [address] Monocytes (Bld) [#/Vol] 0.5 10*3/uL Normal 0-0.9 [facility] Comment on above: Performed By: #### B MP #### [facility] ([id number]) [address], [address] [place] [address] Monocytes/100 WBC (Bld) 5.0 % Normal [facility] Comment on above: Performed By: #### B MP #### [facility] ([id number]) [address], [facility] [address] [place] [address] Neutrophils/100 WBC (Bld) 84.7 % Normal [facility] Comment on above: Performed By: #### B MP #### [facility] ([id number]) [address], [address] [place] [address] Platelet mean volume (Bld) [Entitic vol] 9.0 fL Normal 7-12 [facility] Comment on above: Performed By: #### B MP #### [facility] ([id number]) [address], [address] [place] [address] Platelets (Bld) [#/Vol] 122 10*3/uL Low 150-450 [facility] Comment on above: Performed By: #### B MP #### [facility] ([id number]) [address], [address] [place] [address] RBC COUNT 3.29 X10E12/L Low 3.80-5.20 [facility] Comment on above: Performed By: #### B MP #### [facility] ([id number]) [address], [address] [place] [address] WBC (Bld) [#/Vol] 9.4 10*3/uL Normal 4.0-11.0 [facility] Comment on above: Performed By: #### B #### [facility] ([id number]) [address], [address] [place] [address] ABSOLUTE BASOPHIL 0.0 X10E9/L Normal 0.0-0.2 [facility] Comment on above: Performed By: #### C BCA, CMP, PINR, 46081-2 #### [facility] ([id number]) [address] [place] [address] ABSOLUTE NEUTROPHIL 8.3 X10E9/L High 1.5-6.6 [facility] Comment on above: Performed By: #### C BCA, CMP, PINR, 35223-9 #### [facility] ([id number]) [address] [place] [address] Basophils/100 WBC (Bld) 0.4 % Normal [facility] Comment on above: Performed By: #### C BCA, CMP, PINR, 66722-8 #### [facility] ([id number]) [address] [place] [address] Eosinophils (Bld) [#/Vol] 0.4 10*3/uL Normal 0.0-0.4 [facility] Comment on above: Performed By: #### C BCA, CMP, PINR, 51257-6 #### [facility] ([id number]) [address] [place] [address] Eosinophils/100 WBC (Bld) 4.2 % Normal [facility] Comment on above: Performed By: #### C BCA, CMP, PINR, 22223-8 #### [facility] ([id number]) [address] [place] [address] Erythrocyte distribution width (RBC) [Ratio] 14.0 % Normal 11.5-15.0 [facility] Comment on above: Performed By: #### C BCA, CMP, PINR, 97804-4 #### [facility] ([id number]) [address] [place] [address] Hematocrit (Bld) [Volume fraction] 32.5 % Low 35-47 [facility] Comment on above: Performed By: #### C BCA, CMP, PINR, 19346-1 #### [facility] ([id number]) [address] [place] [address] Hemoglobin (Bld) [Mass/Vol] 11.0 g/dL Low 11.7-15.5 [facility] Comment on above: Performed By: #### C BCA, CMP, PINR, 48955-8 #### [facility] ([id number]) [address] [place] [address] Lymphocytes (Bld) [#/Vol] 0.6 10*3/uL Low 1.0-3.5 [facility] Comment on above: Performed By: #### C BCA, CMP, PINR, 12200-9 #### [facility] ([id number]) [address] [place] [address] Lymphocytes/100 WBC (Bld) 6.4 % Normal [facility] Comment on above: Performed By: #### C BCA, CMP, PINR, 49365-6 #### [facility] ([id number]) [address] [place] [address] MCH (RBC) [Entitic mass] 30.0 pg Normal 27-34 [facility] Comment on above: Performed By: #### C BCA, CMP, PINR, 61847-6 #### [facility] ([id number]) [address] [place] [address] MCHC (RBC) [Mass/Vol] 33.8 g/dL Normal 32-36 [facility] Comment on above: Performed By: #### C BCA, CMP, PINR, 08054-8 #### [facility] ([id number]) [address] [place] [address] MCV (RBC) [Entitic vol] 89 fL Normal 80-100 [facility] Comment on above: Performed By: #### C BCA, CMP, PINR, 34409-5 #### [facility] ([id number]) [address] [place] [address] Monocytes (Bld) [#/Vol] 0.4 10*3/uL Normal 0-0.9 [facility] Comment on above: Performed By: #### C BCA, CMP, PINR, 49130-8 #### [facility] ([id number]) [address] [place] [address] Monocytes/100 WBC (Bld) 3.7 % Normal [facility] Comment on above: Performed By: #### C BCA, CMP, PINR, 03003-9 #### [facility] ([id number]) [address] [place] [address] Neutrophils/100 WBC (Bld) 85.3 % Normal [facility] Comment on above: Performed By: #### C BCA, CMP, PINR, 68668-9 #### [facility] ([id number]) [address] [place] [address] Platelet mean volume (Bld) [Entitic vol] 9.0 fL Normal 7-12 [facility] Comment on above: Performed By: #### C BCA, CMP, PINR, 12925-2 #### [facility] ([id number]) [address] [place] [address] Platelets (Bld) [#/Vol] 152 10*3/uL Normal 150-450 [facility] Comment on above: Performed By: #### C BCA, CMP, PINR, 81313-8 #### [facility] ([id number]) [address] [place] [address] RBC COUNT 3.67 X10E12/L Low 3.80-5.20 [facility] Comment on above: Performed By: #### C BCA, CMP, PINR, 66484-1 #### [facility] ([id number]) [address] [place] [address] WBC (Bld) [#/Vol] 9.7 10*3/uL Normal 4.0-11.0 [facility] Comment on above: Performed By: #### C BCA, CMP, PINR, 64684-8 #### [facility] ([id number]) [address] [place] [address] COMPREHENSIVE METABOLIC PANE Dimitrios 08-24-2024 Albumin [Mass/Vol] 4.5 g/dL Normal 3.2-5.3 [facility] Comment on above: Performed By: #### C BCA, CMP, PINR, 13198-9 #### [facility] ([id number]) [address] [place] [address] ALP [Catalytic activity/Vol] 109 U/L Normal 39-130 [facility] Comment on above: Performed By: #### C BCA, CMP, PINR, 37093-4 #### [facility] ([id number]) [address] [place] [address] ALT [Catalytic activity/Vol] 13 U/L Normal 0-31 [facility] Comment on above: Performed By: #### C BCA, CMP, PINR, 69971-1 #### [facility] ([id number]) [address] [place] [address] Anion gap [Moles/Vol] 11 mmol/L Normal 5-15 [facility] Comment on above: Performed By: #### C BCA, CMP, PINR, 34536-3 #### [facility] ([id number]) [address] [place] [address] AST [Catalytic activity/Vol] 16 U/L Normal 0-41 [facility] Comment on above: Performed By: #### C BCA, CMP, PINR, 12555-3 #### [facility] ([id number]) [address] [place] [address] Bilirubin [Mass/Vol] 0.7 mg/dL Normal 0.3-1.2 [facility] Comment on above: Performed By: #### C BCA, CMP, PINR, 56545-7 #### [facility] ([id number]) [address] [place] [address] Calcium [Mass/Vol] 9.5 mg/dL Normal 8.5-10.5 [facility] Comment on above: Performed By: #### C BCA, CMP, PINR, 51361-6 #### [facility] ([id number]) [address] [place] [address] Chloride [Moles/Vol] 102 mmol/L Normal 98-109 [facility] Comment on above: Performed By: #### C BCA, CMP, PINR, 00536-9 #### [facility] ([id number]) [address] [place] [address] CO2 [Moles/Vol] 23 mmol/L Normal 22-32 [facility] Comment on above: Performed By: #### C BCA, CMP, PINR, 77938-2 #### [facility] ([id number]) [address] [place] [address] Creatinine [Mass/Vol] 1.39 mg/dL High 0.40-1.00 [facility] Comment on above: Result Comment: METH OD TRACEABLE TO IDMS STANDARD Performed By: #### C BCA, CMP, PINR, 34340-2 #### [facility] ([id number]) [address] [place] [address] GFR/1.73 sq M.predicted among non-blacks MDRD (S/P/Bld) [Vol rate/Area] 41 mL/min/{1.73_m2} Low >59 [facility] Comment on above: Result Comment: Reported eGFR is based on the CKD-EPI 2020 equation that does not use a race coefficient. Performed By: #### C BCA, CMP, PINR, 11565-9 #### [facility] ([id number]) [address] [place] [address] Glucose [Mass/Vol] 156 mg/dL High 65-99 [facility] Comment on above: Performed By: #### C BCA, CMP, PINR, 92129-7 #### [facility] ([id number]) [address] [place] [address] Potassium [Moles/Vol] 4.1 mmol/L Normal 3.5-5.0 [facility] Comment on above: Performed By: #### C BCA, CMP, PINR, 58346-4 #### [facility] ([id number]) [address] [place] [address]2622 Protein [Mass/Vol] 7.4 g/dL Normal 6.0-8.0 [facility] Comment on above: Performed By: #### C BCA, CMP, PINR, 87583-0 #### [facility] ([id number]) [address] [place] [address]247 Sodium [Moles/Vol] 136 mmol/L Normal 134-146 [facility] Comment on above: Performed By: #### C BCA, CMP, PINR, 40162-7 #### [facility] ([id number]) [address] [place] [address] Urea nitrogen [Mass/Vol] 35 mg/dL High 5-27 [facility] Comment on above: Performed By: #### C BCA, CMP, PINR, 81149-9 #### [facility] ([id number]) [address] [facility], [place] [address] PROTIME AND INRon 08-24-2024 INR Coag (PPP) [Relative time] 2.4 {INR} High 0.8-1.1 [facility] Comment on above: Performed By: #### B MP #### [facility] ([id number]) [address], [address] [place] [address] PT Coag (PPP) [Time] 26.8 s High 9.8-13.2 [facility] Comment on above: Result Comment: NEW REFERENCE RANGE Performed By: #### B MP #### [facility] ([id number]) [address], [address] [place] [address] aPTT Coag (PPP) [Time]on aPTT Coag (Bld) [Time] 56 s High 26-37 [facility] Comment on above: Result Comment: NEW REFERENCE RANGE Performed By: #### B MP #### [facility] ([id number]) [address] [address] [place] [address] HGB AND HCTon 08-06-2024 Hematocrit (Bld) [Volume fraction] 32.3 % Low 35-47 [facility] Comment on above: Performed By: #### H H #### [facility] ([id number]) [address], [address] [place] [address] Hemoglobin (Bld) [Mass/Vol] 10.8 g/dL Low 11.7-15.5 [facility] Comment on above: Performed By: #### H H #### [facility] ([id number]) [address], [address] [place] [address] URINE CULTUREon 04-09-2024 Bacteria identified Cx Nom [...] <=16 F VANCOMYCIN S 1 F Susceptible [facility] Comment on above: Performed By: #### 6 30-4 #### [facility] ([id number]) [address] [place] [address], [address] [place] [address] URN MACROSCOPIC NURon 2023 BILIRUBIN JOHNNY Negative Normal [facility] Comment on above: Performed By: #### N UM #### [facility] ([id number]) [address] [place] [address] BLOOD/HGB JOHNNY Negative Normal [facility] Comment on above: Performed By: #### N UM #### [facility] ([id number]) [address] [place] [address] GLUCOSE JOHNNY Negative Normal [facility] Comment on above: Performed By: #### N UM #### [facility] ([id number]) [address] [place] [address] KETONES JOHNNY Negative Normal NEG [facility] Comment on above: Performed By: #### N UM #### [facility] ([id number]) [address] [place] [address]90 LEUKOCYTE ESTERASE JOHNNY Trace Abnormal [facility] Comment on above: Performed By: #### N UM #### [facility] ([id number]) [address] [place] [address] NITRITE JOHNNY Negative Normal NEG [facility] Comment on above: Performed By: #### N UM #### [facility] ([id number]) [address] [place] [address] PH JOHNNY 8.5 Normal 5.0-8.5 [facility] Comment on above: Performed By: #### N UM #### [facility] ([id number]) [address] [place] [address] PROTEIN JOHNNY Negative Normal NEG [facility] Comment on above: Performed By: #### N UM #### [facility] ([id number]) [address] [place] [address] SPECIFIC GRAVITY JOHNNY 1.015 Normal 1.003-1.035 [facility] Comment on above: Performed By: #### N UM #### [facility] ([id number]) [address] [place] [address] UROBILINOGEN JOHNNY 1.0 eu/dL Normal <1.1 [facility] Comment on above: Performed By: #### N UM #### [facility] ([id number]) [address] [place] [address] XR SHOULDER RT MIN 2 VWSon 0 [...] Pal MD on 04/09/2024 9:49 AM Normal [facility] XR SHOULDER RT MIN 2 VWSon [...] Page MD on 03/23/2024 10:12 AM Normal [facility] BASIC METABOLIC PANLon 11-27 Anion gap [Moles/Vol] 13 mmol/L Normal 5-15 [facility] Comment on above: Performed By: #### B MP #### [facility] ([id number]) [address], [address] [place] [address] Calcium [Mass/Vol] 10.1 mg/dL Normal 8.5-10.5 [facility] Comment on above: Performed By: #### B MP #### [facility] ([id number]) [address], [address] [place] [address] Chloride [Moles/Vol] 99 mmol/L Normal 98-109 [facility] Comment on above: Performed By: #### B MP #### [facility] ([id number]) [address], [address] [place] [address] CO2 [Moles/Vol] 27 mmol/L Normal 22-32 [facility] Comment on above: Performed By: #### B MP #### [facility] ([id number]) [address], [address] [place] [address] Creatinine [Mass/Vol] 1.05 mg/dL High 0.40-1.00 [facility] Comment on above: Result Comment: METH OD TRACEABLE TO IDMS STANDARD Performed By: #### B MP #### [facility] ([id number]) [address], [address] [place] [address] GFR/1.73 sq M.predicted among non-blacks MDRD (S/P/Bld) [Vol rate/Area] 57 mL/min/{1.73_m2} Low >59 [facility] Comment on above: Result Comment: Reported eGFR is based on the CKD-EPI 2020 equation that does not use a race coefficient. Performed By: #### B MP #### [facility] ([id number]) [address], [address] [place] [address] Glucose [Mass/Vol] 126 mg/dL High 65-99 [facility] Comment on above: Performed By: #### B MP #### [facility] ([id number]) [address], [address] [place] [address] Potassium [Moles/Vol] 4.5 mmol/L Normal 3.5-5.0 [facility] Comment on above: Performed By: #### B MP #### [facility] ([id number]) [address], [address] [place] [address] Sodium [Moles/Vol] 139 mmol/L Normal 134-146 [facility] Comment on above: Performed By: #### B MP #### [facility] ([id number]) [address], [address] [place] [address] Urea nitrogen [Mass/Vol] 21 mg/dL Normal 5-27 [facility] Comment on above: Performed By: #### B MP #### [facility] ([id number]) [address], [address] [place] [address] US RETROPERITONEAL COMPLETEo n 11-28-2023 US RETROPERITONEAL [...] Rincon MD on 11/28/2023 2:50 PM Normal [facility] HbA1c HPLC (Bld) [Mass fract ion]on 11-18-2023 HbA1c (Bld) [Mass fraction] 7.0 % [facility] No Panel Informationon 11-17 Bedside Glucose 145 [facility] CBC AND AUTO DIFFon 11-13-19 ABSOLUTE BASOPHIL 0.1 X10E9/L Normal 0.0-0.2 [facility] Comment on above: Performed By: #### C BCA #### [facility] ([id number]) [address], [address] [place] [address] ABSOLUTE NEUTROPHIL 5.3 X10E9/L Normal 1.5-6.6 [facility] Comment on above: Performed By: #### C BCA #### [facility] ([id number]) [address] [address] [place] [address] Basophils/100 WBC (Bld) 0.9 % Normal [facility] Comment on above: Performed By: #### C BCA #### [facility] ([id number]) [address] [address] [place] [address] Eosinophils (Bld) [#/Vol] 0.2 10*3/uL Normal 0.0-0.4 [facility] Comment on above: Performed By: #### C BCA #### [facility] ([id number]) [address] [address] [place] [address] Eosinophils/100 WBC (Bld) 2.9 % Normal [facility] Comment on above: Performed By: #### C BCA #### [facility] ([id number]) [address] [address] [place] [address] Erythrocyte distribution width (RBC) [Ratio] 13.7 % Normal 11.5-15.0 [facility] Comment on above: Performed By: #### C BCA #### [facility] ([id number]) [address] [place] [address] Hematocrit (Bld) [Volume fraction] 34.7 % Low 35-47 [facility] Comment on above: Performed By: #### C BCA #### [facility] ([id number]) [address], [address] [place] [address] Hemoglobin (Bld) [Mass/Vol] 11.9 g/dL Normal 11.7-15.5 [facility] Comment on above: Performed By: #### C BCA #### [facility] ([id number]) [address], [address] [place] [address] Lymphocytes (Bld) [#/Vol] 1.4 10*3/uL Normal 1.0-3.5 [facility] Comment on above: Performed By: #### C BCA #### [facility] ([id number]) [address], [address] [place] [address] Lymphocytes/100 WBC (Bld) 18.7 % Normal [facility] Comment on above: Performed By: #### C BCA #### [facility] ([id number]) [address], [address] [place] [address] MCH (RBC) [Entitic mass] 29.5 pg Normal 27-34 [facility] Comment on above: Performed By: #### C BCA #### [facility] ([id number]) [address], [address] [place] [address] MCHC (RBC) [Mass/Vol] 34.1 g/dL Normal 32-36 [facility] Comment on above: Performed By: #### C BCA #### [facility] ([id number]) [address], [address] [place] [address] MCV (RBC) [Entitic vol] 87 fL Normal 80-100 [facility] Comment on above: Performed By: #### C BCA #### [facility] ([id number]) [address], [address] [place] [address] Monocytes (Bld) [#/Vol] 0.5 10*3/uL Normal 0-0.9 [facility] Comment on above: Performed By: #### C BCA #### [facility] ([id number]) [address], [address] [place] [address] Monocytes/100 WBC (Bld) 6.3 % Normal [facility] Comment on above: Performed By: #### C BCA #### [facility] ([id number]) [address], [address] [place] [address] Neutrophils/100 WBC (Bld) 71.2 % Normal [facility] Comment on above: Performed By: #### C BCA #### [facility] ([id number]) [address], [address] [place] [address] Platelet mean volume (Bld) [Entitic vol] 9.9 fL Normal 7-12 [facility] Comment on above: Performed By: #### C BCA #### [facility] ([id number]) [address], [address] [place] [address] Platelets (Bld) [#/Vol] 174 10*3/uL Normal 150-450 [facility] Comment on above: Performed By: #### C BCA #### [facility] ([id number]) [address], [address] [place] [address] RBC COUNT 4.02 X10E12/L Normal 3.80-5.20 [facility] Comment on above: Performed By: #### C BCA #### [facility] ([id number]) [address], [address] [place] [address] WBC (Bld) [#/Vol] 7.4 10*3/uL Normal 4.0-11.0 [facility] Comment on above: Performed By: #### C BCA #### [facility] ([id number]) [address] [place] [address] Laboratory - Chemistry and C hemistry - challengeon 10-29-2023 Magnesium [Mass/Vol] 1.7 mg/dL [facility] Calcium [Mass/Vol] 10.3 mg/dL [facility] Chloride [Moles/Vol] 99 mmol/L [facility] CO2 [Moles/Vol] 29 mmol/L [facility] Creatinine [Mass/Vol] 1.15 mg/dL [facility] Glucose [Mass/Vol] 173 mg/dL [facility] Potassium [Moles/Vol] 4.7 mmol/L [facility] Sodium [Moles/Vol] 139 mmol/L [facility] Urea nitrogen [Mass/Vol] 21 mg/dL [facility] Cholesterol [Mass/Vol] 164 mg/dL [facility] Cholesterol in HDL [Mass/Vol] 50 mg/dL [facility] Cholesterol in LDL [Mass/Vol] 77 mg/dL [facility] Cholesterol.total/Ch olesterol in HDL [Mass ratio] 3.3 {ratio} [facility] Triglyceride [Mass/Vol] 183 mg/dL [facility] No Panel Informationon 10-28 Thyroid Stimulating Hormone 3rd Gen 3.41 [facility] Estimated GFR (Non- 51 mL/min [facility] VLDL Cholesterol 37 mg/dL [facility] POCT EKGon 08-29-2023 [facility] [employer] A1C HEMOGLOBINon 08-12-2023 HbA1c (Bld) [Mass fraction] 7.1 % [employer] Other Glucose - [employer] Glucose [Mass/Vol] 124 mg/dL [employer] Other HbA1c (Bld) [Mass fraction]o n 08-12-2023 A1C HEMOGLOBIN [employer] Other Glucose - [employer] Glucose [Mass/Vol] 138 mg/dL [employer] Other A1C HEMOGLOBINon 01-16-2023 HbA1c (Bld) [Mass fraction] 6.5 % [employer] Other Glucose - [employer] Glucose [Mass/Vol] 112 mg/dL [employer] Other HbA1c (Bld) [Mass fraction]o n 01-16-2023 A1C HEMOGLOBIN [employer] Other Comprehensive Metabolic Pane dimitrios 09-28-2022 Albumin [Mass/Vol] 4.4 g/dL [employer] Other ALP [Catalytic activity/Vol] 62 U/L [employer] Other ALT [Catalytic activity/Vol] 10 U/L [employer] Other AST [Catalytic activity/Vol] 13 U/L [employer] Other Bilirubin [Mass/Vol] 0.4 mg/dL [facility] [employer] Other Calcium [Mass/Vol] 9.6 mg/dL [employer] Other Chloride [Moles/Vol] 101 mmol/L [facility] [employer] Other CO2 [Moles/Vol] 28 mmol/L [employer] Other Creatinine [Mass/Vol] 0.97 mg/dL [employer] Other Glucose [Mass/Vol] 121 mg/dL [employer] Other Potassium [Moles/Vol] 4.1 mmol/L [employer] Other Protein [Mass/Vol] 6.6 g/dL [employer] Other Sodium [Moles/Vol] 140 mmol/L [employer] Other Urea nitrogen [Mass/Vol] 21 mg/dL [employer] Other Comprehensive Metabolic Panel [employer] Other Comprehensive Metabolic Panel >60 [employer] Other Lipid Panelon 09-28-2022 Cholesterol [Mass/Vol] 136 mg/dL [employer] Other Cholesterol in HDL [Mass/Vol] 43 mg/dL [employer] Other Cholesterol in LDL Elph Qn 55 [employer] Other Cholesterol.total/Ch olesterol in HDL [Mass ratio] 3.2 {ratio} [employer] Other Lipid Panel 192 [employer] Other Vitamin B12on 09-28-2022 Cobalamin (Vitamin B12) [Mass/Vol] 1364 pg/mL [employer] Other Vitamin D 25 Hydroxy Totalon 09-28-2022 Vitamin D 25 Hydroxy Total 45.8 [employer] Other A1C HEMOGLOBINon 09-24-2022 HbA1c (Bld) [Mass fraction] 6.6 % [employer] Other Glucose - [employer] Glucose [Mass/Vol] 123 mg/dL [employer] Other HbA1c (Bld) [Mass fraction]o n 09-24-2022 A1C HEMOGLOBIN [facility] [employer] Other MG MAMM SCREEN 3D CASIE CADon 09-17-2022 MG MAMM SCREEN 3D ACSIE CAD Patient: ROMIE GEIGER Exam Date: 09/17/2022 : 1955 Gender:F Ordering : DR. SCOTTY BEAVERS M.D. Admission #: [id number] Family : [facility] Order #: [id number] CLICK HERE TO VIEW EXAM RADIOLOGY REPORT [...] with esophageal cancer at age 66. LOCATION: [facility] BREAST COMPOSITION: Scattered areas fibroglandular density. FINDINGS: [...] MD on 09/17/2022 at 11:06 Normal [facility] A1C HEMOGLOBINon 06-11-2022 HbA1c (Bld) [Mass fraction] 6.6 % [employer] Other Glucose - [employer] Glucose [Mass/Vol] 126 mg/dL [employer] Other HbA1c (Bld) [Mass fraction]o n 06-11-2022 A1C HEMOGLOBIN [employer] Other A1C HEMOGLOBINon 02-28-2022 HbA1c (Bld) [Mass fraction] 6.6 % [employer] Other Glucose - [employer] Glucose [Mass/Vol] 131 mg/dL [employer] Other HbA1c (Bld) [Mass fraction]o n 02-28-2022 A1C HEMOGLOBIN [employer] Other A1C HEMOGLOBINon 11-22-2021 HbA1c (Bld) [Mass fraction] 6.6 % [employer] Other Glucose - [employer] Glucose [Mass/Vol] 158 mg/dL [employer] Other HbA1c (Bld) [Mass fraction]o n 11-22-2021 A1C HEMOGLOBIN [employer] Other US BREAST RIGHT LIMITEDon US BREAST RIGHT LIMITED Patient: ROMIE GEIGER Exam Date: 09/20/2021 : 1955 Gender:F Ordering : DR GALEANO [facility] Admission #: [id number] Family : Order #: [id number] CLICK HERE TO VIEW EXAM RADIOLOGY REPORT [...] Busch M.D. on 09/20/2021 at 13:[address] [facility] A1C HEMOGLOBINon 07-26-2021 HbA1c (Bld) [Mass fraction] 7.2 % [employer] Other Glucose - [employer] Glucose [Mass/Vol] 167 mg/dL [employer] Other HbA1c (Bld) [Mass fraction]o n 07-26-2021 A1C HEMOGLOBIN [employer] Other Glucose - [employer] Glucose [Mass/Vol] 169 mg/dL [employer] [facility] Other Glucose - FINGER [employer] Glucose [Mass/Vol] 226 mg/dL [facility] [employer] Other Glucose - FINGER [employer] Glucose [Mass/Vol] 253 mg/dL [facility] [employer] [facility] Other Vital Signs Date Time Vital Sign Value Performing Clinician Facility 10-19-2024 08:33-0400 Body height 162.56 cm [facility] 10-19-2024 08:33-0400 Body mass index (BMI) [Ratio] 28.8 kg/m2 [facility] 10-19-2024 08:33-0400 Body weight 76 kg [facility] 10-19-2024 08:33-0400 Diastolic blood pressure 69 mm[Hg] [facility] 10-19-2024 08:33-0400 Heart rate 74 /min [facility] 10-19-2024 08:33-0400 Respiratory rate 18 /min [facility] 10-19-2024 08:33-0400 SaO2% (BldA) [Mass fraction] 99 % [facility] 10-19-2024 08:33-0400 Systolic blood pressure 107 mm[Hg] [facility] 09-24-2024 08:30-0400 Body height 170.2 cm Cas Mason DPM Work Phone: [facility] 09-24-2024 08:30-0400 Body mass index (BMI) [Ratio] 29.44 kg/m2 Cas Mason DPM Work Phone: [facility] 09-24-2024 08:30-0400 Body weight 85.28 kg Cas Mason DPM Work Phone: [facility] 09-24-2024 08:30-0400 Respiratory rate 18 /min Cas Mason DPM Work Phone: [facility] 09-16-2024 09:24-0500 Body height 170.2 cm Amanda Gomez APRN-SHENA Work Phone[facility] 09-16-2024 09:24-0500 Body mass index (BMI) [Ratio] 26.88 kg/m2 Amanda Gomez APRN-DIRECTOR OF CASINO Work Phone: [facility] 09-16-2024 09:24-0500 Body weight 77.84 kg Amanda Gomez APRN-DIRECTOR OF CASINO Work Phone: [facility] 09-16-2024 09:24-0500 Diastolic blood pressure 62 mm[Hg] Amanda Gomez APRN-DIRECTOR OF CASINO Work Phone: [facility] 09-16-2024 09:24-0500 Heart rate 64 /min Amanda Gomez APRN-DIRECTOR OF CASINO Work Phone: [facility] 09-16-2024 09:24-0500 Systolic blood pressure 119 mm[Hg] Amanda Gomez APRN-DIRECTOR OF CASINO Work Phone: [facility] [employer] 08-06-2024 09:58-0500 Body height 175.3 cm Gaye MEDINA [facility] 08-06-2024 09:58-0500 Body mass index (BMI) [Ratio] 26.27 kg/m2 Gaye MEDINA [facility] 08-06-2024 09:58-0500 Body weight 80.74 kg Gaye MEDINA Work Phone: [facility] 08-06-2024 09:58-0500 Diastolic blood pressure 84 mm[Hg] Gaye Spencer APRNLIVAN Work Phone: [facility] 08-06-2024 09:58-0500 Heart rate 63 /min Gaye OMERDIRECTOR OF CASINO Work Phone: [facility] 08-06-2024 09:58-0500 SaO2% (BldA) [Mass fraction] 100 % Gaye MEDINA Work Phone: [facility] 08-06-2024 09:58-0500 Systolic blood pressure 120 mm[Hg] Gaye MEDINA Work Phone: [facility] 05-28-2024 09:18-0500 Body height 170.2 cm Cas Mason DPM Work Phone: [facility] 05-28-2024 09:18-0500 Body mass index (BMI) [Ratio] 29.44 kg/m2 Cas Mason DPM Work Phone: [facility] 05-28-2024 09:18-0500 Body weight 85.28 kg Cas Mason DPM Work Phone: [facility] 05-28-2024 09:18-0500 Diastolic blood pressure 80 mm[Hg] Cas Mason DPM Work Phone: [facility] 05-28-2024 09:18-0500 Heart rate 85 /min Cas Mason DPM Work Phone: [facility] 05-28-2024 09:18-0500 Systolic blood pressure 126 mm[Hg] Cas Mason DPM Work Phone: [facility] 05-12-2024 08:00-0400 Body height 175.3 cm Ivelisse Parker MD Work Phone: [facility] 05-12-2024 08:00-0400 Body mass index (BMI) [Ratio] 26.14 kg/m2 Ivelisse Parker MD Work Phone: [facility] 05-12-2024 08:00-0400 Body weight 80.29 kg Ivelisse Parker MD Work Phone: [facility] 05-12-2024 08:00-0400 Diastolic blood pressure 60 mm[Hg] Ivelisse Parker MD Work Phone: [facility] 05-12-2024 08:00-0400 Heart rate 71 /min Ivelisse Parker MD Work Phone: [facility] 05-12-2024 08:00-0400 SaO2% (BldA) [Mass fraction] 99 % Ivelisse Parker MD Work Phone: [facility] 05-12-2024 08:00-0400 Systolic blood pressure 110 mm[Hg] Ivelisse Parker MD Work Phone: [facility] 03-12-2024 08:29-0400 Body height 170.2 cm Cas Mason DPM Work Phone: [facility] 03-12-2024 08:29-0400 Body mass index (BMI) [Ratio] 29.44 kg/m2 Cas Mason DPM Work Phone: [facility] 03-12-2024 08:29-0400 Body weight 85.28 kg Cas Mason DPM Work Phone: [facility] 03-12-2024 08:29-0400 Diastolic blood pressure 80 mm[Hg] Cas Mason DPM Work Phone: [facility] 03-12-2024 08:29-0400 Heart rate 88 /min Cas Mason DPM Work Phone: [facility] 03-12-2024 08:29-0400 Systolic blood pressure 130 mm[Hg] Cas Mason DPM Work Phone: [facility] 12-06-2023 08:30-0400 Body height 162.6 cm Hammad Martins Jr., MD Work Phone: [facility] 12-06-2023 08:30-0400 Body mass index (BMI) [Ratio] 32.96 kg/m2 Hammad Martins Jr., MD Work Phone: [facility] 12-06-2023 08:30-0400 Body weight 87.09 kg Hammad Martins Jr., MD Work Phone: [facility] 12-06-2023 08:30-0400 Diastolic blood pressure 63 mm[Hg] Hammad Martins Jr., MD Work Phone: [facility] 12-06-2023 08:30-0400 Heart rate 57 /min Hammad Martins Jr., MD Work Phone: [facility] 12-06-2023 08:30-0400 Systolic blood pressure 108 mm[Hg] Hammad Martins Jr., MD Work Phone: [facility] 11-18-2023 09:02-0400 Body height 162.56 cm [facility] 11-18-2023 09:02-0400 Body mass index (BMI) [Ratio] 32.5 kg/m2 [facility] 11-18-2023 09:02-0400 Body weight 85.87 kg [facility] 11-18-2023 09:02-0400 Diastolic blood pressure 57 mm[Hg] [facility] 11-18-2023 09:02-0400 Heart rate 55 /min [facility] 11-18-2023 09:02-0400 Respiratory rate 18 /min [facility] 11-18-2023 09:02-0400 SaO2% (BldA) [Mass fraction] 98 % [facility] 11-18-2023 09:02-0400 Systolic blood pressure 94 mm[Hg] [facility] 08-29-2023 08:52-0500 Body height 162.6 cm Silvio Godfrey MD Work Phone: [facility] 08-29-2023 08:52-0500 Body mass index (BMI) [Ratio] 32.96 kg/m2 Silvio Godfrey MD Work Phone: [facility] 08-29-2023 08:52-0500 Body weight 87.09 kg Silvio Godfrey MD Work Phone: [facility] 08-29-2023 08:52-0500 Diastolic blood pressure 60 mm[Hg] Silvio Godfrey MD Work Phone: [facility] 08-29-2023 08:52-0500 Heart rate 69 /min Silvio Godfrey MD Work Phone: [employer] 08-29-2023 08:52-0500 SaO2% (BldA) [Mass fraction] 96 % Silvio Godfrey MD Work Phone: [employer] 08-29-2023 08:52-0500 Systolic blood pressure 110 mm[Hg] Silvio Godfrey MD Work Phone: [employer] 08-12-2023 11:15-0500 Body height 162.56 cm Giovanna Scally Other [facility] 08-12-2023 11:15-0500 Body mass index (BMI) [Ratio] 33.21 kg/m2 Giovanna Scally Other [employer] [facility] [employer] Other 08-12-2023 11:15-0500 Body weight 87.77 kg Giovanna Scally Other [facility] 08-12-2023 11:15-0500 Diastolic blood pressure 73 mm[Hg] Giovanna Scally Other [facility] 08-12-2023 11:15-0500 Respiratory rate 18 /min Giovanna Scally Other [employer] Other 08-12-2023 11:15-0500 SaO2% (BldA) [Mass fraction] 96 % Giovanna Scally Other [facility] [facility] [employer] Other 08-12-2023 11:15-0500 Systolic blood pressure 112 mm[Hg] Giovanna Scally Other [facility] 04-12-2023 09:15-0400 Body height 162.56 cm Giovanna Scally Other [employer] Other 04-12-2023 09:15-0400 Body mass index (BMI) [Ratio] 32.76 kg/m2 Giovanna Scally Other [employer] Other 04-12-2023 09:15-0400 Body weight 86.59 kg Giovanna Scally Other [employer] Other 04-12-2023 09:15-0400 Diastolic blood pressure 61 mm[Hg] Giovanna Scally Other [employer] Other 04-12-2023 09:15-0400 Respiratory rate 18 /min Giovanna Scally Other [employer] Other 04-12-2023 09:15-0400 SaO2% (BldA) [Mass fraction] 98 % Giovanna Scally Other [employer] Other 04-12-2023 09:15-0400 Systolic blood pressure 100 mm[Hg] Igovanna Scally Other [employer] Other 01-16-2023 10:15-0400 Body height 162.56 cm Giovanna Scally Other [employer] Other 01-16-2023 10:15-0400 Diastolic blood pressure 64 mm[Hg] Giovanna Scally Other [employer] Other 01-16-2023 10:15-0400 Respiratory rate 18 /min Giovanna Scally Other [employer] Other 01-16-2023 10:15-0400 SaO2% (BldA) [Mass fraction] 97 % Giovanna Scally Other [employer] Other 01-16-2023 10:15-0400 Systolic blood pressure 100 mm[Hg] Giovanna Scally Other [employer] Other 09-24-2022 10:15-0400 Body height 162.56 cm Giovanna Scally Other [employer] Other 09-24-2022 10:15-0400 Body mass index (BMI) [Ratio] 32.27 kg/m2 Giovanna Scally Other [employer] Other 09-24-2022 10:15-0400 Body weight 85.28 kg Giovanna Scally Other [employer] Other 09-24-2022 10:15-0400 Diastolic blood pressure 72 mm[Hg] Giovanna Scally Other [employer] Other 09-24-2022 10:15-0400 Respiratory rate 18 /min Giovanna Scally Other [employer] Other 09-24-2022 10:15-0400 SaO2% (BldA) [Mass fraction] 99 % Giovanna Scally Other [employer] Other 09-24-2022 10:15-0400 Systolic blood pressure 109 mm[Hg] Giovanna Scally Other [employer] Other 06-11-2022 10:00-0500 Body height 162.56 cm Giovanna Scally Other [employer] Other 06-11-2022 10:00-0500 Body mass index (BMI) [Ratio] 33.59 kg/m2 Giovanna Scally Other [employer] Other 06-11-2022 10:00-0500 Body weight 88.77 kg Giovanna Scally Other [employer] Other 06-11-2022 10:00-0500 Diastolic blood pressure 70 mm[Hg] Giovanna Scally Other [employer] Other 06-11-2022 10:00-0500 Respiratory rate 20 /min Giovanna Scally Other [employer] Other 06-11-2022 10:00-0500 SaO2% (BldA) [Mass fraction] 100 % Giovanna Scally Other [employer] Other 06-11-2022 10:00-0500 Systolic blood pressure 108 mm[Hg] Giovanna Scally Other [employer] Other 02-28-2022 11:00-0400 Body height 162.56 cm Giovanna Scally Other [employer] Other 02-28-2022 11:00-0400 Body mass index (BMI) [Ratio] 32.99 kg/m2 Giovanna Scally Other [employer] Other 02-28-2022 11:00-0400 Body weight 87.18 kg Giovanna Scally Other [employer] Other 02-28-2022 11:00-0400 Diastolic blood pressure 78 mm[Hg] Giovanna Scally Other [employer] Other 02-28-2022 11:00-0400 Respiratory rate 18 /min Giovanna Scally Other [employer] Other 02-28-2022 11:00-0400 SaO2% (BldA) [Mass fraction] 100 % Giovanna Scally Other [employer] Other 02-28-2022 11:00-0400 Systolic blood pressure 118 mm[Hg] Giovanna Scally Other [employer] Other 11-22-2021 09:45-0400 Body height 162.56 cm Giovanna Scally Other [employer] Other 11-22-2021 09:45-0400 Body mass index (BMI) [Ratio] 33.07 kg/m2 Giovanna Scally Other [employer] Other 11-22-2021 09:45-0400 Body weight 87.41 kg Giovanna Scally Other [employer] Other 11-22-2021 09:45-0400 Diastolic blood pressure 87 mm[Hg] Giovanna Scally Other [employer] Other 11-22-2021 09:45-0400 Respiratory rate 18 /min Giovanna Scally Other [employer] Other 11-22-2021 09:45-0400 SaO2% (BldA) [Mass fraction] 92 % Giovanna Scally Other [employer] Other 11-22-2021 09:45-0400 Systolic blood pressure 137 mm[Hg] Giovanna Scally Other [employer] Other 07-26-2021 09:45-0500 Body height 162.56 cm Giovanna Scally Other [employer] Other 07-26-2021 09:45-0500 Body mass index (BMI) [Ratio] 34.57 kg/m2 Giovanna Scally Other [employer] Other 07-26-2021 09:45-0500 Body weight 91.36 kg Giovanna Scally Other [employer] Other 07-26-2021 09:45-0500 Diastolic blood pressure 77 mm[Hg] Giovanna Scally Other [employer] Other 07-26-2021 09:45-0500 Respiratory rate 18 /min Gioavnna Scally Other [employer] Other 07-26-2021 09:45-0500 SaO2% (BldA) [Mass fraction] 99 % Giovanna Scally Other [employer] Other 07-26-2021 09:45-0500 Systolic blood pressure 130 mm[Hg] Giovanna Scally Other [employer] Other 06-13-2021 10:15-0500 Body height 162.56 cm Giovanna Scally Other [employer] Other 06-13-2021 10:15-0500 Body mass index (BMI) [Ratio] 34.38 kg/m2 Giovanna Scally Other [employer] Other 06-13-2021 10:15-0500 Body weight 90.86 kg Giovanna Scally Other [employer] Other 06-13-2021 10:15-0500 Diastolic blood pressure 69 mm[Hg] Giovanna Scally Other [employer] Other 06-13-2021 10:15-0500 Respiratory rate 18 /min Giovanna Scally Other [employer] Other 06-13-2021 10:15-0500 SaO2% (BldA) [Mass fraction] 99 % Giovanna Scally Other [employer] Other 06-13-2021 10:15-0500 Systolic blood pressure 119 mm[Hg] Giovanna Scally Other [employer] Other 05-24-2021 09:15-0500 Body height 162.56 cm Giovanna Scally Other [employer] Other 05-24-2021 09:15-0500 Body mass index (BMI) [Ratio] 34.26 kg/m2 Giovanna Scally Other [employer] Other 05-24-2021 09:15-0500 Body weight 90.54 kg Giovanna Scally Other [employer] Other 05-24-2021 09:15-0500 Diastolic blood pressure 71 mm[Hg] Giovanna Scally Other [employer] Other 05-24-2021 09:15-0500 Respiratory rate 18 /min Giovanna Scally Other [employer] Other 05-24-2021 09:15-0500 SaO2% (BldA) [Mass fraction] 99 % Giovanna Scally Other [employer] Other 05-24-2021 09:15-0500 Systolic blood pressure 111 mm[Hg] Giovanna Scally Other [employer] Other 04-10-2021 11:00-0400 Body height 162.56 cm Giovanna Scally Other [employer] Other 04-10-2021 11:00-0400 Body mass index (BMI) [Ratio] 35.6 kg/m2 Giovanna Scally Other [employer] Other 04-10-2021 11:00-0400 Body weight 94.08 kg Giovanna Scally Other [employer] Other 04-10-2021 11:00-0400 Diastolic blood pressure 61 mm[Hg] Giovanna Scally Other [employer] Other 04-10-2021 11:00-0400 Respiratory rate 20 /min Giovanna Scally Other [employer] Other 04-10-2021 11:00-0400 SaO2% (BldA) [Mass fraction] 98 % Giovanna Scally Other [employer] Other 04-10-2021 11:00-0400 Systolic blood pressure 125 mm[Hg] Giovanna Scally Other [employer] Other Encounters Encounter Date Encounter Type Care Provider Facility Start: 10-21-2024 End: 10-21-[address] [facility] Start: 10-19-2024 End: 10-21-2024 Telephone encounter Karyn Falk CMA [facility] Start: 10-19-2024 End: 10-19-2024 ambulatory Amanda Stevie Gomez FINANCIAL PROCESSING CLERK-DIRECTOR OF CASINO Work Phone: [facility] Work Phone: Start: 10-19-2024 End: 10-19-2024 Patient encounter procedure [facility] Work Phone: Start: 10-07-2024 End: 10-10-2024 Evaluation and management of inpatient [facility] Start: 10-05-2024 End: 10-06-2024 Emergency department patient visit [facility] Start: 10-01-2024 End: 10-01-2024 Telephone encounter Hammad Martins MD Work Phone: [facility] Start: 09-24-2024 End: 09-24-2024 Office outpatient visit 15 minutes Cas Mason DPM Work Phone: [facility] Comment on above: DJD (degenerative jovan int disease), ankle and foot, left (Primary Dx); Diabetes mellitus due to underlying condition with diabetic polyneuropathy, with long-term current use of insulin ([facility]); Pain due to onychomycosis of toenails of both feet Start: 09-24-2024 End: 09-24-2024 ambulatory CAS MASON Not Available Start: 09-16-2024 End: 09-16-2024 Office outpatient new 30 minutes Amanda Gomez FINANCIAL PROCESSING CLERK-DIRECTOR OF CASINO Work Phone: [facility] Comment on above: Rectal bleeding (Mikaela soila Dx) Start: 09-16-2024 End: 09-16-2024 ambulatory [facility] Start: 08-30-2024 End: 08-31-2024 Refill Cas Mason DPM Work Phone: [facility] Comment on above: DJD (degenerative jovan int disease), ankle and foot, left Start: 08-28-2024 End: 08-28-2024 Documentation procedure Hammad Martins MD Work Phone: [facility] Start: 08-28-2024 End: 08-29-2024 ambulatory YAMILET Ryan [facility] Start: 08-25-2024 End: 08-25-2024 Emergency department patient visit YAMILET Davis [facility] Start: 08-24-2024 End: 08-25-2024 [facility]phone [facility] Comment on above: Rectal Bleeding Start: 08-24-2024 End: 08-24-2024 [facility] department [facility] Start: 08-06-2024 End: 08-06-2024 ambulatory [facility] Ryan [facility] Start: 08-06-2024 End: 08-06-2024 Office outpatient visit 15 minutes Gaye Davis Tj FINANCIAL PROCESSING CLERK-DIRECTOR OF CASINO Work Phone: [facility] Comment on above: Cerebrovascular dise ase (Primary Dx); Essential hypertension; Coronary artery disease involving grand traverse coronary artery of grand traverse heart without angina pectoris; Hx of CABG; Pure hypercholesterolemia; Anemia, unspecified type Start: 08-06-2024 End: 08-06-2024 ambulatory GAYE Davis [facility] Start: 08-05-2024 End: 08-05-2024 [facility] Start: 08-04-2024 End: 08-04-2024 Telephone encounter Christi Doll RN [facility] Start: 08-03-2024 End: 08-03-2024 Telephone encounter Christi Doll RN [facility] Start: 07-27-2024 End: 07-27-2024 [facility] Start: 07-24-2024 End: 07-24-2024 Refill Enid Sandoval LPN [facility] Comment on above: Recurrent urinary tr act infection (Primary Dx) Start: 06-05-2024 End: 06-05-2024 Documentation procedure Hammad Martins MD Work Phone: [facility] Start: 05-28-2024 End: 05-28-2024 [employer]amboo flowsheet Cas Mason DPM Work Phone: [facility] Start: 05-28-2024 End: 05-28-2024 Bamboo flowsheet Cas Mason DPM Work Phone: [facility] Start: 05-28-2024 End: 05-28-2024 Office outpatient visit 15 minutes Cas Mason DPM Work Phone: [facility] Comment on above: DJD (degenerative jovan int disease), ankle and foot, left (Primary Dx); Posterior tibial tendinitis of left leg; Diabetes mellitus due to underlying condition with diabetic polyneuropathy, with long-term current use of insulin ([facility]); Pain due to onychomycosis of toenails of both feet; Foot pain, left Start: 05-28-2024 End: 05-28-2024 ambulatory CAS MASON Not Available Start: 05-20-2024 End: 05-20-2024 Telephone encounter Kary Rodriguez RN [facility] Comment on above: Med Request Start: 05-12-2024 End: 05-12-2024 Office outpatient visit 25 minutes Ivelisse Parker MD Work Phone: [facility] Comment on above: Hx of CABG (Primary Dx); Personal history of DVT (deep vein thrombosis); Hx pulmonary embolism; Primary hypertension; Dyslipidemia; History of CVA in adulthood Start: 05-12-2024 End: 05-12-2024 ambulatory IVELISSE PARKER [facility] Start: 05-11-2024 End: 05-11-2024 Telephone encounter Maria Luisa Harrington CMA [facility] Start: 04-14-2024 ambulatory YAMILET MORGAN [facility] Start: 04-13-2024 End: 04-13-2024 Telephone encounter Madga Tucker RN [facility] Comment on above: Hypotension Start: 04-12-2024 End: 04-12-2024 Emergency department patient visit YAMILET Davis MARY ANN [facility] Start: 04-09-2024 End: 04-09-2024 Emergency department [facility] Start: 04-07-2024 End: 04-07-2024 Telephone encounter Hammad Martins MD Work Phone: [facility] Start: 03-23-2024 End: 03-23-2024 ambulatory YAMILET Davis MARY ANN [facility] Start: 03-12-2024 End: 03-12-2024 Bamboo flowsheet Cas Mason DPM Work Phone: [facility] Start: 03-12-2024 End: 03-12-2024 Bamboo flowsheet Cas Mason DPM Work Phone: [facility] Start: 03-12-2024 End: 03-12-2024 Office outpatient visit 15 minutes Cas Mason DPM Work Phone: [facility] Comment on above: DJD (degenerative jovan int disease), ankle and foot, left (Primary Dx); Diabetes mellitus due to underlying condition with diabetic polyneuropathy, with long-term current use of insulin ([facility]); Onychomycosis; Toe pain, bilateral; Posterior tibial tendinitis of left leg Start: 03-12-2024 End: 03-12-2024 ambulatory CAS MASON Not Available Start: 02-21-2024 End: 02-21-2024 Telephone encounter Hammad Martins MD Work Phone: [facility] Start: 01-08-2024 End: 01-08-2024 ambulatory NON STAFF [facility] Work Phone: Start: 01-08-2024 End: 01-08-2024 Patient encounter procedure [facility] [place] Work Phone: Start: 12-26-2023 End: 12-26-2023 ambulatory CAS MASON Not Available Start: 12-11-2023 End: 12-11-2023 Telephone encounter Mratina Ling LPN [facility] Start: 12-06-2023 End: 12-06-2023 Office outpatient visit 25 minutes Hammad Martins MD Work Phone: [facility] Comment on above: Urologic disorders ( Primary Dx); Recurrent urinary tract infection; Bilateral renal stones Start: 12-06-2023 End: 12-06-2023 ambulatory HAMMAD Ryan MARTINS [facility] Start: 11-28-2023 End: 11-28-[address] [facility] Start: 11-21-2023 End: 11-21-2023 ambulatory CAS MASON Not Available Start: 11-18-2023 End: 11-18-2023 Patient encounter procedure [facility] Work Phone: Start: 11-14-2023 End: 11-14-2023 ambulatory CAS MASON Not Available Start: 11-13-2023 End: 11-13-2023 ambulatory ENID FELIZ [facility] Start: 11-07-2023 End: 11-07-2023 Telephone encounter Hammad Martins MD Work Phone: [facility] Start: 11-06-2023 End: 11-06-2023 Telephone encounter Jessica CONNELLY [facility] Start: 10-29-2023 Non-patient / Non-visit [facility] [place] Work Phone: Start: 10-17-2023 End: 10-17-2023 ambulatory CAS MASON Not Available Start: 08-29-2023 End: 08-29-2023 Office outpatient visit 25 minutes Silvio Godfrey MD Work Phone: [facility] Comment on above: Prolonged Q-T interv al on ECG (Primary Dx); Pure hypercholesterolemia; Coronary artery disease involving grand traverse coronary artery of grand traverse heart without angina pectoris; Cerebrovascular disease Start: 08-28-2023 Telephone encounter Maria Luisa buckner CMA [facility] Start: 08-16-2023 Refill Enid Cantor cki FINANCIAL PROCESSING CLERK-DIRECTOR OF CASINO Work Phone: [facility] Comment on above: Med Refill Start: 08-14-2023 End: 08-14-2023 ambulatory Giovanna Morrow Other [employer] Other Start: 08-14-2023 Telephone encounter Giovanna Yovannydenise [facility] Start: 08-12-2023 End: 08-12-2023 Discharged [facility]ring [facility] Work Phone: Start: 08-12-2023 (DM) Diabetes Giovanna Riddle [facility] Start: 08-12-2023 End: 08-13-2023 ambulatory NON STAFF [facility] Comment on above: Med Refill Start: 08-12-2023 End: 08-12-2023 Patient encounter procedure [facility]- Start: 08-08-2023 Refill Enid Cantor cki FINANCIAL PROCESSING CLERK-DIRECTOR OF CASINO Work Phone: [facility] Comment on above: Med Refill Start: 07-29-2023 End: 07-29-2023 ambulatory Giovanna Morrow Other [employer] Other Start: 07-29-2023 Telephone encounter Giovanna Yovannydenise [facility] Start: 07-16-2023 End: 07-16-2023 ambulatory Giovanna Morrow Other [employer] Other Start: 07-16-2023 Telephone encounter Giovannakera Morrow In[facility] Start: 07-11-2023 Refill Joyce Smith FINANCIAL PROCESSING CLERK-DIRECTOR OF CASINO Work Phone: [facility] Start: 07-09-2023 Noa nathan MD Work Phone: [facility] Comment on above: Recurrent urinary tr act infection (Primary Dx) Start: 05-27-2023 End: 05-27-2023 ambulatory Giovanna Scally Other [employer] Other Start: 05-27-2023 Telephone encounter Giovanna Morrow [facility] Start: 05-01-2023 End: 05-01-2023 ambulatory Fam August Other [employer] Other Start: 05-01-2023 Telephone encounter [facility] Start: 04-12-2023 (DM) Diabetes Giovanna Scally [facility] Start: 04-12-2023 End: 04-12-2023 ambulatory Giovanna Scally Other [employer] Other Start: 04-03-2023 End: 04-03-2023 ambulatory Giovanna Scally Other [employer] Other Start: 04-03-2023 Telephone encounter Giovanna Scaldenise [facility] [facility] Start: 03-21-2023 End: 03-21-2023 ambulatory Giovanna Scally Other [employer] Other Start: 03-21-2023 Telephone encounter Giovanna Morrow [facility] [facility] Start: 01-16-2023 (DM) Diabetes Giovanna Scally [facility] Start: 01-16-2023 End: 01-16-2023 ambulatory Giovanna Scally Other [employer] Other Start: 01-16-2023 Telephone encounter Giovanna Morrow [facility] Start: 01-08-2023 End: 01-08-2023 ambulatory Giovanna Scally Other [employer] Other Start: 01-08-2023 Telephone encounter Giovanna Scally [facility] Start: 10-01-2022 End: 10-01-2022 ambulatory Giovanna Scally Other [employer] Other Start: 10-01-2022 Telephone encounter Giovanna Scally [facility] [facility] Start: 09-24-2022 (DM) Diabetes Giovanna Scally [facility] Start: 09-24-2022 End: 09-24-2022 ambulatory Giovanna Scally Other [employer] Other Start: 09-19-2022 End: 09-19-2022 ambulatory Giovanna Scally Other [employer] Other Start: 09-19-2022 Telephone encounter Giovanna Scally [facility] Start: 09-17-2022 End: 09-18-2022 ambulatory [facility] Facility: Start: 07-27-2022 End: 07-27-2022 ambulatory Giovanna Scally Other [employer] Other Start: 07-27-2022 Telephone encounter Giovanna Scally [facility] Start: 07-03-2022 End: 07-03-2022 ambulatory Giovanna Scally Other [employer] Other Start: 07-03-2022 Telephone encounter Giovanna Scally [facility] Start: 06-25-2022 End: 06-25-2022 ambulatory Giovanna Scally Other [employer] Other Start: 06-25-2022 Telephone encounter Giovanna Scally [facility] Start: 06-11-2022 (DM) Diabetes Giovanna Scally [facility] Start: 06-11-2022 End: 06-11-2022 ambulatory Giovanna Scally Other [employer] Other Start: 04-24-2022 End: 04-24-2022 ambulatory Giovanna Scally Other [employer] Other Start: 04-24-2022 Telephone encounter Giovanna Scally [facility] Start: 02-28-2022 (DM) Diabetes Giovanna Scally [facility] Start: 02-28-2022 End: 02-28-2022 ambulatory Giovanna Scally Other [employer] Other Start: 02-21-2022 End: 02-21-2022 ambulatory Giovanna Scally Other [employer] Other Start: 02-21-2022 Telephone encounter Giovanna Scally [facility] Start: 01-16-2022 End: 01-16-2022 ambulatory Giovanna Scally Other [employer] Other Start: 01-16-2022 Telephone encounter Giovanna Scally [facility] Start: 12-21-2021 End: 12-21-2021 ambulatory Giovanna Scally Other [employer] Other Start: 12-21-2021 Telephone encounter Giovanna Scally [facility] Start: 12-20-2021 End: 12-20-2021 ambulatory Giovanna Scally Other [employer] Other Start: 12-20-2021 Telephone encounter Giovanna Scally [facility] Start: 12-14-2021 End: 12-14-2021 ambulatory Giovanna Morrow Other [employer] Other Start: 12-14-2021 Telephone encounter Giovanna [facility] Start: 11-22-2021 (DM) Diabetes Giovanna Scally [facility] Start: 11-22-2021 End: 11-22-2021 ambulatory Giovanna Morrow Other [employer] Other Start: 09-29-2021 End: 09-29-2021 ambulatory Giovanna Morrow Other [employer] Other Start: 09-29-2021 Telephone encounter Giovanna [facility] Start: 09-20-2021 End: 09-21-[address] [facility] Facility: Start: 08-31-2021 End: 08-31-2021 ambulatory Giovanna Morrow Other [employer] Other Start: 08-31-2021 Telephone encounter Giovanna [facility] Start: 07-27-2021 End: 07-27-2021 ambulatory Klaus Hebert Other [employer] Other Start: 07-27-2021 Telephone encounter Klaus [facility] Start: 07-26-2021 (DM) Diabetes Giovanna Scally [facility] Start: 07-26-2021 End: 07-26-2021 ambulatory Giovanna Morrow Other [employer] Other Start: 07-04-2021 End: 07-04-2021 ambulatory Giovanna Hairstonly Other [employer] Other Start: 07-04-2021 Telephone encounter Giovanna [facility] Start: 06-19-2021 End: 06-19-2021 ambulatory Giovanna Yovannyly Other [employer] Other Start: 06-19-2021 Telephone encounter Giovanna Cristhian [facility] Start: 06-14-2021 End: 06-14-2021 ambulatory Giovanna Scally Other [employer] Other Start: 06-14-2021 Telephone encounter Giovanna Yovannyly [facility] Start: 06-13-2021 (DM) Diabetes Giovanna Scally [facility] Start: 06-13-2021 End: 06-13-2021 ambulatory Giovanna Scally Other [employer] Other Start: 06-13-2021 Telephone encounter Giovanna Yovannyly [facility] Start: 05-29-2021 End: 05-29-2021 ambulatory Giovanna Scally Other [employer] Other Start: 05-29-2021 Telephone encounter Giovanna Yovannyly [facility] Start: 05-24-2021 (DM) Diabetes Giovanna Scally [facility] Start: 05-24-2021 End: 05-24-2021 ambulatory Giovanna Scally Other [employer] Other Start: 04-14-2021 Telephone encounter Giovanna Yovannyly [facility] Start: 04-11-2021 Telephone encounter Giovanna Yovannyly [facility] Start: 04-10-2021 FQHC visit new patient Giovanna Hairstonl adeline [facility] Procedures Date Procedure Procedure Detail Performing Clinician Start: 08-28-2024 Adult depression scr eening assessment Hammad Martins Jr., MD Work Phone: Start: 08-06-2024 Follow-up visit Follow-up GAYE SPENCER Start: 01-08-2024 Diagnostic radiograp hy of abdomen Start: 12-06-2023 Follow-up visit Follow-up HAMMAD MARTINS JR Start: 08-29-2023 Ecg routine ecg w/le ast 12 lds w/i&r Silvio Godfrey MD Work Phone: Start: 10-13-2020 Colonoscopy Kary urrutiakiah RN Start: 09-07-2020 History of coronary artery bypass grafting Hx of CABG Hammad Martins Jr., MD Work Phone: Start: 07-30-2020 Adult depression scr eening assessment Hammad Martins Jr., MD Work Phone: Start: 04-05-2015 Mammography Cas prieto DPM Work Phone: History of coronary artery bypass grafting Hx of CABG Gaye Ryan Spencer FINANCIAL PROCESSING CLERK-DIRECTOR OF CASINO Work Phone: History of coronary artery bypass grafting Hx of CABG Ivelisse Parker MD Work Phone: Plan of Treatment Date Care Activity Detail Author Start: 10-13-2030 Screening for malign ant neoplasm of colon [facility] Start: 10-09-2025 Adult BMI Screening Adult BMI Screen ing [facility] Start: 10-09-2025 Tobacco Screening Tobacco Screening [facility] Start: 09-16-2025 Adult BMI Screening Adult BMI Screen ing [facility] Start: 09-16-2025 Tobacco Screening Tobacco Screening [facility] Start: 08-28-2025 Adult BMI Screening Adult BMI Screen ing [facility] Start: 08-28-2025 Depression Screening Depression Scre ening [facility] Start: 08-28-2025 Tobacco Screening Tobacco Screening [facility] Start: 08-25-2025 Adult BMI Screening Adult BMI Screen ing [facility] Start: 08-25-2025 Tobacco Screening Tobacco Screening [facility] Start: 08-24-2025 Tobacco Screening Tobacco Screening [facility] Start: 08-06-2025 Adult BMI Screening Adult BMI Screen ing [facility] Start: 08-06-2025 Tobacco Screening Tobacco Screening [facility] Start: 05-12-2025 Adult BMI Screening Adult BMI Screen ing [facility] Start: 05-12-2025 Tobacco Screening Tobacco Screening [facility] Start: 04-12-2025 Adult BMI Screening Adult BMI Screen ing [facility] Start: 04-12-2025 Tobacco Screening Tobacco Screening [facility] Start: 03-15-2025 Influenza vaccination Influenza Vacc ine [facility] Start: 12-05-2024 Adult BMI Screening Adult BMI Screen ing [facility] Start: 12-05-2024 End: 06-07-2025 Basic metabolic 2000 panel - Serum or Plasma Basic Metabolic Panel Lab Routine Bilateral renal stones Expected: 12/05/2024 (Approximate), Expires: 06/07/2025 [employer] Work Phone: Comment on above: Expected: 12/05/2024 (Approximate), Expires: 06/07/2025 Start: 12-05-2024 Tobacco Screening Tobacco Screening [facility] Start: 12-05-2024 End: 06-07-2025 US Retroperitoneum Ultrasound retroperitoneal complete Imaging Routine Bilateral renal stones Expected: 12/05/2024 (Approximate), Expires: 06/07/2025 [facility] Comment on above: Expected: 12/05/2024 (Approximate), Expires: 06/07/2025 Start: 12-04-2024 End: 12-04-2024 Patient encounter procedure 12/04/2024 10:15 AM EDT Office Visit [facility] [address] [place] [id number] Hammad Martins Jr., MD [address] [place] [address] [facility] Start: 12-04-2024 End: 12-04-2024 Patient encounter procedure 12/04/2024 8:30 AM EDT Office Visit [facility] [address] [place] [address] A [facility] [place] [address] Hammad Martins Jr., MD [address] [place] [address] [facility] Start: 12-03-2024 End: 12-03-2024 Patient encounter procedure 12/03/2024 8:40 AM EDT Office Visit [facility] [address] [facility] [address] [place] [phone] Cas Mason, DPAltaf [address] [facility] [address] [place] [address] [facility] Start: 11-23-2024 End: 11-23-2024 Admission to same day surgery center 11/23/2024 7:30 AM EDT - 11/23/2024 8:00 AM EDT Surgery [facility] [address] [place] [phone] Juan Manuel Nathan, DO [address] [place], [place] [id number] COLONOSCOPY DIAGNOSTIC / SCREENING [29966 (CPT )] [facility] Comment on above: COLONOSCOPY DIAGNOST IC / SCREENING [68411 (CPT )] Start: 11-23-2024 End: 11-23-2024 Colonoscopy flx dx w/collj spec when pfrmd COLONOSCOPY DIAGNOSTIC / SCREENING rectal bleeding 11/23/2024 7:30 AM EDT [facility] Start: 11-23-2024 Subsequent hospital visit by physician 11/23/2024 7:30 AM EDT Hospital Encounter [facility] [address] [place] [phone] Juan Manuel Nathan, DO [address] [place], [place] [id number] [facility] Start: 11-17-2024 End: 11-17-2024 ambulatory 11/17/2024 4:10 PM EDT Support Visit [facility] [address] [place] [address] [facility] Start: 11-16-2024 End: 11-16-2024 Patient encounter procedure 11/16/2024 12:45 PM EDT Office Visit [facility] [address] [place] [address] [place] [address] Shefali Bonilla MD [address] [place] [address] Ken Hammond MD [address] [place] [address] [facility] Start: 11-13-2024 End: 11-13-2024 Patient encounter procedure 11/13/2024 1:30 PM EDT Office Visit [facility] [address] [place] [address] Amanda Gomez, FINANCIAL PROCESSING CL[facility] [address] [place] [address] [facility] Start: 10-26-2024 End: 10-26-2024 Patient encounter procedure 10/26/2024 11:45 AM EDT Office Visit [facility] [address] [facility] 1 [place] [address] Shefali Bonilla MD [address] [place] [address] Ken Hammond MD [address] [place] [address] [facility] Start: 10-21-2024 End: 10-21-2024 Patient encounter procedure 10/21/2024 8:30 AM EDT Appointment [facility] [address] [place] [phone] Hammad Martins Jr., MD [address] [place] [address] [facility] Start: 10-16-2024 End: 10-16-2024 Patient encounter procedure 10/16/2024 9:00 AM EDT Appointment [facility] [address] [place] [phone] Hammad Martins Jr., MD [address] [place] [address] [facility] Start: 10-05-2024 End: 10-05-2024 Patient encounter procedure 10/05/2024 2:45 PM EDT Office Visit [facility] [address] [facility] 1 [place] [phone] Shefali Bonilla MD [address] [place] [address] [facility] Start: 09-24-2024 End: 09-24-2024 Patient encounter procedure 09/24/2024 8:30 AM EDT Office Visit [facility] [address] [facility] 120 [place] [phone] Cas Mason DPM [address] [facility] [address] [place] [address] [facility] Start: 09-21-2024 End: 09-21-2024 Patient encounter procedure 09/21/2024 10:00 AM EDT Appointment [facility] [address] [place] [phone] Hammad Martins Jr., MD [address] [place] [address] [facility] Start: 09-17-2024 End: 09-17-2024 Patient encounter procedure [facility]of[facility] Start: 09-16-2024 End: 09-16-2024 Patient encounter procedure 09/16/2024 10:00 AM EST Office Visit [facility] [address] [place] [address] Amanda Gomez APRN-DIRECTOR OF CASINO [address] [place] [address] [facility] Start: 08-29-2024 Adult BMI Screening Adult [facility] Screen ing [facility] Start: 08-29-2024 Tobacco Screening Tobacco Screening [facility] Start: 08-28-2024 End: 08-28-2024 Patient encounter procedure 08/28/2024 10:15 AM EST Office Visit [facility] [address] [place] [address] A [facility] [place] [phone] Hammad Martins Jr., MD [address] [place] [address] [facility] Start: 08-24-2024 End: 08-24-2024 Patient encounter procedure 08/24/2024 4:15 PM EST Office Visit [facility] [place] [address] Iman Astudillo, [address] [facility] [address] [place] [address] [facility] [place] Start: 08-06-2024 End: 08-06-2024 Patient encounter procedure [facility] Start: 07-24-2024 End: 07-24-2024 Patient encounter procedure 07/24/2024 10:15 AM EST Office Visit [facility] [address] [place] [address] A [facility] [place] [address] Hammad Martins Jr., MD [address] [place] [address] [facility] Start: 06-05-2024 End: 06-05-2024 Patient encounter procedure 06/05/2024 9:15 AM EST Office Visit [facility] [address] [place] [address] [place] [address] Hammad Martins Jr., MD [facility] [place] [address] [facility] Start: 05-28-2024 End: 05-28-2024 Patient encounter procedure 05/28/2024 8:30 AM EST Office Visit [facility] [address] [facility] 120 [place] [address] Cas Mason, DPAltaf [address] [facility] [address] [place] [address] [facility] Start: 05-12-2024 End: 05-12-2024 Patient encounter procedure 05/12/2024 8:45 AM EDT Office Visit [facility] [address] [facility] 1 [place] [address] Ivelisse Parker MD [address] [place] [address] [facility] Start: 05-10-2024 Adult BMI Screening Adult [facility] Screen ing [facility] Start: 05-10-2024 Tobacco Screening Tobacco Screening [facility] Start: 04-15-2024 End: 04-15-2024 Patient encounter procedure 04/15/2024 9:00 AM EDT Appointment [facility] [address] [place] [address] [facility] Start: 03-15-2024 Influenza vaccination [facility] Start: 03-12-2024 End: 03-12-2024 Professional / ancillary services management 03/12/2024 9:10 AM EDT Ancillary Procedure [facility] [address] [facility] [address] [place] [phone] Arrived [facility] Comment on above: Arrived Start: 03-12-2024 End: 03-12-2024 Patient encounter procedure 03/12/2024 8:40 AM EDT Office Visit [facility] [address] [facility] [address] [place] [address] Cas Mason DPM [address] [address] Diabetes mellitus due to underlying condition with diabetic polyneuropathy, with long-term current use of insulin ([facility]) (Primary Dx); Onychomycosis; Toe pain, bilateral; DJD (degenerative joint disease), ankle and foot, left; Posterior tibial tendinitis of left leg [facility] Comment on above: Diabetes mellitus du e to underlying condition with diabetic polyneuropathy, with long-term current use of insulin ([facility]) (Primary Dx); Onychomycosis; Toe pain, bilateral; DJD (degenerative joint disease), ankle and foot, left; Posterior tibial tendinitis of left leg Start: 12-06-2023 End: 12-06-2023 Patient encounter procedure 12/06/2023 8:30 AM EDT Office Visit [facility] [address] [place] [address] [place] [address] Hammad Martins Jr., MD [address] [place] [id number] [facility] Start: 11-28-2023 End: 11-28-2023 Patient encounter procedure 11/28/2023 9:30 AM EDT Appointment [facility] [address] [place] [id number] Hammad Martins Jr., MD [address] [place] [address] [facility] - [facility]ound Start: 08-29-2023 End: 08-29-2023 Patient encounter procedure 08/29/2023 9:30 AM EST Office Visit [facility] [address] [place] [address] Silvio Godfrey MD [address] [place] [address] [facility] Start: 07-30-2021 Depression Screening Depression Scre ening [facility] Start: 2018 Fall Risk Screening Fall Risk Screen ing [facility] Start: 04-05-2016 Screening for malign ant neoplasm of breast Mammogram [facility] Start: 11-28-2004 DTaP,Tdap and Td Vac cines (1 - Tdap) DTaP,Tdap and Td Vaccines (1 - Tdap) [facility] Start: 02-10-1972 Urine screening for protein Diabetes: Urine Protein Screening [facility] Start: 1971 Adult BMI Follow Up Plan Adult BMI F ollow Up Plan [facility] Start: 1971 Diabetic foot examination Diabetic F oot Exam [facility] Start: 1965 Depression Screening Depression Scre ening [facility] Start: 1963 Glaucoma screening Diabetes: R etinopathy Screening [facility] Start: 1953 Glaucoma screening Diabetic Op hthalmology Exam [facility] Start: 1953 Hemoglobin A1c measurement Diabetes: Hemoglobin A1C [facility] Start: 1953 Medicare Annual Well ness (AWV) Medicare Annual Wellness (AWV) [facility] Start: 1953 Medicare Annual Well ness Visit Medicare Annual Wellness Visit [facility] Start: 1953 Screening for malign ant neoplasm of colon [facility] End: 09-16-2025 Colonoscopy Colonoscopy GI Routine Rectal bleeding 1 Occurrences starting 09/16/2024 until 09/16/2025 [facility] Work Phone: Comment on above: 1 Occurrences starti ng 09/16/2024 until 09/16/2025 End: 08-06-2025 Hemoglobin and hematocrit, blood Hemoglobin and hematocrit, blood Lab Routine Anemia, unspecified type 1 Occurrences starting 08/06/2024 until 08/06/2025 [facility] Work Phone: Comment on above: 1 Occurrences starti ng 08/06/2024 until 08/06/2025 Hemoglobin and hematocrit, blood Hemoglobin and hematocrit, blood Lab Routine Anemia, unspecified type 08/06/2024 11:36 AM EST [facility] XR Ankle - left 3 Views XR ankle 3+ views left Imaging Routine DJD (degenerative joint disease), ankle and foot, left 03/12/2024 9:06 AM EDT [facility] Work Phone: [facility] Immunizations Immunization Date Immunization Notes Care Provider Fa varun 03-18-2024 influenza virus vaccine, unspecified formulation 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 2018 Medicaid [id number] 2018 Medicare [id number] [id number]. [id number] 2018 Medicare HMO [facility] MEDIC[facility] [id number] 1959 Medicaid [id number] 1959 Medicare [id number] 2.16840.1.040936.19 1953 Unknown [id number] 2.16840.1.699295.3.579.2. 593 1953 Unknown [id number] 2.16840.1.513085.3.579.2. 593 1953 Unknown [id number] 2.16840.1.254627.3.579.2. 1286 1953 Unknown [id number] 2.16840.1.339259.3.579.2. 1286 1953 Unknown [id number] 2.16.840.1.230772.3.579.2. 1259 1953 Unknown [id number] 2.16.840.1.179220.3.579.2. 1259 1953 Unknown [id number] 2.16840.1.603859.3.579.2. 1259 1953 Unknown [id number] 2.16.840.1.784023.3.579.2. 125 1953 Unknown [id number] 2.16.840.1.797427.3.579.2. 1258 1953 Unknown [id number] 2.16.840.1.810151.3.579.2. 1258 1953 Unknown [id number] 2.16.840.1.521735.3.579.2. 1258 1953 Unknown [id number] 2.16.840.1.440127.3.579.2. 1258 1953 Unknown [id number] 2.16.840.1.148647.3.579.2. 1285 1953 Unknown [id number] 2.16.840.1.095420.3.579.2. 1285 1953 Unknown [id number] 2.16.840.1.203716.3.579.2. 1285 1953 Unknown [id number] 2.16.840.1.525445.3.579.2. 1285 1953 Unknown [id number] 2.16.840.1.390056.3.579.2. 1285 1953 Unknown [id number] 2.16.840.1.340674.3.579.2. 1285 1953 Unknown [id number] 2.16.840.1.157615.3.579.2. 1285 1953 Unknown [id number] 2.16.840.1.776746.3.579.2. 1285 1953 Unknown [id number] 2.16.840.1.728443.3.579.2. 1285 1953 Unknown [id number] 2.16.840.1.105762.3.579.2. 1285 1953 Unknown [id number] 2.16.840.1.408252.3.579.2. 1286 1953 Unknown [id number] 2.16.840.1.622075.3.579.2. 1286 1953 Unknown [id number] 2.16.840.1.670441.3.579.2. 1286 1953 Unknown [id number] 2.16.840.1.609400.3.579.2. 1286 1953 Unknown [id number] 2.16.840.1.777443.3.579.2. 1286 1953 Unknown [id number] 2.16.840.1.080132.3.579.2. 1286 1953 Unknown [id number] 2.16.840.1.845545.3.579.2. 1286 Unknown [id number] 2.16.840.1.791212.3.579.2. 531 Social History Date Type Detail Facility Unknown if ever smoked [employer] Other Start: 03-12-2024 End: 08-28-2024 Sex Assigned At [facility] Start: 1955 Sex Assigned At Female [facility] Start: 04-27-2022 End: 11-18-2023 Tobacco smoking status NHIS Never smoked tobacco (finding) [facility] Start: 04-27-2022 End: 12-20-2022 Tobacco use and exposure Smokeless tobacco non-user [facility] Start: 03-12-2024 End: 09-24-2024 Alcoholic beverage intake Lifetime non-drinker (finding) [facility] Start: 03-12-2024 End: 08-28-2024 History of Social function [facility] Start: 1955 Sex assigned at Not on file P [facility] Start: 05-12-2024 End: 10-12-2024 Alcoholic beverage intake Current non-drinker of alcohol (finding) [facility] Do you belong to any clubs or organizations such as tenriism groups, unions, fraternal or athletic groups, or school groups? No [facility] Are you now , , , , never or living with a partner? [facility] How hard is it for y ou to pay for the very basics like food, housing, medical care, and heating Not hard at all [facility] Do you feel stress - tense, restless, nervous, or anxious, or unable to sleep at night because your mind is troubled all the time - these days [OSQ] Not at all [facility] Start: 02-17-2015 End: 10-19-2024 Sex Female (finding) [facility] How often to you hav e a drink containing alcohol? Never [facility] Start: 08-28-2024 Gender identity Identifies as female gender (finding) [facility] Start: 08-28-2024 Sexual orientation Heterosexua l (finding) [facility] NEGATED: Highlighted rowStart: NINF History of tobacco use Passive smoker [facility] Medical Equipment Procedure Code Equipment Code Equipment Origin al Text Equipment Identifier Dates Start: 04-11-2021 lancets Start: 10-03-2023 lancets Start: 10-03-2023 Goals Date Patient Goal Desired Activity /State Personal health goal Comment on above: Formatting of this n ote might be different from the original. Evaluation of progress towards goal: Safe dc transition from hospital to home. Personal health goal Comment on above: Formatting of this n ote might be different from the original. Evaluation of progress towards goal: Patient plans to return home with self care and she stated she has friends and family that will be able to check on her after discharge. Clinical Notes 04-10-2021 to 10-19-2024 Telephone Encounter - Karyn Falk, [facility] - 10/19/2024 9:02 AM EDTTelephone Encounter - Karyn Falk, [facility] - 10/19/2024 9:02 AM EDTTelephone Encounter - Karyn Falk, [facility] - 10/19/2024 9:02 AM EDT Note Date & Type Note Facility 10-19-2024 Miscellaneous Notes Romie called & says that the stool softeners that she purchased OTC, are not working for her. She asked if we can send her in some to her pharmacy. I spoke to our nurse practitioner & she will send her in some. I called the patient back & let her know that she needs to be sure she's drinking lots of water, especially with the fiber that she is taking. At Amanda's request I cancelled the patients appointment that was scheduled, for November, for an updated H & P. She doesn't need that Colonoscopy any longer. She already had it, by Dr. Nathan, while she was hospitalized. I called Romie back too let her know that but she didn't answer & has No VM. I cancelled the appointment. Romie called me to see about her appointment. I let her know that she no longer needs her update H & P since she had her Colonoscopy while she was hospitalized. She thought she was following up on the meds that she was prescribed. I let her know that I was canceling her appointment & if she has any questions or concerns she is welcome to call us anytime. I did see she was still scheduled to have the colonoscopy in November, so I called Zack in surgery scheduling & canceled that. documented in this encounter [facility] 10-19-2024 Telephone encounter Note Romie called & says that the stool softeners that she purchased OTC, are not working for her. She asked if we can send her in some to her pharmacy. I spoke to our nurse practitioner & she will send her in some. I called the patient back & let her know that she needs to be sure she's drinking lots of water, especially with the fiber that she is taking. [facility] 10-19-2024 Telephone encounter Note At Amanda's request I cancelled the patients appointment that was scheduled, for November, for an updated H & P. She doesn't need that Colonoscopy any longer. She already had it, by Dr. Nathan, while she was hospitalized. I called Romie back too let her know that but she didn't answer & has No VM. I cancelled the appointment. [facility] 10-19-2024 Telephone encounter Note Romie called me to see about her appointment. I let her know that she no longer needs her update H & P since she had her Colonoscopy while she was hospitalized. She thought she was following up on the meds that she was prescribed. I let her know that I was canceling her appointment & if she has any questions or concerns she is welcome to call us anytime. I did see she was still scheduled to have the colonoscopy in November, so I called Zack in surgery scheduling & canceled that. [facility] 10-01-2024 Miscellaneous Notes Called pt na vm not set up and she has an appt with Dr. Martins on and Dr. Martins needs to move her appt to 10:15 am as his clinic is shortened this day. I mailed patient a reminder of appt that has been moved to 10:15am. documented in this encounter [facility] 10-01-2024 Telephone encounter Note Called pt na vm not set up and she has an appt with Dr. Martins on and Dr. Martins needs to move her appt to 10:15 am as his clinic is shortened this day. I mailed patient a reminder of appt that has been moved to 10:15am. [facility] 09-24-2024 History of Present illness Narrative 3Patient: Romie Geiger : 1955 PCP: [facility] Provider MD Apoorva SUBJECTIVE Patient presents today with a CC of elongated, thick nails. Pt states nails have been elongated and thick for many years and cause pain with ambulation in shoegear. Pt has tried previous treatment with minimal relief. Pt presents today for nail care and treatment. She has DM2 Patient has history of left-sided posterior tibial tendinitis with DJD. Patient states greatly diminished pain to the ankle and presents today for follow up with use of recent mobic refill. Rates pain up to 3 /10 and has been taking anti-inflammatories and Mobic with positive improvement Allergies: Allergies Allergen Reactions Azithromycin Headache Erythromycin GI intolerance Ibuprofen Other Reaction(s): interaction w/other meds Levofloxacin Nausea Only Minocycline Other Reaction(s): nausea, diarrhea Penicillin G Hives Acetaminophen-Codeine Rash Baclofen Rash Benzonatate Rash Clindamycin Rash Clopidogrel Rash Omeprazole Rash Past Medical History: Past Medical History: Diagnosis Date Acquired deformity of right toe Anemia At risk for falls BMI 29.0-29.9,adult COPD (chronic obstructive pulmonary disease) ([facility]/HCC) Depression ([facility]) Difficulty walking Diverticulosis DM type 2 (diabetes mellitus, type 2) (CMS/HCC) Fissured skin GERD (gastroesophageal reflux disease) Glaucoma, both eyes (CMS/HCC) Heart disease Hypercholesteremia (CMS/HCC) Hypertension (CMS/HCC) Neuropathy in diabetes (CMS/HCC) OM (onychomycosis) Onychomycosis Tinea pedis Toe pain, bilateral Visual impairment with corective lenses Xerosis of skin Medications: Current Outpatient Medications: acetaminophen (Tylenol) 325 MG tablet, Take 325 mg by mouth every 4 (four) hours., Disp: , Rfl: acetaminophen (Tylenol) 500 MG tablet, Take 500 mg by mouth every 6 (six) hours if needed., Disp: , Rfl: albuterol 0.63 MG/3ML nebulizer solution, Inhale 0.63 mg every 6 (six) hours if needed., Disp: , Rfl: aspirin 81 MG EC tablet, Take 81 mg by mouth in the morning., Disp: , Rfl: azaTHIOprine (Imuran) 50 MG tablet, Take 50 mg by mouth 1 (one) time each day at the same time., Disp: , Rfl: biotin 5 MG capsule, Take 5 mg by mouth in the morning., Disp: , Rfl: carvedilol (Coreg) 25 MG tablet, Take 25 mg by mouth in the morning and 25 mg in the evening., Disp: , Rfl: cyanocobalamin (Vitamin B-12) 1000 MCG tablet, Take 1,000 mcg by mouth in the morning., Disp: , Rfl: dicyclomine (Bentyl) 20 MG tablet, , Disp: , Rfl: Docusate Sodium (DSS) 100 MG capsule, Take 100 mg by mouth in the morning., Disp: , Rfl: estradiol (Estrace) 0.1 MG/GM vaginal cream, Insert 2 g into the vagina in the morning., Disp: , Rfl: ferrous sulfate 325 (65 Fe) MG tablet, Take 325 mg by mouth in the morning. Take with meals., Disp: , Rfl: fluticasone (Flonase) 50 MCG/ACT nasal spray, Administer 1 spray into affected nostril(s) in the morning., Disp: , Rfl: Fluticasone Furoate-Vilanterol 100-25 MCG/ACT aerosol powder , Inhale 1 puff as needed at bedtime., Disp: , Rfl: gabapentin (Neurontin) 300 MG capsule, 1 capsule 1 (one) time each day at the same time., Disp: , Rfl: hydroCHLOROthiazide (HYDRODiuril) 25 MG tablet, Take 12.5 mg by mouth in the morning., Disp: , Rfl: isosorbide mononitrate ER (Imdur) 30 MG 24 hr tablet, Take 30 mg by mouth in the morning., Disp: , Rfl: latanoprost (Xalatan) 0.005 % ophthalmic solution, Administer 1 drop into affected eye(s) at bedtime., Disp: , Rfl: lisinopril-hydroCHLOROthiazide 10-12.5 MG tablet, Take 1 tablet by mouth 1 (one) time each day at the same time., Disp: , Rfl: loperamide (Imodium A-D) 2 MG tablet, Take 2-4 mg by mouth every 6 (six) hours., Disp: , Rfl: losartan (Cozaar) 25 MG tablet, Take 25 mg by mouth 1 (one) time each day at the same time., Disp: , Rfl: magnesium 200 MG tablet, Take 200 mg by mouth 1 (one) time each day at the same time., Disp: , Rfl: meloxicam (Mobic) 15 MG tablet, TAKE 1 TABLET BY MOUTH DAILY, Disp: 90 tablet, Rfl: 1 Social History: Social History Socioeconomic History Marital status: Spouse name: Not on file Number of children: Not on file Years of education: Not on file Highest education level: Not on file Occupational History Not on file Tobacco Use Smoking status: Never Passive exposure: Never Smokeless tobacco: Never Vaping Use Vaping status: Unknown Substance and Sexual Activity Alcohol use: Never Drug use: Never Sexual activity: Defer Partners: Decline to Answer Other Topics Concern Not on file Social History Narrative Not on file Social Drivers of Health Financial Resource Strain: Low Risk (08/28/2024) Received from [facility] Overall Financial Resource Strain (CARDIA) Difficulty of Paying Living Expenses: Not hard at all Food Insecurity: No Food Insecurity (08/28/2024) Received from [facility] Hunger Screening Within the past 12 months we worried whether our food would run out before we got money to buy more.: Never True Within the past 12 months the food we bought just didn't last and we didn't have money to get more.: Never True Transportation Needs: No Transportation Needs (08/28/2024) Received from [facility] PRAPARE - Transportation Lack of Transportation (Medical): No Lack of Transportation (Non-Medical): No Physical Activity: Insufficiently Active (08/28/2024) Received from [facility] Exercise Vital Sign Days of Exercise per Week: 7 days Minutes of Exercise per Session: 20 min Stress: No Stress Concern Present (08/28/2024) Received from [facility] [employer] [place] [employer] - Occupational Stress Questionnaire Feeling of Stress : Not at all Social Connections: Socially Isolated (08/28/2024) Received from [facility] Social Connection and Isolation Panel [NHANES] Frequency of Communication with Friends and Family: More than three times a week Frequency of Social Gatherings with Friends and Family: More than three times a week Attends Latter-[employer] Services: Never Active Member of Clubs or Organizations: No Attends Club or Organization Meetings: Never Marital Status: Intimate Partner Violence: Not on file Housing Stability: Low Risk (08/28/2024) Received from [facility] Housing Instability Are you worried or concerned that in the next two months you may not have stable housing that you own, rent or stay in as a part of a household?: No ROS: General: denies fever, chills, fatigue, malaise GI: denies abdominal pain or ulcerations with anti-inflammatory medication OBJECTIVE LE EXAM: DERM: Elongated thick yellow crumbly nails digits 1 through 10. Negative hair growth with thin shiny atrophic skin bilaterally. +1 pitting edema to bilateral ankles with venous stasis with notable varicosities. VASC: Negative DP and positive PT pedal pulses NEURO: 5.07 Lagrange Jaleel monofilament test diminished to digits and forefoot bilaterally 125Hz tuning fork diminished to 1st MPJ bilaterally ORTHO: +5/5 dorsiflexion plantar flexion inversion eversion with diminished pain on palpation to the medial left ankle region superior to the medial malleolar region and posterior area around the posterior tibial tendon and posterior tibial nerve complex Positive pain on palpation to toenails of the left 1,2,3,4,5 toes and right 1,2,3,4,5 toes ASSESSMENT 1. DJD (degenerative joint disease), ankle and foot, left 2. Diabetes mellitus due to underlying condition with diabetic polyneuropathy, with long-term current use of insulin ([facility]) 3. Pain due to onychomycosis of toenails of both feet PLAN Patient to continue with oral anti - inflammatories as needed for pain and recommended OTC medications such as tylenol or Ibuprofen/mobic.. offer for refill of Mobic today Discussed proper foot care with patient today. Debride nails in length and thickness digits 1 through 10 Patient educated today on proper diabetic foot care including monitoring feet daily for any signs of infection openings in the skin or irregularities to both feet. Patient had a diabetic neurological exam today to both their feet and discussed proper shoe gear. Cas Mason DPM documented in this encounter [facility] 09-16-2024 History of Present illness Narrative Images from the original note were not included. Chief Complaint: Rectal bleeding History of Present Illness Romie Geiger is a 69 y.o. female who presents to the office for bright red blood per rectum. She reports 3 episodes for which she was seen in the ED each time. CT abdomen and pelvis on 08/25/2024 revealed 8 cm rectal stool ball. She was given an enema with good results and then started on a daily bowel regimen. She has been having good bowel movements since then. She denies any further rectal bleeding. She denies abdominal pain. She states she has IBS. Her last colonoscopy was in [address] Caldwell. No polyps were removed. Review of Systems Constitutional: Negative for fever and unexpected weight change. HENT: Negative for trouble swallowing. Respiratory: Negative for shortness of breath. Cardiovascular: Negative for chest pain. Gastrointestinal: Positive for blood in stool. Negative for nausea, vomiting, abdominal pain, diarrhea and constipation. Genitourinary: Negative for dysuria and difficulty urinating. Musculoskeletal: Negative for gait problem. Skin: Negative for rash and wound. Neurological: Negative for dizziness, weakness and light-headedness. Hematological: Does not bruise/bleed easily. Psychiatric/Behavioral: Negative for confusion. Past Medical History: Diagnosis Date Anemia Anxiety Atelectasis CAD (coronary artery disease) COPD (chronic obstructive pulmonary disease) ([facility]) CVA (cerebral vascular accident) ([facility]) Dental disease Depression Depression Diabetes mellitus type 2, controlled ([facility]) Diabetes mellitus with peripheral circulatory disorder ([facility]) 08/30/2009 GERD (gastroesophageal reflux disease) Glaucoma Hepatic steatosis Hyperlipidemia Hypertension Irritable bowel Myocardial infarction ([facility]) Pulmonary embolism ([facility]) Visual impairment Past Surgical History: Procedure Laterality Date SECTION CHOLECYSTECTOMY COLONOSCOPY N/A 10/13/2020 Performed by Nimesh Caldwell MD at [facility] CORONARY ARTERY BYPASS GRAFT CYSTOSCOPY N/A 04/27/2022 Performed by Hammad Martins Jr., MD at [facility] EXCISION BENIGN SKIN LESION SCALP / NECK / HANDS / FEET / GENITALIA [facility] EYE SURGERY HEMORRHOID SURGERY HERNIA REPAIR x6 HYSTERECTOMY LAPAROSCOPIC TUBAL LIGATION Allergies Allergen Reactions Albuterol Dizziness Baclofen Dizziness NAUSEA Bactrim [Sulfamethoxazole-Trimethoprim] Nausea Clindamycin Hives HEARTBURN Codeine Diarrhea and Nausea And Vomiting Other reaction(s): Intolerance-unknown Erythromycin Base Nausea And Vomiting Other reaction(s): Erythromycin Ibuprofen Nausea And Vomiting Other reaction(s): Motrin Levofloxacin GI Disturbance Minocycline Other Reaction(s): nausea, diarrhea Omeprazole Nausea Other reaction(s): Prilosec Penicillins Hives Other reaction(s): Intolerance-unknown Plavix [Clopidogrel] Dizziness Propoxyphene Nausea Acetaminophen-Codeine Rash Benzonatate Rash Current Outpatient Medications: acetaminophen (TYLENOL EXTRA STRENGTH) 500 mg tablet, Take 1 tablet (500 mg total) by mouth every 6 (six) hours as needed for pain., Disp: , Rfl: aspirin 81 mg, Take 1 tablet (81 mg total) by mouth in the morning., Disp: 90 tablet, Rfl: 3 biotin (BIOTIN) 5 mg capsule, Take 1 capsule (5 mg total) by mouth in the morning., Disp: , Rfl: carvediloL (COREG) 25 mg tablet, Take 1 tablet (25 mg total) by mouth in the morning and 1 tablet (25 mg total) in the evening. Take with meals., Disp: 180 tablet, Rfl: 3 cholecalciferol (VITAMIN D3) 50,000 units capsule, Take 1 capsule (50,000 Units total) by mouth in the morning., Disp: , Rfl: clotrimazole (LOTRIMIN) 1 % cream, Apply to affected area 2 times daily, Disp: 15 g, Rfl: 0 cyanocobalamin 1000 MCG tablet, Take 1 tablet (1,000 mcg total) by mouth in the morning., Disp: , Rfl: diclofenac sodium (VOLTAREN) 1 % gel, Apply 2 g topically in the morning and 2 g at noon and 2 g in the evening and 2 g before bedtime., Disp: 100 g, Rfl: 0 docusate sodium (COLACE) 100 mg capsule, Take 1 capsule (100 mg total) by mouth every 12 (twelve) hours., Disp: 20 capsule, Rfl: 0 estradioL (ESTRACE) 0.01 % (0.1 mg/gram) vaginal cream, Apply nightly for 3 weeks, then 3 times per week., Disp: 127.5 g, Rfl: 0 ferrous sulfate 325 (65 FE) mg tablet, Take 1 tablet (325 mg total) by mouth daily with breakfast., Disp: , Rfl: fluticasone furoate-vilanteroL (BREO ELLIPTA) 100-25 mcg/dose blister with device, Inhale 1 puff nightly as needed., Disp: , Rfl: hydroCHLOROthiazide (HYDRODIURIL) 12.5 mg tablet, Take 1 tablet (12.5 mg total) by mouth daily., Disp: 90 tablet, Rfl: 3 isosorbide mononitrate (IMDUR) 30 mg 24 hr tablet, Take 1 tablet (30 mg total) by mouth daily., Disp: 90 tablet, Rfl: 3 LANTUS SOLOSTAR U-100 INSULIN 100 unit/mL (3 mL) insulin pen, 16 Units in the morning., Disp: , Rfl: latanoprost (XALATAN) 0.005 % ophthalmic solution, Administer 1 drop to both eyes nightly., Disp: , Rfl: loratadine (CLARITIN) 10 mg tablet, Take 1 tablet (10 mg total) by mouth in the morning., Disp: , Rfl: losartan (COZAAR) 100 mg tablet, Take 1 tablet (100 mg total) by mouth in the morning., Disp: 90 tablet, Rfl: 3 magnesium oxide (MAGOX) 400 mg tablet, Take 1 tablet (400 mg total) by mouth in the morning., Disp: , Rfl: nitroglycerin (NITROSTAT) 0.4 MG SL tablet, 1 under the tongue as needed for angina, may repeat q5mins for up three doses, Disp: 25 tablet, Rfl: 3 omeprazole (PriLOSEC) 40 mg capsule, Take 1 capsule (40 mg total) by mouth every morning before breakfast., Disp: , Rfl: ondansetron ODT (ZOFRAN ODT) 4 mg disintegrating tablet, Dissolve 1 tablet (4 mg total) on tongue every 8 (eight) hours as needed for nausea for up to 10 doses., Disp: 10 tablet, Rfl: 0 potassium citrate (UROCIT-K) 15 mEq tablet extended release, Take 1 tablet (15 mEq total) by mouth in the morning and 1 tablet (15 mEq total) before bedtime. Do all this for 360 days., Disp: 180 tablet, Rfl: 3 pravastatin (PRAVACHOL) 80 mg tablet, Take 1 tablet (80 mg total) by mouth nightly., Disp: 90 tablet, Rfl: 3 rivaroxaban (XARELTO) 20 mg tablet tablet, Take 1 tablet (20 mg total) by mouth in the morning., Disp: 90 tablet, Rfl: 3 TRULICITY 1.5 mg/0.5 mL pen injector, 4.5 Units by abdominal subcutaneous route once a week. WEEKLY ON SATURDAY, Disp: , Rfl: bisacodyL (DULCOLAX, BISACODYL,) 5 mg EC tablet, Please see instructional sheet given by physicians office., Disp: 2 tablet, Rfl: 0 psyllium (METAMUCIL) powder, Take 1 packet by mouth 3 (three) times a day. (Patient not taking: Reported on 09/16/2024), Disp: , Rfl: senna (SENOKOT) 8.6 mg tablet, Take 1 tablet (8.6 mg total) by mouth in the morning and 1 tablet (8.6 mg total) before bedtime. Hold for diarrhea. (Patient not taking: Reported on 09/16/2024), Disp: 60 tablet, Rfl: 0 sod sulf-pot chloride-mag sulf 1.479-0.188- 0.225 gram tablet, Please see instructional sheet given by physicians office., Disp: 24 tablet, Rfl: 0 Social History Socioeconomic History Marital status: Spouse name: Not on file Number of children: Not on file Years of education: Not on file Highest education level: Not on file Occupational History Not on file Tobacco Use Smoking status: Never Smokeless tobacco: Never Vaping Use Vaping status: Never Used Substance and Sexual Activity Alcohol use: No Drug use: No Sexual activity: Defer Other Topics Concern Caffeine Use Yes Social History Narrative Not on file Social Drivers of Health Financial Resource Strain: Low Risk (08/28/2024) Overall Financial Resource Strain (CARDIA) Difficulty of Paying Living Expenses: Not hard at all Food Insecurity: No Food Insecurity (08/28/2024) Hunger Screening Food Insecurity - Worry: Never True Food Insecurity - Inability: Never True Transportation Needs: No Transportation Needs (08/28/2024) PRAPARE - Transportation Lack of Transportation (Medical): No Lack of Transportation (Non-Medical): No Physical Activity: Insufficiently Active (08/28/2024) Exercise Vital Sign Days of Exercise per Week: 7 days Minutes of Exercise per Session: 20 min Stress: No Stress Concern Present (08/28/2024) [employer] [place] [employer] - Occupational Stress Questionnaire Feeling of Stress : Not at all Social Connections: Socially Isolated (08/28/2024) Social Connection and Isolation Panel [NHANES] Frequency of Communication with Friends and Family: More than three times a week Frequency of Social Gatherings with Friends and Family: More than three times a week Attends Latter-Day Services: Never Active Member of Clubs or Organizations: No Attends Club or Organization Meetings: Never Marital Status: Interpersonal Safety: Not At Risk (08/28/2024) Humiliation, Afraid, Rape, and Kick questionnaire Fear of Current or Ex-Partner: No Emotionally Abused: No Physically Abused: No Sexually Abused: No Housing Instability: Low Risk (08/28/2024) Housing Instability Housing Instability: No Family History Problem Relation Age of Onset Heart attack Father Heart attack Brother No Known Problems Mother Cancer Brother Objective Physical Exam Constitutional: General: She is not in acute distress. Appearance: Normal appearance. She is not ill-appearing. HENT: Head: Normocephalic and atraumatic. Mouth/Throat: Mouth: Mucous membranes are moist. Eyes: Pupils: Pupils are equal, round, and reactive to light. Cardiovascular: Rate and Rhythm: Normal rate. Pulmonary: Effort: Pulmonary effort is normal. No respiratory distress. Abdominal: General: There is no distension. Musculoskeletal: General: Normal range of motion. Skin: General: Skin is warm and dry. Neurological: Mental Status: She is alert and oriented to person, place, and time. Mental status is at baseline. Vital Signs: Blood pressure 119/62, pulse 64, height 170.2 cm (5' 7 ), weight 77.8 kg (171 lb 9.6 oz). Respiratory Source: No data recorded Admission Weight: Weight: 77.8 kg (171 lb 9.6 oz) Labs Lab Results Component Value Date WBC 4.9 08/29/2024 HGB 9.4 (L) 08/29/2024 HCT 27.2 (L) 08/29/2024 MCV 88 08/29/2024 PLT 119 (L) 08/29/2024 Lab Results Component Value Date GLU 128 (H) 08/29/2024 CALCIUM 8.7 08/29/2024 K 3.5 08/29/2024 CO2 24 08/29/2024 CL 101 08/29/2024 BUN 25 08/29/2024 CREATININE 1.11 (H) 08/29/2024 No results found for: AMYLASE Lab Results Component Value Date LIPASE 21 08/25/2024 Lab Results Component Value Date ALT 15 08/29/2024 AST 17 08/29/2024 ALKPHOS 97 08/29/2024 Lab Results Component Value Date INR 1.7 (H) 08/28/2024 INR 2.4 (H) 08/24/2024 INR 1.2 (H) 03/05/2021 PROTIME 18.9 (H) 08/28/2024 PROTIME 26.8 (H) 08/24/2024 PROTIME 13.1 03/05/2021 Assessment Romie Geiger is a 69 y.o.female with history of bright red blood per rectum. Plan Colonoscopy. Patient requesting to be scheduled in November. Hold aspirin 7 days prior and Xarelto 2 days prior. Evaluation included: Preparing to see the patient (e.g., review of tests) Obtaining and/or reviewing separately obtained history Performing a medically appropriate examination and/or evaluation Counseling and educating the patient/family/caregiver Referring and communicating with other health pet care associate Rectal bleeding [K62.5] CAROL WATTS [facility] General Surgery [place] This note was created with the assistance of a speech recognition program. While intending to generate a timely document that accurately reflects the content of the visit, no guarantee can be provided that every grammatical or spelling mistake has been or will be identified or corrected. Thank you for your understanding. CAROL Watts 09/16/24 1007 documented in this encounter [facility] 08-28-2024 History of Present illness Narrative Patient rescheduled today's appointment documented in this encounter [facility] 08-24-2024 Miscellaneous Notes Pt calls office- she was in ER today with rectal bleeding- she is having issues with constipation- she was advised per ER to hold her Xarelto for 3 days and that she should not be on ASA and Xarelto- pt is asking if one can be stopped. 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 Gardner after a PE. She was briefly on warfarin for CVA in [address] Abraham (neuro?) stopped this after imaging did not show CVA on CT and lupus AC testing was not positive. She is not on AC for cardiac reasons. Note from Dr. Bianchi in 2013 states there was a change from warfarin to xarelto based on Dr. Gardner's recommendations of lifelong AC. Noted. Agree with holding Xarelto for 3 days, will defer terminal gauger Xarelto to hematology. No objection stopping xarelto as patient is on xarelto. Would recommend GI evaluation if not already planned. Thanks P/c from pt. [facility] reviewed Moiz recommendations/response. She v/u we will clarify message with MS and call back to update. Yes, please. Thanks Noted. Referrals placed. [facility] called pt to update. She will schedule with the provides when they call and f/u at the Er for any worsening symptoms. documented in this encounter [facility] 08-24-2024 Telephone encounter Note Pt calls office- she was in ER today with rectal bleeding- she is having issues with constipation- she was advised per ER to hold her Xarelto for 3 days and that she should not be on ASA and Xarelto- pt is asking if one can be stopped. 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 Gardner after a PE. She was briefly on warfarin for CVA in [address] Abraham (neuro?) stopped this after imaging did not show CVA on CT and lupus AC testing was not positive. She is not on AC for cardiac reasons. Note from Dr. Bianchi in 2013 states there was a change from warfarin to xarelto based on Dr. Gardner's recommendations of lifelong AC. [facility] 08-24-2024 Telephone encounter Note Noted. Agree with holding Xarelto for 3 days, will defer terminal gauger Xarelto to hematology. No objection stopping xarelto as patient is on xarelto. Would recommend GI evaluation if not already planned. Thanks [facility] 08-24-2024 Telephone encounter Note P/c from pt. [facility] reviewed Moiz recommendations/response. She v/u we will clarify message with MS and call back to update. [facility] 08-24-2024 Telephone encounter Note Yes, please. Thanks [facility] 08-24-2024 Telephone encounter Note Noted. Referrals placed. [facility] called pt to update. She will schedule with the provides when they call and f/u at the Er for any worsening symptoms. [facility] 08-24-2024 Miscellaneous Notes Pt contacted after discovering and discussion with that vascular was not the group that stated her on blood thinner. Romie was seen in the past for varicose veins. The patient had questions regarding taking aspirin and Xarelto. She was told to contact her taxicab dispatcher as he was the one who prescribed it. documented in this encounter [facility] 08-24-2024 Telephone encounter Note Pt contacted after discovering and discussion with that vascular was not the group that stated her on blood thinner. Romie was seen in the past for varicose veins. The patient had questions regarding taking aspirin and Xarelto. She was told to contact her taxicab dispatcher as he was the one who prescribed it. [facility] 08-24-2024 Miscellaneous Notes Pt is currently in ER and has questions for Dr. Astudillo. She States that her heart dr put her on a new blood thinner and doesn't want her taking 2 blood thinners. She would like to talk to the dr In ED currently due to recurrent rectal pain and bleeding after laxative for constipation. States she was up all night on the toilet after taking laxative and now w/ severe rectal pain. Concern for rectal prolapse and/or infection. Cardiology said ok to hold xarelto for 3 days. Started holding yesterday - now still waiting for cardiology to call her back regarding ongoing plans for anticoag. Encouraged pt to follow cardiology recommendations for anticoag. Also sounds like will need GI eval for ongoing rectal pain/issues. - Iman Astudillo DO 08/25/24 12:51 PM documented in this encounter [email or web address] 08-24-2024 Telephone encounter Note Pt is currently in ER and has questions for Dr. Astudillo. She States that her heart dr put her on a new blood thinner and doesn't want her taking 2 blood thinners. She would like to talk to the dr [email or web address] 08-24-2024 Telephone encounter Note In ED currently due to recurrent rectal pain and bleeding after laxative for constipation. States she was up all night on the toilet after taking laxative and now w/ severe rectal pain. Concern for rectal prolapse and/or infection. Cardiology said ok to hold xarelto for 3 days. Started holding yesterday - now still waiting for cardiology to call her back regarding ongoing plans for anticoag. Encouraged pt to follow cardiology recommendations for anticoag. Also sounds like will need GI eval for ongoing rectal pain/issues. - Iman Astudillo DO 08/25/24 12:51 PM [facility] Work Phone: 08-06-2024 History of Present illness Narrative Romie Geiger Date of visit: 08/06/2024 Date of : 1955 Age: 69 y.o. Patient Active Problem List Diagnosis Cerebrovascular disease Abnormal electrocardiography Essential hypertension Heartburn Pure hypercholesterolemia Coronary artery disease involving grand traverse coronary artery of grand traverse heart without angina pectoris Hypokalemia Hx of CABG Prolonged Q-T interval on ECG Obesity (BMI 30-39.9) Obesity (BMI 30-39.9) Venous hypertension Spider veins Recurrent urinary tract infection Urologic disorders Bilateral renal stones H/O recurrent urinary tract infection Allergies Allergen Reactions Albuterol Dizziness Baclofen Dizziness NAUSEA Bactrim [Sulfamethoxazole-Trimethoprim] Nausea Clindamycin Hives HEARTBURN Codeine Diarrhea and Nausea And Vomiting Other reaction(s): Intolerance-unknown Erythromycin Base Nausea And Vomiting Other reaction(s): Erythromycin Ibuprofen Nausea And Vomiting Other reaction(s): Motrin Levofloxacin GI Disturbance Minocycline Other Reaction(s): nausea, diarrhea Omeprazole Nausea Other reaction(s): Prilosec Penicillins Hives Other reaction(s): Intolerance-unknown Plavix [Clopidogrel] Dizziness Propoxyphene Nausea Simvastatin Other reaction(s): Myalgia Acetaminophen-Codeine Rash Benzonatate Rash Current Outpatient Medications Medication Sig Dispense Refill [...] mouth in the morning. 90 tablet 3 biotin (BIOTIN) 5 mg capsule Take 1 capsule (5 mg total) by mouth in the morning. carvediloL (COREG) 25 mg tablet Take 1 tablet (25 mg total) by mouth in the morning and 1 tablet (25 mg total) in the evening. Take with meals. 180 tablet 3 cholecalciferol (VITAMIN D3) 50,000 units capsule Take 1 capsule (50,000 Units total) by mouth in the morning. clotrimazole (LOTRIMIN) 1 % cream Apply to affected area 2 times daily 15 g 0 cyanocobalamin 1000 MCG tablet Take 1 tablet (1,000 mcg total) by mouth in the morning. cyclobenzaprine (FLEXERIL) 10 mg tablet diclofenac sodium (VOLTAREN) 1 % gel Apply 2 g topically in the morning and 2 g at noon and 2 g in the evening and 2 g before bedtime. 100 g 0 estradioL (ESTRACE) 0.01 % (0.1 mg/gram) vaginal cream Apply nightly for 3 weeks, then 3 times per week. 127.5 g 0 ferrous sulfate 325 (65 FE) mg tablet Take 1 tablet (325 mg total) by mouth daily with breakfast. fluticasone furoate-vilanteroL (BREO ELLIPTA) 100-25 mcg/dose blister with device Inhale 1 puff nightly as needed. fluticasone propionate (FLONASE) 50 mcg/actuation nasal spray Administer 1 spray into each nostril in the morning. hydroCHLOROthiazide (HYDRODIURIL) 12.5 mg tablet Take 1 tablet (12.5 mg total) by mouth daily. 90 tablet 3 isosorbide mononitrate (IMDUR) 30 mg 24 hr tablet Take 1 tablet (30 mg total) by mouth daily. 90 tablet 3 LANTUS SOLOSTAR U-100 INSULIN 100 unit/mL (3 mL) insulin pen 16 Units in the morning. latanoprost (XALATAN) 0.005 % ophthalmic solution Administer 1 drop to both eyes nightly. loratadine (CLARITIN) 10 mg tablet Take 1 tablet (10 mg total) by mouth in the morning. losartan (COZAAR) 100 mg tablet Take 1 tablet (100 mg total) by mouth in the morning. 90 tablet 3 magnesium oxide (MAGOX) 400 mg tablet Take 1 tablet (400 mg total) by mouth in the morning. nitroglycerin (NITROSTAT) 0.4 MG SL tablet 1 under the tongue as needed for angina, may repeat q5mins for up three doses 25 tablet 3 omeprazole (PriLOSEC) 40 mg capsule Take 1 capsule (40 mg total) by mouth every morning before breakfast. ondansetron ODT (ZOFRAN ODT) 4 mg disintegrating [...] total) by mouth nightly. 90 tablet 3 psyllium (METAMUCIL) powder Take 1 packet by mouth 3 (three) times a day. rivaroxaban (XARELTO) 20 mg tablet tablet Take 1 tablet (20 mg total) by mouth in the morning. 90 tablet 3 TRULICITY 1.5 mg/0.5 mL pen injector once a week. No current facility-administered medications for this visit. Chief Complaint Patient presents with Follow-up EST PT EXCESSIVE BRUISING ON XARELTO Bleeding/Bruising History of Present Illness AR is a 69 yo F who presents to the office today due to extensive bruising while on xarelto. She has a hx of CVA in 2001, DVT/PE in 2012, CAD s/p CABG x4 2005, HTN, HLD, DMII. She has a large painful bruise covering her upper right arm. She recently had a hemoglobin of 5 and required transfusion. Based on extensive chart review, pt was originally on warfarin per Dr. Gardner after a PE. She was briefly on warfarin for CVA in [address] Abraham (neuro?) stopped this after imaging did not show CVA on CT and lupus AC testing was not positive. She is not on AC for cardiac reasons. Note from Dr. Bianchi in 2013 states there was a change from warfarin to xarelto based on Dr. Gardner's recommendations of lifelong AC. Today, she endorses pain in her right arm around her bruise. No CP, no SOB, no palpitations. She has not had dizziness since being transfused. Patient was seen when Dr. Banegas was readily available in office. Past Medical History: Diagnosis Date Anemia Anxiety Atelectasis CAD (coronary artery disease) COPD (chronic obstructive pulmonary disease) [place] CVA (cerebral vascular accident) ([facility]) Dental disease Depression Depression Diabetes mellitus type 2, controlled ([facility]) Diabetes mellitus with peripheral circulatory disorder (HCC) 08/30/2009 GERD (gastroesophageal reflux disease) Glaucoma Hepatic steatosis Hyperlipidemia Hypertension Irritable bowel Myocardial infarction ([facility]) Pulmonary embolism ([facility]) Visual impairment No data recorded No data recorded No data recorded Past Surgical History: Procedure Laterality Date SECTION CHOLECYSTECTOMY COLONOSCOPY N/A 10/13/2020 Performed by Nimesh Caldwell MD at [facility] CORONARY ARTERY BYPASS GRAFT CYSTOSCOPY N/A 04/27/2022 Performed by Hammad Martins Jr., MD at [facility] EXCISION BENIGN SKIN LESION SCALP / [...] Never Smokeless tobacco: Never Vaping Use Vaping status: Never Used Substance and Sexual Activity Alcohol use: No Drug use: No Sexual activity: Defer Other Topics Concern Caffeine Use Yes Social History Narrative Not on file Social Drivers of Health Financial Resource Strain: Low Risk (07/30/2020) Overall Financial Resource Strain (CARDIA) Difficulty of Paying Living Expenses: Not hard at all Food Insecurity: No Food Insecurity (05/12/2024) Hunger Screening Food Insecurity - Worry: Never True Food Insecurity - Inability: Never True Transportation Needs: No Transportation Needs (07/30/2020) PRAPARE - Transportation Lack of Transportation (Medical): No Lack of Transportation (Non-Medical): No Physical Activity: Insufficiently Active (07/30/2020) Exercise Vital Sign Days of Exercise per Week: 3 days Minutes of Exercise per Session: 20 min Stress: No Stress Concern Present (07/30/2020) [employer] [place] [employer] - Occupational Stress Questionnaire Feeling of Stress : Not at all Social Connections: Socially Isolated (07/30/2020) Social Connection and Isolation Panel [NHANES] Frequency of Communication with Friends and Family: More than three times a week Frequency of Social Gatherings with Friends and Family: Never Attends Latter-Day Services: Never Active Member of Clubs or Organizations: No Attends Club or Organization Meetings: Never Marital Status: Interpersonal Safety: Not At Risk (07/30/2020) Humiliation, Afraid, Rape, and Kick questionnaire Fear of Current or Ex-Partner: No Emotionally Abused: No Physically Abused: No Sexually Abused: No Housing Instability: Not on file Review of Systems Review of Systems Constitutional: Negative for malaise/fatigue. HENT: Negative for nosebleeds. Respiratory: Negative for cough, shortness of breath and wheezing. Hematologic/Lymphatic: Bruises/bleeds easily. Musculoskeletal: Negative for joint pain, joint swelling, muscle cramps and muscle weakness. Gastrointestinal: Positive for heartburn (occ). Negative for bloating, abdominal pain, constipation, diarrhea, hematochezia, nausea and vomiting. Genitourinary: Negative for hematuria. Neurological: Negative for dizziness, headaches and light-headedness. Vascular: Negative for claudication and lower extremity wounds or ulcers. CARDIOVASCULAR: Please review HPI. Physical Examination General [...] Appropriate mood, memory and judgement. VITAL SIGNS: Ht 175.3 cm (5' 9.02 ) Wt 80.7 kg (178 lb) BMI 26.27 kg/m Orders Placed or Reconciled This Encounter Medications cyclobenzaprine (FLEXERIL) 10 mg tablet omeprazole (PriLOSEC) 40 mg capsule Sig: Take 1 capsule (40 mg total) by mouth every morning before breakfast. There are no discontinued medications. IMPRESSIONS/PLAN 1. Cerebrovascular disease 2. Essential hypertension 3. Coronary artery disease involving grand traverse coronary artery of grand traverse heart without angina pectoris 4. Hx of CABG 5. Pure hypercholesterolemia PLAN Discussed case with Dr. Banegas. Have ordered an H and H, last HgB was in the 7s after transfusion. WIll reach out to vascular regarding xarelto and their recommendations. Discussed w pt how she needs to take ASA due to CABG completed in [place]. BP and HR are controlled. She appears euvolemic. No other s/s of bleeding at this time. Recommend follow up in 2 months. TODAYS ORDERS No orders of the defined types were placed in this encounter. FOLLOW UP No follow-ups on file. PCP: CAROL TEE Referring Physician: CAROL Tee [id number] [place] [address] CAROL Richards 08/06/24 [id number] documented [facility] Instructions CAROL Richards - 08/06/2024 11:00 AM EST Complete H and H. Will update you on vascular game plan BP and HR are controlled today. Continue your medications. Recommend follow up in 8 weeks. Please call the office if you develop new or worsening symptoms and we will see you sooner. [facility] Miscellaneous Notes Called patient to remind them to bring their most current copy of their medication list with them to their appt. Patient verbalizes understanding. documented in this encounter [facility] 08-05-2024 Telephone encounter Note Called patient to remind them to bring their most current copy of their medication list with them to their appt. Patient verbalizes understanding. [facility]24 Miscellaneous Notes PCP office called and states pt has was in the office she has bruising from the shoulder [address] to her elbow. She denies hitting it in anyway. They were asking about decreasing dose of Xarelto. Pt denies it spreading since yesterday. Instructed them to jay it with a black marker and it it spreads to notify the office.Any further recommendations? Thx slm Noted. Patient has been on Xarelto for history of DVT/PE. Upon review of chart, and see patient has not seen vascular surgery since 2022. Would recommend monitoring her bruising and if worsening or feeling dizzy or having shortness of breath or chest pain to have someone take her to the ED for evaluation. Would also recommend reaching out to vascular surgery team to discuss Xarelto dosing, as well as need for long-term anticoagulation based on type of DVT/PE. Thanks Called vascular and pt was seen by them for venous insufficiency. They have no notes regarding putting her on xarelto? Pt states we put her on the xarelto INPT I don't see any notes regarding that ? She is also taking a ASA daily. Should I make appt for her to come into the office and discuss this? Got it. Would recommend referral to hematology to determine fpc need for anticoagulation. Thanks Called pt made appt in the [place] office for 08/06/24 at 11am.Instructed pt to go to the ER if she has problems before her appt. slm [facility] Telephone encounter Note PCP office called and states pt has was in the office she has bruising from the shoulder 1[address] to her elbow. She denies hitting it in anyway. They were asking about decreasing dose of Xarelto. Pt denies it spreading since yesterday. Instructed them to jay it with a black marker and it it spreads to notify the office.Any further recommendations? Thx slm [facility] Telephone encounter Note Noted. Patient has been on Xarelto for history of DVT/PE. Upon review of chart, and see patient has not seen vascular surgery since 2022. Would recommend monitoring her bruising and if worsening or feeling dizzy or having shortness of breath or chest pain to have someone take her to the ED for evaluation. Would also recommend reaching out to vascular surgery team to discuss Xarelto dosing, as well as need for long-term anticoagulation based on type of DVT/PE. [facility] Telephone encounter Note Called vascular and pt was seen by them for venous insufficiency. They have no notes regarding putting her on xarelto? Pt states we put her on the xarelto INPT I don't see any notes regarding that ? She is also taking a ASA daily. Should I make appt for her to come into the office and discuss this? [facility] Telephone encounter Note Got it. Would recommend referral to hematology to determine fpc need for anticoagulation. Thanks [facility] 08-04-2024 Telephone encounter Note Called pt made appt in the [place] office for 08/06/24 at 11am.Instructed pt to go to the ER if she has problems before her appt. slm [facility] 08-03-2024 Miscellaneous Notes Pt called states she has a large bruise down her left arm. It goes from her shoulder down pass her wrist. She does not remember hitting it and states it's very painful. Instructed her to go to the ER to evaluated. Pt states she already stopped her xarelto and ASA on her own.Pt states she will try to get to the ER today.slm documented [facility] this encounter [facility]24 Telephone encounter Note Pt called states she has a large bruise down her left arm. It goes from her shoulder down pass her wrist. She does not remember hitting it and states it's very painful. Instructed her to go to the ER to evaluated. Pt states she already stopped her xarelto and ASA on her own.Pt states she will try to get to the ER today.slm [facility]24 Miscellaneous Notes Pharmacy called to seek clarification -- per Dr. Martins's note. I prescribed again estradiol 1 g 3 times weekly to the vagina for UTI documented in this encounter [facility] 07-27-2024 Telephone encounter Note Pharmacy called to seek clarification -- per Dr. Martins's note. I prescribed again estradiol 1 g 3 times weekly to the vagina for UTI [facility] 07-24-2024 Miscellaneous Notes Pt called in requesting a refill of Estrace vaginal cream. She states she has an appt scheduled on 08/[address] Paula MD, but she does not have anymore cream to last her until that time. She is asking for a refill to be sent to her [facility] in [place]. documented in this encounter [facility] 07-24-2024 Telephone encounter Note Pt called in requesting a refill of Estrace vaginal cream. She states she has an appt scheduled on 08/[address] Paula MD, but she does not have anymore cream to last her until that time. She is asking for a refill to be sent to her [facility] in [place]. [facility] 06-05-2024 History of Present illness Narrative Patient rescheduled today's appointment-ill documented in this encounter [facility] 05-28-2024 History of Present illness Narrative 3Patient: Romie Geiger : 1955 PCP: Noms Provider MD Apoorva SUBJECTIVE Patient presents today with a CC of elongated, thick nails. Pt states nails have been elongated and thick for many years and cause pain with ambulation in shoegear. Pt has tried previous treatment with minimal relief. Pt presents today for nail care and treatment. She is DM2 Patient has history of left-sided posterior tibial tendinitis with DJD. Patient states increased pain to the ankle and presents today for follow up with use of recent mobic refill. Rates pain up to 2/10 and has been taking anti-inflammatories with positive improvement Allergies: Allergies Allergen Reactions Azithromycin Headache Erythromycin GI intolerance Ibuprofen Other Reaction(s): interaction w/other meds Levofloxacin Nausea Only Minocycline Other Reaction(s): nausea, diarrhea Penicillin G Hives Acetaminophen-Codeine Rash Baclofen Rash Benzonatate Rash Clindamycin Rash Clopidogrel Rash Omeprazole Rash Past Medical History: Past Medical History: Diagnosis Date Acquired deformity of right toe Anemia At risk for falls BMI 29.0-29.9,adult COPD (chronic obstructive pulmonary disease) (CMS/HCC) Depression (CMS/HCC) Difficulty walking Diverticulosis DM type 2 (diabetes mellitus, type 2) (CMS/HCC) Fissured skin GERD (gastroesophageal reflux disease) Glaucoma, both eyes (CMS/HCC) Heart disease Hypercholesteremia (CMS/HCC) Hypertension (CMS/HCC) Neuropathy in diabetes (CMS/HCC) OM (onychomycosis) Onychomycosis Tinea pedis Toe pain, bilateral Visual impairment with corective lenses Xerosis of skin Medications: Current Outpatient Medications: acetaminophen (Tylenol) 325 MG tablet, Take 325 mg by mouth every 4 (four) hours., Disp: , Rfl: acetaminophen (Tylenol) 500 MG tablet, Take 500 mg by mouth every 6 (six) hours if needed., Disp: , Rfl: albuterol 0.63 MG/3ML nebulizer solution, Inhale 0.63 mg every 6 (six) hours if needed., Disp: , Rfl: aspirin 81 MG EC tablet, Take 81 mg by mouth in the morning., Disp: , Rfl: azaTHIOprine (Imuran) 50 MG tablet, Take 50 mg by mouth 1 (one) time each day at the same time., Disp: , Rfl: biotin 5 MG capsule, Take 5 mg by mouth in the morning., Disp: , Rfl: carvedilol (Coreg) 25 MG tablet, Take 25 mg by mouth in the morning and 25 mg in the evening., Disp: , Rfl: cyanocobalamin (Vitamin B-12) 1000 MCG tablet, Take 1,000 mcg by mouth in the morning., Disp: , Rfl: dicyclomine (Bentyl) 20 MG tablet, , Disp: , Rfl: Docusate Sodium (DSS) 100 MG capsule, Take 100 mg by mouth in the morning., Disp: , Rfl: estradiol (Estrace) 0.1 MG/GM vaginal cream, Insert 2 g into the vagina in the morning., Disp: , Rfl: ferrous sulfate 325 (65 Fe) MG tablet, Take 325 mg by mouth in the morning. Take with meals., Disp: , Rfl: fluticasone (Flonase) 50 MCG/ACT nasal spray, Administer 1 spray into affected nostril(s) in the morning., Disp: , Rfl: Fluticasone Furoate-Vilanterol 100-25 MCG/ACT aerosol powder , Inhale 1 puff as needed at bedtime., Disp: , Rfl: gabapentin (Neurontin) 300 MG capsule, 1 capsule 1 (one) time each day at the same time., Disp: , Rfl: hydroCHLOROthiazide (HYDRODiuril) 25 MG tablet, Take 12.5 mg by mouth in the morning., Disp: , Rfl: isosorbide mononitrate ER (Imdur) 30 MG 24 hr tablet, Take 30 mg by mouth in the morning., Disp: , Rfl: latanoprost (Xalatan) 0.005 % ophthalmic solution, Administer 1 drop into affected eye(s) at bedtime., Disp: , Rfl: lisinopril-hydroCHLOROthiazide 10-12.5 MG tablet, Take 1 tablet by mouth 1 (one) time each day at the same time., Disp: , Rfl: loperamide (Imodium A-D) 2 MG tablet, Take 2-4 mg by mouth every 6 (six) hours., Disp: , Rfl: losartan (Cozaar) 25 MG tablet, Take 25 mg by mouth 1 (one) time each day at the same time., Disp: , Rfl: magnesium 200 MG tablet, Take 200 mg by mouth 1 (one) time each day at the same time., Disp: , Rfl: meloxicam (Mobic) 15 MG tablet, Take 1 tablet (15 mg) by mouth Daily, Disp: 30 tablet, Rfl: 0 Social History: Social History Socioeconomic History Marital status: Spouse name: Not on file Number of children: Not on file Years of education: Not on file Highest education level: Not on file Occupational History Not on file Tobacco Use Smoking status: Never Passive exposure: Never Smokeless tobacco: Never Vaping Use Vaping status: Unknown Substance and Sexual Activity Alcohol use: Never Drug use: Never Sexual activity: Defer Partners: Decline to Answer Other Topics Concern Not on file Social History Narrative Not on file Social Drivers of Health Financial Resource Strain: Low Risk (07/30/2020) Received from [facility] Overall Financial Resource Strain (CARDIA) Difficulty of Paying Living Expenses: Not hard at all Food Insecurity: No Food Insecurity (05/12/2024) Received from [employer] Hunger Screening Within the past 12 months we worried whether our food would run out before we got money to buy more.: Never True Within the past 12 months the food we bought just didn't last and we didn't have money to get more.: Never True Transportation Needs: No Transportation Needs (07/30/2020) Received from [facility] PRAPARE - Transportation Lack of Transportation (Medical): No Lack of Transportation (Non-Medical): No Physical Activity: Insufficiently Active (07/30/2020) Received from [facility] Exercise Vital Sign Days of Exercise per Week: 3 days Minutes of Exercise per Session: 20 min Stress: No Stress Concern Present (07/30/2020) Received from [employer] [place] [employer] - Occupational Stress Questionnaire Feeling of Stress : Not at all Social Connections: Socially Isolated (07/30/2020) Received from [employer] Social Connection and Isolation Panel [NHANES] Frequency of Communication with Friends and Family: More than three times a week Frequency of Social Gatherings with Friends and Family: Never Attends Latter-Day Services: Never Active Member of Clubs or Organizations: No Attends Club or Organization Meetings: Never Marital Status: Intimate Partner Violence: Not on file Housing Stability: Not on file ROS: General: denies fever, chills, fatigue, malaise GI: denies abdominal pain or ulcerations with anti-inflammatory medication OBJECTIVE LE EXAM: DERM: Elongated thick yellow crumbly nails digits 1 through 10. Negative hair growth with thin shiny atrophic skin bilaterally. +1 pitting edema to bilateral ankles with venous stasis with notable varicosities. VASC: Negative DP and positive PT pedal pulses NEURO: 5.07 Lagrange Jaleel monofilament test diminished to digits and forefoot bilaterally 125Hz tuning fork diminished to 1st MPJ bilaterally ORTHO: +5/5 dorsiflexion plantar flexion inversion eversion with minimal pain pain to the medial left ankle region superior to the medial malleolar region and posterior area around the posterior tibial tendon and posterior tibial nerve complex Positive POP nails 1-10 ASSESSMENT 1. DJD (degenerative joint disease), ankle and foot, left 2. Posterior tibial tendinitis of left leg 3. Diabetes mellitus due to underlying condition with diabetic polyneuropathy, with long-term current use of insulin ([facility]) 4. Onychomycosis 5. Foot pain, left 6. Toe pain, left PLAN Patient to continue with oral anti - inflammatories as needed for pain and recommended OTC medications such as tylenol or Ibuprofen/mobic.. Refill of Mobic today Debrided nails 1-10 in length and thickness. Patient continue with ibuprofen and will refill for patient today and follow up for nail care and future Cas Mason DPM documented in this encounter [facility] 05-20-2024 Telephone encounter Note Patient is scheduled for nail care on 05/28 but called today and asked if there is anything that can be sent in for her tendonitis. [facility] 05-20-2024 Miscellaneous Notes Patient is scheduled for nail care on 05/28 but called today and asked if there is anything that can be sent in for her tendonitis. documented in this encounter [facility] 05-12-2024 History of Present illness Narrative Romie Geiger Date of visit: 05/12/2024 Date of : 1955 Age: 69 y.o. Patient Active Problem List Diagnosis Cerebrovascular disease Abnormal electrocardiography Essential hypertension Heartburn Pure hypercholesterolemia Coronary artery disease involving grand [place] coronary artery of [place] heart without angina pectoris Hypokalemia Hx of CABG Prolonged Q-T interval on ECG Obesity (BMI 30-39.9) Obesity (BMI 30-39.9) Venous hypertension Spider veins Recurrent urinary tract infection Urologic disorders Bilateral renal stones H/O recurrent urinary tract infection Allergies Allergen Reactions Albuterol Dizziness Baclofen Dizziness NAUSEA Bactrim [Sulfamethoxazole-Trimethoprim] Nausea Clindamycin Hives HEARTBURN Codeine Diarrhea and Nausea [...] 6 (six) hours as needed for wheezing. biotin (BIOTIN) 5 mg capsule Take 1 capsule (5 mg total) by mouth in the morning. cholecalciferol (VITAMIN D3) 50,000 units capsule Take 1 capsule (50,000 Units total) by mouth in the morning. clotrimazole (LOTRIMIN) 1 % cream Apply to affected area 2 times daily 15 g 0 cyanocobalamin 1000 MCG tablet Take 1 tablet (1,000 mcg total) by mouth in the morning. diclofenac sodium (VOLTAREN) 1 % gel Apply 2 g topically in the morning and 2 g at noon and 2 g in the evening and 2 g before bedtime. 100 g 0 estradioL (ESTRACE) 0.01 % (0.1 mg/gram) vaginal [...] spray into each nostril in the morning. LANTUS SOLOSTAR U-100 INSULIN 100 unit/mL (3 mL) insulin pen 16 Units in the morning. latanoprost (XALATAN) 0.005 % ophthalmic solution Administer 1 drop to both eyes nightly. loratadine (CLARITIN) 10 mg tablet Take 1 tablet (10 mg total) by mouth in the morning. losartan (COZAAR) 100 mg tablet Take 1 tablet (100 mg total) by mouth in the morning. 90 tablet 3 magnesium oxide (MAGOX) 400 mg tablet Take 1 tablet (400 mg total) by mouth in the morning. nitroglycerin (NITROSTAT) 0.4 MG SL tablet 1 [...] this for 360 days. 180 tablet 3 psyllium (METAMUCIL) powder Take 1 packet by mouth 3 (three) times a day. TRULICITY 1.5 mg/0.5 mL pen injector once a week. aspirin 81 mg Take 1 tablet (81 mg total) by mouth in the morning. 90 tablet 3 carvediloL (COREG) 25 mg tablet Take 1 tablet (25 mg total) by mouth in the morning and 1 tablet (25 mg total) in the evening. Take with meals. 180 tablet 3 hydroCHLOROthiazide (HYDRODIURIL) 12.5 mg tablet Take 1 tablet (12.5 mg total) by mouth daily. 90 tablet 3 isosorbide mononitrate (IMDUR) 30 mg 24 hr tablet Take 1 tablet (30 mg total) by mouth daily. 90 tablet 3 pravastatin (PRAVACHOL) 80 mg tablet Take 1 tablet (80 mg total) by mouth nightly. 90 tablet 3 rivaroxaban (XARELTO) 20 mg tablet tablet Take 1 tablet (20 mg total) by mouth in the morning. 90 tablet 3 No current facility-administered medications for this visit. Chief Complaint Patient presents with Follow-up EARLY BP ISSUES Coronary Artery Disease Hyperlipidemia Hypertension Dizziness History of Present Illness Patient with history of CABG, DVT/PE, hypertension, hyperlipidemia, diabetes mellitus, CVA. Here for follow-up visit. Last seen in office 08/2023. Visit reviewed. Patient stated that she was discharged from [facility] April 14, was admitted with low hemoglobin requiring blood transfusion of the time. Her hemoglobin was down to 5 and last check was 9.5. Stated that she had recent blood work done at [facility]. Denied hematochezia melena. Stated that her stools were checked while hospitalized and was told she did not have any GI bleed. Has a follow-up with wood tank erector coming up next month. Denied any chest pain or shortness of breath or palpitations or orthopnea or edema. Occasional lightheadedness, not frequent. Also has occasional vertigo. Stated that she is able to do all home chores including cleaning the house, cooking and laundry and doing her groceries and caring her grocery loads with no issues. Past Medical History: Diagnosis Date Anemia Anxiety Atelectasis CAD (coronary artery disease) COPD (chronic obstructive pulmonary disease) ([facility] CVA (cerebral vascular accident) ([facility]) Dental disease Depression Depression Diabetes mellitus type 2, controlled (CMS-HCC) Diabetes mellitus with peripheral circulatory disorder (HCC) 08/30/2009 GERD (gastroesophageal reflux disease) Glaucoma Hepatic steatosis Hyperlipidemia Hypertension Irritable bowel Myocardial infarction (CMS-HCC) Pulmonary embolism (CMS-HCC) Visual impairment No data recorded No data recorded No data recorded Past Surgical History: Procedure Laterality Date SECTION CHOLECYSTECTOMY COLONOSCOPY N/A 10/13/2020 Performed by Nimesh Caldwell MD at [facility] CORONARY ARTERY BYPASS GRAFT CYSTOSCOPY N/A 04/27/2022 Performed by Hammad Martins Jr., MD at [facility] EXCISION BENIGN SKIN LESION SCALP / [...] Never Smokeless tobacco: Never Vaping Use Vaping status: Never Used Substance and Sexual Activity Alcohol use: No Drug use: No Sexual activity: Defer Other Topics Concern Caffeine Use No Social History Narrative Not on file Social Drivers of Health Financial Resource Strain: Low Risk (07/30/2020) Overall Financial Resource Strain (CARDIA) Difficulty of Paying Living Expenses: Not hard at all Food Insecurity: No Food Insecurity (05/12/2024) Hunger Screening Food Insecurity - Worry: Never True Food Insecurity - Inability: Never True Transportation Needs: No Transportation Needs (07/30/2020) PRAPARE - Transportation Lack of Transportation (Medical): No Lack of Transportation (Non-Medical): No Physical Activity: Insufficiently Active (07/30/2020) Exercise Vital Sign Days of Exercise per Week: 3 days Minutes of Exercise per Session: 20 min Stress: No Stress Concern Present (07/30/2020) [place] [employer] - Occupational Stress Questionnaire Feeling of Stress : Not at all Social Connections: Socially Isolated (07/30/2020) Social Connection and Isolation Panel [NHANES] Frequency of Communication with Friends and Family: More than three times a week Frequency of Social Gatherings with Friends and Family: Never Attends Latter-Day Services: Never Active Member of Clubs or Organizations: No Attends Club or Organization Meetings: Never Marital Status: Interpersonal Safety: Not At Risk (07/30/2020) Humiliation, Afraid, Rape, and Kick questionnaire Fear of Current or Ex-Partner: No Emotionally Abused: No Physically Abused: No Sexually Abused: No Housing Instability: Not on file Review of Systems Review of Systems Respiratory: Negative for cough, hemoptysis and wheezing. Gastrointestinal: Negative for abdominal pain, change in bowel habit and hematochezia. Genitourinary: Negative for dysuria and hematuria. Neurological: Positive for vertigo. Negative for focal weakness, headaches and paresthesias. CARDIOVASCULAR: Please review HPI. Physical Examination General [...] Site: Left Arm, BP Postition: Sitting) Pulse 71 Ht 175.3 cm (5' 9 ) Wt 80.3 kg (177 lb) SpO2 99% BMI 26.14 kg/m Orders Placed or Reconciled This Encounter Medications carvediloL (COREG) 25 mg tablet Sig: Take 1 tablet (25 mg total) by mouth in the morning and 1 tablet (25 mg total) in the evening. Take with meals. Dispense: 180 tablet Refill: 3 Needs appt for refills isosorbide mononitrate (IMDUR) 30 mg 24 hr tablet Sig: Take 1 tablet (30 mg total) by mouth daily. Dispense: 90 tablet Refill: 3 hydroCHLOROthiazide (HYDRODIURIL) 12.5 mg tablet Sig: Take 1 tablet (12.5 mg total) by mouth daily. Dispense: 90 tablet Refill: 3 pravastatin (PRAVACHOL) 80 mg tablet Sig: Take 1 tablet (80 mg total) by mouth nightly. Dispense: 90 tablet Refill: 3 rivaroxaban (XARELTO) 20 mg tablet tablet Sig: Take 1 tablet (20 mg total) by mouth in the morning. Dispense: 90 tablet Refill: 3 aspirin 81 mg Sig: Take 1 tablet (81 mg total) by mouth in the morning. Dispense: 90 tablet Refill: 3 Medications Discontinued During This Encounter Medication Reason ondansetron ODT (ZOFRAN ODT) 4 mg disintegrating tablet Duplicate Listing metFORMIN (GLUCOPHAGE) 1000 mg tablet Discontinued by another clinician meclizine (ANTIVERT) 25 mg tablet Discontinued by another clinician hydroCHLOROthiazide (HYDRODIURIL) 12.5 mg tablet Reorder carvediloL (COREG) 25 mg tablet Reorder aspirin 81 mg Reorder pravastatin (PRAVACHOL) 80 mg tablet Reorder isosorbide mononitrate (IMDUR) 30 mg 24 hr tablet Reorder rivaroxaban (XARELTO) 20 mg tablet tablet Reorder IMPRESSIONS/PLAN 1. Hx of CABG 2. Personal history of DVT (deep vein thrombosis) 3. Hx pulmonary embolism 4. Primary hypertension 5. Dyslipidemia 6. History of CVA in adulthood Previous cardiac related labs and test results were reviewed and discussed with the patient. Hx of CABG Normal EF TTE 2012 Hx of DVT/PE on Xarelto Hypertension Hyperlipidemia - 09/2022: Total cholesterol 136, HDL 43, LDL 55, triglycerides 192 Diabetes mellitus Hx of CVA Hx of stomach ulcer Patient is here for follow-up visit. Doing well and stable from a cardiac standpoint. Reported recent hospitalization at [facility] with anemia hemoglobin of 5. Required blood transfusion. Will try to obtain records for review patient also reported having some recent blood work at [facility] including lipids, will try to obtain lab work for review. No changes in his medications today. Recommended the patient monitor for hematochezia, melena or hematuria and if any develops to stop Eliquis and aspirin immediately and seek medical attention. No changes in his medications today. Refill sent to her pharmacy per request. Follow-up in 6 months or sooner if needed. Patient to call us with any cardiac questions or concerns. TODAYS ORDERS No orders of the defined types were placed in this encounter. FOLLOW UP Return in about 6 months (around 11/10/2024). PCP: CAROL TEE Referring Physician: CAROL Tee [id number] [place] [id number] documented in this encounter [facility] 05-11-2024 Miscellaneous Notes Called patient to remind them to bring their most current copy of their medication list with them to their appt. Patient verbalizes understanding. documented in this encounter [facility] 05-11-2024 Telephone encounter Note Called patient to remind them to bring their most current copy of their medication list with them to their appt. Patient verbalizes understanding. [facility] 04-13-2024 Miscellaneous Notes Received p/c from pt. Had appt w/ PCP this morning and BP was low at 90/60 and 89/60. Pt c/o feeling very dizzy. Meds reviewed w/ pt.Took Coreg 25 mg,HCTZ 12.5 mg,Imdur 30 mg all this morning prior to going to PCP. Pt also didn't eat this morning. Pt seeing PCP for yeast infection of perineal area. Suggest pt take meds w/ food or alter times of day taking meds. Would like last provider notified to see if there is any other advice.- Last saw TMP 08/29/23 You can Half the dose of Coreg to 12.5 p.o. b.i.d. and make sure the patient hydrates and continue check blood pressures and heart rates Returned call to pt. Pt is feeling much better. BP 150's/80's. Doesn't want to change meds at this time. PCP feels she should F/U next available appt. Appt given [facility] 04-13-2024 Telephone encounter Note Received p/c from pt. Had appt w/ PCP this morning and BP was low at 90/60 and 89/60. Pt c/o feeling very dizzy. Meds reviewed w/ pt.Took Coreg 25 mg,HCTZ 12.5 mg,Imdur 30 mg all this morning prior to going to PCP. Pt also didn't eat this morning. Pt seeing PCP for yeast infection of perineal area. Suggest pt take meds w/ food or alter times of day taking meds. Would like last provider notified to see if there is any other advice.- [facility] Tele[facility] encounter Note You can Half the dose of Coreg to 12.5 p.o. b.i.d. and make sure the patient hydrates and continue check blood pressures and heart rates [facility] 04-13-2024 Telephone encounter Note Returned call to pt. Pt is feeling much better. BP 150's/80's. Doesn't want to change meds at this time. PCP feels she should F/U next available appt. Appt given [facility] 04-07-2024 Miscellaneous Notes Images from the original note were not included. Advise patient of the followin. She should continue on the estradiol and 2. I would be happy to see her back anytime sooner than scheduled to discuss her issues further and potential next steps thanks Patient Calls (Newest Message First) View All Conversations on this Encounter GODWIN King routed conversation to You16 minutes ago (11:36 AM) KERRI King6 minutes ago (11:36 AM) MH Pt called to let you know she had another UTI. She said the Estradiol cream is not working and is asking if there is anything else she can take? She had this culture done at [facility]. Her next appointment with you is not until 12/04/2024. Note Pt was notified and transferred to scheduling. documented in this encounter [facility] 04-07-2024 Telephone encounter Note Images from the original note were not included. Advise patient of the followin. She should continue on the estradiol and 2. I would be happy to see her back anytime sooner than scheduled to discuss her issues further and potential next steps thanks Patient Calls (Newest Message First) View All Conversations on this Encounter GODWIN King routed conversation to You16 minutes ago (11:36 AM) KERRI King6 minutes ago (11:36 AM) MH Pt called to let you know she had another UTI. She said the Estradiol cream is not working and is asking if there is anything else she can take? She had this culture done at [facility]. Her next appointment with you is not until 12/04/2024. Note [facility] 04-07-2024 Telephone encounter Note Pt was notified and transferred to scheduling. [facility] 03-12-2024 History of Present illness Narrative 3Patient: Romie Geiger : 1955 PCP: No primary care provider on file. SUBJECTIVE Patient presents today with a CC of elongated, thick nails. Pt states nails have been elongated and thick for many years and cause pain with ambulation in shoegear. Pt has tried previous treatment with minimal relief. Pt presents today for nail care and treatment. She is DM2 Patient has history of left-sided posterior tibial tendinitis with DJD. Patient states increased pain to the ankle and presents today for follow up. Rates pain up to 8/10 and has been taking anti-inflammatories with minimal improvement Allergies: Allergies Allergen Reactions Azithromycin Headache Erythromycin GI intolerance Ibuprofen Other Reaction(s): interaction w/other meds Levofloxacin Nausea Only Minocycline Other Reaction(s): nausea, diarrhea Penicillin G Hives Acetaminophen-Codeine Rash Baclofen Rash Benzonatate Rash Clindamycin Rash Clopidogrel Rash Omeprazole Rash Past Medical History: Past Medical History: Diagnosis Date Acquired deformity of right toe Anemia At risk for falls BMI 29.0-29.9,adult COPD (chronic obstructive pulmonary disease) (CMS/HCC) Depression (CMS/HCC) Difficulty walking Diverticulosis DM type 2 (diabetes mellitus, type 2) (CMS/[facility]) Fissured skin GERD (gastroesophageal reflux disease) Glaucoma, both eyes (CMS/HCC) Heart disease Hypercholesteremia (CMS/HCC) Hypertension (CMS/HCC) Neuropathy in diabetes (CMS/[facility]) OM (onychomycosis) Onychomycosis Tinea pedis Toe pain, bilateral Visual impairment with corective lenses Xerosis of skin Medications: Current Outpatient Medications: acetaminophen (Tylenol) 325 MG tablet, Take 325 mg by mouth every 4 (four) hours., Disp: , Rfl: acetaminophen (Tylenol) 500 MG tablet, Take 500 mg by mouth every 6 (six) hours if needed., Disp: , Rfl: albuterol 0.63 MG/3ML nebulizer solution, Inhale 0.63 mg every 6 (six) hours if needed., Disp: , Rfl: aspirin 81 MG EC tablet, Take 81 mg by mouth in the morning., Disp: , Rfl: azaTHIOprine (Imuran) 50 MG tablet, Take 50 mg by mouth 1 (one) time each day at the same time., Disp: , Rfl: biotin 5 MG capsule, Take 5 mg by mouth in the morning., Disp: , Rfl: carvedilol (Coreg) 25 MG tablet, Take 25 mg by mouth in the morning and 25 mg in the evening., Disp: , Rfl: cyanocobalamin (Vitamin B-12) 1000 MCG tablet, Take 1,000 mcg by mouth in the morning., Disp: , Rfl: dicyclomine (Bentyl) 20 MG tablet, , Disp: , Rfl: Docusate Sodium (DSS) 100 MG capsule, Take 100 mg by mouth in the morning., Disp: , Rfl: estradiol (Estrace) 0.1 MG/GM vaginal cream, Insert 2 g into the vagina in the morning., Disp: , Rfl: ferrous sulfate 325 (65 Fe) MG tablet, Take 325 mg by mouth in the morning. Take with meals., Disp: , Rfl: fluticasone (Flonase) 50 MCG/ACT nasal spray, Administer 1 spray into affected nostril(s) in the morning., Disp: , Rfl: Fluticasone Furoate-Vilanterol 100-25 MCG/ACT aerosol powder , Inhale 1 puff as needed at bedtime., Disp: , Rfl: gabapentin (Neurontin) 300 MG capsule, 1 capsule 1 (one) time each day at the same time., Disp: , Rfl: hydroCHLOROthiazide (HYDRODiuril) 25 MG tablet, Take 12.5 mg by mouth in the morning., Disp: , Rfl: isosorbide mononitrate ER (Imdur) 30 MG 24 hr tablet, Take 30 mg by mouth in the morning., Disp: , Rfl: latanoprost (Xalatan) 0.005 % ophthalmic solution, Administer 1 drop into affected eye(s) at bedtime., Disp: , Rfl: lisinopril-hydroCHLOROthiazide 10-12.5 MG tablet, Take 1 tablet by mouth 1 (one) time each day at the same time., Disp: , Rfl: loperamide (Imodium A-D) 2 MG tablet, Take 2-4 mg by mouth every 6 (six) hours., Disp: , Rfl: losartan (Cozaar) 25 MG tablet, Take 25 mg by mouth 1 (one) time each day at the same time., Disp: , Rfl: magnesium 200 MG tablet, Take 200 mg by mouth 1 (one) time each day at the same time., Disp: , Rfl: Social History: Social History Socioeconomic History Marital status: Spouse name: Not on file Number of children: Not on file Years of education: Not on file Highest education level: Not on file Occupational History Not on file Tobacco Use Smoking status: Never Passive exposure: Never Smokeless tobacco: Never Vaping Use Vaping status: Unknown Substance and Sexual Activity Alcohol use: Never Drug use: Never Sexual activity: Defer Partners: Decline to Answer Other Topics Concern Not on file Social History Narrative Not on file Social Determinants of Health Financial Resource Strain: Low Risk (07/30/2020) Received from [facility], [facility] Overall Financial Resource Strain (CARDIA) Difficulty of Paying Living Expenses: Not hard at all Food Insecurity: No Food Insecurity (12/06/2023) Received from [facility], [facility] Hunger Screening Within the past 12 months we worried whether our food would run out before we got money to buy more.: Never True Within the past 12 months the food we bought just didn't last and we didn't have money to get more.: Never True Transportation Needs: No Transportation Needs (07/30/2020) Received from [facility], [facility] PRAPARE - Transportation Lack of Transportation (Medical): No Lack of Transportation (Non-Medical): No Physical Activity: Insufficiently Active (07/30/2020) Received from [facility], [facility] Exercise Vital Sign Days of Exercise per Week: 3 days Minutes of Exercise per Session: 20 min Stress: No Stress Concern Present (07/30/2020) Received from [facility], [facility] [employer] [place] [facility] [employer] [facility] - Occupational Stress Questionnaire Feeling of Stress : Not at all Social Connections: Socially Isolated (07/30/2020) Received from [facility], [facility] Social Connection and Isolation Panel [NHANES] Frequency of Communication with Friends and Family: More than three times a week Frequency of Social Gatherings with Friends and Family: Never Attends L[employer] Services: Never Active Member of Clubs or Organizations: No Attends Club or Organization Meetings: Never Marital Status: Intimate Partner Violence: Not on file Housing Stability: Not on file ROS: General: denies fever, chills, fatigue, malaise GI: denies abdominal pain or ulcerations with anti-inflammatory medication OBJECTIVE LE EXAM: DERM: Elongated thick yellow crumbly nails digits 1 through 10. Negative hair growth with thin shiny atrophic skin bilaterally. +1 pitting edema to bilateral ankles with venous stasis with notable varicosities. VASC: Negative DP and positive PT pedal pulses NEURO: 5.07 Lagrange Jaleel monofilament test diminished to digits and forefoot bilaterally 125Hz tuning fork diminished to 1st MPJ bilaterally ORTHO: +5/5 dorsiflexion plantar flexion inversion eversion with positive pain pain to the medial left ankle region superior to the medial malleolar region and posterior area around the posterior tibial tendon and posterior tibial nerve complex Positive POP nails 1-10 Verbal order today for x-rays be taken by staff. left view ankle film radiographs today of the left ankle demonstrated the following: Three-view film of the left tibiotalar joint demonstrates degenerative changes to the tibiotalar joint with notable plantar posterior calcaneal enthesophytes and midfoot degenerative changes no changes since prior films ASSESSMENT 1. Diabetes mellitus due to underlying condition with diabetic polyneuropathy, with long-term current use of insulin ([facility]) 2. Onychomycosis 3. Toe pain, bilateral 4. DJD (degenerative joint disease), ankle and foot, left 5. Posterior tibial tendinitis of left leg PLAN Patient to continue with oral anti - inflammatories as needed for pain and recommended OTC medications such as tylenol or Ibuprofen Debrided nails 1-10 in length and thickness. Patient continue with ibuprofen and will refill for patient today and follow up for nail care and future Reviewed x-rays today with patient Refill a prescription for Henry Mason DPM documented in this encounter [facility] 02-21-2024 Miscellaneous Notes Advise the patient she may be right, but she has been on the potassium citrate chronically, and we have not her that complaint before. Please have her stop the potassium citrate for 2 weeks, seek help from primary care if the diarrhea does not resolve, and then restart potassium citrate and advise us of her course. Thanks Patient Calls (Newest Message First) View All Conversations on this Encounter GODWIN King routed conversation to You9 minutes ago (10:00 AM) GODWIN King9 minutes ago (10:00 AM) Pt called to let you know she is having bad diarrhea from the Potassium Citrate. She is asking if there is anything else you can prescribe? documented in this encounter [facility] 02-21-2024 Telephone encounter Note Advise the patient she may be right, but she has been on the potassium citrate chronically, and we have not her that complaint before. Please have her stop the potassium citrate for 2 weeks, seek help from primary care if the diarrhea does not resolve, and then restart potassium citrate and advise us of her course. Thanks Patient Calls (Newest Message First) View All Conversations on this Encounter GODWIN King routed conversation to You9 minutes ago (10:00 AM) GODWIN King9 minutes ago (10:00 AM) Pt called to let you know she is having bad diarrhea from the Potassium Citrate. She is asking if there is anything else you can prescribe? [facility] 12-11-2023 Miscellaneous Notes Estradiol 0.01% cream clarification faxed to Pt.'s pharmacy at [phone]. documented in this encounter [facility] 12-11-2023 Telephone encounter Note Estradiol 0.01% cream clarification faxed to Pt.'s pharmacy at [phone]. [facility] 12-06-2023 History of Present illness Narrative Images from the original note were not included. [address] [place] [address] [facility] [id number] Patient: Romie Geiger Date of : 1955 Encounter Date: 12/06/2023 History of Present Illness: Chief Complaint: Annual Visit The patient is a 68 y.o. female, an established patient, and is here for history recurrent UTIs and stones. See below. Urinalysis today: No results for input(s): EXTPOCURCO , EXTPOCURCH , EXTPOCAPP , EXTPOCURBS , EXTPOCURBIL , EXTPOCUKET , EXTPOCUSPG , EXTPOCUHGB , EXTPOCUPRO , EXTPOCUURO , EXTPOCULEU , EXTPOCUNIT , EXTPOCUWBC , EXTPOCUBLD , EXTPOCURBC , EXTPOCUCRY , EXTPOCUBAC , EXTPOCUTREP , EXTPOCUPH , EXTPOCULEE in the last 72 hours. Last BUN and creatinine: Lab Results Component Value Date BUN 21 11/28/2023 Lab Results Component Value Date CREATININE 1.05 (H) 11/28/2023 Last PSA: No results found for: PSA No results found for: PROSTATICSP Past Medical, Family, and Social History Update: The following portions of the patient's history were reviewed and updated as appropriate: allergies, current medications, past family history, past medical history, past social history, past surgical history and problem list. Past Medical History: Diagnosis Date Anemia Anxiety Atelectasis CAD (coronary artery disease) COPD (chronic obstructive pulmonary disease) ([facility]) CVA (cerebral vascular accident) ([facility]) Dental disease Depression Depression Diabetes mellitus type 2, controlled ([facility]) Diabetes mellitus with peripheral circulatory disorder ([facility]) 08/30/2009 GERD (gastroesophageal reflux disease) Glaucoma Hepatic steatosis Hyperlipidemia Hypertension Irritable bowel Myocardial infarction ([facility]) Pulmonary embolism ([facility]) Visual impairment Past Surgical History: Procedure Laterality Date SECTION CHOLECYSTECTOMY COLONOSCOPY N/A 10/13/2020 Performed by Nimesh Caldwell MD at [facility] CORONARY ARTERY BYPASS GRAFT CYSTOSCOPY N/A 04/27/2022 Performed by Hammad Martins Jr., MD at [facility] EXCISION BENIGN SKIN LESION SCALP / NECK / HANDS / FEET / GENITALIA Vulva EYE SURGERY HEMORRHOID SURGERY HERNIA REPAIR x6 HYSTERECTOMY LAPAROSCOPIC TUBAL LIGATION Family History Problem Relation Age of Onset Heart attack Father Heart attack Brother No Known Problems Mother Cancer Brother Current Outpatient Medications Medication Sig Dispense Refill [...] mouth in the morning. 90 tablet 3 biotin (BIOTIN) 5 mg capsule Take 1 capsule (5 mg total) by mouth in the morning. carvediloL (COREG) 25 mg tablet Take 1 tablet (25 mg total) by mouth in the morning and 1 tablet (25 mg total) in the evening. Take with meals. 180 tablet 3 cholecalciferol (VITAMIN D3) 50,000 units capsule Take 1 capsule (50,000 Units total) by mouth in the morning. cyanocobalamin 1000 MCG tablet Take 1 tablet (1,000 mcg total) by mouth in the morning. ferrous sulfate 325 (65 FE) mg tablet Take 1 tablet (325 mg total) by mouth daily with breakfast. fluticasone furoate-vilanteroL (BREO ELLIPTA) 100-25 mcg/dose blister with device Inhale 1 puff nightly as needed. fluticasone propionate (FLONASE) 50 mcg/actuation nasal spray Administer 1 spray into each nostril in the morning. hydroCHLOROthiazide (HYDRODIURIL) 12.5 mg tablet Take 1 tablet (12.5 mg total) by mouth daily. 90 tablet 3 isosorbide mononitrate (IMDUR) 30 mg 24 hr tablet Take 1 tablet (30 mg total) by mouth daily. 90 tablet 3 LANTUS SOLOSTAR U-100 INSULIN 100 unit/mL (3 mL) insulin pen 16 Units in the morning. latanoprost (XALATAN) 0.005 % ophthalmic solution Administer 1 drop to both eyes nightly. loratadine (CLARITIN) 10 mg tablet Take 1 tablet (10 mg total) by mouth in the morning. losartan (COZAAR) 100 mg tablet Take 1 tablet (100 mg total) by mouth in the morning. 90 tablet 3 magnesium oxide (MAGOX) 400 mg tablet Take [...] up to 10 doses. 10 tablet 0 pravastatin (PRAVACHOL) 80 mg tablet Take 1 tablet (80 mg total) by mouth nightly. 90 tablet 3 psyllium (METAMUCIL) powder Take 1 packet by mouth 3 (three) times a day. rivaroxaban (XARELTO) 20 mg tablet tablet Take 1 tablet (20 mg total) by mouth in the morning. 90 tablet 0 TRULICITY 1.5 mg/0.5 mL pen injector once a week. estradioL (ESTRACE) 0.01 % (0.1 mg/gram) vaginal cream Apply nightly for 3 weeks, then 3 times per week. 127.5 g 3 potassium citrate (UROCIT-K) 15 mEq tablet extended release Take 1 tablet (15 mEq total) by mouth in the morning and 1 tablet (15 mEq total) before bedtime. Do all this for 360 days. 180 tablet 3 No current facility-administered medications for this visit. (All medications reviewed and updated by provider since last office visit or hospitalization) Allergies: Albuterol, Baclofen, Clindamycin, Codeine, Erythromycin base, Ibuprofen, Omeprazole, Penicillins, Plavix [clopidogrel], Propoxyphene, and Simvastatin Tobacco History: Social History Tobacco Use Smoking Status Never Smokeless Tobacco Never (If patient a smoker, smoking cessation counseling offered) Social History: Social History Substance and Sexual Activity Alcohol Use No Review of Systems: General: Negative for chills and fever. Cardiovascular: Negative for chest pain and shortness of breath. Gastrointestinal: Negative for constipation, diarrhea, nausea, and vomitting. -per HPI Physical Exam: BP 108/63 Pulse 57 Ht 162.6 cm (5' 4 ) Wt 87.1 kg (192 lb) BMI 32.96 kg/m Alert, pleasant, without signs of acute illness, and in no distress. Respirations unlabored . Skin dry on examination now. Assessment and Plan: Romie was seen today for follow-up. Diagnoses and all orders for this visit: Urologic disorders Recurrent urinary tract infection Bilateral renal stones - Basic Metabolic Panel; Future - Ultrasound retroperitoneal complete; Future Other orders - potassium citrate (UROCIT-K) 15 mEq tablet extended release; Take 1 tablet (15 mEq total) by mouth in the morning and 1 tablet (15 mEq total) before bedtime. Do all this for 360 days. - estradioL (ESTRACE) 0.01 % (0.1 mg/gram) vaginal cream; Apply nightly for 3 weeks, then 3 times per week. Problem List Unprioritized Urologic disorders - Primary Overview 1. Depression/anxiety with Significant other but no longer sexually active with Recurrent UTIs since June 2021, not culture proven, but responding to Bactrim with primary care; sister Cynthia 2. Vaginal itching 3. IBS 4. Bilaterally atrophic kidneys CT with contrast 04/08/2021 same date creatinine 0.94 5. Diabetic neuropathy 6. Atrophic vaginitis by primary care record 7. Diagnosis vulvar intraepithelial neoplasia elsewhere 8. Condyloma acuminatum of the although per primary care record 9. Concern for microscopic hematuria on urine dip multiple occasions with primary care 2021 not confirmed with microscopy March 2022 10. urolithiasis; CT 02/06/2022 8 left and 9 right mm solitary renal calcifications renal stones versus possible renal vascular calcification to my view, not visible on KUB 03/20/2022; ureteroscopic evaluation/treatment declined 03/23/2022; 08/17/2022 right obstructing 3 mm distal ureteral stone-uric acid-passed spontaneously; no stones ultrasound 11/28/2023 11. Duplicated left renal collecting systems CT report 02/06/2022 12. PVR 80 mL 03/23/2022 13. Cystoscopy 04/27/2022 atrophic vaginitis, 6:00 a.m. urethral meatal polyp with benign biopsy by gynecology 14. 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 CT August 2022; ultrasound November 2023; litho link February 2023 Recurrent urinary tract infection Bilateral renal stones Relevant Medications potassium citrate (UROCIT-K) 15 mEq tablet extended release Other Relevant Orders Basic Metabolic Panel Ultrasound retroperitoneal complete Follow-up: Patient returns, with a good friend, with no stones symptoms. Being treated with hydrocortisone for tendinitis and pending Gastroenterology evaluation. I provided independent interpretation of films and reports of retroperitoneal ultrasound demonstrating I agree no stones or hydronephrosis. She was really delighted. BMP showed stable elevated glucose 126 to be followed by primary care, stable minimally elevated creatinine 1.05, and good potassium 4.5. I prescribed again potassium citrate 15 mEq twice daily. I prescribed 2.75 L daily urinary outputDiscussed previously possibility of ureteroscopic evaluation/management of possible bilateral stones which to my view may in fact to be renovascular calcifications. Wants to hold off on that understandably. I prescribed again estradiol 1 g 3 times weekly to the vagina for UTI prophylaxis. I prescribed time voids every 2 hours and as needed while awake without delay. I reviewed the importance of monitoring serum electrolyte levels with this pharmacotherapy. Return 12 months with retroperitoneal ultrasound and BMP and sooner for any further issues. Thank you very much. I appreciate being asked to help with this patient's care.. HAMMAD MARTINS JR, MD This note was created with the assistance of a speech recognition program. While intending to generate a timely document that accurately reflects the content of the visit, no guarantee can be provided that every grammatical or spelling mistake has been or will be identified or corrected. Thank you for your understanding. documented in this encounter [facility] 11-07-2023 Miscellaneous Notes Contact patient and have her keep follow-up as recommended. Further advise her there is no oral form for what we are trying to do. Have her use a little bit less of the medication each day so that it will last the whole month. Thanks. Patient Calls (Newest Message First) View All Conversations on this Encounter GODWIN Snyder routed conversation to (9:20 AM) CHASITY Snyder (9:19 AM) RT Patient called in stating the estrogen cream does not last 30 days. She can never get it when she is out. Patient wanted to know if there was a pill form? Patient was also asking about her next follow up appt. I told her she is due in December with US, & BMP. Pt was transferred to scheduling. documented in this encounter [facility] 11-07-2023 Telephone encounter Note Contact patient and have her keep follow-up as recommended. Further advise her there is no oral form for what we are trying to do. Have her use a little bit less of the medication each day so that it will last the whole month. Thanks. Patient Calls (Newest Message First) View All Conversations on this Encounter GODWIN Snyder routed conversation to (9:20 AM) CHASITY Snyder (9:19 AM) RT Patient called in stating the estrogen cream does not last 30 days. She can never get it when she is out. Patient wanted to know if there was a pill form? Patient was also asking about her next follow up appt. I told her she is due in December with US, & BMP. Pt was transferred to scheduling. [facility] 11-06-2023 Miscellaneous Notes Patient called in stating the estrogen cream does not last 30 days. She can never get it when she is out. Patient wanted to know if there was a pill form? Patient was also asking about her next follow up appt. I told her she is due in December with US, & BMP. Pt was transferred to scheduling. documented in this encounter [facility] 11-06-2023 Telephone encounter Note Patient called in stating the estrogen cream does not last 30 days. She can never get it when she is out. Patient wanted to know if there was a pill form? Patient was also asking about her next follow up appt. I told her she is due in December with US, & BMP. Pt was transferred to scheduling. [facility] 08-29-2023 History of Present illness Narrative Romie Geiger Date of visit: 08/29/2023 Date of : 1955 Age: 68 y.o. Patient Active Problem List Diagnosis Cerebrovascular disease Abnormal electrocardiography Essential hypertension Heartburn Pure hypercholesterolemia Coronary artery disease involving grand traverse coronary artery of grand traverse heart without angina pectoris Hypokalemia Hx of [...] within 12 hours or as directed by MD Valenzuela patch 0 No current facility-administered medications for [...] artery disease) COPD (chronic obstructive pulmonary disease) ([facility]) CVA (cerebral vascular accident) ([facility]) Dental disease Depression Depression Diabetes mellitus type 2, controlled ([facility]) Diabetes mellitus with peripheral circulatory disorder ([facility]) 08/30/2009 GERD (gastroesophageal reflux disease) Glaucoma Hepatic steatosis Hyperlipidemia Hypertension Irritable bowel Myocardial infarction ([facility]) Pulmonary embolism ([facility]) Visual impairment No data recorded No data recorded No data recorded Past Surgical History: Procedure Laterality Date SECTION CHOLECYSTECTOMY COLONOSCOPY N/A 10/13/2020 Performed by Nimesh Caldwell MD at [facility] CORONARY ARTERY BYPASS GRAFT CYSTOSCOPY N/A 04/27/2022 Performed by Hammad Martins Jr., MD at [facility] EXCISION BENIGN SKIN LESION SCALP / [...] min Stress: No Stress Concern Present (07/30/2020) [employer] [place] [facility] [employer] [facility] - Occupational Stress Questionnaire Feeling of Stress : Not at all Social Connections: Socially Isolated (07/30/2020) Social Connection and Isolation Panel [NHANES] Frequency of Communication with Friends and Family: More than three times a week Frequency of Social Gatherings with Friends and Family: Never Attends L[employer] Services: Never Active Member of Clubs or [...] POCT EKG 2. Coronary artery disease involving grand traverse coronary artery of grand traverse heart without angina pectoris - POCT EKG [...] UP No follow-ups on file. PCP: SCOTTY BEAVERS MD Referring Physician: Scotty Beavers MD [address] [place] [address], [place] [address] documented in this encounter [facility]23 Miscellaneous Notes Attempted to phone pt to remind of appt scheduled for 08/29/2023, no vm. documented in this encounter [facility]-28-2023 Telephone encounter Note Attempted to phone pt to remind of appt scheduled for 08/29/2023, no vm. [facility]23 Miscellaneous Notes 08/21/22 LEANNE 08/29/23 future appt 03/19/23 BMP 08/17/22 CBC documented in this [facility]23 Telephone encounter Note 08/21/22 LEANNE 08/29/23 future appt 03/19/23 BMP 08/17/22 [facility] Evaluation note Encounter Date Diagnosis Assessment [...] and make recommendations for long-term supplementation with yfxt-srd-swgijuj formulations or prescription grade repletion. 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 Will recheck Jul, Hypoglycemia (ICD-10 - E16.2) Jul, BMI 33.0-33.9,adult (ICD-10 - Z68.33) Jul, Other weight trajectory steady, weight improving [employer] Other 12-28-2023 Miscellaneous Notes* Telephone Encounter - CAROL Saldivar - 07/11/2023 2:45 PM EST Pt called office requesting refill for estrogen cream. Refill sent to [facility] pharmacy per pt request. [facility] Telephone encounter Note* Telephone Encounter - CAROL Saldivar - 07/11/2023 2:45 PM EST Pt called office requesting refill for estrogen cream. [facility]ill sent to [facility] pharmacy per pt request. [facility] [id number] Miscellaneous Notes* Telephone Encounter - Enid Sandoval LPN - 07/09/2023 6:25 PM EST Pt called in asking for refill of Estradiol cream. [facility] Telephone encounter Note* Telephone Encounter - Enid Sandoval LPN - 07/09/2023 6:25 PM EST Pt called in asking for refill of Estradiol cream. [facility] Evaluation note* Encounter Date Diagnosis Assessment Notes Treatment Notes Treatment Clinical Notes May, Type 2 diabetes mellitus with hyperglycemia (ICD-10 - E11.65) [employer] Other 09-29-2023 Evaluation note* Encounter Date Diagnosis [...] and make recommendations for long-term supplementation with nmmc-fjr-madroxo formulations or prescription grade repletion. 4000 IU [...] Blood pressure goal today under 140/90 Mar, penitentiary current use of insulin (ICD-10 - Z79.4) Mar, Vitamin B 12 deficiency (ICD-10 - E53.8) Continue cyanocobalamin 1000 mcg daily, handwritten information provided. Will recheck Mar, Hypoglycemia (ICD-10 - E16.2) Mar, BMI 32.0-32.9,adult (ICD-10 - Z68.32) Mar, Other weight trajecto ry steady, weight improving [employer] Other 09-07-2023 Evaluation note* Encounter Date Diagnosis Assessment Notes Treatment Notes Treatment Clinical Notes Mar, Type 2 diabetes mellitus with hyperglycemia (ICD-10 - E11.65) [employer] Other 07-05-2023 Evaluation note* Encounter Date Diagnosis [...] and make recommendations for long-term supplementation with aoxi-kxt-fzdpujp formulations or prescription grade repletion. 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 Will recheck Jan, BMI 33.0-33.9,adult (ICD-10 - Z68.33) weight trajectory steady, weight improving Jan, Hypoglycemia (ICD-10 - E16.2) [employer] Other 03-13-2023 Evaluation note* Encounter Date Diagnosis [...] hyperglycemia, or diabetes medication issues. 6. Prescriptions: TARAH, Metformin and Trulicity sent 06/11/2022. Sep, Vitamin D deficiency (ICD-10 - E55.9) [employer] Vitamin D material was published to portal Vitamin D deficiency identified, prescription grade vitamin D ordered and discussed.. Vitamin D has been noted to have positive impact on mood and energy. We can recheck periodically and make recommendations for long-term supplementation with jefo-npz-myaiojx formulations or prescription grade repletion. 4000 IU [...] insulin resistance and increase cardiovascular risk factors. 13 Mar, 2023 HTN (hypertension) (ICD-10 - I10) High Blood Pressure: Care Instructions material was published to portal Blood pressure goal today under 140/90 Sep, penitentiary current use of insulin (ICD-10 - Z79.4) Sep, Vitamin B 12 deficiency (ICD-10 - E53.8) Continue cyanocobalamin 1000 mcg daily, handwritten information provided. Will recheck Sep, BMI 33.0-33.9,adult (ICD-10 - Z68.33) weight trajectory steady, weight improving [employer] Other 11-28-2022 Evaluation note* Encounter Date Diagnosis [...] hyperglycemia, or diabetes medication issues. 6. Prescriptions: TARAH, Metformin and Trulicity sent 06/11/2022. May, Vitamin D deficiency (ICD-10 - E55.9) [employer] Vitamin D material was published to portal Vitamin D deficiency identified, prescription grade vitamin D ordered and discussed.. Vitamin D has been noted to have positive impact on mood and energy. We can recheck periodically and make recommendations for long-term supplementation with enxm-xqj-lwjchbk formulations or prescription grade repletion. 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 Will recheck May, BMI 33.0-33.9,adult (ICD-10 - Z68.33) [employer] Other 10-11-2022 Evaluation note* Encounter Date Diagnosis Assessment Notes Treatment Notes Treatment Clinical Notes Apr, Type 2 diabetes mellitus with hyperglycemia (ICD-10 - E11.65) [employer] Other 08-17-2022 Evaluation note* Encounter Date Diagnosis Assessment Notes Treatment Notes Treatment Clinical Notes Feb, Type 2 diabetes mellitus with hyperglycemia (ICD-10 - E11.65) Provided sample glucometer, will send for strips, hopeful for coverage as patient's home monitor does not work. She has been in contact with [facility], changed batteries to no avail. We did [...] is 185. Recent call regarding bleeding from atrah insertion site, she is on blood thinner. [...] I have asked her to call the company to get this replaced as she has [...] Metformin, sent to [facility]/ [facility] also was goven One Touch Verio Reflect Glucometer by Cassandra [...] and make recommendations for long-term supplementation with brri-ygk-sxywygf formulations or prescription grade repletion. 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 Feb, BMI 32.0-32.9,adult (ICD-10 - Z68.32) [employer] Other 06-02-2022 Evaluation note* Encounter Date Diagnosis Assessment Notes Treatment Notes Treatment Clinical Notes Dec, Type 2 diabetes mellitus with hyperglycemia (ICD-10 - E11.65) [employer] Other 05-11-2022 Evaluation note* Encounter Date Diagnosis [...] and make recommendations for long-term supplementation with nswn-gfo-pnyyfio formulations or prescription grade repletion. 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 [employer] Other 03-18-2022 Evaluation note* Encounter Date Diagnosis Assessment Notes Treatment Notes Treatment Clinical Notes Sep, Type 2 diabetes mellitus with hyperglycemia (ICD-10 - E11.65) [employer] Other 01-12-2022 Evaluation note* Encounter Date Diagnosis Assessment Notes Treatment Notes Treatment Clinical Notes Jul, Type 2 diabetes mellitus with hyperglycemia (ICD-10 - E11.65) ASSESSMENT: 1. At Goal, a Type 2 diabetes with A1c of 7.2 2. Tarah 2 download from 13 July through 26 [...] and make recommendations for long-term supplementation with hluh-wtm-uknwqtc formulations or prescription grade repletion. 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 will increase insulin sensitivity Increased Trulicity -- promote weight loss and decreased insulin needs [employer] Other 12-21-2021 Evaluation note* Encounter Date Diagnosis Assessment Notes Treatment Notes Treatment Clinical Notes Jun, Type 2 diabetes mellitus with hyperglycemia (ICD-10 - E11.65) [employer] Other 11-30-2021 Evaluation note* Encounter Date Diagnosis Assessment Notes Treatment Notes Treatment Clinical Notes May, Type 2 diabetes mellitus with hyperglycemia (ICD-10 - E11.65) TARAH in hand from [employer]. 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 will increase insulin sensitivity [employer] Other 11-10-2021 Evaluation note* Encounter Date Diagnosis Assessment Notes Treatment Notes Treatment Clinical Notes May, Type 2 diabetes mellitus with hyperglycemia (ICD-10 - E11.65) Tarah being sent . If approved she will [...] We will see her back just before [place]. 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 will increase insulin sensitivity [employer] Other 09-27-2021 Evaluation note* Encounter Date Diagnosis [...] does not remember any blood sugars lower [id number]. 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) Mar, BMI 35.0-35.9,adult (ICD-10 - Z68.35) [employer] Other Chief complaint+Reason for visit Narrative* Chief Complaint DMN f/u-METER m19.7 Reason for Visit BMI 33.0-33.9,adult Dietary counseling and surveillance HTN (hypertension) Hyperlipidemia penitentiary current use of insulin Type 2 diabetes mellitus with hyperglycemia Vitamin B 12 deficiency Vitamin D deficiency [facility] Work Phone: evalulknsf noteNo InformationNortR[facility] [employer] Other evaluzvjht noteNort [employer] Other Evaluation noteNo assessment information available [facility] Work Phone: Evaluudcuq note* Diagnosis Onset Date Resolution Status BMI 33.0-33.9,adult acute Dietary counseling and surveillance acute HTN (hypertension) acute Hyperlipidemia acute 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 acute Type 2 diabetes mellitus with hyperglycemia acute Vitamin B 12 deficiency acut e Vitamin D deficiency acute [facility] Work Phone: Evalustack note* Diagnosis Foot pain, left- Primary Pain in soft tissues of limb documented in this encounter [facility]* Diagnosis DJD (degenerative joint disease), ankle and foot, left- Primary Posterior tibial tendinitis of left leg Diabetes mellitus due to underlying condition with diabetic polyneuropathy, with long-term current use of insulin ([facility]/HCC) Pain due to onychomycosis of toenails of both feet Foot pain, left Pain in soft tissues of limb documented in this encounter [facility]* Diagnosis DJD (degenerative joint disease), ankle and foot, left- Primary Diabetes mellitus due to underlying condition with diabetic polyneuropathy, with long-term current use of insulin (CMS/HCC) Onychomycosis Dermatophytosis of nail Toe pain, bilateral Posterior tibial tendinitis of left leg documented in this encounter [facility]* Diagnosis Recurrent urinary tract infection- Primary Urinary tract infection, site not specified documented in [facility] encounter [facility]* Diagnosis Cerebrovascular disease- Primary Unspecified cerebrovascular disease Essential hypertension Unspecified essential hypertension Coronary artery disease involving grand traverse coronary artery of grand traverse heart without angina pectoris Hx of CABG Postsurgical aortocoronary bypass status Pure hypercholesterolemia Anemia, unspecified type documented in this encounter [facility]* Diagnosis Recurrent urinary tract infection- Primary Urinary tract infection, site not specified documented in this encounter [facility]* Diagnosis Rectal bleeding- Primary Hemorrhage of rectum and anus documented in this encounter [facility]* Diagnosis Urologic disorders- Primary Unspecified disorder of urethra and urinary tract Recurrent urinary tract infection Urinary tract infection, site not specified Bilateral renal stones documented in this encounter [facility]* Diagnosis Prolonged Q-T interval on ECG- Primary Nonspecific abnormal electrocardiogram (ECG) (EKG) Pure hypercholesterolemia Coronary artery disease involving grand traverse coronary artery of grand traverse heart without angina pectoris Cerebrovascular disease Unspecified cerebrovascular disease documented in this encounter [facility]* Diagnosis Hx of CABG- Primary Postsurgical aortocoronary bypass status Personal history of DVT (deep vein thrombosis) Personal history of venous thrombosis and embolism Hx pulmonary embolism Primary hypertension Unspecified essential hypertension Dyslipidemia Other and unspecified hyperlipidemia History of CVA in adulthood documented in this encounter [facility]* Diagnosis DJD (degenerative joint disease), ankle and foot, left documented in this encounter [facility]* Diagnosis Rectal bleeding- Primary Hemorrhage of rectum and anus documented in this encounter [facility]* Diagnosis DJD (degenerative joint disease), ankle and foot, left- Primary Diabetes mellitus due to underlying condition with diabetic polyneuropathy, with long-term current use of insulin ([facility]) Pain due to onychomycosis of toenails of both feet documented in this encounter [facility] Healthcare[facility] note* Diagnosis Onset Date Resolution Status Admit Date BMI 33.0-33.9,adult acute October 19, 2024 8:22am Dietary counseling and surveillance acute October 19, 2024 8:22am HTN (hypertension) acute October 19, 2024 8:22am Hyperlipidemia acute October 19, 2024 8:22am 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 acu te October 19, 2024 8:22am Type 2 diabetes mellitus wit h hyperglycemia acute October 19, 2024 8:22am Vitamin B 12 deficiency acute A pril 2024 8:22am Vitamin D deficiency acute A[facility] 2024 8:22am [facility] Work Phone: Hisfccb general Narrative - Reported* Type Description Date [...] Surgical History Hemorrhoidectomy Hospitalization History See Above [employer] Other Hisgjjj general Narrative - Reported* Type Description Date [...] [facility] 20 20 Hospitalization History See Above [employer] Other Hismyxd general Narrative - [facility] [employer] Other Hiszdoj general Narrative - Reported* Type Description Date [...] Surgical History Hemorrhoidectomy Surgical History Colonoscopy Dr [facility]/[place] 20 20 Surgical History kidney stone-[facility] [place] 08/2022 Hospitalization History See Above [employer] Other History general Narrative - Reported* Type [...] Surgical History Hemorrhoidectomy Surgical History Colonoscopy Dr Stevens/[place] 20 20 Surgical History kidney stone-[facility] [place] 08/2022 Hospitalization History See Above Hospitalization History [facility] [place] dder infection 01-12-2023 [employer] Other InstructionsNot on filedocumented in this encounter [...] on filedocumented in this encounter [facility] Summary Purpose Family History No Family [...] Unknown Advance Directives No Advanced Directives Records Found Advance Directive Response Recorded Date/ Time Advance Directives No March 8:01am Advance Directive Response Recorded Date/ Time Advance Directives No March 9:01am Date Activated Date Inactivated Comments 08/01/2020 9:22 AM 08/03/2020 4:22 PM Date Activated Date Inactivated Comments 08/01/2020 9:15 AM 08/01/2020 9:22 AM Latest Code Status on File Code Status Date Activated Date Inactivated Comments DNR Comfort Care Arrest (DNR-CCA) [place] 08/01/2020 9:22 AM 08/03/2020 4:22 PM Code Status History Code Status Date Activated Date Inactivated Comments Full Code 08/01/2020 9:15 AM 08/01/2020 9:22 AM Date Activated Date Inactivated Comments 08/01/2020 9:22 AM 08/03/2020 4:22 PM Date Activated Date Inactivated Comments 08/01/2020 9:15 AM 08/01/2020 9:22 AM Date Activated Date Inactivated Comments 08/28/2024 12:35 PM Date Activated Date Inactivated Comments 08/01/2020 9:22 AM 08/03/2020 4:22 PM Date Activated Date Inactivated Comments 08/01/2020 9:15 AM 08/01/2020 9:22 AM Date Activated Date Inactivated Comments 08/28/2024 12:35 PM 08/29/2024 4:24 PM Date Activated Date Inactivated Comments 08/01/2020 9:22 AM 08/03/2020 4:22 PM Date Activated Date Inactivated Comments 08/01/2020 9:15 AM 08/01/2020 9:22 AM Date Activated Date Inactivated Comments 08/28/2024 12:35 PM 08/29/2024 4:24 PM Date Activated Date Inactivated Comments 10/07/2024 4:16 PM 10/10/2024 2:38 PM Date Activated Date Inactivated Comments 08/28/2024 12:35 PM 08/29/2024 4:24 PM Date Activated Date Inactivated Comments 08/01/2020 9:22 AM 08/03/2020 4:22 PM Date Activated Date Inactivated Comments 08/01/2020 9:15 AM 08/01/2020 9:22 AM Chief Complaint and Reason for Visit Chief Complaint Dm DM Chief Complaint Admit Date Hospital Discharge / meter October 19 8:22am Reason for Visit Admit Date BMI 33.0-33.9,adult October 19, 2024 8:22 am Dietary counseling and surveillance A[facility] 2024 8:22am HTN (hypertension) October 19, 2024 8:22 am Hyperlipidemia October 19, 2024 8:22 am 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 October 192024 8:22am Type 2 diabetes mellitus with hyperglyce christa October 19, 2024 8:22am Vitamin B 12 deficiency October 19, 2024 8:22am Vitamin D deficiency October 19, 2024 8:2 2am Additional Source Comments REASON FOR VISIT (unrecogniz ed section and content) Reason Onset Date Comments Med Request 05/20/2024 Reason Comments DM Foot Care Dm Nails Reason Comments DM Foot Care Dm nails Reason Comments Follow-up EST PT EXCESSIVE BRU ISING ON XARELTO Bleeding/Bruising Reason Comments Med Refill Reason Onset Date Comments Med Refill 07/11/2023 Reason Onset Date Comments Rectal Bleeding 08/24/2024 Reason Onset Date Comments Med Refill 08/12/2023 Reason Comments Follow-up annual visit Reason Comments Follow-up EST PT 1 YR FU L/S M SCHED W/PT Reason Onset Date Comments Hypotension 04/13/2024 Reason Comments Follow-up EARLY BP ISSUES Coronary Artery Disease Hyperlipidemia Hypertension Dizziness Reason Comments Black or Bloody Stool Rectal bleeding, r eferred by Yamilet Morgan,DIRECTOR OF CASINO Reason Comments DM Foot Care Dm nail care INFORMATION SOURCE (unrecogn ized section and content) DATE CREATED AUTHOR 09/19/2022 [facility] DATE CREATED AUTHOR AUTHOR'S ORGANIZ ATION 09/02/2023 [facility] DATE CREATED AUTHOR AUTHOR'S ORGANIZ ATION 09/18/2024 [facility] DATE CREATED AUTHOR AUTHOR'S ORGANIZ ATION 09/26/2024 [facility] EPIC DATE CREATED AUTHOR AUTHOR'S ORGANIZ ATION 10/25/2024 [facility] Care Teams (unrecognized sec tion and content) Team Status: Active Member Role Status Dates NON STAFF Primary Care Provider Active Team Status: Inactive Member Role Status Dates NON STAFF Primary Care Provider Active Start: October 19, 2024 End: October 19, 2024 Giovanna Morrow APRN Attending Provider Active Start: October 19, 2024 End: October 19, 2024 Team Status: Active Member Role Status Dates [...] January 08, 2024 End: January 08, 2024 Team Status: Inactive Member Role Status Dates [...] August 12, 2023 End: August 12, 2023 Fraternity Adviser Relationship Specialty Start Date End Date Unallocated, Noms Provider, MD [address] [place] [address] PCP - General Family Medicine 03/12/24 Fraternity Adviser Relationship Specialty Start Date End Date Unallocated, Marlnee Bejarano MD [address] [place] [address] PCP - General Family Medicine 03/12/24 Fraternity Adviser Relationship Specialty Start Date End Date Unallocated, Marlene Bejarano MD [address] [place] [address] PCP - General Family Medicine 03/12/24 Fraternity Adviser Relationship Specialty Start Date End Date Unallocated, Marlene Bejarano MD [address] [place] [place] [address] PCP - General Family Medicine 03/12/24 Fraternity Adviser Relationship Specialty Start Date End Date Unallocated, Marlene Bejarano MD [address] [place] [address] PCP - General Family Medicine 03/12/24 Fraternity Adviser Relationship Specialty Start Date End Date Yamilet Morgan APRN-CNP [address] [place] [phone] PCP - General Nurse Practitioner 04/09/24 Fraternity Adviser Relationship Specialty Start Date End Date Yamilet Morgan APRN-CNP [address] [facility] [place] [id number] PCP - General Nurse Practitioner 04/09/24 Fraternity Adviser Relationship Specialty Start Date End Date Yamilet Morgan APRN-CNP [address] [place] [address] PCP - General Nurse Practitioner 04/09/24 Fraternity Adviser Relationship Specialty Start Date End Date Yamilet Morgan [facility] [address] [place] [address] PCP - General Nurse Practitioner 04/09/24 Fraternity Adviser Relationship Specialty Start Date End Date Yamilet Morgan [facility] [address] [place] [address] PCP - General Nurse Practitioner 04/09/24 Fraternity Adviser Relationship Specialty Start Date End Date Scotty Beavers MD [address] [place] [address] PCP - General 04/05/17 Fraternity Adviser Relationship Specialty Start Date End Date Scotty Beavers MD [address] [facility] [place] [address] PCP - General 04/05/17 Fraternity Adviser Relationship Specialty Start Date End Date Yamilet Morgan [facility] [address] [place] [address] PCP - General Nurse Practitioner 08/24/24 Fraternity Adviser Relationship Specialty Start Date End Date Yamilet Morgan [facility] [address] [place] [address] PCP - General Nurse Practitioner 08/24/24 Fraternity Adviser Relationship Specialty Start Date End Date Yamilet Morgan [facility] [address] [place] [address] PCP - General Nurse Practitioner 08/24/24 Fraternity Adviser Relationship Specialty Start Date End Date Yamilet Morgan APRN-DIRECTOR OF CASINO [address] [place] [phone] PCP - General Nurse Practitioner 08/24/24 Fraternity Adviser Relationship Specialty Start Date End Date Scotty Beavers MD [address] [place] [address] PCP - General 04/05/17 Fraternity Adviser Relationship Specialty Start Date End Date Scotty Beavers MD [address] [place] [address] PCP - General 04/05/17 Fraternity Adviser Relationship Specialty Start Date End Date Scotty Beavers MD [address] [address] PCP - General 04/05/17 Fraternity Adviser Relationship Specialty Start Date End Date Scotty Beavers MD [address] [place] [address] PCP - General 04/05/17 Fraternity Adviser Relationship Specialty Start Date End Date Scotty Beavers MD [address] [place] [address] PCP - General 04/05/17 Fraternity Adviser Relationship Specialty Start Date End Date Yamilet Morgan FINANCIAL PROCESSING CLERK-DIRECTOR OF [employer] [address] [place] [address] PCP - General Nurse Practitioner 04/09/24 Fraternity Adviser Relationship Specialty Start Date End Date Yamilet Morgan FINANCIAL PROCESSING CLERK-DIRECTOR OF [employer] [address] [place] [address] PCP - General Nurse Practitioner 03/23/24 Fraternity Adviser Relationship Specialty Start Date End Date [facility] [address] [place] [address] PCP - General Nurse Practitioner 04/09/24 Fraternity Adviser Relationship Specialty Start Date End Date Yamilet Morgan [facility] [address] [facility] [place] [address] PCP - General Nurse Practitioner 04/09/24 Fraternity Adviser Relationship Specialty Start Date End Date Yamilet Morgan [facility] [address] [facility] [place] [address] PCP - General Nurse Practitioner 04/09/24 Fraternity Adviser Relationship Specialty Start Date End Date Unallocated, Marlene Bejarano MD [address] [place] [id number] PCP - General Family Medicine 03/12/24 Fraternity Adviser Relationship Specialty Start Date End Date Keven Nails PA-C [address] [place] [phone] PCP - General Physician Sales Agent Business Services 09/16/24 Fraternity Adviser Relationship Specialty Start Date End Date Unallocated, Marlene Bejarano MD [address] [place] [id number] PCP - General Family Medicine 03/12/24 Fraternity Adviser Relationship Specialty Start Date End Date Keven Nails PA-C [address] [place] [phone] PCP - General Physician Sales Agent Business Services 09/16/24 Fraternity Adviser Relationship Specialty Start Date End Date Keven Nails PA-C [address] [place] [address] PCP - General Physician Sales Agent Business Services 09/16/24 Fraternity Adviser Relationship Specialty Start Date End Date Keven Nails PA-C [address] [place] [address] PCP - General Physician Sales Agent Business Services 09/16/24 Goals (unrecognized section and content) Goals may [...] BE BASED ON THE PRIMARY CLINICAL RECORDS. [employer] [facility]. provides no warranty or guarantee of the accuracy or completeness of information in this document.
== END 2024-10-28 08:02 | disposition home or self-care (01) ==
LOC: MAMMO 08:01
PROVIDERS: PCP Nurse Practitioner Family; Visit Provider Nurse Practitioner Family
DX: Z12.31 Encounter for screening mammogram for malignant neoplasm of breast (principal); Z80.8 Family history of malignant neoplasm of other organs or systems
CPT/HCPCS: 77063; 77067